=== PATIENT | female | born 1935 | race African-American/Black ===

== ENCOUNTER 2016-10-13 17:03 | Emergency (ER) | payer MEDICARE, MEDICAID ==
[2016-10-13] MEDS ORDERED: NORMAL SALINE 500 ML IV ONE (17:27)
--- NOTE | 2016-10-13 17:27 | ER Document Report ---
ED General - General Chief Complaint: Syncope Stated Complaint: SYNCOPAL EPISODE Mode of Arrival: Stretcher Information source: Emergency Med Personnel TRAVEL OUTSIDE OF THE [place] IN LAST 30 DAYS: No - HPI Notes: 81-year-old female presents from the residential after questionable syncopal episode. Coming back from the cafeteria, apparently she became unresponsive. No seizure activity was noted. After a short period of time to resume to her normal baseline. No clear focal neurologic symptoms were noted. They have noted no recent fever. Patient can give no other history secondary to her history of dementia and schizophrenia. - Related Data Allergies/Adverse Reactions: No Known Allergies Allergy (Verified 10/13/16 17:31) Home Medications: Current Home Medications Docusate Sodium [Dok] 100 mg PO DAILY 10/13/16 [History] Ferrous Sulfate 325 mg PO DAILY 10/13/16 [History] Haloperidol [Haldol 1 mg Tablet] 1 mg PO BID 10/13/16 [History] Multivits-Min/Iron/FA/Lutein [Centrum Silver Women Tablet] 1 each PO DAILY 10/13 [History] Past Medical History - Social History Smoking Status: Unknown if Ever Smoked [facility] with: [facility] Family History: Reviewed & Not Pertinent - Past Medical History Cardiac Medical History: Reports: Hx Coronary Artery Disease, Hx Hypercholesterolemia, Hx Hypertension Endocrine Medical History: Reports: Hx Diabetes Mellitus Type 2 Musculoskeltal Medical History: Reports Hx Arthritis, Reports Hx Musculoskeletal Deformity, Reports Hx Musculoskeletal Trauma Psychiatric Medical History: Reports: Hx Anxiety, Hx Depression, Hx Schizoaffective Disorder, Hx Schizophrenia - Immunizations Immunizations up to date: Yes Hx Diphtheria, Pertussis, Tetanus Vaccination: Yes Hx Pneumococcal Vaccination: 06/14/12 Review of Systems - Review of Systems -: Yes ROS unobtainable due to patient's medical condition Physical Exam - Vital signs Vitals: Temp Pulse Resp BP Pulse Ox 98.7 F 100 20 150/91 H 99 10/13/16 17:25 10/13/16 17:25 10/13/16 17:25 10/13/16 17:25 10/13/16 17:25 Interpretation: Hypotensive - Notes Notes: GENERAL: VS as per nursing doc. thin female with some contractures and in no acute distress. HEAD: Atraumatic, normocephalic. EYES: Extraocular movements intact, sclera anicteric, no conjunctival injection or discharge. ENT: Nares patent, oropharynx clear without exudates, somewhat dry mucous membranes. NECK: Supple without lymphadenopathy. LUNGS: Coarse with bibasilar crackles HEART: Regular rate and rhythm without murmurs. Extrasystoles noted ABDOMEN: Soft, non-tender. BACK: No CVA tenderness. EXTREMITIES: Contractures noted, there is a dressing over her right bunion which shows erythema surrounding NEUROLOGICAL: Moves all extremities but will not follow commands significantly. No gross focal deficits PSYCH: Oriented 1 SKIN: Warm, dry, poor skin turgor Course - Re-evaluation Re-evalutation: 10/13/16 19:18 Discussed findings with the family. She has chronic anemia. She has a urinary tract infection based on the UA but a culture will be performed. She is acting at baseline per family. We will treat her with a round of antibiotics here and then completion at the residential. - Vital Signs Vital signs: Temp Pulse Resp BP Pulse Ox 98.7 F 100 16 150/91 H 99 10/13/16 17:25 10/13/16 17:25 10/13/16 18:16 10/13/16 17:25 10/13/16 17:25 - Laboratory Result Diagrams: 10/13/16 17:15 10/13/16 17:15 Laboratory results interpreted by me: 10/13/16 10/13/16 10/13/16 17:15 17:15 17:15 RBC 3.37 L Hgb 9.0 L Hct 27.4 L MCH 26.8 L RDW 15.8 H VBG HCO3 32.4 H Glucose 123 H Total Protein 8.5 H Albumin 3.4 L Urine Protein Urine Blood Ur Leukocyte Esterase Urine Ascorbic Acid 10/13/16 18:11 RBC Hgb Hct MCH RDW VBG HCO3 Glucose Total Protein Albumin Urine Protein 30 H Urine Blood SMALL H Ur Leukocyte Esterase LARGE H Urine Ascorbic Acid 20 H - Diagnostic Test Radiology reviewed: Image reviewed, Reports reviewed - No acute process - EKG Interpretation by Me EKG shows normal: Sinus rhythm - Normal sinus rhythm, 97. No obvious ischemia, some nonspecific ST abnormalities, significant artifact noted Discharge - Discharge Clinical Impression: Syncope UTI (urinary tract infection) Qualifiers: Urinary tract infection type: acute cystitis Hematuria presence: without hematuria Qualified Code(s): N30.00 - Acute cystitis without hematuria Condition: Good Disposition: HOME, SELF-CARE Instructions: Urinary Tract Infection ([facility]) Prescriptions: Nitrofurantoin/Nitrofuran Mac [Macrobid 100 mg Capsule] 1 tab PO BID #14 capsule Referrals: KEISHA COFFEY MD [Primary Care Provider] - Follow up in 1 week
[2016-10-13 17:37] LABS: ABSOLUTE EOSINOPHILS # (AUTO) 0.2 10^3/uL (0.0-0.6); ABSOLUTE LYMPHOCYTES (AUTO) 0.7 10^3/uL (0.5-4.7); ABSOLUTE MONOCYTES (AUTO) 0.4 10^3/uL (0.1-1.4); ABSOLUTE NEUT (AUTO) 2.9 10^3/uL (1.7-8.2); BASOPHILS % (AUTO) 0.9 % (0-2); EOSINOPHILS % (AUTO) 3.6 % (0-6); HEMATOCRIT 27.4 % (36.0-47.0); HGB HCT DIFFERENCE -0.4; LYMPHOCYTES % (AUTO) 17.4 % (13-45); MEAN CORPUSCULAR HEMOGLOBIN 26.8 pg (27.0-33.4); MEAN CORPUSCULAR HGB CONC 32.8 g/dL (32.0-36.0); MEAN CORPUSCULAR VOLUME 82 fl (80-97); RED BLOOD COUNT 3.37 10^6/uL (3.72-5.28); RED CELL DISTRIBUTION WIDTH 15.8 % (11.5-14.0); SEGMENTED NEUTROPHILS % (AUTO) 69.1 % (42-78); WHITE BLOOD COUNT 4.1 10^3/uL (4.0-10.5)
[2016-10-13 17:48] LABS: VENOUS BLOOD HCO3 32.4 mmol/L (20-32); VENOUS BLOOD PCO2 53.8 mmHg (35-63); VENOUS BLOOD PH 7.4 (7.30-7.42)
[2016-10-13 17:57] LABS: ALANINE AMINOTRANSFERASE 26 U/L (9-52); ALBUMIN 3.4 g/dL (3.5-5.0); ALKALINE PHOSPHATASE 115 U/L (38-126); ANION GAP 13 (5-19); ASPARTATE AMINO TRANSFERASE 21 U/L (14-36); BILIRUBIN,DIRECT 0.4 mg/dL (0.0-0.4); BILIRUBIN,TOTAL 0.4 mg/dL (0.2-1.3); BLOOD UREA NITROGEN 19 mg/dL (7-20); CALCIUM 8.9 mg/dL (8.4-10.2); CARBON DIOXIDE 23 mmol/L (22-30); CHLORIDE 103 mmol/L (98-107); CREATINE KINASE 43 U/L (30-135); CREATININE RESULT 0.69 mg/dL (0.52-1.25); GLUCOSE 123 mg/dL (75-110); POTASSIUM 4.6 mmol/L (3.6-5.0); TOTAL PROTEIN 8.5 g/dL (6.3-8.2)
--- NOTE | 2016-10-13 18:04 | RADIOLOGY REPORT (SQ) ---
EXAM DESCRIPTION: CHEST SINGLE VIEW COMPLETED DATE/TIME: 10/13/2016 5:44 pm REASON FOR STUDY: AMS COMPARISON: 07/13/2015 NUMBER OF VIEWS: Portable AP view. 2 films TECHNIQUE: Single frontal radiographic view of the chest acquired. LIMITATIONS: Difficulty positioning. Semi upright portable FINDINGS: LUNGS AND PLEURA: No opacities, masses or pneumothorax. No pleural effusion. MEDIASTINUM AND HILAR STRUCTURES: No masses. Contour normal. HEART AND VASCULAR STRUCTURES: Heart normal in size. Normal vasculature. BONES: No acute findings. HARDWARE: None in the chest. OTHER: No other significant finding. IMPRESSION: NO SIGNIFICANT RADIOGRAPHIC FINDING IN THE CHEST. TECHNICAL DOCUMENTATION: JOB ID: [id number] [employer]- All Rights Reserved
[2016-10-13 18:09] LABS: CREATINE KINASE MB 1.38 ng/mL (<4.55)
[2016-10-13 18:12] LABS: TROPONIN I < 0.012 ng/mL
[2016-10-13 18:27] LABS: APPEARANCE,URINE CLOUDY; BILIRUBIN,URINE NEGATIVE (NEGATIVE); GLUCOSE, URINE NEGATIVE (NEGATIVE); KETONES,URINE NEGATIVE (NEGATIVE); LEUKOCYTE ESTERASE,URINE LARGE (NEGATIVE); NITRITE,URINE NEGATIVE (NEGATIVE); PROTEIN,URINE 30 mg/dL (NEGATIVE); URINE SPECIFIC GRAVITY 1.015; UROBILINOGEN,URINE NEGATIVE mg/dL (<2.0)
[2016-10-13] MEDS ORDERED: CEFTRIAXONE 1 GM/D5W RTU 50 ML IV ONE (19:18)
[2016-10-14 03:46] VITALS: BP 124/70
--- NOTE | 2016-10-14 06:03 | EKG REPORT ---
SEVERITY:- NORMAL ECG - SINUS RHYTHM : Confirmed by: Karine Valenzuela MD 14-Oct-2016 06:02:37
== END 2016-10-14 03:30 | disposition home or self-care (01) ==
LOC: ER 17:03
DX: R55 Syncope and collapse (principal); N30.00 Acute cystitis without hematuria; F03.90 Unspecified dementia, unspecified severity, without behavioral disturbance, psychotic disturbance, mood disturbance, and anxiety; F20.9 Schizophrenia, unspecified; I25.10 Atherosclerotic heart disease of native coronary artery without angina pectoris; I10 Essential (primary) hypertension; E11.9 Type 2 diabetes mellitus without complications; I49.49 Other premature depolarization; M21.611 Bunion of right foot; L53.9 Erythematous condition, unspecified; D64.9 Anemia, unspecified
CPT/HCPCS: 93005; 99285; 96361; 51701; 96365; 36415; 87086; 82553; 82550; 85025; 80053; 81001; 84484; 82803; 83605; 71010; 93010; J7040; J0696

== ENCOUNTER → 2016-10-24 | Outpatient (CLI) | payer MEDICARE, MEDICAID ==
--- NOTE | 2016-10-24 11:07 | RADIOLOGY REPORT (SQ) ---
EXAM DESCRIPTION: FOOT RIGHT COMPLETE COMPLETED DATE/TIME: 10/24/2016 10:35 am REASON FOR STUDY: NON-PRESSURE CHRONIC ULCER OF RIGHT CALF W FAT LAYER EXPOSED (L97.212) L97.212 NO N-PRESSURE CHRONIC ULCER OF RIGHT CALF W FAT LAYER COMPARISON: None. NUMBER OF VIEWS: Three views. TECHNIQUE: AP, lateral and oblique radiographic images acquired of the right foot. LIMITATIONS: None. FINDINGS: MINERALIZATION: Osteopenia. BONES: No acute fracture or dislocation. Hallux valgus with a prominent bunion. The medial cortex o f the head of the 1st metatarsal may be missing. JOINTS: No effusions. SOFT TISSUES: No soft tissue swelling. No foreign body. OTHER: No other significant finding. IMPRESSION: Hallux valgus with a prominent bunion. Osteomyelitis cannot be ruled out. Consider MRI for further evaluation. TECHNICAL DOCUMENTATION: JOB ID: [id number] [employer]- All Rights Reserved
== END ==
LOC: RAD 09:54
PROVIDERS: ATTEND Nurse Practitioner Family
DX: L97.212 Non-pressure chronic ulcer of right calf with fat layer exposed (principal); M20.11 Hallux valgus (acquired), right foot; M21.611 Bunion of right foot

== ENCOUNTER 2016-12-06 11:53 | Day surgery (SDC) | payer MEDICARE, MEDICAID ==
[~2016-12-06 11:53] MED LIST: DEXTROSE 5%-1/2 NORMAL SALINE 1,000 ML IV PRN; KETOROLAC TROMETHAMINE 60 MG/2 ML SDV ONE; LIDOCAINE 2% INJ-PF (20 MG/ML) 10 ML AMPUL ONE
[2016-12-06] MEDS ORDERED: BUPIVACAINE HCL 0.25 % INJ/PF (2.5 MG/1 ML) 30 ML VIAL ONE (13:22)
[2016-12-06] MEDS ORDERED: LIDOCAINE 0.5% INJ-PF (5 MG/ML) 50 ML SDV ONE (13:22)
[2016-12-06] MEDS ORDERED: BACITRACIN INJ 50,000 UNIT VIAL ONE (13:23)
[2016-12-06] MEDS ORDERED: MIDAZOLAM 2 MG/2 ML INJ ONE (13:24)
[2016-12-06] MEDS ORDERED: FENTANYL CITRATE INJ/PF 100 MCG/2 ML AMPUL ONE (13:24)
[2016-12-06] MEDS ORDERED: PROPOFOL INJ 200 MG/20 ML VIAL IV ONE (13:24)
[2016-12-06 13:39] LABS: ANION GAP 8 (5-19); BLOOD UREA NITROGEN 16 mg/dL (7-20); CARBON DIOXIDE 28 mmol/L (22-30); CHLORIDE 104 mmol/L (98-107); CREATININE RESULT 0.52 mg/dL (0.52-1.25); GLUCOSE 98 mg/dL (75-110); HEMATOCRIT 28.4 % (36.0-47.0); HEMOGLOBIN 9.3 g/dL (12.0-15.5); HGB HCT DIFFERENCE -0.5; MEAN CORPUSCULAR HEMOGLOBIN 26.5 pg (27.0-33.4); MEAN CORPUSCULAR HGB CONC 32.8 g/dL (32.0-36.0); MEAN CORPUSCULAR VOLUME 81 fl (80-97); POTASSIUM 4.1 mmol/L (3.6-5.0); RED BLOOD COUNT 3.51 10^6/uL (3.72-5.28); SODIUM 139.6 mmol/L (137-145)
[2016-12-06] MEDS ORDERED: FENTANYL CITRATE INJ/PF 100 MCG/2 ML AMPUL IV PRN ×3 (14:00)
[2016-12-06] MEDS ORDERED: MORPHINE SULFATE 10 MG/ML INJ IV PRN (14:00)
[2016-12-06] MEDS ORDERED: PROMETHAZINE HCL INJ 25 MG/1 ML VIAL IV PRN ×2 (14:00)
[2016-12-06] MEDS ORDERED: OXYCODONE-ACETAMINOPHEN 5-325 MG TABLET PO PRN ×2 (14:00)
[2016-12-06] MEDS ORDERED: DIPHENHYDRAMINE HCL 50 MG/ML VIAL IV PRN (14:00)
[2016-12-06] MEDS ORDERED: MEPERIDINE HCL/PF INJ 25 MG/1 ML DISP.SYRIN IV PRN (14:00)
--- NOTE | 2016-12-06 14:19 | PDOC DISCHARGE SUMMARY ---
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 2. Dementia. 3. Diabetes mellitus type 2. 4. Hypertension. Date of Surgery: 12/06/16 Discharge Date: 12/06/16 Condition: Poor Treatment or Instructions: Discharge home [after recovery per ASU criteria]. Diet , ADA,as tolerated, when fully awake advance as tolerated. Activities within moderation encouraged. Follow up in wound clinic by appointment on Monday of this week. Call for appointment. Leave wounds [covered], [keep clean and dry, until wound care visit. Hold of on school/work [until evaluation in office]. May shower [in 48 hrs], [try to keep operated area as dry as possible]. Referrals: KEISHA COFFEY MD [Primary Care Provider] - Discharge Diet: Other (Comments) - ADA Respiratory Treatments at Home: Deep Breathing/Coughing Discharge Activity: Activity As Tolerated Report the Following to Your Physician Immediately: Shortness of Breath, Unusual Bleeding
--- NOTE | 2016-12-06 14:24 | Operative Report ---
Operative Report DATE OF SURGERY: 12/06/16 PREOPERATIVE DIAGNOSIS: #1 osteomyelitis first metatarsal joint right foot. Diabetic foot ulcers. 2. Dementia. 3. Diabetes mellitus type 2. 4. Hypertension. 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 Diabetic foot ulcers. 2. Dementia. 3. Diabetes mellitus type 2. 4. Hypertension. OPERATION: Debridement of diabetic foot ulcers right foot removal of necrotic bone. Surgical, sharp, excisional. SURGEON: ELTON VU NETWORK DIRECTOR: None ANESTHESIA: LMAC TISSUE REMOVED OR ALTERED: Necrotic tendon and bone of the first MP joint including cartilage. Necrotic tendon over the lateral malleolus. COMPLICATIONS: None ESTIMATED BLOOD LOSS: 5 mL. INTRAOPERATIVE FINDINGS: Very soft necrotic bone and cartilage at the first metatarsal joint. Removed back to healthy tissue. Necrotic tendon over the lateral malleolus. Removed. Satisfactory remaining apparent vascularity. Good control of bleeding using Surgicel and bone wax. PROCEDURE: PROCEDURE: The procedure was embarked on with the objective of removing necrotic and nonhealing tissues including bone and the first metatarsal joints. In this elderly patient who is not a candidate for aggressive therapy including HBO and long-term antibiotic, it is hoped that the breathing of the necrotic materials will allow for granulation and eventual healing of the wound. The alternatives including amputation were discussed with her family previously. The [right foot]was prepared with [Betadine] and draped out with sterile linen. After the"universal time-out",, the procedure commenced. The patient was appropriately anesthetized. The medial metatarsal wound and bone was debrided of non viable tissue using[ Rongeurs] with removal of loose debris, as well. The wound was irrigated with [ Peroxide] . The lateral malleolus wound was not debrided using rongeurs. The tissue, from both debridements, were sent for pathology..The wounds were now irrigated with saline and [Surgicel] placed within it, then bone wax, molded into the resulting cavities, dressed with [Kerlix] and the procedure concluded.
--- NOTE | 2016-12-06 14:42 | PDOC DISCHARGE SUMMARY ---
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 2. Dementia. 3. Diabetes mellitus type 2. 4. Hypertension. Date of Surgery: 12/06/16 Condition: Poor Treatment or Instructions: Discharge home [after recovery per ASU criteria]. Diet , ADA,as tolerated, when fully awake advance as tolerated. Activities within moderation encouraged. Follow up in wound clinic by appointment on Monday of this week. Call for appointment. Leave wounds [covered], [keep clean and dry, until wound care visit. Hold of on school/work [until evaluation in office]. May shower [in 48 hrs], [try to keep operated area as dry as possible]. Referrals: KEISHA COFFEY MD [Primary Care Provider] - Respiratory Treatments at Home: Deep Breathing/Coughing Discharge Activity: Activity As Tolerated Report the Following to Your Physician Immediately: Shortness of Breath, Unusual Bleeding
[2016-12-06 17:41] VITALS: BP 140/81
--- NOTE | 2016-12-06 20:12 | EKG REPORT ---
SEVERITY:- ABNORMAL ECG - SINUS TACHYCARDIA : Confirmed by: Annie Reddy 06-Dec-2016 20:11:19
--- NOTE | 2016-12-22 17:12 | OPERATIVE REPORT E ---
Operative Report NAME: SURINDER NORTON : 1935 AGE: 81Y DATE OF SURGERY: 12/06/2016 ROOM: ADDENDUM: INTRAOPERATIVE FINDINGS: ' The necrotic wound at the first metatarsal measures 2 x 2-cm x 1-cm deep. After debridement, it was 2 cm deep. DICTATING PHYSICIAN: ELTON BUENO M.D. [id number] PHY#: [id number] ID: [id number] JOB#: [id number] ACCT: [id number] cc:ELTON BUENO M.D. >
== END 2016-12-06 16:10 ==
LOC: OROUT 11:53
PROVIDERS: ATTEND Surgery
PROC: 0QBN0ZZ Excision of Right Metatarsal, Open Approach (ICD-10-PCS; principal; 2016-12-06 14:00)
DX: E11.621 Type 2 diabetes mellitus with foot ulcer (principal); F03.90 Unspecified dementia, unspecified severity, without behavioral disturbance, psychotic disturbance, mood disturbance, and anxiety; E11.9 Type 2 diabetes mellitus without complications; I10 Essential (primary) hypertension; M19.90 Unspecified osteoarthritis, unspecified site; Z86.73 Personal history of transient ischemic attack (TIA), and cerebral infarction without residual deficits; Z79.899 Other long term (current) drug therapy; K21.9 Gastro-esophageal reflux disease without esophagitis
CPT/HCPCS: 36415; 85027; 80048; 88305 ×2; 88311; 93005; 93010; 11044; J2250; J3490 ×3; J1885; J3010; J2704; 1480

== ENCOUNTER 2016-12-31 10:06 | Emergency (ER) | payer MEDICARE, MEDICAID ==
--- NOTE | 2016-12-31 11:02 | RADIOLOGY REPORT (SQ) ---
EXAM DESCRIPTION: KUB/ABDOMEN (SINGLE VIEW) COMPLETED DATE/TIME: 12/31/2016 10:44 am REASON FOR STUDY: constipation? COMPARISON: None. NUMBER OF VIEWS: One view. TECHNIQUE: Supine radiographic image of the abdomen acquired. LIMITATIONS: None. FINDINGS: BOWEL GAS PATTERN: Normal bowel gas pattern. No dilated loops. CONSTIPATION: marked with the stool distending the rectal vault. CALCIFICATIONS: No suspicious calcifications. SOFT TISSUES: No gross mass or suggestion of organomegaly. HARDWARE: None in the abdomen. BONES: No acute fracture. No worrisome bone lesions. OTHER: No other significant finding. IMPRESSION: NO RADIOGRAPHIC EVIDENCE FOR ACUTE ABDOMINAL DISEASE. Marked constipation. TECHNICAL DOCUMENTATION: JOB ID: [id number] [employer]- All Rights Reserved
[2016-12-31] MEDS ORDERED: LIDOCAINE 2% URO-JET 5 ML KIT MM ONE (11:35)
--- NOTE | 2016-12-31 12:12 | ER Document Report ---
ED General - General Chief Complaint: Weakness Stated Complaint: WEAKNESS Time Seen by Provider: 12/31/16 10:12 TRAVEL OUTSIDE OF THE [place] IN LAST 30 DAYS: No - HPI Patient complains to provider of: Constipation Notes: Patient is brought in today from local senior care facility via EMS at the request of patient's love one. EMS states the patient's blood 1 1 the patient to be brought by EMS to the hospital for evaluation. Upon entering the room patient was to be in no acute distress has a history of significant dementia. Patient's Levaquin pressure self as a power of prosecuting attorney states that the patient is constipated and will like for her to be evaluated for constipation. [facility] notes indicate that the patient has had multiple bowel movements for the last few days. I asked the caregiver why she thought the patient was constipated to which she replied "I just know" as the caregiver the patient was baseline to which she said no I further asked the patient's caregiver to the effect of how the patient is different from any other day to which the caregiver state "I do not know your doctor you figure it out.," Caregiver is not a great historian for the patient's care most of the previous medical history is obtained from previous visits and senior care notes. Patient is otherwise nonverbal at this time again no obvious distress - Related Data Allergies/Adverse Reactions: No Known Allergies Allergy (Verified 10/13/16 17:31) Past Medical History - Social History Smoking Status: Unknown if Ever Smoked Frequency of alcohol use: None Drug Abuse: None Family History: Reviewed & Not Pertinent - Past Medical History Cardiac Medical History: Reports: Hx Coronary Artery Disease, Hx Hypercholesterolemia, Hx Hypertension Denies: Hx Heart Attack Pulmonary Medical History: Denies: Hx Asthma, Hx Bronchitis, Hx COPD, Hx Pneumonia Neurological Medical History: Denies: Hx Cerebrovascular Accident, Hx Seizures Endocrine Medical History: Reports: Hx Diabetes Mellitus Type 2 Musculoskeltal Medical History: Reports Hx Arthritis, Reports Hx Musculoskeletal Deformity, Reports Hx Musculoskeletal Trauma Psychiatric Medical History: Reports: Hx Anxiety, Hx Depression, Hx Schizoaffective Disorder, Hx Schizophrenia - Immunizations Immunizations up to date: Yes Hx Diphtheria, Pertussis, Tetanus Vaccination: Yes Hx Pneumococcal Vaccination: 06/14/12 Review of Systems - Review of Systems -: Yes ROS unobtainable due to patient's medical condition - Dementia Physical Exam - Vital signs Vitals: Temp Pulse Resp BP Pulse Ox 97.9 F 103 H 20 117/64 100 12/31/16 10:09 12/31/16 10:09 12/31/16 10:09 12/31/16 10:09 12/31/16 10:09 Interpretation: Normal - General General appearance: Appears well, Alert - HEENT Head: Normocephalic, Atraumatic Eyes: Normal Pupils: PERRL - Respiratory Respiratory status: No respiratory distress Chest status: Nontender Breath sounds: Normal Chest palpation: Normal - Cardiovascular Rhythm: Regular Heart sounds: Normal auscultation Murmur: No - Abdominal Inspection: Normal Distension: No distension Bowel sounds: Normal Tenderness: Nontender Organomegaly: No organomegaly - Rectal Notes: Patient has signs of a healing decubitus ulcer on her buttocks. Upon performing a rectal exam patient did have a bowel movement rectal exam reveals soft stool in the rectal vault. - Back Back: Normal, Nontender - Extremities General upper extremity: Normal inspection, Nontender, Normal color General lower extremity: Normal inspection, Nontender, Normal color - Neurological Neuro grossly intact: Yes Sensory: Normal - Psychological Associated symptoms: Normal affect - Skin Skin Temperature: Warm Skin Moisture: Dry Skin Color: Normal Course - Re-evaluation Re-evalutation: 12/31/16 15:41 X-ray does show constipation however with the senior care history of multiple bowel movements and the patient having a bowel movement here in ER did not feel the patient warrants any further evaluation. Abdominal exam is otherwise benign there is no tenderness there is no guarding or rebound no signs of any surgical pathology or surgical abdomen. Discharge documentation was prepared and patient was to be discharged back to senior care facility patient's tailor men's ready to wear had since that time left the room upon EMS arrival to take the patient back to the senior care facility the patient's tailor men's ready to wear reappeared tailor men's ready to wear stated that she did not want the patient go back to the senior care and wanted her constipation "taken care of here in the hospital" explained to the tailor men's ready to wear that there was no further treatment required here in the hospital that the patient can be discharged back to the senior care. Credentialing Analyst requesting copies of the laboratory studies and radiology reports. A copy of the radiology report was given to the tailor men's ready to wear explained to the tailor men's ready to wear that there is no need for any laboratory studies at this time as the patient has normal vital signs do not otherwise physical examination showing no critical pathology. Again tailor men's ready to wear stating that she would not allow the pt to go back to the senior care however I explained that the tailor men's ready to wear would have to take responsibility for the patient and take the patient home with her. The tailor men's ready to wear stated that she cannot do this as her home was not acceptable for the patient I did have our charge nurse called the automatic data processing planner and also charge nurse did discuss plan of care with the patients poa. eventually the tailor men's ready to wear agreed to have the patient return back to the senior care. Again I d do not see any critical pathology - Vital Signs Vital signs: Temp Pulse Resp BP Pulse Ox 97.9 F 99 16 125/82 96 12/31/16 10:09 12/31/16 12:20 12/31/16 12:20 12/31/16 12:20 12/31/16 12:20 Discharge - Discharge Clinical Impression: Constipation Qualifiers: Constipation type: unspecified constipation type Qualified Code(s): K59.00 - Constipation, unspecified Condition: Good Disposition: HOME-ASSISTED LIVING Unit Admitted: Surgical Floor Instructions: Constipation ([facility]) Additional Instructions: According to caregiver her concerns were that the Patient was constipated. Examination of revealing critical findings. A single view x-ray does show stool retention in the rectal vault radiologist read as constipation. Rectal exam reveals stool in the patient's diaper soft stool in rectal vault no signs of impaction recommend Senokot S or some other oral stool softener laxative patient can be discharged back to the senior care facility and follow-up with your primary care physician in the next 2-3 days Prescriptions: Sennosides/Docusate Sodium [Senna-S Tablet] 1 each PO DAILY #30 tablet Referrals: KEISHA COFFEY MD [Primary Care Provider] - Follow up as needed
[2016-12-31 12:22] VITALS: BP 125/82
== END 2016-12-31 12:55 | disposition home health service (06) ==
LOC: ER 10:06
DX: K59.00 Constipation, unspecified (principal); R53.1 Weakness
CPT/HCPCS: 99285; 74000; A9270; J3490

== ENCOUNTER 2017-03-14 13:21 | Emergency (ER) | payer MEDICARE, MEDICAID ==
--- NOTE | 2017-03-14 14:26 | ER Document Report ---
ED General - General Stated Complaint: ALTERED MENTAL STATUS Time Seen by Provider: 03/14/17 14:23 Mode of Arrival: Medic Information source: Transfer Record, [facility] Records, Outside Facility Records Cannot obtain history due to: Other - Schizoaffective disorder nonverbal at baseline TRAVEL OUTSIDE OF THE [place] IN LAST 30 DAYS: No - HPI Patient complains to provider of: Patient sent over for abnormal vital signs. P 90/50 respiratory rate 15 Onset: Just prior to arrival Context: Patient sent from senior living for blood pressure of 90/50 respiratory rate 15 pulse ox 95 and blood sugar 170 Associated symptoms: None - Related Data Allergies/Adverse Reactions: No Known Allergies Allergy (Verified 10/13/16 17:31) Past Medical History - General Information source: Transfer Record, [facility] Records - Social History Smoking Status: Unknown if Ever Smoked Family History: Reviewed & Not Pertinent - Past Medical History Cardiac Medical History: Reports: Hx Coronary Artery Disease, Hx Hypercholesterolemia, Hx Hypertension Denies: Hx Heart Attack Pulmonary Medical History: Denies: Hx Asthma, Hx Bronchitis, Hx COPD, Hx Pneumonia Neurological Medical History: Denies: Hx Cerebrovascular Accident, Hx Seizures Endocrine Medical History: Reports: Hx Diabetes Mellitus Type 2 Musculoskeltal Medical History: Reports Hx Arthritis, Reports Hx Musculoskeletal Deformity, Reports Hx Musculoskeletal Trauma Psychiatric Medical History: Reports: Hx Anxiety, Hx Depression, Hx Schizoaffective Disorder - Immunizations Immunizations up to date: Yes Hx Diphtheria, Pertussis, Tetanus Vaccination: Yes Hx Pneumococcal Vaccination: 06/14/12 Review of Systems - Review of Systems -: Yes ROS unobtainable due to patient's medical condition Physical Exam - Vital signs Vitals: Resp 20 03/14/17 13:30 Rectal temp 97.6 blood pressure 130/80 - Notes Notes: PHYSICAL EXAMINATION: GENERAL: Ill-appearing laying in bed contractures of arms and legs no apparent distress. HEAD: Atraumatic, normocephalic. EYES: Pupils equal round and reactive to light, extraocular movements intact, conjunctiva are normal. ENT: Nares patent. Moist mucous membranes. NECK: Trachea midline no adenopathy LUNGS: Breath sounds clear to auscultation bilaterally and equal. No wheezes rales or rhonchi. HEART: Regular rate and rhythm without murmurs ABDOMEN: Soft, nontender, nondistended abdomen. No guarding, no rebound. No masses appreciated. Female : deferred Musculoskeletal: Fractures bilateral upper and lower extremities. No open wounds. NEUROLOGICAL: Nonverbal. Does not follow commands. His eyes spontaneously. PSYCH: Flat affect SKIN: Warm, Dry, normal turgor, no rashes or lesions noted. Course - Vital Signs Vital signs: Temp Pulse Resp BP Pulse Ox 97.6 F 16 144/82 H 98 03/14/17 15:13 03/14/17 17:01 03/14/17 17:01 03/14/17 17:01 - Laboratory Result Diagrams: 03/14/17 16:30 03/14/17 16:30 Laboratory results interpreted by me: 03/14/17 03/14/17 03/14/17 16:08 16:30 16:30 RBC 3.59 L Hgb 9.6 L Hct 28.7 L MCH 26.8 L RDW 17.2 H Seg Neutrophils % 79.4 H Lymphocytes % 11.9 L Alkaline Phosphatase 136 H Albumin 3.4 L Urine Protein 30 H Urine Urobilinogen 2.0 H Ur Leukocyte Esterase TRACE H Discharge - Discharge Clinical Impression: Failure to thrive in adult, Anemia, Schizo-affective schizophrenia Disposition: SNF-Other Additional Instructions: Please have patient follow-up with her primary medical doctor as needed. A urine culture was sent and if positive the nursing facility will be notified.
--- NOTE | 2017-03-14 15:09 | RADIOLOGY REPORT (SQ) ---
EXAM DESCRIPTION: CHEST SINGLE VIEW COMPLETED DATE/TIME: 03/14/2017 2:57 pm REASON FOR STUDY: mental status change COMPARISON: CT angio chest 06/16/2015 AP chest 06/11/2015, 07/13/2015, 10/13/2016 EXAM PARAMETERS: NUMBER OF VIEWS: One view. TECHNIQUE: Single frontal radiographic view of the chest acquired. RADIATION DOSE: NA LIMITATIONS: None. FINDINGS: LUNGS AND PLEURA: No opacities, masses or pneumothorax. No pleural effusion. MEDIASTINUM AND HILAR STRUCTURES: No masses. Contour normal. HEART AND VASCULAR STRUCTURES: Heart normal in size. Normal vasculature. BONES: Osteopenic HARDWARE: None in the chest. OTHER: No other significant finding. IMPRESSION: NO ACUTE RADIOGRAPHIC FINDING IN THE CHEST. TECHNICAL DOCUMENTATION: JOB ID: [id number] [employer]- All Rights Reserved
[2017-03-14 16:27] LABS: APPEARANCE,URINE SLIGHTLY-CLOUDY; BILIRUBIN,URINE NEGATIVE (NEGATIVE); GLUCOSE, URINE NEGATIVE (NEGATIVE); KETONES,URINE NEGATIVE (NEGATIVE); LEUKOCYTE ESTERASE,URINE TRACE (NEGATIVE); NITRITE,URINE NEGATIVE (NEGATIVE); PROTEIN,URINE 30 mg/dL (NEGATIVE); URINE SPECIFIC GRAVITY 1.014
[2017-03-14 16:37] LABS: ABSOLUTE EOSINOPHILS # (AUTO) 0.1 10^3/uL (0.0-0.6); ABSOLUTE LYMPHOCYTES (AUTO) 0.6 10^3/uL (0.5-4.7); ABSOLUTE MONOCYTES (AUTO) 0.3 10^3/uL (0.1-1.4); BASOPHILS % (AUTO) 0.8 % (0-2); EOSINOPHILS % (AUTO) 2.2 % (0-6); HEMATOCRIT 28.7 % (36.0-47.0); HEMOGLOBIN 9.6 g/dL (12.0-15.5); HGB HCT DIFFERENCE 0.1; LYMPHOCYTES % (AUTO) 11.9 % (13-45); MEAN CORPUSCULAR HEMOGLOBIN 26.8 pg (27.0-33.4); MEAN CORPUSCULAR HGB CONC 33.4 g/dL (32.0-36.0); MEAN CORPUSCULAR VOLUME 80 fl (80-97); MONOCYTES % (AUTO) 5.7 % (3-13); RED BLOOD COUNT 3.59 10^6/uL (3.72-5.28); RED CELL DISTRIBUTION WIDTH 17.2 % (11.5-14.0); SEGMENTED NEUTROPHILS % (AUTO) 79.4 % (42-78)
[2017-03-14 17:01] LABS: ALANINE AMINOTRANSFERASE 25 U/L (9-52); ALBUMIN 3.4 g/dL (3.5-5.0); ALKALINE PHOSPHATASE 136 U/L (38-126); ANION GAP 12 (5-19); ASPARTATE AMINO TRANSFERASE 19 U/L (14-36); BILIRUBIN,DIRECT 0.1 mg/dL (0.0-0.4); BILIRUBIN,TOTAL 0.2 mg/dL (0.2-1.3); BLOOD UREA NITROGEN 16 mg/dL (7-20); CALCIUM 8.9 mg/dL (8.4-10.2); CARBON DIOXIDE 27 mmol/L (22-30); CHLORIDE 101 mmol/L (98-107); CREATINE KINASE 32 U/L (30-135); CREATININE RESULT 0.55 mg/dL (0.52-1.25); GLUCOSE 97 mg/dL (75-110); MAGNESIUM 1.8 mg/dL (1.6-2.3); POTASSIUM 4.5 mmol/L (3.6-5.0); SODIUM 140.3 mmol/L (137-145); TOTAL PROTEIN 8.1 g/dL (6.3-8.2)
[2017-03-14 17:13] LABS: CREATINE KINASE MB 0.98 ng/mL (<4.55)
[2017-03-14 17:14] LABS: TROPONIN I < 0.012 ng/mL
[2017-03-14 17:58] VITALS: BP 144/88
== END 2017-03-14 18:38 ==
LOC: ER 13:21
DX: R62.7 Adult failure to thrive (principal); D64.9 Anemia, unspecified; F20.9 Schizophrenia, unspecified; R41.82 Altered mental status, unspecified
CPT/HCPCS: 36415; 51701; 71010; 80053; 81001; 82550; 82553; 83735; 84484; 85025; 87086; 99285

== ENCOUNTER 2017-08-15 12:33 | Inpatient (IN) | payer MEDICARE, MEDICAID ==
[2017-08-15] MEDS ORDERED: NORMAL SALINE 1000 ML 1,000 ML IV ONE ×2 (12:39→14:09)
[2017-08-15 13:35] LABS: HEMATOCRIT 34.7 % (36.0-47.0); HEMOGLOBIN 11.6 g/dL (12.0-15.5); MEAN CORPUSCULAR HEMOGLOBIN 28.1 pg (27.0-33.4); MEAN CORPUSCULAR HGB CONC 33.4 g/dL (32.0-36.0); MEAN CORPUSCULAR VOLUME 84 fl (80-97); PLATELET COUNT 272 10^3/uL (150-450); RED BLOOD COUNT 4.12 10^6/uL (3.72-5.28); WHITE BLOOD COUNT 12.9 10^3/uL (4.0-10.5)
--- NOTE | 2017-08-15 13:41 | EKG REPORT ---
SEVERITY:- OTHERWISE NORMAL ECG - SINUS TACHYCARDIA LEFT AXIS DEVIATION : Confirmed by: Luis Mak MD 15-Aug-2017 13:40:40
[2017-08-15 13:56] LABS: AMORPHOUS SEDIMENT,URINE TRACE /HPF; APPEARANCE,URINE CLOUDY; BILIRUBIN,URINE NEGATIVE (NEGATIVE); GLUCOSE, URINE NEGATIVE (NEGATIVE); KETONES,URINE NEGATIVE (NEGATIVE); LEUKOCYTE ESTERASE,URINE LARGE (NEGATIVE); NITRITE,URINE NEGATIVE (NEGATIVE); PROTEIN,URINE NEGATIVE (NEGATIVE); URINE SPECIFIC GRAVITY 1.015
[2017-08-15 13:58] LABS: ALANINE AMINOTRANSFERASE 23 U/L (9-52); ALBUMIN 3.5 g/dL (3.5-5.0); ALKALINE PHOSPHATASE 122 U/L (38-126); ANION GAP 12 (5-19); ASPARTATE AMINO TRANSFERASE 25 U/L (14-36); BILIRUBIN,DIRECT 0.3 mg/dL (0.0-0.4); BILIRUBIN,TOTAL 0.4 mg/dL (0.2-1.3); BLOOD UREA NITROGEN 23 mg/dL (7-20); CALCIUM 9.2 mg/dL (8.4-10.2); CARBON DIOXIDE 26 mmol/L (22-30); CHLORIDE 104 mmol/L (98-107); COLOR,URINE DARK YELLOW; GLUCOSE 119 mg/dL (75-110); NEONATAL BILIRUBIN RESULT 0.1 mg/dL (0.1-1.1); POTASSIUM 4.4 mmol/L (3.6-5.0); SODIUM 141.7 mmol/L (137-145); TOTAL PROTEIN 8.2 g/dL (6.3-8.2)
[2017-08-15] MEDS ORDERED: CEFTRIAXONE RTU 1 GM/D5W 50 ML IV ONE (14:09)
[2017-08-15 14:10] LABS: ABSOLUTE LYMPHOCYTES# (MANUAL) 0.8 10^3/uL (0.5-4.7); ABSOLUTE MONOCYTES # (MANUAL) 0.6 10^3/uL (0.1-1.4); ABSOLUTE NEUTROPHILS# (MANUAL) 11.5 10^3/uL (1.7-8.2); BAND NEUTROPHILS % (MANUAL) 1 % (3-5); BASOPHILS % (MANUAL) 0 % (0-2); EOSINOPHILS % (MANUAL) 0 % (0-6); LYMPHOCYTES % (MANUAL) 6 % (13-45); MONOCYTES % (MANUAL) 5 % (3-13); SEGMENTED NEUTROPHILS % (MAN) 88 % (42-78); TOTAL CELLS COUNTED 100
[2017-08-15 14:14] LABS: ANISOCYTOSIS 1+; PLATELET COMMENT ADEQUATE; TOXIC GRANULATION SLIGHT; TOXIC VACUOLATION PRESENT
--- NOTE | 2017-08-15 14:24 | ER Document Report ---
ED GI/ - General Chief Complaint: Diarrhea Stated Complaint: FEVER Time Seen by Provider: 08/15/17 12:38 Notes: Patient is an 81-year-old female coming from [facility] secondary to a fever and diarrhea. They provided 975 mg a rectal Tylenol. They state that the patient was more lethargic with a temperature 101.6. EMS states no runny nose, congestion, or cough. They state the patient is normally nonverbal. No information was provided by [facility] in transport. TRAVEL OUTSIDE OF THE [place] IN LAST 30 DAYS: No - HPI Patient complains to provider of: Other - See above Onset: Yesterday Timing/Duration: Gradual Quality of pain: Achy Severity at maximum: Mild Severity in ED: Mild Location: Other - Unable to obtain secondary to pt's condition - Related Data Allergies/Adverse Reactions: No Known Allergies Allergy (Verified 10/13/16 17:31) Past Medical History - General Information source: Emergency Med Personnel, Outside Facility Records - Social History Smoking Status: Unknown if Ever Smoked Cigarette use (# per day): No Chew tobacco use (# tins/day): No Smoking Education Provided: No Family History: Reviewed & Not Pertinent - Past Medical History Cardiac Medical History: Reports: Hx Coronary Artery Disease, Hx Hypercholesterolemia, Hx Hypertension Denies: Hx Heart Attack Pulmonary Medical History: Denies: Hx Asthma, Hx Bronchitis, Hx COPD, Hx Pneumonia Neurological Medical History: Denies: Hx Cerebrovascular Accident, Hx Seizures Endocrine Medical History: Reports: Hx Diabetes Mellitus Type 2 Renal/ Medical History: Denies: Hx Peritoneal Dialysis Musculoskeltal Medical History: Reports Hx Arthritis, Reports Hx Musculoskeletal Deformity, Reports Hx Musculoskeletal Trauma Psychiatric Medical History: Reports: Hx Anxiety, Hx Depression, Hx Schizoaffective Disorder, Hx Schizophrenia - Immunizations Immunizations up to date: Yes Hx Diphtheria, Pertussis, Tetanus Vaccination: Yes Hx Pneumococcal Vaccination: 06/14/12 Review of Systems - Review of Systems -: Yes ROS unobtainable due to patient's medical condition Physical Exam - Vital signs Vitals: Temp 101.0 F H 08/15/17 12:35 Notes: Reviewed vital signs and nursing note as charted by RN. CONSTITUTIONAL: Alert and tracks but is currently not speaking HEAD: Normocephalic; atraumatic EYES: PERRL ENT: Normal nose; no rhinorrhea; moist mucous membranes NECK: Supple without meningismus; non-tender; no cervical lymphadenopathy, no masses CARD: Tachycardic; no murmurs, no clicks, no rubs, no gallops; symmetric distal pulses RESP: Normal chest excursion without splinting or tachypnea; breath sounds clear and equal bilaterally; no wheezes, no rhonchi, no rales ABD/GI: Normal bowel sounds; non-distended; soft, non-tender, no rebound, no guarding; no palpable organomegaly or masses GI/: Patient does have some brownish persistent diarrhea without any obvious perirectal lesions present BACK: The back appears normal and is non-tender to palpation EXT: Normal ROM in all joints; non-tender to palpation; no cyanosis, no effusions, no edema SKIN: Normal color for age and race; warm; dry; good turgor; capillary refill < 2 seconds NEURO: Moves all extremities equally; Motor and sensory function intact Course - Re-evaluation Re-evalutation: [facility]ola at the residential per phone call states that the pt was more lethargic and less responsive. HR 101 and temperature of 101. PCP Dr. Honeycutt. States speaks at baseline. Says "a few words". History as recorded including schizophrenia. No cough, no vomiting, no complaints of pain. Only diarrhea. EKG shows a heart rate of 116, sinus tachycardia, left axis deviation, no obvious ST elevation or depression 08/15/17 14:27 Given the above history, physical, catheterized urine analysis, and lactic acid level we have provided 30 cc/kg of IV fluid. Recheck of the capillary refill appears adequate. Vital signs have improved. Patient did receive rectal Tylenol at the facility but the patient has had persistent diarrhea. C. difficile is pending. Rocephin has been provided. Patient will be admitted to the hospitalist service for further evaluation. - Vital Signs Vital signs: Temp Pulse Resp BP Pulse Ox 101.0 F H 20 98 08/15/17 12:35 08/15/17 13:03 08/15/17 13:03 - Laboratory Result Diagrams: 08/15/17 13:10 08/15/17 13:10 Laboratory results interpreted by me: 08/15/17 08/15/17 08/15/17 13:10 13:10 13:10 WBC 12.9 H Hgb 11.6 L Hct 34.7 L RDW 18.0 H Seg Neuts % (Manual) 88 H Band Neutrophils % 1 L Lymphocytes % (Manual) 6 L Abs Neuts (Manual) 11.5 H BUN 23 H Glucose 119 H Lactic Acid 2.2 H Urine Blood Urine Urobilinogen Ur Leukocyte Esterase 08/15/17 13:10 WBC Hgb Hct RDW Seg Neuts % (Manual) Band Neutrophils % Lymphocytes % (Manual) Abs Neuts (Manual) BUN Glucose Lactic Acid Urine Blood MODERATE H Urine Urobilinogen 4.0 H Ur Leukocyte Esterase LARGE H Critical Care Note - Critical Care Note Total time excluding time spent on procedures (mins): 40 Discharge - Discharge Clinical Impression: Sepsis Qualifiers: Sepsis type: sepsis due to unspecified organism Qualified Code(s): A41.9 - Sepsis, unspecified organism UTI (urinary tract infection) Qualifiers: Urinary tract infection type: site unspecified Hematuria presence: without hematuria Qualified Code(s): N39.0 - Urinary tract infection, site not specified Diarrhea Qualifiers: Diarrhea type: unspecified type Qualified Code(s): R19.7 - Diarrhea, unspecified Condition: Fair Disposition: ADMITTED INPATIENT Admitting Provider: Hospitalist Unit Admitted: Telemetry
[2017-08-15] MEDS ORDERED: ONDANSETRON HCL INJ/PF 4 MG/2 ML SDV IV PRN (15:45)
[2017-08-15] MEDS ORDERED: IPRATROPIUM/ALBUTEROL 0.5-2.5 MG/3 ML AMPUL NEB PRN (15:45)
[2017-08-15] MEDS ORDERED: ACETAMINOPHEN 325 MG TABLET PO PRN (15:45)
--- NOTE | 2017-08-15 16:16 | PDOC H&P ---
History of Present Illness Admission Date/PCP: 08/15/17 14:55 Patient complains of: Fever, change in mental status, diarrhea History of Present Illness: SURINDER NORTON is a 81 year old female brought to the emergency room from the [place] [facility] with complaints of mental status, diarrhea, fever and lethargy. Patient has baseline dementia but apparently mental status was different from her baseline. Family claims that she is sometimes verbally responsive and talks occasionally. At the time of my exam patient did seem to be able to follow a few commands but really unable to respond verbally to any information. She was found to be febrile as well as tachycardic. She does not use a Fuentes catheter as per report. Specimen is also sent off for analysis and this is negative for C. difficile but does have multiple WBCs. Past Medical History Cardiac Medical History: Reports: Coronary Artery Disease, Hyperlipidema, Hypertension Denies: Myocardial Infarction Pulmonary Medical History: Denies: Asthma, Bronchitis, Chronic Obstructive Pulmonary Disease (COPD), Pneumonia Neurological Medical History: Denies: Seizures Endocrine Medical History: Reports: Diabetes Mellitus Type 2 Musculoskeltal Medical History: Reports: Arthritis Psychiatric Medical History: Reports: Depression, Schizoaffective Disorder Hematology: Reports: Anemia Social History Information Source: [facility] Records, Outside Facility Records Lives with: [facility] Smoking Status: Unknown if Ever Smoked Frequency of Alcohol Use: None Hx Recreational Drug Use: No Hx Prescription Drug Abuse: No - Advance Directive Resuscitation Status: Full Code Family History Family History: Reviewed & Not Pertinent Parental Family History Reviewed: No Children Family History Reviewed: Unknown Sibling(s) Family History Reviewed.: Unknown Medication/Allergy Home Medications: Aspirin [Aspirin EC] 81 mg PO DAILY 07/31/13 Calcium Carbonate/Vitamin D3 [Calcium 600-Vit D3 200 Tablet] 1 tab PO DAILY 10/07 Diltiazem HCl [Diltiazem 24Hr Cd] 60 mg PO QID 07/31/13 Omeprazole 20 mg PO DAILY 07/31/13 Acetaminophen [Tylenol 325 mg Tablet] 650 mg PO Q6 PRN 06/11/15 Diclofenac Sodium [Voltaren] 100 gm TP ASDIR PRN 06/11/15 Fluticasone Propionate [Flonase Allergy Relief] 2 spray NS DAILY 06/11/15 Rivastigmine [Exelon 9.5 mg/24 Hr Transdermal Patch] 1 each TD DAILY 06/11/15 Cyanocobalamin (Vitamin B-12) [Vitamin B-12 1000 mcg Tablet] 1,000 mcg PO DAILY #60 tablet 06/14/15 Gabapentin [Neurontin 100 mg Capsule] 100 mg PO Q8 #90 capsule 06/17/15 Aripiprazole [Abilify 5 mg Tablet] 5 mg PO BID #60 tablet 07/16/15 Trihexyphenidyl HCl [Artane 2 mg Tablet] 1 mg PO BID #60 tablet 07/16/15 Docusate Sodium [Dok] 100 mg PO DAILY 10/13/16 Ferrous Sulfate 325 mg PO DAILY 10/13/16 Haloperidol [Haldol 1 mg Tablet] 1 mg PO BID 10/13/16 Multivit-Min/Iron/Folic/Lutein [Centrum Silver Women Tablet] 1 each PO DAILY Nitrofurantoin/Nitrofuran Mac [Macrobid 100 mg Capsule] 1 tab PO BID #14 capsule 10/13/16 Sennosides/Docusate Sodium [Senna-S Tablet] 1 each PO DAILY #30 tablet 12/31/16 Allergies/Adverse Reactions: No Known Allergies Allergy (Verified 10/13/16 17:31) Review of Systems ROS unobtainable: Due to mental status Constitutional: PRESENT: fever(s) Gastrointestinal: PRESENT: diarrhea Physical Exam Vital Signs: Temp Pulse Resp BP Pulse Ox 101.0 F H 20 125/75 98 08/15/17 12:35 08/15/17 14:01 08/15/17 14:01 08/15/17 14:01 General appearance: PRESENT: no acute distress, thin, other - Elderly and frail Head exam: PRESENT: atraumatic Teeth exam: PRESENT: edentulous Respiratory exam: PRESENT: clear to auscultation almaz. ABSENT: rales, rhonchi, wheezes Cardiovascular exam: PRESENT: +S1, +S2, tachycardia GI/Abdominal exam: PRESENT: normal bowel sounds, soft. ABSENT: distended, guarding, mass, organolmegaly, rebound, tenderness Rectal exam: PRESENT: deferred Extremities exam: PRESENT: full ROM. ABSENT: calf tenderness, clubbing, pedal edema Musculoskeletal exam: PRESENT: other - lower extremity contractures Neurological exam: PRESENT: alert, awake. ABSENT: motor sensory deficit Psychiatric exam: PRESENT: other - unable to evaluate Results Laboratory Results: Microbiology 08/15/17 13:10 - Preliminary Stool - Stool Laboratory 08/15/17 08/15/17 08/15/17 13:10 13:10 13:10 WBC 12.9 H RBC 4.12 Hgb 11.6 L Hct 34.7 L MCV 84 MCH 28.1 MCHC 33.4 RDW 18.0 H Plt Count 272 Total Counted 100 Seg Neutrophils % Not Reportable Seg Neuts % (Manual) 88 H Band Neutrophils % 1 L Lymphocytes % Not Reportable Lymphocytes % (Manual) 6 L Monocytes % Not Reportable Monocytes % (Manual) 5 Eosinophils % Not Reportable Eosinophils % (Manual) 0 Basophils % Not Reportable Basophils % (Manual) 0 Absolute Neutrophils Not Reportable Abs Neuts (Manual) 11.5 H Absolute Lymphocytes Not Reportable Abs Lymphs (Manual) 0.8 Absolute Monocytes Not Reportable Abs Monocytes (Manual) 0.6 Absolute Eosinophils Not Reportable Absolute Eos (Manual) 0.0 Absolute Basophils Not Reportable Abs Basophils (Manual) 0.0 Toxic Granulation SLIGHT Toxic Vacuolation PRESENT Platelet Comment ADEQUATE Anisocytosis 1+ Sodium 141.7 Potassium 4.4 Chloride 104 Carbon Dioxide 26 Anion Gap 12 BUN 23 H Creatinine 0.58 Est GFR ( Amer) > 60 Est GFR (Non-Af Amer) > 60 Glucose 119 H Lactic Acid 2.2 H Calcium 9.2 Total Bilirubin 0.4 Direct Bilirubin 0.3 Neonat Total Bilirubin 0.1 Neonat Direct Bilirubin 0.0 Neonat Indirect Bili 0.1 AST 25 ALT 23 Alkaline Phosphatase 122 Total Protein 8.2 Albumin 3.5 Urine Color Urine Appearance Urine pH Ur Specific [place] Urine Protein Urine Glucose (UA) Urine Ketones Urine Blood Urine Nitrite Urine Bilirubin Urine Urobilinogen Ur Leukocyte Esterase Urine WBC (Auto) Urine RBC (Auto) U Hyaline Cast (Auto) Urine Bacteria (Auto) Urine WBC Clumps Squamous Epi Cells Auto Amorphous Sediment Auto Urine Mucus (Auto) Urine Ascorbic Acid Stool Occult Blood Stool for White Cells C. difficile Tox (PCR) 08/15/17 08/15/17 08/15/17 13:10 13:10 13:10 WBC RBC Hgb Hct MCV MCH MCHC RDW Plt Count Total Counted Seg Neutrophils % Seg Neuts % (Manual) Band Neutrophils % Lymphocytes % Lymphocytes % (Manual) Monocytes % Monocytes % (Manual) Eosinophils % Eosinophils % (Manual) Basophils % Basophils % (Manual) Absolute Neutrophils Abs Neuts (Manual) Absolute Lymphocytes Abs Lymphs (Manual) Absolute Monocytes Abs Monocytes (Manual) Absolute Eosinophils Absolute Eos (Manual) Absolute Basophils Abs Basophils (Manual) Toxic Granulation Toxic Vacuolation Platelet Comment Anisocytosis Sodium Potassium Chloride Carbon Dioxide Anion Gap BUN Creatinine Est GFR ( Amer) Est GFR (Non-Af Amer) Glucose Lactic Acid Calcium Total Bilirubin Direct Bilirubin Neonat Total Bilirubin Neonat Direct Bilirubin Neonat Indirect Bili AST ALT Alkaline Phosphatase Total Protein Albumin Urine Color DARK YELLOW Urine Appearance CLOUDY Urine pH 5.0 Ur Specific [place] 1.015 Urine Protein NEGATIVE Urine Glucose (UA) NEGATIVE Urine Ketones NEGATIVE Urine Blood MODERATE H Urine Nitrite NEGATIVE Urine Bilirubin NEGATIVE Urine Urobilinogen 4.0 H Ur Leukocyte Esterase LARGE H Urine WBC (Auto) 64 Urine RBC (Auto) 10 U Hyaline Cast (Auto) 2 Urine Bacteria (Auto) 3+ Urine WBC Clumps MANY Squamous Epi Cells Auto 1 Amorphous Sediment Auto TRACE Urine Mucus (Auto) RARE Urine Ascorbic Acid NEGATIVE Stool Occult Blood POSITIVE Stool for White Cells C. difficile Tox (PCR) NEGATIVE 08/15/17 13:10 WBC RBC Hgb Hct MCV MCH MCHC RDW Plt Count Total Counted Seg Neutrophils % Seg Neuts % (Manual) Band Neutrophils % Lymphocytes % Lymphocytes % (Manual) Monocytes % Monocytes % (Manual) Eosinophils % Eosinophils % (Manual) Basophils % Basophils % (Manual) Absolute Neutrophils Abs Neuts (Manual) Absolute Lymphocytes Abs Lymphs (Manual) Absolute Monocytes Abs Monocytes (Manual) Absolute Eosinophils Absolute Eos (Manual) Absolute Basophils Abs Basophils (Manual) Toxic Granulation Toxic Vacuolation Platelet Comment Anisocytosis Sodium Potassium Chloride Carbon Dioxide Anion Gap BUN Creatinine Est GFR ( Amer) Est GFR (Non-Af Amer) Glucose Lactic Acid Calcium Total Bilirubin Direct Bilirubin Neonat Total Bilirubin Neonat Direct Bilirubin Neonat Indirect Bili AST ALT Alkaline Phosphatase Total Protein Albumin Urine Color Urine Appearance Urine pH Ur Specific [place] Urine Protein Urine Glucose (UA) Urine Ketones Urine Blood Urine Nitrite Urine Bilirubin Urine Urobilinogen Ur Leukocyte Esterase Urine WBC (Auto) Urine RBC (Auto) U Hyaline Cast (Auto) Urine Bacteria (Auto) Urine WBC Clumps Squamous Epi Cells Auto Amorphous Sediment Auto Urine Mucus (Auto) Urine Ascorbic Acid Stool Occult Blood Stool for White Cells MODERATE H C. difficile Tox (PCR) Assessment & Plan - Diagnosis (1) UTI (urinary tract infection) Qualifiers: Urinary tract infection type: site unspecified Hematuria presence: without hematuria Qualified Code(s): N39.0 - Urinary tract infection, site not specified Is this a current diagnosis for this admission?: Yes Plan: She received ceftriaxone in the emergency room. I will switch to Levaquin to cover both the and potential GI organisms (2) Diarrhea Qualifiers: Diarrhea type: unspecified type Qualified Code(s): R19.7 - Diarrhea, unspecified Plan: C. difficile negative. Start on Imodium as needed and follow up on cultures (3) SIRS (systemic inflammatory response syndrome) Is this a current diagnosis for this admission?: Yes Plan: She had fever, tachycardia with a UTI and diarrhea. Will follow up on cultures (4) Dementia Qualifiers: Dementia type: Alzheimer's disease Is this a current diagnosis for this admission?: Yes Plan: Supportive care - Time Time Spent: 30 to 50 Minutes Medications reviewed and adjusted accordingly: Yes Anticipated discharge: SNF Within: within 72 hours - Inpatient Certification Based on my medical assessment, after consideration of the patient's comorbidities, presenting symptoms, or acuity I expect that the services needed warrant INPATIENT care.: Yes Medical Necessity: Need For IV Fluids, Need for IV Antibiotics - Plan Summary Plan Summary: I discussed CODE STATUS with the family member who states that she is a full code advised her to discuss with the rest of the family and reconsider changing her code status
[2017-08-15] MEDS ORDERED: ENOXAPARIN SODIUM INJ 40 MG/0.4 ML DISP.SYRIN SUBCUT ONE (18:00)
[2017-08-16 05:56] LABS: HEMATOCRIT 26.9 % (36.0-47.0); MEAN CORPUSCULAR HEMOGLOBIN 28.7 pg (27.0-33.4); MEAN CORPUSCULAR HGB CONC 33.6 g/dL (32.0-36.0); MEAN CORPUSCULAR VOLUME 85 fl (80-97); PLATELET COUNT 212 10^3/uL (150-450); RED BLOOD COUNT 3.15 10^6/uL (3.72-5.28); RED CELL DISTRIBUTION WIDTH 18.1 % (11.5-14.0); WHITE BLOOD COUNT 10.3 10^3/uL (4.0-10.5)
[2017-08-16 06:03] LABS: HEMOGLOBIN 9.1 g/dL (12.0-15.5)
[2017-08-16 06:05] LABS: ANION GAP 9 (5-19); BLOOD UREA NITROGEN 20 mg/dL (7-20); CALCIUM 8.4 mg/dL (8.4-10.2); CARBON DIOXIDE 24 mmol/L (22-30); CHLORIDE 110 mmol/L (98-107); GLUCOSE 71 mg/dL (75-110); POTASSIUM 3.8 mmol/L (3.6-5.0)
[2017-08-16] MEDS: NORMAL SALINE 1000 ML 1,000 ML IV PRN (07:08)
[2017-08-16] MEDS: LEVOFLOXACIN 500 MG/D5W RTU 500 MG/100 ML RTUPB IV SCH (11:02)
[2017-08-16] MEDS: ENOXAPARIN SODIUM INJ 40 MG/0.4 ML DISP.SYRIN SUBCUT SCH (11:03)
[2017-08-16] MEDS: LOPERAMIDE HCL 2 MG CAPSULE PO PRN (15:57)
--- NOTE | 2017-08-16 16:08 | PDOC PROGRESS REPORT ---
Subjective Progress Note for:: 08/16/17 Subjective:: Patient admitted with change in mental status with a baseline of dementia. She appears grossly unchanged today. She is awake and alert but not interactive. Reason For Visit: SEPSIS,UTI,DEMENTIA Physical Exam Vital Signs: Temp Pulse Resp BP Pulse Ox 97.6 F 82 12 107/50 L 100 08/16/17 08:38 08/16/17 08:38 08/16/17 08:38 08/16/17 08:38 08/16/17 08:38 Intake & Output 08/15/17 08/16/17 08/17/17 06:59 06:59 06:59 Intake Total 225 Balance 225 Weight 52.6 kg General appearance: PRESENT: no acute distress, other - Elderly and frail Head exam: PRESENT: atraumatic Eye exam: PRESENT: conjunctiva pink, EOMI, PERRLA. ABSENT: scleral icterus Neck exam: ABSENT: JVD Respiratory exam: PRESENT: accessory muscle use, decreased breath sounds, rhonchi Cardiovascular exam: PRESENT: RRR. ABSENT: diastolic murmur, rubs, systolic murmur GI/Abdominal exam: PRESENT: normal bowel sounds, soft. ABSENT: distended, guarding, mass, organolmegaly, rebound, tenderness Extremities exam: PRESENT: other - Contractures lower and upper extremities Musculoskeletal exam: PRESENT: deformity. ABSENT: ambulatory, full ROM Neurological exam: PRESENT: alert, awake, other - Non Communicative Results Laboratory Results: 08/16/17 03:49 08/16/17 03:49 08/15/17 08/16/17 08/16/17 17:06 03:49 03:49 WBC 10.3 RBC 3.15 L Hgb 9.1 L D Hct 26.9 L MCV 85 MCH 28.7 MCHC 33.6 RDW 18.1 H Plt Count 212 Sodium 143.0 Potassium 3.8 Chloride 110 H Carbon Dioxide 24 Anion Gap 9 BUN 20 Creatinine 0.53 Est GFR ( Amer) > 60 Est GFR (Non-Af Amer) > 60 Glucose 71 L Lactic Acid 2.3 H Calcium 8.4 Assessment & Plan - Diagnosis (1) UTI (urinary tract infection) Qualifiers: Urinary tract infection type: site unspecified Hematuria presence: without hematuria Qualified Code(s): N39.0 - Urinary tract infection, site not specified Is this a current diagnosis for this admission?: Yes Plan: Cultures are currently pending meanwhile patient is on Levaquin. Will continue with same (2) Diarrhea Qualifiers: Diarrhea type: unspecified type Qualified Code(s): R19.7 - Diarrhea, unspecified Is this a current diagnosis for this admission?: Yes Plan: C. difficile negative. Cont on Imodium as needed and follow up on cultures (3) SIRS (systemic inflammatory response syndrome) Is this a current diagnosis for this admission?: Yes (4) Dementia Qualifiers: Dementia type: Alzheimer's disease Is this a current diagnosis for this admission?: Yes (5) Anemia Qualifiers: Anemia type: unspecified type Qualified Code(s): D64.9 - Anemia, unspecified Is this a current diagnosis for this admission?: Yes Plan: This is likely due to chronic disease. However hemoglobin is closer to 9 and the hemoglobin yesterday was just likely artificially inflated due to dehydration. Hemoglobin from review of chart is usually around 9 or even lower We will recheck CBC in a.m.. At this point will defer any further workup in this elderly debilitated patient - Time Time Spent with patient: 15-24 minutes Medications reviewed and adjusted accordingly: Yes Anticipated discharge: SNF Within: within 72 hours - Inpatient Certification Based on my medical assessment, after consideration of the patient's comorbidities, presenting symptoms, or acuity I expect that the services needed warrant INPATIENT care.: Yes Medical Necessity: Need for IV Antibiotics
[2017-08-17] MEDS: NORMAL SALINE 1000 ML 1,000 ML IV PRN ×2 (06:10→22:02)
[2017-08-17] MEDS: ENOXAPARIN SODIUM INJ 40 MG/0.4 ML DISP.SYRIN SUBCUT SCH (10:35)
[2017-08-17] MEDS: LEVOFLOXACIN 500 MG/D5W RTU 500 MG/100 ML RTUPB IV SCH (10:35)
[2017-08-17] MEDS: LOPERAMIDE HCL 2 MG CAPSULE PO PRN (11:35)
--- NOTE | 2017-08-17 16:01 | Physician Advisory Note ---
Physician Advisor ProgressNote .: Pursuant to the plan for [facility], I have reviewed the medical record for this patient. Physician Advisor Statement: Please consider documenting, if you agree: 1. Principal Dx: notes so far list UTI as Dx #1. UTIs are often cared for without hospital admission. First dx listed in each note should indicate the principal reason for bringing pt into the hospital. 2. Specify type of altered mental status (AMS) present: A. Metabolic Encephalopathy due to = AMS due to acute or chronic medical disease state, such as systemic metabolic or intracranial process that is usually reversible when the underlying cause is corrected. Causes include fever, infection, dehydration, acidosis, sepsis, hypoxia, electrolyte imbalance, B. Toxic Encephalopathy due to =AMS due to drug, poison, or toxin. Usually reversible. C. Acute Delirium due to =nonspecific disorientation/behavioral problem with a cause that can be psychiatric, encephalopathic, or intracranial. May show confusion, disorientation, agitation, inattention, . *If documentation does not specify the underlying cause of delirium, the ICD-10 coding classification attributes it to a psychiatric origin (such as schizophrenia, janet, or rapid progression of dementia), with a correspondingly lower severity of illness, than if there is encephalopathy. - Cause examples: Delirium due to Acute Metabolic Encephalopathy, due to Delirium due to dementia with sundowning Delirium due to , superimposed on dementia, evidenced by ___ (which is different than baseline, which is ) "Delirium due to worsening dementia ...." 3. Most likely types of (need specificity/causality whenever possible for "nonspecific symptom dx.s"): A. diarrhea B. dementia C. underlying dz causing the anemia (?CKD, or could it be nutritional ___ defic related to dementia, or ...?) 4. When pt meets SIRS criteria and there is a NONinfectious cause, please state the likely noninfectious cause. When pt meets SIRS criteria and there is a possible infectious cause, please state specifically whether or not you suspect there was SEPSIS present due to this infection, or not, & document supporting findings (if pt was "NAD, no distress, seems baseline" but "Sepsis due to ____" is dx'd, & there is no explanation for the apparent discrepancy of documentation, there is a disconnect that payer will use to assert that dx was not clinically supported). Thanks! CK
--- NOTE | 2017-08-17 16:05 | PDOC PROGRESS REPORT ---
Subjective Progress Note for:: 08/17/17 Subjective:: This is a 81 years old black female patient [facility] for altered mental status, fever and diarrhea. Her stool for C. difficile is negative. Patient also found to have UTI for which she has been on Levaquin 500 milligrams IV daily and for her diarrhea she is on Imodium. I seen patient resting in bed she is awake alert but nonverbal. Reason For Visit: SEPSIS,UTI,DEMENTIA Physical Exam Vital Signs: Temp Pulse Resp BP Pulse Ox 98.4 F 79 16 151/88 H 96 08/17/17 12:18 08/17/17 15:46 08/17/17 15:46 08/17/17 12:18 08/17/17 15:46 Intake & Output 08/16/17 08/17/17 08/18/17 06:59 06:59 06:59 Intake Total 225 2198 Balance 225 2198 Weight 52.6 kg 52.6 kg General appearance: PRESENT: no acute distress Head exam: PRESENT: atraumatic, normocephalic Eye exam: PRESENT: conjunctiva pink, EOMI, PERRLA. ABSENT: scleral icterus Neck exam: ABSENT: carotid bruit, JVD, lymphadenopathy, thyromegaly Respiratory exam: PRESENT: clear to auscultation almaz. ABSENT: rales, rhonchi, wheezes Cardiovascular exam: PRESENT: RRR. ABSENT: diastolic murmur, rubs, systolic murmur GI/Abdominal exam: PRESENT: normal bowel sounds, soft. ABSENT: distended, guarding, mass, organolmegaly, rebound, tenderness Results Laboratory Results: 08/16/17 03:49 08/16/17 03:49 Assessment & Plan - Diagnosis (1) Anemia Qualifiers: Anemia type: unspecified type Qualified Code(s): D64.9 - Anemia, unspecified Is this a current diagnosis for this admission?: Yes Plan: Monitor her H&H (2) Dementia Qualifiers: Dementia type: Alzheimer's disease Is this a current diagnosis for this admission?: Yes Plan: No intervention (3) Diarrhea Qualifiers: Diarrhea type: unspecified type Qualified Code(s): R19.7 - Diarrhea, unspecified Is this a current diagnosis for this admission?: Yes Plan: Fortunately her stool for occult blood is negative for C. difficile. She is being cautiously hydrated and she has been on as needed Imodium (4) UTI (urinary tract infection) Qualifiers: Urinary tract infection type: site unspecified Hematuria presence: without hematuria Qualified Code(s): N39.0 - Urinary tract infection, site not specified Is this a current diagnosis for this admission?: Yes Plan: Has been on Levaquin. (5) SIRS (systemic inflammatory response syndrome) Is this a current diagnosis for this admission?: Yes Plan: Continue Levaquin - Time Time Spent with patient: 25-34 minutes
[2017-08-18] MEDS: ENOXAPARIN SODIUM INJ 40 MG/0.4 ML DISP.SYRIN SUBCUT SCH (12:01)
[2017-08-18] MEDS: LEVOFLOXACIN 500 MG/D5W RTU 500 MG/100 ML RTUPB IV SCH (12:02)
[2017-08-18] MEDS: NORMAL SALINE 1000 ML 1,000 ML IV PRN (12:02)
--- NOTE | 2017-08-18 12:52 | PDOC PROGRESS REPORT ---
Subjective Progress Note for:: 08/18/17 Subjective:: I seen patient resting in bed. She is awake alert but less conversant. Reportedly her diarrhea is subsiding. She is being treated also for complicated UTI with Levaquin. If she remains stable she is potential discharge for tomorrow. Reason For Visit: SEPSIS,UTI,DEMENTIA Physical Exam Vital Signs: Temp Pulse Resp BP Pulse Ox 98.7 F 100 15 123/55 L 93 08/18/17 12:00 08/18/17 12:00 08/18/17 12:00 08/18/17 12:00 08/18/17 12:00 Intake & Output 08/17/17 08/18/17 08/19/17 06:59 06:59 06:59 Intake Total 2198 2264 Balance 2198 2264 Weight 52.6 kg 55.4 kg Results Laboratory Results: 08/16/17 03:49 08/16/17 03:49 Assessment & Plan - Diagnosis (1) Anemia Qualifiers: Anemia type: unspecified type Qualified Code(s): D64.9 - Anemia, unspecified Is this a current diagnosis for this admission?: Yes Plan: Monitor her H&H (2) Dementia Qualifiers: Dementia type: Alzheimer's disease Is this a current diagnosis for this admission?: Yes Plan: No intervention (3) Diarrhea Qualifiers: Diarrhea type: unspecified type Qualified Code(s): R19.7 - Diarrhea, unspecified Is this a current diagnosis for this admission?: Yes Plan: Fortunately her stool for occult blood is negative for C. difficile. It has been subsiding (4) UTI (urinary tract infection) Qualifiers: Urinary tract infection type: site unspecified Hematuria presence: without hematuria Qualified Code(s): N39.0 - Urinary tract infection, site not specified Is this a current diagnosis for this admission?: Yes Plan: Continue Levaquin (5) SIRS (systemic inflammatory response syndrome) Is this a current diagnosis for this admission?: Yes Plan: Continue Levaquin - Time Time Spent with patient: 25-34 minutes
[2017-08-19] MEDS: LEVOFLOXACIN 500 MG/D5W RTU 500 MG/100 ML RTUPB IV SCH (09:54)
[2017-08-19] MEDS: ENOXAPARIN SODIUM INJ 40 MG/0.4 ML DISP.SYRIN SUBCUT SCH (09:54)
--- NOTE | 2017-08-19 12:41 | PDOC PROGRESS REPORT ---
Subjective Progress Note for:: 08/19/17 Subjective:: Patient has been sleeping quietly. No significant change overnight. Her diarrhea is subsiding according to her nurse. Reason For Visit: SEPSIS,UTI,DEMENTIA Physical Exam Vital Signs: Temp Pulse Resp BP Pulse Ox 97.6 F 77 16 152/90 H 100 08/19/17 08:00 08/19/17 08:00 08/19/17 08:00 08/19/17 08:00 08/19/17 08:00 Intake & Output 08/18/17 08/19/17 08/20/17 06:59 06:59 06:59 Intake Total 2264 2842 Balance 2264 2842 Weight 55.4 kg 56.4 kg General appearance: PRESENT: no acute distress, well-developed, well-nourished Respiratory exam: PRESENT: clear to auscultation almaz. ABSENT: rales, rhonchi, wheezes Cardiovascular exam: PRESENT: RRR. ABSENT: diastolic murmur, rubs, systolic murmur GI/Abdominal exam: PRESENT: normal bowel sounds, soft. ABSENT: distended, guarding, mass, organolmegaly, rebound, tenderness Extremities exam: PRESENT: full ROM. ABSENT: calf tenderness, clubbing, pedal edema Results Laboratory Results: 08/16/17 03:49 08/16/17 03:49 Assessment & Plan - Diagnosis (1) Anemia Qualifiers: Anemia type: unspecified type Qualified Code(s): D64.9 - Anemia, unspecified Is this a current diagnosis for this admission?: Yes Plan: Monitor her H&H (2) Dementia Qualifiers: Dementia type: Alzheimer's disease Is this a current diagnosis for this admission?: Yes Plan: No intervention (3) Diarrhea Qualifiers: Diarrhea type: unspecified type Qualified Code(s): R19.7 - Diarrhea, unspecified Is this a current diagnosis for this admission?: Yes Plan: Improving (4) UTI (urinary tract infection) Qualifiers: Urinary tract infection type: site unspecified Hematuria presence: without hematuria Qualified Code(s): N39.0 - Urinary tract infection, site not specified Is this a current diagnosis for this admission?: Yes (5) SIRS (systemic inflammatory response syndrome) Is this a current diagnosis for this admission?: Yes - Time Time Spent with patient: 25-34 minutes
[2017-08-20] MEDS: NORMAL SALINE 1000 ML 1,000 ML IV PRN (05:27)
--- NOTE | 2017-08-20 09:47 | PDOC TRANSFER SUMMARY ---
General - Admit/Disc Date/PCP Admission Date/Primary Care Provider: 08/15/17 14:55 Discharge Date: 08/20/17 - Discharge Diagnosis (1) Anemia Is this a current diagnosis for this admission?: Yes (2) Dementia Is this a current diagnosis for this admission?: Yes (3) Diarrhea Is this a current diagnosis for this admission?: Yes (4) UTI (urinary tract infection) Is this a current diagnosis for this admission?: Yes (5) SIRS (systemic inflammatory response syndrome) Is this a current diagnosis for this admission?: Yes - Additional Information Resuscitation Status: Full Code Discharge Diet: As Tolerated Prescriptions: Levofloxacin [Levaquin 500 mg Tablet] 500 mg PO DAILY #3 tablet Home Medications: Calcium Carbonate/Vitamin D3 [Calcium 600-Vit D3 200 Tablet] 1 tab PO DAILY 10/07 Omeprazole 20 mg PO DAILY 07/31/13 Rivastigmine [Exelon 9.5 mg/24 Hr Transdermal Patch] 1 each TD DAILY 06/11/15 Cyanocobalamin (Vitamin B-12) [Vitamin B-12 1000 mcg Tablet] 1,000 mcg PO DAILY #60 tablet 06/14/15 Docusate Sodium [Dok] 100 mg PO DAILY 10/13/16 Ferrous Sulfate 325 mg PO DAILY 10/13/16 Multivit-Min/Iron/Folic/Lutein [Centrum Silver Women Tablet] 1 each PO DAILY Aripiprazole [Abilify 5 mg Tablet] 5 mg PO Q12 08/15/17 Aspirin [Aspirin 81 mg Chewable Tablet] 81 mg PO DAILY 08/15/17 Diltiazem HCl [Cardizem 60 mg Tablet] 60 mg PO Q6 08/15/17 Trihexyphenidyl HCl [Artane 2 mg Tablet] 1 mg PO Q12 08/15/17 Levofloxacin [Levaquin 500 mg Tablet] 500 mg PO DAILY #3 tablet 08/20/17 History of Present Illness Admission Date/PCP: 08/15/17 14:55 History of Present Illness: SURINDER NORTON is a 81 year old female brought to the emergency room from the [place] [facility] with complaints of mental status, diarrhea, fever and lethargy. Patient has baseline dementia but apparently mental status was different from her baseline. Family claims that she is sometimes verbally responsive and talks occasionally. At the time of my exam patient did seem to be able to follow a few commands but really unable to respond verbally to any information. She was found to be febrile as well as tachycardic. She does not use a Fuentes catheter as per report. Specimen is also sent off for analysis and this is negative for C. difficile but does have multiple WBCs. Hospital Course Hospital Course: This 81 YO black F patient admitted for AMS.Patient found to have complicated UTI whick may explain her worsening of mentation since patient has underlying dementia.She presented also with diarrhea which has subsided.Patient has been hydrated cautiously and treated with levaquin for her UTI.Currrently patient is back to her base line.Her vital sign remain stable and she is good to be discharged with 3 days of po levaquin. Physical Exam Vital Signs: Temp Pulse Resp BP Pulse Ox 97.8 F 76 16 160/85 H 100 08/20/17 07:54 08/20/17 07:54 08/20/17 07:54 08/20/17 07:54 08/20/17 07:54 Intake & Output 08/19/17 08/20/17 08/21/17 06:59 06:59 06:59 Intake Total 2842 2969 Balance 2842 2969 Weight 56.4 kg 52.3 kg General appearance: PRESENT: no acute distress, well-developed, well-nourished Head exam: PRESENT: atraumatic, normocephalic Neck exam: ABSENT: carotid bruit, JVD, lymphadenopathy, thyromegaly Respiratory exam: PRESENT: clear to auscultation almaz. ABSENT: rales, rhonchi, wheezes Cardiovascular exam: PRESENT: RRR. ABSENT: diastolic murmur, rubs, systolic murmur GI/Abdominal exam: PRESENT: normal bowel sounds, soft. ABSENT: distended, guarding, mass, organolmegaly, rebound, tenderness Neurological exam: PRESENT: alert, awake Results Laboratory Results: 08/16/17 03:49 08/16/17 03:49 Transfer Plan - Time Spent with Patient Time spent with patient: Greater than 30 Minutes Qualifiers - * PATIENT BEING DISCHARGED WITH ANY OF THE FOLLOWING DIAGNOSIS: No
[2017-08-20] MEDS: LEVOFLOXACIN 500 MG/D5W RTU 500 MG/100 ML RTUPB IV SCH (10:12)
[2017-08-20] MEDS: ENOXAPARIN SODIUM INJ 40 MG/0.4 ML DISP.SYRIN SUBCUT SCH (11:56)
[2017-08-20 13:54] VITALS: BP 147/89
--- NOTE | 2017-09-14 18:23 | Progress Note ---
Provider Note Provider Note: Patient does not fulfill the criteria for sepsis. She presented with diarrhea and fever and her urinalysis positive for UTI. Her altered mental status is due to her dementia with superimposed UTI.
== END 2017-08-20 16:44 | DRG 690 ==
LOC: ER 12:33 → EH 14:55 → 5 16:38
PROVIDERS: ADMIT Internal Medicine; ATTEND Internal Medicine
DX: N39.0 Urinary tract infection, site not specified (principal); I25.10 Atherosclerotic heart disease of native coronary artery without angina pectoris; E78.5 Hyperlipidemia, unspecified; I10 Essential (primary) hypertension; E11.9 Type 2 diabetes mellitus without complications; M19.90 Unspecified osteoarthritis, unspecified site; F25.9 Schizoaffective disorder, unspecified; G30.9 Alzheimer's disease, unspecified; F02.80 Dementia in other diseases classified elsewhere, unspecified severity, without behavioral disturbance, psychotic disturbance, mood disturbance, and anxiety; D64.9 Anemia, unspecified; R19.7 Diarrhea, unspecified
CPT/HCPCS: 36415; 80048; 80053; 81001; 82272; 83605; 85025; 85027; 87045; 87205; 87493; 89055; 93005; 93010; 96360; 99291; J0696; J1650; J1956; J7030

== ENCOUNTER 2017-11-01 11:39 | Emergency (ER) | payer MEDICARE, MEDICAID ==
[2017-11-01] MEDS ORDERED: NORMAL SALINE 1000 ML 1,000 ML IV ONE ×2 (12:05→15:31)
--- NOTE | 2017-11-01 13:20 | RADIOLOGY REPORT (SQ) ---
EXAM DESCRIPTION: CT HEAD WITHOUT COMPLETED DATE/TIME: 11/01/2017 12:09 pm REASON FOR STUDY: bed 11 ams stroke alert COMPARISON: [address] brain exams since 05/25/2008, most recently 02/24/2015 TECHNIQUE: Axial images acquired through the brain without intravenous contrast. Images reviewed wi th bone, brain and subdural windows. Additional sagittal and coronal reconstructions were generated. Images stored on PACS. All CT scanners at this facility use dose modulation, iterative reconstruction, and/or weight based d osing when appropriate to reduce radiation dose to as low as reasonably achievable (ALARA). [facility]: Dose Right [facility]: CareDose [facility]: Dose Right [facility]: Teradose 4D [facility]: [employer] RADIATION DOSE: CT Rad equipment meets quality standard of care and radiation dose reduction techniq ues were employed. CTDIvol: 23.1 mGy. DLP: 545 mGy-cm. mGy. LIMITATIONS: None. FINDINGS: VENTRICLES: Normal size and contour for age. CEREBRUM: No masses. No hemorrhage. No midline shift. No evidence for acute infarction. Few scatte red areas of low density in the white matter most likely chronic small vessel ischemic changes. Old stable lacunar infarcts in the bilateral basal ganglia. CEREBELLUM: No masses. No hemorrhage. No alteration of density. No evidence for acute infarction. EXTRAAXIAL SPACES: No fluid collections. No masses. ORBITS AND GLOBE: No intra- or extraconal masses. Normal contour of globe without masses. CALVARIUM: No fracture. PARANASAL SINUSES: Air-fluid level left frontal sinus indicating sinusitis SOFT TISSUES: No mass or hematoma. OTHER: No other significant finding. IMPRESSION: Age-appropriate small vessel ischemic change in the hemispheric white matter. Old stabl e lacunar infarcts bilateral basal ganglia. Air-fluid level left frontal sinus EVIDENCE OF ACUTE STROKE: NO. COMMENT: Pertinent findings on the imaging study reported as a CRITICAL RESULT to HECTOR BOOGIE MD at12:10 on 11/01/2017. Category of Critical Result: CT code stroke Quality ID # [id number]: Final reports with documentation of one or more dose reduction techniques (e.g., Au tomated exposure control, adjustment of the mA and/or kV according to patient size, use of iterative reconstruction technique) TECHNICAL DOCUMENTATION: JOB ID: [id number] [employer]- All Rights Reserved Reading location - IP/workstation name: [facility]
--- NOTE | 2017-11-01 13:20 | RADIOLOGY REPORT (SQ) ---
EXAM DESCRIPTION: CHEST SINGLE VIEW COMPLETED DATE/TIME: 11/01/2017 12:12 pm REASON FOR STUDY: bed 11 ams stroke alert COMPARISON: 03/14/2017. EXAM PARAMETERS: NUMBER OF VIEWS: One view. TECHNIQUE: Single frontal radiographic view of the chest acquired. RADIATION DOSE: NA LIMITATIONS: None. FINDINGS: LUNGS AND PLEURA: Chronic interstitial changes. No focal infiltrates, masses or pneumotho rax. Incidental skin folds overlying the right chest. No pleural effusion. MEDIASTINUM AND HILAR STRUCTURES: No masses. Contour normal. HEART AND VASCULAR STRUCTURES: Heart normal in size. Normal vasculature. BONES: No acute findings. HARDWARE: None in the chest. OTHER: No other significant finding. IMPRESSION: NO ACUTE RADIOGRAPHIC FINDING IN THE CHEST. TECHNICAL DOCUMENTATION: JOB ID: [id number] [employer]- All Rights Reserved Reading location - IP/workstation name: [email or web address]
[2017-11-01 13:32] LABS: ABSOLUTE LYMPHOCYTES (AUTO) 0.5 10^3/uL (0.5-4.7); ABSOLUTE MONOCYTES (AUTO) 0.3 10^3/uL (0.1-1.4); ABSOLUTE NEUT (AUTO) 3.1 10^3/uL (1.7-8.2); BASOPHILS % (AUTO) 0.6 % (0-2); HEMATOCRIT 30.9 % (36.0-47.0); HEMOGLOBIN 10.2 g/dL (12.0-15.5); LYMPHOCYTES % (AUTO) 13.1 % (13-45); MEAN CORPUSCULAR VOLUME 85 fl (80-97); MONOCYTES % (AUTO) 6.4 % (3-13); PLATELET COUNT 240 10^3/uL (150-450); RED BLOOD COUNT 3.64 10^6/uL (3.72-5.28); RED CELL DISTRIBUTION WIDTH 16.2 % (11.5-14.0); SEGMENTED NEUTROPHILS % (AUTO) 78.9 % (42-78); TOTAL CELLS COUNTED % (AUTO) 100 %; WHITE BLOOD COUNT 3.9 10^3/uL (4.0-10.5)
[2017-11-01 13:35] LABS: VENOUS BLOOD BASE EXCESS 5.8 mmol/L; VENOUS BLOOD HCO3 32.6 mmol/L (20-32); VENOUS BLOOD PCO2 59.1 mmHg (35-63); VENOUS BLOOD PH 7.36 (7.30-7.42)
[2017-11-01 13:37] LABS: INTERNATIONAL RATION (INR) 1.05; PROTHROMBIN TIME 14.2 SEC (11.4-15.4)
[2017-11-01 13:50] LABS: ALANINE AMINOTRANSFERASE 17 U/L (9-52); ALBUMIN 3.5 g/dL (3.5-5.0); ALKALINE PHOSPHATASE 102 U/L (38-126); ANION GAP 13 (5-19); ASPARTATE AMINO TRANSFERASE 26 U/L (14-36); BILIRUBIN,DIRECT 0.2 mg/dL (0.0-0.4); BILIRUBIN,TOTAL 0.3 mg/dL (0.2-1.3); BLOOD UREA NITROGEN 17 mg/dL (7-20); CALCIUM 9.2 mg/dL (8.4-10.2); CARBON DIOXIDE 29 mmol/L (22-30); CHLORIDE 103 mmol/L (98-107); CREATINE KINASE 76 U/L (30-135); GLUCOSE 116 mg/dL (75-110); POTASSIUM 4.5 mmol/L (3.6-5.0); SODIUM 144.8 mmol/L (137-145); TOTAL PROTEIN 8.5 g/dL (6.3-8.2)
[2017-11-01 14:03] LABS: CREATINE KINASE MB 2.21 ng/mL (<4.55)
[2017-11-01 14:04] LABS: TROPONIN I < 0.012 ng/mL
[2017-11-01 15:00] LABS: APPEARANCE,URINE CLEAR; BILIRUBIN,URINE NEGATIVE (NEGATIVE); COLOR,URINE YELLOW; GLUCOSE, URINE NEGATIVE (NEGATIVE); KETONES,URINE NEGATIVE (NEGATIVE); LEUKOCYTE ESTERASE,URINE NEGATIVE (NEGATIVE); NITRITE,URINE NEGATIVE (NEGATIVE); PROTEIN,URINE NEGATIVE (NEGATIVE); URINE SPECIFIC GRAVITY 1.011; UROBILINOGEN,URINE NEGATIVE mg/dL (<2.0)
--- NOTE | 2017-11-01 16:50 | ER Document Report ---
ED General - General Chief Complaint: Altered Mental Status Stated Complaint: ALTERED MENTAL STATUS Time Seen by Provider: 11/01/17 12:02 Notes: Patient was sent here for evaluation from a local snf, [facility] , because she is acting differently than normal. They said that the patient is less responsive than her usual. Her normal stature is for her to be in a semisitting position with drooling. She was recently diagnosed with a UTI. Patient is unable to provide any history because she has profound dementia. She has a history of atrial fibrillation. TRAVEL OUTSIDE OF THE [place] IN LAST 30 DAYS: No - Related Data Allergies/Adverse Reactions: No Known Allergies Allergy (Verified 10/13/16 17:31) Past Medical History - Social History Smoking Status: Unknown if Ever Smoked Family History: Reviewed & Not Pertinent Patient has suicidal ideation: No Patient has homicidal ideation: No - Past Medical History Cardiac Medical History: Reports: Hx Coronary Artery Disease, Hx Hypercholesterolemia, Hx Hypertension Endocrine Medical History: Reports: Hx Diabetes Mellitus Type 2 Musculoskeletal Medical History: Reports Hx Arthritis, Reports Hx Musculoskeletal Deformity, Reports Hx Musculoskeletal Trauma Psychiatric Medical History: Reports: Hx Anxiety, Hx Depression, Hx Schizoaffective Disorder, Hx Schizophrenia - Immunizations Immunizations up to date: Yes Hx Diphtheria, Pertussis, Tetanus Vaccination: Yes Hx Pneumococcal Vaccination: 06/14/12 Review of Systems - Review of Systems -: Yes ROS unobtainable due to patient's medical condition - No family available to provide any further historic information Physical Exam - Vital signs Vitals: Pulse Ox 100 11/01/17 11:43 Interpretation: Normal, Other - Cardiac rhythm is irregular, consistent with history of atrial fibrillation - Notes Notes: PHYSICAL EXAMINATION: GENERAL: Well-appearing, in no acute distress. Patient is slumped in the bed with a towel around her neck where she is persistently drooling, reported to be her normal position. Raises her head slightly to questions, but does not answer anything appropriately. Does not follow any commands. HEAD: Atraumatic, normocephalic. EYES: Pupils equal round and reactive to light, extraocular movements intact. ENT: oropharynx clear without exudates. Moist mucous membranes. NECK: Normal range of motion, supple. LUNGS: Breath sounds clear and equal bilaterally. HEART: Regular rate and rhythm without murmurs. Irregularly irregular heart rate. ABDOMEN: Soft, nontender. No guarding or rebound. No masses. BACK: No tenderness throughout entire back. EXTREMITIES: Normal range of motion without pain. NEUROLOGICAL: Does not speak. Does not walk. No acute findings suggestive of stroke. Awake, alert, but not oriented to anything. PSYCH: Normal mood, normal affect. SKIN: Warm, dry, no rashes. Course - Re-evaluation Re-evalutation: 11/01/17 17:15 Patient's daughter is at bedside now. I asked her how the patient seems to be and she says she seemed to be her usual normal self at this time. I went through all of the studies that we had done that have come back normal or negative. I told the daughter I could not find anything wrong with the patient. Patient's daughter said "she looks fine to me". We agreed that we would send the patient back to [facility] and she can return at any time if she develops new symptoms such as fever, etc. - Vital Signs Vital signs: Temp Pulse Resp BP Pulse Ox 16 100 11/01/17 16:43 11/01/17 11:43 - Laboratory Result Diagrams: 11/01/17 13:10 11/01/17 13:10 Laboratory results interpreted by me: 11/01/17 11/01/17 11/01/17 13:10 13:10 13:12 WBC 3.9 L RBC 3.64 L Hgb 10.2 L Hct 30.9 L RDW 16.2 H Seg Neutrophils % 78.9 H VBG HCO3 32.6 H Glucose 116 H Total Protein 8.5 H Discharge - Discharge Clinical Impression: Altered mental status, Dementia Condition: Stable Disposition: HOME, SELF-CARE Additional Instructions: Altered Mental Status An altered mental status is a change in the normal functioning of the brain. This alteration of function can range from minor decreased brain function with some forgetfulness and confusion to complete loss of consciousness and coma. There are many possible causes of an altered mental status and include brain injuries such as trauma or strokes, problems with oxygen supply to the brain, fever and infections of the brain and/or elsewhere in the body, metabolic abnormalities such as low or high blood sugar, overdoses or excessive medication ingestion, and mental and psychiatric illnesses. Sometimes the altered mental status resolves and a definite cause is not determined. If a cause for your altered mental status was found, it has likely been corrected. Your evaluation has not shown any condition that requires that you be admitted to the hospital. It is believed that you are safe to leave and return to your home. If you have a return of your symptoms, you should return for re-evaluation. NORMAL EXAM AND WORKUP: At this time, your examination and workup show no significant abnormality. No significant abnormal physical findings were noted. All laboratory, EKG, and imaging (x-ray, CT scans, ultrasound) studies that were ordered show no significant abnormality. Although your examination and all studies that were ordered showed no significant abnormal finding, there are no examinations and no studies that are 100% accurate. There is always the possibility that some abnormality could exist and not be detected with physical examination or within the limits and capabilities of laboratory and other studies. You should return or follow up as you were instructed on your visit today for further evaluation if your symptoms do not resolve. FOLLOW-UP CARE: If you have been referred to a physician for follow-up care, call the physician s office for an appointment as you were instructed or within the next two days. If you experience worsening or a significant change in your symptoms, notify the physician immediately or return to the Emergency Department at any time for re-evaluation.
[2017-11-01 19:12] VITALS: BP 169/95
--- NOTE | 2017-11-01 21:32 | EKG REPORT ---
SEVERITY:- ABNORMAL ECG - ABNRM R PROG, CONSIDER ASMI OR LEAD PLACEMENT BORDERLINE PROLONGED QT INTERVAL MOST PROBABLY SINUS RHYTHM.BASELINE ARTIFACT..REPEAT EKG : Confirmed by: Karine Valenzuela MD 01-Nov-2017 21:32:02
== END 2017-11-01 19:11 | disposition home or self-care (01) ==
LOC: ER 11:39
DX: F03.90 Unspecified dementia, unspecified severity, without behavioral disturbance, psychotic disturbance, mood disturbance, and anxiety (principal); I48.91 Unspecified atrial fibrillation; I25.10 Atherosclerotic heart disease of native coronary artery without angina pectoris; I10 Essential (primary) hypertension; E11.9 Type 2 diabetes mellitus without complications
CPT/HCPCS: 93005; 99285; 96360; 96361; 36415; 87040; 87086; 82553; 82550; 85025; 85610; 85730; 80053; 81001; 84484; 82803; 83605; 71045; 70450; 93010; J7030

== ENCOUNTER 2019-07-16 23:04 | Inpatient (IN) | payer MEDICARE, MEDICAID ==
[2019-07-16 23:21] LABS: ABSOLUTE EOSINOPHILS # (AUTO) 0.2 10^3/uL (0.0-0.6); ABSOLUTE LYMPHOCYTES (AUTO) 1.5 10^3/uL (0.5-4.7); ABSOLUTE MONOCYTES (AUTO) 0.3 10^3/uL (0.1-1.4); ABSOLUTE NEUT (AUTO) 2.1 10^3/uL (1.7-8.2); BASOPHILS % (AUTO) 0.9 % (0-2); EOSINOPHILS % (AUTO) 4.6 % (0-6); HEMATOCRIT 29.5 % (36.0-47.0); MEAN CORPUSCULAR HEMOGLOBIN 30.4 pg (27.0-33.4); MEAN CORPUSCULAR HGB CONC 33.8 g/dL (32.0-36.0); MEAN CORPUSCULAR VOLUME 90 fl (80-97); MONOCYTES % (AUTO) 7.3 % (3-13); PLATELET COUNT 223 10^3/uL (150-450); RED BLOOD COUNT 3.27 10^6/uL (3.72-5.28); RED CELL DISTRIBUTION WIDTH 15.1 % (11.5-14.0); SEGMENTED NEUTROPHILS % (AUTO) 50.2 % (42-78); TOTAL CELLS COUNTED % (AUTO) 100 %; WHITE BLOOD COUNT 4.2 10^3/uL (4.0-10.5)
--- NOTE | 2019-07-16 23:21 | ER Document Report ---
ED General - General Stated Complaint: ALTERED MENTAL STATUS Time Seen by Provider: 07/16/19 23:08 Primary Care Provider: LESLEY MCKEON MANAGER INVENTORY CONTROL, MANAGER INVENTORY CONTROL [Primary Care Provider] - Follow up as needed TRAVEL OUTSIDE OF THE [place] IN LAST 30 DAYS: No - HPI Notes: Patient is an 83-year-old female who presents to the emergency department for evaluation of a report of altered mental status. The patient is nonverbal at [facility], with a history of severe dementia, so history is obtained entirely from EMS and reports from the long term. Evidently she had a bowel movement there and they found her heart rate to be anywhere between 25-75. They also state that normally she makes eye contact, does interact in a nonverbal manner, she has not been interactive this evening, so they sent her here for further evaluation. No other reports of symptoms. - Related Data Allergies/Adverse Reactions: No Known Allergies Allergy (Verified 10/13/16 17:31) Home Medications: Cardizem, Aspirin, Colace, Iron, Milk of Mag, Prilosec, Pro- Stat, Tylenol, Vitamin B-12 Past Medical History - General Information source: Emergency Med Personnel, [facility] Records - Social History Smoking Status: Unknown if Ever Smoked Family History: Reviewed & Not Pertinent Patient has suicidal ideation: No Patient has homicidal ideation: No - Past Medical History Cardiac Medical History: Reports: Hx Atrial Fibrillation, Hx Coronary Artery Disease, Hx Hypercholesterolemia, Hx Hypertension Denies: Hx Heart Attack Pulmonary Medical History: Denies: Hx Asthma, Hx Bronchitis, Hx COPD, Hx Pneumonia Neurological Medical History: Denies: Hx Cerebrovascular Accident, Hx Seizures Endocrine Medical History: Reports: Hx Diabetes Mellitus Type 2 Renal/ Medical History: Denies: Hx Peritoneal Dialysis Musculoskeletal Medical History: Reports Hx Arthritis, Reports Hx Musculoskeletal Deformity, Reports Hx Musculoskeletal Trauma Psychiatric Medical History: Reports: Hx Anxiety, Hx Dementia, Hx Depression, Hx Schizoaffective Disorder, Hx Schizophrenia - Immunizations Immunizations up to date: Yes Hx Diphtheria, Pertussis, Tetanus Vaccination: Yes Hx Pneumococcal Vaccination: 06/14/12 Review of Systems - Review of Systems -: Yes ROS unobtainable due to patient's medical condition - Patient nonverbal, demented Physical Exam - Vital signs Vitals: Resp BP Pulse Ox 17 141/60 H 98 07/16/19 23:05 07/16/19 23:07/16/19 23:05 - Notes Notes: Short this is a frail-appearing 83-year-old female who appears her stated age. She is lying in the bed, contracted, on her left side. She actively avoids me opening her eyes to evaluate her pupils. She will not cooperate with the remainder of the exam and as far as following commands. Oral mucosa is moist. Heart is regular rate and rhythm, heart rate is in the 50s at the time of my evaluation. Lungs show clear breath sounds bilaterally. Abdomen is scaphoid, nontender, normoactive bowel sounds. Extremities without cyanosis or clubbing. Peripheral pulses are equal. Skin is warm and dry. Course - Re-evaluation Re-evalutation: 07/16/19 23:20 Patient presents to the emergency department for evaluation with reports of altered mental status and bradycardia. [facility] states her heart rate was in the 20s. She did have a bowel movement at that time, I wonder if this was a vagal response. At any rate her heart rate is been in the 50s and 60s per EMS, 50s and 60s here. Differential diagnosis is broad in this patient who cannot offer any significant information at this time. We will do CT scan of her head, septic work-up. She is placed on a radiation monitor, currently her vitals are stable. We will continue to monitor. 07/17/19 00:06 Patient has remained on the radiation monitor while here. Her heart rate has been in the 50s and 60s. I wanted to reevaluate the patient. She has her eyes open. She still not following commands. I am unsure as to how far off of her baseline this actually is. Patient does have a urinary tract infection. She has no leukocytosis, normal renal function. Her vital signs remained unremarkable here. She is given a gram of Rocephin, awaiting imaging. 07/17/19 01:18 At 105, I noticed the patient's telemetry revealing a dropping heart rate. Her heart rate went to 32. I went in to evaluate the patient. Again she is not following commands, but is making focal movements, avoiding opening her eyes, did move in response to pain. Her heart rate remained in the 30s, and I am having difficulty assessing mental status, so decision was made to proceed with atropine 0.5 mg IV. Patient's heart rate improved somewhat, but then began to drop again. Her blood pressure was cycled and found to be in the 60s. Based on this decision was made to initiate dopamine therapy. Patient was started on 2 mics per kilo per minute. Her current heart rate is 89, her blood pressure is 78/46. IV fluids have been administered. Will titrate up slowly on dopamine to improve blood pressure. 07/17/19 01:42 Patient currently on 10 mics of dopamine, heart rate 105, blood pressure 140 systolic. I spoke with Dr. Astudillo. He asked that magnesium and phosphorus be added to her labs, and he will admit the patient for further care. - Vital Signs Vital signs: Temp Pulse Resp BP Pulse Ox 17 142/70 H 98 07/17/19 01:35 07/17/19 01:35 07/17/19 01:20 - Laboratory Result Diagrams: 07/16/19 23:05 07/16/19 23:05 Laboratory results interpreted by me: 07/16/19 07/16/19 07/16/19 23:05 23:05 23:25 RBC 3.27 L Hgb 10.0 L Hct 29.5 L RDW 15.1 H Carbon Dioxide 31 H Anion Gap 3 L Glucose 159 H Albumin 3.4 L Urine Protein 30 H Urine Glucose (UA) 50 H Urine Blood MODERATE H Leukocyte Esterase Rfl LARGE H - Diagnostic Test Radiology reviewed: Reports reviewed Radiology results interpreted by me: 07/17/19 01:43 Chest X-Ray 07/16/19 23:09 IMPRESSION: No acute disease. Head CT 07/16/19 23:10 IMPRESSION: No acute findings. Limitation. - EKG Interpretation by Me Additional EKG results interpreted by me: 07/16/19 23:21 Sinus bradycardia with a rate of 57 bpm. Left axis deviation. Nonspecific IVCD. No acute ST changes concerning for ischemia or infarction. Critical Care Note - Critical Care Note Total time excluding time spent on procedures (mins): 45 Discharge - Discharge Clinical Impression: Bradycardia Hypotension Qualifiers: Hypotension type: unspecified hypotension type Qualified Code(s): I95.9 - Hypotension, unspecified Urinary tract infection Qualifiers: Urinary tract infection type: site unspecified Hematuria presence: without hematuria Qualified Code(s): N39.0 - Urinary tract infection, site not specified Condition: Stable Disposition: ADMITTED INPATIENT Admitting Provider: Baudilio (Hospitalist) Unit Admitted: IMCU Referrals: LESLEY MCKEON MANAGER INVENTORY CONTROL, MANAGER INVENTORY CONTROL [Primary Care Provider] - Follow up as needed
[2019-07-16 23:24] LABS: VENOUS BLOOD BASE EXCESS 3.2 mmol/L; VENOUS BLOOD HCO3 29.4 mmol/L (20-32); VENOUS BLOOD PCO2 53.3 mmHg (35-63); VENOUS BLOOD PH 7.36 (7.30-7.42)
[2019-07-16 23:29] LABS: INTERNATIONAL RATION (INR) 1.14; PROTHROMBIN TIME 14.7 SEC (11.4-15.4)
[2019-07-16 23:37] LABS: ALBUMIN 3.4 g/dL (3.5-5.0); ALKALINE PHOSPHATASE 93 U/L (38-126); ASPARTATE AMINO TRANSFERASE 21 U/L (14-36); BILIRUBIN,TOTAL 0.4 mg/dL (0.2-1.3); BLOOD UREA NITROGEN 19 mg/dL (7-20); CALCIUM 8.5 mg/dL (8.4-10.2); CHLORIDE 104 mmol/L (98-107); GLUCOSE 159 mg/dL (75-110); POTASSIUM 4.3 mmol/L (3.6-5.0); TOTAL PROTEIN 7.3 g/dL (6.3-8.2)
[2019-07-16 23:42] LABS: CARBON DIOXIDE 31 mmol/L (22-30)
[2019-07-16 23:48] LABS: APPEARANCE,URINE CLOUDY; BILIRUBIN,URINE NEGATIVE (NEGATIVE); COLOR,URINE YELLOW; GLUCOSE, URINE 50 mg/dL (NEGATIVE); KETONES,URINE NEGATIVE (NEGATIVE); PROTEIN,URINE 30 mg/dL (NEGATIVE); URINE SPECIFIC GRAVITY 1.006; UROBILINOGEN,URINE NEGATIVE mg/dL (<2.0)
[2019-07-16 23:48] LABS: ANION GAP 3 (5-19)
[2019-07-17] MEDS ORDERED: CEFTRIAXONE 1 GM/D5W RTU 1 GM/50 ML RTUPB IV ONE (00:30)
--- NOTE | 2019-07-17 00:45 | RADIOLOGY REPORT (SQ) ---
CHEST 1 VIEW on 07/17/2019 at 12:04 AM CLINICAL INDICATION: Altered mental status, bradycardia COMPARISON: 11/01/2017 FINDINGS: There is mild linear atelectasis or scarring in the lung bases. The lungs are otherwise clear. A few wires are noted projecting over the chest. Vascular calcification is noted in the aorta. Cardiac, hilar and mediastinal contours are within normal limits. Degenerative changes are noted in the spine. IMPRESSION: No acute disease.
[2019-07-17] MEDS ORDERED: ATROPINE SULFATE INJ 1 MG/1 ML VIAL ONE (01:02)
[2019-07-17] MEDS ORDERED: DOPAMINE HCL/DEXTROSE 5%-WATER 800 MG/250 ML RTUINJ IV ONE (01:06)
--- NOTE | 2019-07-17 01:13 | RADIOLOGY REPORT (SQ) ---
EXAM DESCRIPTION: CT HEAD WITHOUT IV CONTRAST COMPLETED DATE/TME: 07/16/2019 23:10 CLINICAL HISTORY: 83 years Female, altered mental status COMPARISON:Nov 01 2017 TECHNIQUE: No contrast. Coronal and sagittal reformat. This exam was performed according to our departmental dose-optimization program, which includes automated exposure control, adjustment of the mA and/or kV according to patient size and/or use of iterative reconstruction technique. Limitation: Position. FINDINGS: No hemorrhage. 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 No mass, mass effect, or midline shift. White matter microangiopathy, parenchymal volume loss, and atherosclerosis. Mucosal occlusion of left frontal air cells. Brain and extra-axial structures appear otherwise intact. IMPRESSION: No acute findings. Limitation.
[2019-07-17] MEDS ORDERED: DOPAMINE HCL/DEXTROSE 5%-WATER 800 MG/250 ML RTUINJ IV PRN ×2 (01:38→15:45)
[2019-07-17] MEDS ORDERED: ATROPINE SULFATE INJ 0.4 MG/1 ML VIAL IV ONE (01:38)
[2019-07-17] MEDS ORDERED: NORMAL SALINE 1000 ML 1,000 ML IV ONE (01:41)
[2019-07-17] MEDS ORDERED: ACETAMINOPHEN 325 MG TABLET PO PRN (01:42)
[2019-07-17] MEDS ORDERED: IPRATROPIUM/ALBUTEROL 0.5-2.5 MG/3 ML AMPUL NEB PRN (01:42)
[2019-07-17] MEDS ORDERED: MAG HYDROX/AL HYDROX/SIMETH SUSP 30 ML UDCUP PO PRN (01:42)
[2019-07-17 02:01] LABS: PHOSPHORUS 3.8 mg/dL (2.5-4.5)
[2019-07-17 05:21] LABS: ANION GAP 7 (5-19); BLOOD UREA NITROGEN 19 mg/dL (7-20); CALCIUM 9.4 mg/dL (8.4-10.2); CARBON DIOXIDE 32 mmol/L (22-30); CHLORIDE 102 mmol/L (98-107); GLUCOSE 150 mg/dL (75-110); POTASSIUM 4.1 mmol/L (3.6-5.0)
[2019-07-17] MEDS: HEPARIN SOD (PORCINE) 5,000 UNIT/ML 1 ML VIAL SUBCUT SCH ×3 (05:31→22:38)
[2019-07-17 05:38] LABS: FREE T3 4.8 pg/mL (2.77-5.27); FREE T4 (FREE THYROXINE) 1.42 ng/dL (0.78-2.19)
--- NOTE | 2019-07-17 05:55 | PDOC H&P ---
History of Present Illness Admission Date/PCP: 07/17/19 02:06 LESLEY MCKEON NP Patient complains of: Altered mental status History of Present Illness: SURINDER NORTON is a 83 year old female who is a long-term nonverbal [facility] resident with advanced dementia, contractures x4 and atrial fibrillation on Cardizem every 6 hours. She presents with reported bradycardia and unable to initiate eye contact from baseline. In the emergency department she is found obtunded and an intermittent heart rate in the 30s and without hypotension. She receives a trial of atropine and started on dopamine at 5 mics per minute. She is otherwise without fever or leukocytosis but a urinalysis shows pyuria and she is started on Rocephin and referred to the hospitalist for admission. Her CODE STATUS is verified to be full code. Patient is unable to provide any history. Past Medical History Cardiac Medical History: Reports: Atrial Fibrillation, Coronary Artery Disease, Hyperlipidema, Hypertension Denies: Myocardial Infarction Pulmonary Medical History: Denies: Asthma, Bronchitis, Chronic Obstructive Pulmonary Disease (COPD), Pneumonia Neurological Medical History: Denies: Seizures Endocrine Medical History: Reports: Diabetes Mellitus Type 2 Musculoskeltal Medical History: Reports: Arthritis Psychiatric Medical History: Reports: Dementia, Depression, Schizoaffective Disorder Hematology: Reports: Anemia Social History Information Source: [facility] Records Lives with: Longterm Smoking Status: Unknown if Ever Smoked Frequency of Alcohol Use: None Hx Recreational Drug Use: No Hx Prescription Drug Abuse: No - Advance Directive Resuscitation Status: Full Code Family History Family History: Reviewed & Not Pertinent, Other - Unobtainable Parental Family History Reviewed: No - Unobtainable Children Family History Reviewed: No - Unobtainable Sibling(s) Family History Reviewed.: No - Unobtainable Medication/Allergy Home Medications: Calcium Carbonate/Vitamin D3 [Calcium 600-Vit D3 200 Tablet] 1 tab PO DAILY 07/31/13 Omeprazole 20 mg PO DAILY 07/31/13 Rivastigmine [Exelon 9.5 mg/24 Hr Transdermal Patch] 1 each TD DAILY 06/11/15 Cyanocobalamin (Vitamin B-12) [Vitamin B-12 1000 mcg Tablet] 1,000 mcg PO DAILY #60 tablet 06/14/15 Docusate Sodium [Dok] 100 mg PO DAILY 10/13/16 Ferrous Sulfate 325 mg PO DAILY 10/13/16 Multivit-Min/Iron/Folic/Lutein [Centrum Silver Women Tablet] 1 each PO DAILY 0 10/13/16 Aripiprazole [Abilify 5 mg Tablet] 5 mg PO Q12 08/15/17 Aspirin [Aspirin 81 mg Chewable Tablet] 81 mg PO DAILY 08/15/17 Diltiazem HCl [Cardizem 60 mg Tablet] 60 mg PO Q6 08/15/17 Trihexyphenidyl HCl [Artane 2 mg Tablet] 1 mg PO Q12 08/15/17 Levofloxacin [Levaquin 500 mg Tablet] 500 mg PO DAILY #3 tablet 08/20/17 Allergies/Adverse Reactions: No Known Allergies Allergy (Verified 10/13/16 17:31) Review of Systems ROS unobtainable: Due to mental status Physical Exam Vital Signs: Temp Pulse Resp BP Pulse Ox 98.5 F 83 20 135/84 H 97 07/17/19 03:49 07/17/19 03:57 07/17/19 03:49 07/17/19 05:00 07/17/19 03:49 Intake & Output 07/15/19 07/16/19 07/17/19 11:59 11:59 11:59 Intake Total 1073 Balance 1073 Weight 45.8 kg General appearance: PRESENT: no acute distress, well-nourished, other - Chronically ill-appearing with temporal wasting and cachexia, contractures x4, verbally unresponsive Head exam: PRESENT: atraumatic, normocephalic Eye exam: PRESENT: conjunctiva pink, EOMI, PERRLA. ABSENT: scleral icterus Ear exam: PRESENT: normal external ear exam Mouth exam: PRESENT: dry mucosa Neck exam: ABSENT: carotid bruit, JVD, lymphadenopathy, thyromegaly Respiratory exam: PRESENT: clear to auscultation almaz. ABSENT: rales, rhonchi, wheezes Cardiovascular exam: PRESENT: bradycardia, RRR. ABSENT: diastolic murmur, rubs, systolic murmur Pulses: PRESENT: normal dorsalis pedis pul Vascular exam: PRESENT: normal capillary refill GI/Abdominal exam: PRESENT: normal bowel sounds, soft. ABSENT: distended, guarding, mass, organolmegaly, rebound, tenderness Rectal exam: PRESENT: deferred Extremities exam: PRESENT: full ROM. ABSENT: calf tenderness, clubbing, pedal edema Neurological exam: PRESENT: altered, CN II-XII grossly intact. ABSENT: alert, awake, oriented to person, oriented to place, oriented to time, oriented to situation Psychiatric exam: PRESENT: appropriate affect, normal mood. ABSENT: homicidal ideation, suicidal ideation Skin exam: PRESENT: other - Stage II sacral decubiti Results Laboratory Results: 07/16/19 23:05 07/17/19 04:06 07/16/19 07/16/19 07/16/19 23:05 23:05 23:05 WBC 4.2 RBC 3.27 L Hgb 10.0 L Hct 29.5 L MCV 90 MCH 30.4 MCHC 33.8 RDW 15.1 H Plt Count 223 Seg Neutrophils % 50.2 VBG pH 7.36 VBG pCO2 53.3 VBG HCO3 29.4 VBG Base Excess 3.2 Sodium 137.6 Potassium 4.3 Chloride 104 Carbon Dioxide 31 H Anion Gap 3 L BUN 19 Creatinine 0.57 Est GFR ( Amer) > 60 Glucose 159 H Lactic Acid Calcium 8.5 Phosphorus Magnesium Total Bilirubin 0.4 AST 21 Alkaline Phosphatase 93 Total Protein 7.3 Albumin 3.4 L TSH Free T4 Free T3 pg/mL Urine Color Urine Appearance Urine pH Ur Specific [place] Urine Protein Urine Glucose (UA) Urine Ketones Urine Blood Urine RBC (Auto) Stool for White Cells 07/16/19 07/16/19 07/16/19 23:05 23:05 23:05 WBC RBC Hgb Hct MCV MCH MCHC RDW Plt Count Seg Neutrophils % VBG pH VBG pCO2 VBG HCO3 VBG Base Excess Sodium Potassium Chloride Carbon Dioxide Anion Gap BUN Creatinine Est GFR ( Amer) Glucose Lactic Acid 1.5 Calcium Phosphorus 3.8 Magnesium 1.7 Total Bilirubin AST Alkaline Phosphatase Total Protein Albumin TSH 12.00 H Free T4 Free T3 pg/mL Urine Color Urine Appearance Urine pH Ur Specific [place] Urine Protein Urine Glucose (UA) Urine Ketones Urine Blood Urine RBC (Auto) Stool for White Cells 07/16/19 07/16/19 07/17/19 23:05 23:25 02:47 WBC RBC Hgb Hct MCV MCH MCHC RDW Plt Count Seg Neutrophils % VBG pH VBG pCO2 VBG HCO3 VBG Base Excess Sodium Potassium Chloride Carbon Dioxide Anion Gap BUN Creatinine Est GFR ( Amer) Glucose Lactic Acid 2.4 H Calcium Phosphorus Magnesium Total Bilirubin AST Alkaline Phosphatase Total Protein Albumin TSH Free T4 1.42 Free T3 pg/mL 4.80 Urine Color YELLOW Urine Appearance CLOUDY Urine pH 8.0 Ur Specific [place] 1.006 Urine Protein 30 H Urine Glucose (UA) 50 H Urine Ketones NEGATIVE Urine Blood MODERATE H Urine RBC (Auto) 30 Stool for White Cells 07/17/19 07/17/19 03:15 04:06 WBC RBC Hgb Hct MCV MCH MCHC RDW Plt Count Seg Neutrophils % VBG pH VBG pCO2 VBG HCO3 VBG Base Excess Sodium 140.6 Potassium 4.1 Chloride 102 Carbon Dioxide 32 H Anion Gap 7 BUN 19 Creatinine 0.59 Est GFR ( Amer) > 60 Glucose 150 H Lactic Acid Calcium 9.4 Phosphorus Magnesium Total Bilirubin AST Alkaline Phosphatase Total Protein Albumin TSH Free T4 Free T3 pg/mL Urine Color Urine Appearance Urine pH Ur Specific [place] Urine Protein Urine Glucose (UA) Urine Ketones Urine Blood Urine RBC (Auto) Stool for White Cells NO WBCs SEEN 07/16/19 23:05 Troponin I < 0.012 Impressions: Chest X-Ray 07/16/19 23:09 IMPRESSION: No acute disease. Head CT 07/16/19 23:10 IMPRESSION: No acute findings. Limitation. Assessment and Plan - Diagnosis (1) Bradycardia Is this a current diagnosis for this admission?: Yes Plan: Likely secondary to Cardizem on hold, dopamine titration, follow-up TSH. (2) UTI (urinary tract infection) Qualifiers: Urinary tract infection type: site unspecified Hematuria presence: without hematuria Qualified Code(s): N39.0 - Urinary tract infection, site not specified Is this a current diagnosis for this admission?: Yes Plan: UTI versus colonization, Rocephin initiated, follow-up blood and urine culture. (3) Hypotension Qualifiers: Hypotension type: unspecified hypotension type Qualified Code(s): I95.9 - Hypotension, unspecified Is this a current diagnosis for this admission?: Yes Plan: Associated with bradycardia, hold Cardizem, UTI treatment, IV fluid challenge, dopamine titration, follow-up telemetry - Time Time Spent with patient: 25-34 minutes - Inpatient Certification Medical Necessity: Need Close Monitoring Due to Risk of Patient Decompensation
--- NOTE | 2019-07-17 07:29 | EKG REPORT ---
SEVERITY:- ABNORMAL ECG - SINUS RHYTHM PROBABLE LEFT VENTRICULAR HYPERTROPHY : Confirmed by: Annie Reddy 17-Jul-2019 07:29:07
--- NOTE | 2019-07-17 08:42 | PDOC PROGRESS REPORT ---
Subjective Progress Note for:: 07/17/19 Subjective:: 83 year old female who is a long-term nonverbal group home resident with advanced dementia, contractures x4 and atrial fibrillation on Cardizem every 6 hours. She presents with reported bradycardia and unable to initiate eye contact from baseline. In the emergency department she is found obtunded and an intermittent heart rate in the 30s and without hypotension. She receives a trial of atropine and started on dopamine at 5 mics per minute. She is otherwise without fever or leukocytosis but a urinalysis shows pyuria and she is started on Rocephin and referred to the hospitalist for admission. Her CODE STATUS is verified to be full code. Patient is unable to provide any history. 07/17/19-no acute events after admission heart rate came back up to more than 100 blood pressures are still low. Plan is to discontinue dopamine drip started on IV fluids normal saline at 75 cc/h. Reason For Visit: BRADYCARDIA UTI Physical Exam Vital Signs: Temp Pulse Resp BP Pulse Ox 98.5 F 78 20 86/52 L 97 07/17/19 03:49 07/17/19 07:00 07/17/19 03:49 07/17/19 06:00 07/17/19 03:49 Intake & Output 07/16/19 07/17/19 07/18/19 06:59 06:59 06:59 Intake Total 1073 4 Output Total 1025 Balance 48 4 Weight 45.8 kg General appearance: PRESENT: other - thin, cachectic female comfortably in the bed not communicative. Head exam: PRESENT: atraumatic Eye exam: PRESENT: PERRLA Mouth exam: PRESENT: neck supple Teeth exam: PRESENT: poor dentation Neck exam: ABSENT: carotid bruit, JVD, lymphadenopathy, thyromegaly Respiratory exam: PRESENT: decreased breath sounds Pulses: PRESENT: normal dorsalis pedis pul GI/Abdominal exam: PRESENT: normal bowel sounds, soft. ABSENT: distended, guarding, mass, organolmegaly, rebound, tenderness Rectal exam: PRESENT: deferred Extremities exam: PRESENT: other - Remedies are contracted at the hips and at the knees. Neurological exam: PRESENT: CN II-XII grossly intact. ABSENT: alert, awake, oriented to person, oriented to place, oriented to time, normal gait Results Laboratory Results: 07/16/19 23:05 07/17/19 04:06 07/16/19 07/16/19 07/16/19 23:05 23:05 23:05 WBC 4.2 RBC 3.27 L Hgb 10.0 L Hct 29.5 L MCV 90 MCH 30.4 MCHC 33.8 RDW 15.1 H Plt Count 223 Seg Neutrophils % 50.2 VBG pH 7.36 VBG pCO2 53.3 VBG HCO3 29.4 VBG Base Excess 3.2 Sodium 137.6 Potassium 4.3 Chloride 104 Carbon Dioxide 31 H Anion Gap 3 L BUN 19 Creatinine 0.57 Est GFR ( Amer) > 60 Glucose 159 H Lactic Acid Calcium 8.5 Phosphorus Magnesium Total Bilirubin 0.4 AST 21 Alkaline Phosphatase 93 Total Protein 7.3 Albumin 3.4 L TSH Free T4 Free T3 pg/mL Urine Color Urine Appearance Urine pH Ur Specific [place] Urine Protein Urine Glucose (UA) Urine Ketones Urine Blood Urine RBC (Auto) Stool for White Cells 07/16/19 07/16/19 07/16/19 23:05 23:05 23:05 WBC RBC Hgb Hct MCV MCH MCHC RDW Plt Count Seg Neutrophils % VBG pH VBG pCO2 VBG HCO3 VBG Base Excess Sodium Potassium Chloride Carbon Dioxide Anion Gap BUN Creatinine Est GFR ( Amer) Glucose Lactic Acid 1.5 Calcium Phosphorus 3.8 Magnesium 1.7 Total Bilirubin AST Alkaline Phosphatase Total Protein Albumin TSH 12.00 H Free T4 Free T3 pg/mL Urine Color Urine Appearance Urine pH Ur Specific [place] Urine Protein Urine Glucose (UA) Urine Ketones Urine Blood Urine RBC (Auto) Stool for White Cells 07/16/19 07/16/19 07/17/19 23:05 23:25 02:47 WBC RBC Hgb Hct MCV MCH MCHC RDW Plt Count Seg Neutrophils % VBG pH VBG pCO2 VBG HCO3 VBG Base Excess Sodium Potassium Chloride Carbon Dioxide Anion Gap BUN Creatinine Est GFR ( Amer) Glucose Lactic Acid 2.4 H Calcium Phosphorus Magnesium Total Bilirubin AST Alkaline Phosphatase Total Protein Albumin TSH Free T4 1.42 Free T3 pg/mL 4.80 Urine Color YELLOW Urine Appearance CLOUDY Urine pH 8.0 Ur Specific [place] 1.006 Urine Protein 30 H Urine Glucose (UA) 50 H Urine Ketones NEGATIVE Urine Blood MODERATE H Urine RBC (Auto) 30 Stool for White Cells 07/17/19 07/17/19 03:15 04:06 WBC RBC Hgb Hct MCV MCH MCHC RDW Plt Count Seg Neutrophils % VBG pH VBG pCO2 VBG HCO3 VBG Base Excess Sodium 140.6 Potassium 4.1 Chloride 102 Carbon Dioxide 32 H Anion Gap 7 BUN 19 Creatinine 0.59 Est GFR ( Amer) > 60 Glucose 150 H Lactic Acid Calcium 9.4 Phosphorus Magnesium Total Bilirubin AST Alkaline Phosphatase Total Protein Albumin TSH Free T4 Free T3 pg/mL Urine Color Urine Appearance Urine pH Ur Specific [place] Urine Protein Urine Glucose (UA) Urine Ketones Urine Blood Urine RBC (Auto) Stool for White Cells NO WBCs SEEN 07/16/19 23:05 Troponin I < 0.012 Impressions: Chest X-Ray 07/16/19 23:09 IMPRESSION: No acute disease. Head CT 07/16/19 23:10 IMPRESSION: No acute findings. Limitation. Assessment and Plan - Diagnosis (1) Bradycardia Is this a current diagnosis for this admission?: Yes Plan: Likely secondary to Cardizem on hold, dopamine titration, follow-up TSH. 07/17/2019 patient admitted with severe bradycardia at the time of arrival heart rate is in the 30s she was started on dopamine drip and Cardizem on hold heart rate is now around 92. Bradycardia is resolved. (2) Hypotension Qualifiers: Hypotension type: unspecified hypotension type Qualified Code(s): I95.9 - Hypotension, unspecified Is this a current diagnosis for this admission?: Yes Plan: Associated with bradycardia, hold Cardizem, UTI treatment, IV fluid challenge, dopamine titration, follow-up telemetry 07/17/2019-patient is still hypotensive systolic blood pressure in the 90s started on IV fluids 75 cc/h and to discontinue dopamine drip. Hypotension may be secondary to UTI. (3) UTI (urinary tract infection) Qualifiers: Urinary tract infection type: site unspecified Hematuria presence: without hematuria Qualified Code(s): N39.0 - Urinary tract infection, site not specified Is this a current diagnosis for this admission?: Yes Plan: UTI versus colonization, Rocephin initiated, follow-up blood and urine culture. 07/17/19-urine analysis abnormal started on IV Rocephin may be colonization of the bacteria in the urine cultures are pending. Afebrile. (4) Anemia Qualifiers: Anemia type: unspecified type Qualified Code(s): D64.9 - Anemia, unspecified Is this a current diagnosis for this admission?: No Plan: 07/17/2019-patient has history of anemia of chronic disease latest hemoglobin is 10. Stable. (5) Dementia Is this a current diagnosis for this admission?: No Plan: 07/17/2019-patient has advanced dementia. Nonverbal. (6) Protein-energy malnutrition Is this a current diagnosis for this admission?: Yes Plan: 07/17/2019-patient's BMI is less than 16 on examination wasting of the temporalis muscle, quadriceps muscle, deltoid muscles are seen. Patient has severe protein energy malnutrition. Dietary consult will be requested and nutritional supplementations will be provided.
[2019-07-17] MEDS ORDERED: (PENDING PHARMACY ID) (Multivit-Min/Fa/Lycopen/Lutein [Certavite Sr-Antioxidant Tab] 1 EAC PO SCH (10:00)
[2019-07-17] MEDS ORDERED: AMINO ACIDS PO SCH (10:00)
[2019-07-17] MEDS ORDERED: PROTEIN HYDROLYS PO SCH (10:00)
[2019-07-17] MEDS: CALCIUM CARBONATE 600 MG/VITAMIN D3 400 UNIT TABLET PO SCH (10:21)
[2019-07-17] MEDS: ASPIRIN 81 MG TABLET, CHEWABLE PO SCH (10:21)
[2019-07-17 10:22] LABS: C DIFFICILE GDH NEGATIVE (NEGATIVE)
[2019-07-17] MEDS: FERROUS SULFATE 325 MG TABLET PO SCH (10:22)
[2019-07-17] MEDS: PRENATAL VITAMIN W DHA CAPSULE PO SCH (10:22)
[2019-07-17] MEDS: DOCUSATE SODIUM 100 MG/10 ML UDC PO SCH ×2 (10:22→18:01)
[2019-07-17] MEDS: PANTOPRAZOLE SODIUM 20 MG TABLET.DR PO SCH (10:22)
[2019-07-17] MEDS: MULTIVITAMIN TABLET PO SCH (10:23)
[2019-07-17] MEDS: CYANOCOBALAMIN (VITAMIN B-12) 1,000 MCG TABLET PO SCH (10:23)
[2019-07-17] MEDS: ASCORBIC ACID 500 MG TABLET PO SCH ×2 (10:23→22:20)
[2019-07-17] MEDS: NORMAL SALINE 1000 ML 1,000 ML IV PRN (11:45)
--- NOTE | 2019-07-17 12:42 | XCELERA REPORT ---
[address] [address] Transthoracic Echocardiogram Report Name: SURINDER NORTON Age: 83 yrs Gender: Female : 1935 Patient Status: Inpatient Patient Location: [facility]^A Study Date: 07/17/2019 09:23 AM Height: 67 in Weight: 100 lb BSA: 1.5 m2 Reason For Study: Bradycardia, elevated lactic acid Ordering Physician: ANNIE GONZALES Performed By: Polina Wall Interpretation Summary Interpretation Summary TRANS THORACIC ECHOCARDIOGRAM FINDINGS: Technically difficult study. LEFT VENTRICLE: LV Systolic function: LVEF is felt to be within normal limits. Best estimate is approximately LVEF is 60 %. LV Diastolic Function: Grade II diastolic dysfunction noted. Wall motion : Regional wall motion cannot be accurately commented upon but no definite wall motion abnormalities are noted. Left ventricular chamber size : is within normal limit. Left ventricular wall thickness : is increased indicative of Mild LVH. INTERVENTRICULAR SEPTUM: no evidence of VSD noted. No asymmetric hypertrophy noted. RIGHT VENTRICLE: RV systolic function : is felt to be within normal limit. Right Ventricle Size : Within normal limits. LEFT ATRIUM size : mildly dilated. RIGHT ATRIUM size : is within normal limit. INTER ATRIAL SEPTUM : No definite atrial septal defect noted however a small PFO could be missed. AORTIC ROOT : seems to be within normal limits. Ascending aorta is not well visualized. INFERIOR VENA CAVA: Small, with normal respiratory variation. VALVES: MITRAL VALVE : Leaflets are mildly thickened. Mobility seems to be within normal limits. Mitral Regurgitation : Trace mitral regurgitation is noted. Mitral Stenosis: No mitral stenosis noted. Mitral valve prolapse : none noted. AORTIC VALVE: seems to be trileaflet with thickening but adequate excursion. Aortic stenosis : No aortic stenosis noted. Aortic regurgitation : No aortic incompetence noted. TRICUSPID VALVE : mobility and structures within normal limit. Tricuspid stenosis : no tricuspid stenosis noted. Tricuspid regurgitation : Trace tricuspid regurgitation noted. Estimated RVSP : tricuspid jet envelope not well defined to measure RV systolic pressure accurately. PULMONARY VALVE : was not well visualized but no significant abnormalities suspected. Pulmonary stenosis : no significant pulmonary stenosis noted. Pulmonary regurgitation : no significant pulmonary regurgitation noted. MASSES AND THROMBUS : No definite intracardiac thrombus or masses are noted. PERICARDIUM: No pericardial effusion was noted. IMPRESSION : 1. Normal LVEF. 2. Mild LVH noted. 3. Grade II Diastolic Dysfunction noted. 4. No significant valvular stenosis or regurgitation noted. MMode/2D Measurements & Calculations RVDd: 2.5 cm LVIDd: 2.7 cm FS: 29.6 % Ao root diam: 2.9 cm IVSd: 1.1 cm LVIDs: 1.9 cm EDV(Teich): 28.2 ml LVPWd: 1.1 cm ESV(Teich): 11.7 ml Ao root area: 6.4 cm2 LA dimension: 2.8 cm EF(Teich): 58.5 % Doppler Measurements & Calculations MV E max giovani: MV P1/2t max giovani: Ao V2 max: LV V1 max P.6 cm/sec 75.3 cm/sec 84.5 cm/sec 2.2 mmHg MV A max giovani: MV P1/2t: 65.6 msec Ao max P.9 mmHg LV V1 max: 81.9 cm/sec MVA(P1/2t): 3.4 cm2 73.7 cm/sec MV E/A: 0.81 MV dec slope: 336.5 cm/sec2 MV dec time: 0.22 sec PA V2 max: TR max giovani: MV P1/2t-pr_phl: 101.1 cm/sec 257.9 cm/sec 65.6 msec PA max P.1 mmHgTR max P.6 mmHg : ANNIE GONZALES Shyamal
--- NOTE | 2019-07-17 13:01 | PDOC CONSULTATION ---
Consultation Consult Date: 07/17/19 Attending physician:: RAMIRO WILSON Provider Consulted: THUAN GONZALES Consult reason:: Bradycardia and hypotension History of Present Illness Admission Date/PCP: 07/17/19 02:06 LESLEY MCKEON NP Patient complains of: [facility]. Patient cannot give any history. History of Present Illness: SURINDER NOTRON is a 83 year old female who is a long-term nonverbal [facility]entiary resident with advanced dementia, contractures x4 and atrial fibrillation on Cardizem every 6 hours. She presents with reported bradycardia and unable to initiate eye contact from baseline. In the emergency department she is found obtunded and an intermittent heart rate in the 30s and without hypotension. She receives a trial of atropine and started on dopamine at 5 mics per minute. She is otherwise without fever or leukocytosis but a urinalysis shows pyuria and she is started on Rocephin and referred to the hospitalist for admission. Her CODE STATUS is verified to be full code. Patient is unable to provide any history. This information is from the admitting physician. ER records were reviewed. No EKG strips available from the ER for review. Since admission patient has been on dopamine drip. Nurse told me that they tried to taper it off but resulted in hypotension. Past Medical History Cardiac Medical History: Reports: Atrial Fibrillation, Coronary Artery Disease, Hyperlipidema, Hypertension Denies: Myocardial Infarction Pulmonary Medical History: Denies: Asthma, Bronchitis, Chronic Obstructive Pulmonary Disease (COPD), Pneumonia Neurological Medical History: Denies: Seizures Endocrine Medical History: Reports: Diabetes Mellitus Type 2 Musculoskeltal Medical History: Reports: Arthritis Psychiatric Medical History: Reports: Dementia, Depression, Schizoaffective D isorder Hematology: Reports: Anemia Social History Information Source: [facility] Records, Outside Facility Records Lives with: Correction Smoking Status: Unknown if Ever Smoked Frequency of Alcohol Use: None Hx Recreational Drug Use: No Hx Prescription Drug Abuse: No - Advance Directive Resuscitation Status: Full Code Family History Family History: Reviewed & Not Pertinent, Other - Unobtainable Parental Family History Reviewed: No Children Family History Reviewed: No Sibling(s) Family History Reviewed.: No Medication/Allergy Home Medications: Omeprazole 20 mg PO DAILY 07/31/13 Cyanocobalamin (Vitamin B-12) [Vitamin B-12 1000 mcg Tablet] 1,000 mcg PO DAILY #60 tablet 06/14/15 Docusate Sodium [Dok] 100 mg PO DAILY 10/13/16 Ferrous Sulfate 325 mg PO DAILY 10/13/16 Aspirin [Aspirin 81 mg Chewable Tablet] 81 mg PO DAILY 08/15/17 Acetaminophen [Tylenol 325 mg Tablet] 650 mg PO Q6HP PRN 07/17/19 Amino Acids/Protein Hydrolys [Pro-Stat Awc Liquid Packet] 1 pkt PO Q12 07/17/19 Ascorbic Acid [Vitamin C 500 mg Tablet] 500 mg PO Q12 07/17/19 Calcium Carbonate/Vitamin D3 [Calcium 600-Vit D3 400 Tablet] 1 each PO DAILY 07/17/19 Diltiazem HCl [Cardizem 60 mg Tablet] 60 mg PO Q6 07/17/19 Multivit-Min/FA/Lycopen/Lutein [Certavite Sr-Antioxidant Tab] 1 each PO DAILY 07/17/19 Allergies/Adverse Reactions: No Known Allergies Allergy (Verified 10/13/16 17:31) Review of Systems ROS unobtainable: Due to mental status Physical Exam Vital Signs: Temp Pulse Resp BP Pulse Ox 98.5 F 78 14 109/53 L 95 07/17/19 03:49 07/17/19 08:36 07/17/19 08:36 07/17/19 11:00 07/17/19 08:36 Intake & Output 07/16/19 07/17/19 07/18/19 06:59 06:59 06:59 Intake Total 1073 9 Output Total 1025 Balance 48 9 Weight 45.8 kg Exam: GENERAL: Patient noted to be underweight, somewhat cachectic. Patient has advanced dementia. Orientation cannot be checked HEAD: Atraumatic, normocephalic. EYES: Pupils equal round and reactive to light, extraocular movements could not be checked, sclera anicteric, conjunctiva are normal. ENT: TMs normal, nares patent, oropharynx clear without exudates. Moist mucous membranes. No oral ulcerations or bleeding gums noted NECK: supple without lymphadenopathy or JVD. Trachea is central. No cervical or axillary lymphadenopathy noted. Carotids are 2+ LUNGS: Breath sounds mostly clear to auscultation patient is noted to have bibasal crackles at the extreme bases CHEST: Palpation of the chest wall shows no significant chest wall tenderness or abnormalities. HEART: [employer], No PSH, 2/6 [place] aortic area, 1/6 val[place] systolic murmur mitral area, no rubs or gallops. ABDOMEN: Soft, no significant tenderness appreciated, normoactive bowel sounds. No guarding, no rebound. No rigidity noted . No masses appreciated. EXTREMITIES: Pedal pulses are 1-2+, no calf tenderness noted, 1+ pedal edema noted. No clubbing or cyanosis. NEUROLOGICAL: The patient cannot participate in the neurological exam but no facial asymmetry noted. Extremities slightly hypotonic PSYCH: This cannot be evaluated. Patient cannot participate. SKIN: No significant ecchymosis, rash, or signs of pruritus noted. MUSCULOSKELETAL EXAM: No significant joint swelling noted. Patient cannot participate in musculoskeletal exam Results Laboratory Results: 07/16/19 23:05 07/17/19 04:06 07/16/19 07/16/19 07/16/19 23:05 23:05 23:05 WBC 4.2 RBC 3.27 L Hgb 10.0 L Hct 29.5 L MCV 90 MCH 30.4 MCHC 33.8 RDW 15.1 H Plt Count 223 Seg Neutrophils % 50.2 VBG pH 7.36 VBG pCO2 53.3 VBG HCO3 29.4 VBG Base Excess 3.2 Sodium 137.6 Potassium 4.3 Chloride 104 Carbon Dioxide 31 H Anion Gap 3 L BUN 19 Creatinine 0.57 Est GFR ( Amer) > 60 Glucose 159 H Lactic Acid Calcium 8.5 Phosphorus Magnesium Total Bilirubin 0.4 AST 21 Alkaline Phosphatase 93 Total Protein 7.3 Albumin 3.4 L TSH Free T4 Free T3 pg/mL Urine Color Urine Appearance Urine pH Ur Specific [place] Urine Protein Urine Glucose (UA) Urine Ketones Urine Blood Urine RBC (Auto) Stool for White Cells 07/16/19 07/16/19 07/16/19 23:05 23:05 23:05 WBC RBC Hgb Hct MCV MCH MCHC RDW Plt Count Seg Neutrophils % VBG pH VBG pCO2 VBG HCO3 VBG Base Excess Sodium Potassium Chloride Carbon Dioxide Anion Gap BUN Creatinine Est GFR ( Amer) Glucose Lactic Acid 1.5 Calcium Phosphorus 3.8 Magnesium 1.7 Total Bilirubin AST Alkaline Phosphatase Total Protein Albumin TSH 12.00 H Free T4 Free T3 pg/mL Urine Color Urine Appearance Urine pH Ur Specific [place] Urine Protein Urine Glucose (UA) Urine Ketones Urine Blood Urine RBC (Auto) Stool for White Cells 07/16/19 07/16/19 07/17/19 23:05 23:25 02:47 WBC RBC Hgb Hct MCV MCH MCHC RDW Plt Count Seg Neutrophils % VBG pH VBG pCO2 VBG HCO3 VBG Base Excess Sodium Potassium Chloride Carbon Dioxide Anion Gap BUN Creatinine Est GFR ( Amer) Glucose Lactic Acid 2.4 H Calcium Phosphorus Magnesium Total Bilirubin AST Alkaline Phosphatase Total Protein Albumin TSH Free T4 1.42 Free T3 pg/mL 4.80 Urine Color YELLOW Urine Appearance CLOUDY Urine pH 8.0 Ur Specific [place] 1.006 Urine Protein 30 H Urine Glucose (UA) 50 H Urine Ketones NEGATIVE Urine Blood MODERATE H Urine RBC (Auto) 30 Stool for White Cells 07/17/19 07/17/19 03:15 04:06 WBC RBC Hgb Hct MCV MCH MCHC RDW Plt Count Seg Neutrophils % VBG pH VBG pCO2 VBG HCO3 VBG Base Excess Sodium 140.6 Potassium 4.1 Chloride 102 Carbon Dioxide 32 H Anion Gap 7 BUN 19 Creatinine 0.59 Est GFR ( Amer) > 60 Glucose 150 H Lactic Acid Calcium 9.4 Phosphorus Magnesium Total Bilirubin AST Alkaline Phosphatase Total Protein Albumin TSH Free T4 Free T3 pg/mL Urine Color Urine Appearance Urine pH Ur Specific [place] Urine Protein Urine Glucose (UA) Urine Ketones Urine Blood Urine RBC (Auto) Stool for White Cells NO WBCs SEEN 07/16/19 23:05 Troponin I < 0.012 EKG Comments: EKG reviewed shows sinus rhythm without any acute ST-T wave changes Impressions: Chest X-Ray 07/16/19 23:09 IMPRESSION: No acute disease. Head CT 07/16/19 23:10 IMPRESSION: No acute findings. Limitation. Assessment & Plan - Diagnosis (1) Bradycardia Is this a current diagnosis for this admission?: Yes (2) Hypotension Qualifiers: Hypotension type: unspecified hypotension type Qualified Code(s): I95.9 - Hypotension, unspecified Is this a current diagnosis for this admission?: Yes (3) Protein-energy malnutrition Is this a current diagnosis for this admission?: Yes (4) Anemia Qualifiers: Anemia type: unspecified type Qualified Code(s): D64.9 - Anemia, unspecified Is this a current diagnosis for this admission?: No (5) SIRS (systemic inflammatory response syndrome) Is this a current diagnosis for this admission?: Yes - Notes Notes: Bradycardia: Patient most likely has underlying sick sinus syndrome. Possibly related to medications, possible vagal activation. At this point agree with hol ding Cardizem and Aricept. Should patient become bradycardic again may consider a scopolamine patch. Patient is a very suboptimal candidate for pacemaker therapy as patient has advanced dementia and basically seems to be bedbound. Hypotension: Exact etiology not clear. Feel that patient may be volume depleted. Agree with IV fluid therapy and dopamine for the time being. Possible systemic inflammatory response syndrome in the differential diagnosis. Undernutrition: Patient seems to have low BMI and is quite debilitated and cachectic. Recommend improving nutrition. Anemia: Currently stable. Systemic inflammatory response syndrome: This is being suspected. Lactic acid level is high could be related to just hypotension from dehydration. However patient at her age may not mount much inflammatory response. Did order a 2D echo to evaluate hypotension. Cardiac strips reviewed. No rachel cardia episodes noted while on the telemetry floor. Plan to continue to monitor. Continue current management plans with holding of Cardizem and Aricept therapy. Medications reviewed. Chart reviewed. Discussed with Dr. Betty Newman. - Time Time Spent: 30 to 50 Minutes - More than 50% of the time spent coordinating care, discussing management plans with involved caregivers. Management plans discussed with involved personnels. Medical decision making was of moderate to high complexity, patient's has multiple comorbidities. Medications reviewed and adjusted accordingly: Yes
--- NOTE | 2019-07-17 18:47 | EKG REPORT ---
SEVERITY:- BORDERLINE ECG - SINUS RHYTHM LEFT AXIS DEVIATION BORDERLINE T WAVE ABNORMALITIES : Confirmed by: Annie Reddy 17-Jul-2019 18:46:41
[2019-07-18] MEDS: NORMAL SALINE 1000 ML 1,000 ML IV PRN (01:40)
[2019-07-18] MEDS: CEFTRIAXONE 1 GM/D5W RTU 1 GM/50 ML RTUPB IV SCH (01:42)
[2019-07-18] MEDS: HEPARIN SOD (PORCINE) 5,000 UNIT/ML 1 ML VIAL SUBCUT SCH ×3 (05:27→21:50)
[2019-07-18] MEDS: LEVOTHYROXINE SODIUM 0.025 MG TABLET PO SCH (05:27)
[2019-07-18 05:57] LABS: ABSOLUTE EOSINOPHILS # (AUTO) 0.1 10^3/uL (0.0-0.6); ABSOLUTE LYMPHOCYTES (AUTO) 1.3 10^3/uL (0.5-4.7); ABSOLUTE MONOCYTES (AUTO) 0.5 10^3/uL (0.1-1.4); ABSOLUTE NEUT (AUTO) 4.4 10^3/uL (1.7-8.2); BASOPHILS % (AUTO) 0.6 % (0-2); EOSINOPHILS % (AUTO) 2.1 % (0-6); HEMATOCRIT 30.3 % (36.0-47.0); HEMOGLOBIN 10.4 g/dL (12.0-15.5); LYMPHOCYTES % (AUTO) 20.1 % (13-45); MEAN CORPUSCULAR HEMOGLOBIN 30.7 pg (27.0-33.4); MEAN CORPUSCULAR HGB CONC 34.4 g/dL (32.0-36.0); MEAN CORPUSCULAR VOLUME 89 fl (80-97); MONOCYTES % (AUTO) 7.6 % (3-13); PLATELET COUNT 183 10^3/uL (150-450); RED CELL DISTRIBUTION WIDTH 15.3 % (11.5-14.0); SEGMENTED NEUTROPHILS % (AUTO) 69.6 % (42-78); TOTAL CELLS COUNTED % (AUTO) 100 %; WHITE BLOOD COUNT 6.3 10^3/uL (4.0-10.5)
[2019-07-18 06:19] LABS: ANION GAP 6 (5-19); BLOOD UREA NITROGEN 22 mg/dL (7-20); CALCIUM 8.7 mg/dL (8.4-10.2); CARBON DIOXIDE 27 mmol/L (22-30); CHLORIDE 105 mmol/L (98-107); GLUCOSE 102 mg/dL (75-110); POTASSIUM 3.3 mmol/L (3.6-5.0)
[2019-07-18] MEDS ORDERED: POTASSI CL 20 MEQ/50 ML RIDER 20 MEQ/50 ML RTUPB IV ONE (08:00)
--- NOTE | 2019-07-18 08:07 | PDOC PROGRESS REPORT ---
Subjective Progress Note for:: 07/18/19 Subjective:: 83 year old female who is a long-term nonverbal group home resident with advanced dementia, contractures x4 and atrial fibrillation on Cardizem every 6 hours. She presents with reported bradycardia and unable to initiate eye contact from baseline. In the emergency department she is found obtunded and an intermittent heart rate in the 30s and without hypotension. She receives a trial of atropine and started on dopamine at 5 mics per minute. She is otherwise without fever or leukocytosis but a urinalysis shows pyuria and she is started on Rocephin and referred to the hospitalist for admission. Her CODE STATUS is verified to be full code. Patient is unable to provide any history. 07/17/19-no acute events after admission heart rate came back up to more than 100 blood pressures are still low. Plan is to discontinue dopamine drip started on IV fluids normal saline at 75 cc/h. 07/18/2019-patient is more alert awake back to baseline. Heart rate is in the 80s in sinus rhythm and blood pressure is improved. Plan is to discontinue IV fluids from today. To continue to hold Cardizem and Aricept at this time. Reason For Visit: BRADYCARDIA UTI Physical Exam Vital Signs: Temp Pulse Resp BP Pulse Ox 97.9 F 86 20 126/68 H 96 07/18/19 03:04 07/18/19 03:04 07/18/19 03:04 07/18/19 03:04 07/18/19 03:04 Intake & Output 07/17/19 07/18/19 07/19/19 06:59 06:59 06:59 Intake Total 1073 1674 Output Total 1025 485 Balance 48 1189 Weight 45.8 kg 48.5 kg General appearance: PRESENT: no acute distress, disheveled, thin Head exam: PRESENT: atraumatic Eye exam: PRESENT: conjunctiva pale, PERRLA Mouth exam: PRESENT: neck supple Teeth exam: PRESENT: edentulous Neck exam: ABSENT: carotid bruit, JVD, lymphadenopathy, thyromegaly Respiratory exam: PRESENT: decreased breath sounds Cardiovascular exam: PRESENT: RRR. ABSENT: diastolic murmur, rubs, systolic murmur GI/Abdominal exam: PRESENT: normal bowel sounds, soft. ABSENT: distended, guarding, mass, organolmegaly, rebound, tenderness Rectal exam: PRESENT: deferred Extremities exam: PRESENT: other - Extremities are contracted. Neurological exam: PRESENT: awake. ABSENT: oriented to person, oriented to time, oriented to situation Results Laboratory Results: 07/18/19 05:38 07/18/19 05:38 07/18/19 07/18/19 05:38 05:38 WBC 6.3 RBC 3.40 L Hgb 10.4 L Hct 30.3 L MCV 89 MCH 30.7 MCHC 34.4 RDW 15.3 H Plt Count 183 Seg Neutrophils % 69.6 Sodium 138.3 Potassium 3.3 L Chloride 105 Carbon Dioxide 27 Anion Gap 6 BUN 22 H Creatinine 0.51 L Est GFR ( Amer) > 60 Glucose 102 Calcium 8.7 Magnesium 1.7 07/16/19 23:05 Troponin I < 0.012 Impressions: Chest X-Ray 07/16/19 23:09 IMPRESSION: No acute disease. Head CT 07/16/19 23:10 IMPRESSION: No acute findings. Limitation. Assessment and Plan - Diagnosis (1) Bradycardia Is this a current diagnosis for this admission?: Yes Plan: Likely secondary to Cardizem on hold, dopamine titration, follow-up TSH. 07/17/2019 patient admitted with severe bradycardia at the time of arrival heart rate is in the 30s she was started on dopamine drip and Cardizem on hold heart rate is now around 92. Bradycardia is resolved. 07/18/2019-heart rate is 86 this morning to continue to hold Cardizem and Aricept at this time. If needed we may put her on a scopolamine patch. (2) Hypotension Qualifiers: Hypotension type: unspecified hypotension type Qualified Code(s): I95.9 - Hypotension, unspecified Is this a current diagnosis for this admission?: Yes Plan: Associated with bradycardia, hold Cardizem, UTI treatment, IV fluid challenge, dopamine titration, follow-up telemetry 07/17/2019-patient is still hypotensive systolic blood pressure in the 90s started on IV fluids 75 cc/h and to discontinue dopamine drip. Hypotension may be secondary to UTI. 07/18/2019-patient is off dopamine drip, blood pressure is 126/68 stable. Plan is to discontinue IV fluids from today. (3) UTI (urinary tract infection) Qualifiers: Urinary tract infection type: site unspecified Hematuria presence: without hematuria Qualified Code(s): N39.0 - Urinary tract infection, site not specified Is this a current diagnosis for this admission?: Yes Plan: UTI versus colonization, Rocephin initiated, follow-up blood and urine culture. 07/17/19-urine analysis abnormal started on IV Rocephin may be colonization of the bacteria in the urine cultures are pending. Afebrile. 07/18/2019-patient is presently on IV Rocephin, cultures are positive for Staphylococcus species. Afebrile. (4) Anemia Qualifiers: Anemia type: unspecified type Qualified Code(s): D64.9 - Anemia, unspecified Is this a current diagnosis for this admission?: No Plan: 07/17/2019-patient has history of anemia of chronic disease latest hemoglobin is 10. Stable. 07/18/2019-hemoglobin is 10.4 today stable. (5) Dementia Is this a current diagnosis for this admission?: No Plan: 07/17/2019-patient has advanced dementia. Nonverbal. 07/18/2019-I think patient mental status is back to baseline she has advanced dementia, nonverbal , to hold Aricept at this time. (6) Protein-energy malnutrition Is this a current diagnosis for this admission?: Yes Plan: 07/17/2019-patient's BMI is less than 16 on examination wasting of the temporalis muscle, quadriceps muscle, deltoid muscles are seen. Patient has severe protein energy malnutrition. Dietary consult will be requested and nutritional supplem entations will be provided.
--- NOTE | 2019-07-18 10:03 | EKG REPORT ---
SEVERITY:- OTHERWISE NORMAL ECG - SINUS RHYTHM LEFT AXIS DEVIATION : Confirmed by: Annie Reddy 18-Jul-2019 10:02:56
[2019-07-18] MEDS: MULTIVITAMIN TABLET PO SCH (10:30)
[2019-07-18] MEDS: CYANOCOBALAMIN (VITAMIN B-12) 1,000 MCG TABLET PO SCH (10:30)
[2019-07-18] MEDS: PRENATAL VITAMIN W DHA CAPSULE PO SCH (10:30)
[2019-07-18] MEDS: ASPIRIN 81 MG TABLET, CHEWABLE PO SCH (10:31)
[2019-07-18] MEDS: CALCIUM CARBONATE 600 MG/VITAMIN D3 400 UNIT TABLET PO SCH (10:31)
[2019-07-18] MEDS: PANTOPRAZOLE SODIUM 20 MG TABLET.DR PO SCH (10:31)
[2019-07-18] MEDS: FERROUS SULFATE 325 MG TABLET PO SCH (10:31)
[2019-07-18] MEDS: DOCUSATE SODIUM 100 MG/10 ML UDC PO SCH ×2 (10:31→17:49)
[2019-07-18] MEDS: ASCORBIC ACID 500 MG TABLET PO SCH ×2 (10:31→21:49)
--- NOTE | 2019-07-18 15:11 | CDI QUERY ---
CDI Query CDI Review: Dear Provider: To better reflect your patients severity of illness, morbidity, and resource utilization Please specify and document in the Progress Notes and Discharge Summary if you are monitoring / treating / evaluating any of the following conditions: Query Clinical indicators Please indicate the significance of these findings if any: Bacteremia Sepsis 2/2 to Staphylococcus Unable to determine No significance Other Per H&P: 83 year old female who is a long-term nonverbal intermediate resident with advanced dementia, contractures x4 and atrial fibrillation on Cardizem every 6 hours presents with reported bradycardia and unable to initiate eye contact from baseline. .. is found obtunded and an intermittent heart rate in the 30s and without hypotension. without fever or leukocytosis but a urinalysis shows pyuria and she is started on Rocephin Lactic Acid 2.4 Blood cultures + Staphylococcus. The terms probable, suspected, likely, possible or still to be ruled out may be used if you are unable to determine the exact nature of a condition. Thank you for your consideration, Clinical Documentation Physician Advisors ATUL Starr RN, BSN RN Office [phone] Office [phone]
[2019-07-18] MEDS ORDERED: FUROSEMIDE INJ/PF 20 MG/2 ML SDV IV ONE (16:53)
--- NOTE | 2019-07-19 00:06 | PDOC PROGRESS REPORT ---
Subjective Progress Note for:: 07/18/19 Subjective:: Patient seems somewhat improved generally but still with advanced dementia, malnutrition. Patient does not speak or communicate. Reason For Visit: BRADYCARDIA UTI Physical Exam Vital Signs: Temp Pulse Resp BP Pulse Ox 97.6 F 69 15 116/60 98 07/18/19 08:06 07/18/19 08:06 07/18/19 08:06 07/18/19 08:06 07/18/19 08:06 Intake & Output 07/17/19 07/18/19 07/19/19 06:59 06:59 06:59 Intake Total 1073 1674 Output Total 1025 485 Balance 48 1189 Weight 45.8 kg 48.5 kg Exam: Relatively unchanged from yesterday. Agree with hospitalist findings. Results Laboratory Results: 07/18/19 05:38 07/18/19 05:38 07/18/19 07/18/19 05:38 05:38 WBC 6.3 RBC 3.40 L Hgb 10.4 L Hct 30.3 L MCV 89 MCH 30.7 MCHC 34.4 RDW 15.3 H Plt Count 183 Seg Neutrophils % 69.6 Sodium 138.3 Potassium 3.3 L Chloride 105 Carbon Dioxide 27 Anion Gap 6 BUN 22 H Creatinine 0.51 L Est GFR ( Amer) > 60 Glucose 102 Calcium 8.7 Magnesium 1.7 07/16/19 23:05 Troponin I < 0.012 EKG Comments: EKG reviewed shows sinus rhythm. EKG unchanged and without any acute ST-T wave changes. Rhythm strip shows negative for any bradycardia or tachycardia. Impressions: Chest X-Ray 07/16/19 23:09 IMPRESSION: No acute disease. Head CT 07/16/19 23:10 IMPRESSION: No acute findings. Limitation. Assessment & Plan - Diagnosis (1) Bradycardia Is this a current diagnosis for this admission?: Yes (2) Hypotension Qualifiers: Hypotension type: unspecified hypotension type Qualified Code(s): I95.9 - Hypotension, unspecified Is this a current diagnosis for this admission?: Yes (3) Protein-energy malnutrition Is this a current diagnosis for this admission?: Yes (4) Anemia Qualifiers: Anemia type: unspecified type Qualified Code(s): D64.9 - Anemia, unspecified Is this a current diagnosis for this admission?: No (5) SIRS (systemic inflammatory response syndrome) Is this a current diagnosis for this admission?: Yes - Notes Notes: Patient is now stable from cardiac rhythm standpoint. We will repeat an EKG tomorrow. Agree with other supportive care being carried out by the [facility]. 2D echo results were reviewed and was relatively unremarkable. Will follow 1 more day for rhythm status and then sign off. - Time Time with patient: 15-25 minutes - More than 50% of the time spent coordinating care, discussing management plans with involved caregivers. Management plans discussed with involved personnels. Medical decision making was of moderate to high complexity, patient's has multiple comorbidities. Medications reviewed and adjusted accordingly: Yes
[2019-07-19] MEDS: CEFTRIAXONE 1 GM/D5W RTU 1 GM/50 ML RTUPB IV SCH (01:50)
[2019-07-19] MEDS: HEPARIN SOD (PORCINE) 5,000 UNIT/ML 1 ML VIAL SUBCUT SCH ×3 (05:07→21:31)
[2019-07-19] MEDS: LEVOTHYROXINE SODIUM 0.025 MG TABLET PO SCH (05:10)
[2019-07-19 05:21] LABS: ABSOLUTE EOSINOPHILS # (AUTO) 0.2 10^3/uL (0.0-0.6); ABSOLUTE LYMPHOCYTES (AUTO) 1.2 10^3/uL (0.5-4.7); ABSOLUTE MONOCYTES (AUTO) 0.4 10^3/uL (0.1-1.4); ABSOLUTE NEUT (AUTO) 2.9 10^3/uL (1.7-8.2); MONOCYTES % (AUTO) 7.7 % (3-13); TOTAL CELLS COUNTED % (AUTO) 100 %
[2019-07-19 05:33] LABS: ALBUMIN 3.5 g/dL (3.5-5.0); ALKALINE PHOSPHATASE 86 U/L (38-126); ANION GAP 9 (5-19); ASPARTATE AMINO TRANSFERASE 22 U/L (14-36); BASOPHILS % (AUTO) 0.9 % (0-2); BILIRUBIN,TOTAL 0.4 mg/dL (0.2-1.3); BLOOD UREA NITROGEN 17 mg/dL (7-20); CALCIUM 8.9 mg/dL (8.4-10.2); CARBON DIOXIDE 26 mmol/L (22-30); CHLORIDE 102 mmol/L (98-107); EOSINOPHILS % (AUTO) 4.8 % (0-6); GLUCOSE 90 mg/dL (75-110); HEMOGLOBIN 10.1 g/dL (12.0-15.5); LYMPHOCYTES % (AUTO) 25.9 % (13-45); MEAN CORPUSCULAR HEMOGLOBIN 31.8 pg (27.0-33.4); MEAN CORPUSCULAR HGB CONC 34.9 g/dL (32.0-36.0); MEAN CORPUSCULAR VOLUME 91 fl (80-97); PLATELET COUNT 189 10^3/uL (150-450); POTASSIUM 3.2 mmol/L (3.6-5.0); RED BLOOD COUNT 3.17 10^6/uL (3.72-5.28); RED CELL DISTRIBUTION WIDTH 15.3 % (11.5-14.0); SEGMENTED NEUTROPHILS % (AUTO) 60.7 % (42-78); TOTAL PROTEIN 7.3 g/dL (6.3-8.2); WHITE BLOOD COUNT 4.7 10^3/uL (4.0-10.5)
[2019-07-19] MEDS: ASPIRIN 81 MG TABLET, CHEWABLE PO SCH (11:07)
[2019-07-19] MEDS: CALCIUM CARBONATE 600 MG/VITAMIN D3 400 UNIT TABLET PO SCH (11:07)
[2019-07-19] MEDS: FERROUS SULFATE 325 MG TABLET PO SCH (11:07)
[2019-07-19] MEDS: DOCUSATE SODIUM 100 MG/10 ML UDC PO SCH ×2 (11:07→19:23)
[2019-07-19] MEDS: PANTOPRAZOLE SODIUM 20 MG TABLET.DR PO SCH (11:08)
[2019-07-19] MEDS: CYANOCOBALAMIN (VITAMIN B-12) 1,000 MCG TABLET PO SCH (11:08)
[2019-07-19] MEDS: MULTIVITAMIN TABLET PO SCH (11:08)
[2019-07-19] MEDS: PRENATAL VITAMIN W DHA CAPSULE PO SCH (11:08)
[2019-07-19] MEDS: ASCORBIC ACID 500 MG TABLET PO SCH ×2 (11:09→21:34)
--- NOTE | 2019-07-19 13:28 | PDOC PROGRESS REPORT ---
Subjective Progress Note for:: 07/19/19 Reason For Visit: BRADYCARDIA UTI F/u for bradycardia Physical Exam Vital Signs: Temp Pulse Resp BP Pulse Ox 98.1 F 83 16 172/98 H 100 07/19/19 11:25 07/19/19 11:25 07/19/19 11:25 07/19/19 11:25 07/19/19 11:25 Intake & Output 07/18/19 07/19/19 07/20/19 06:59 06:59 06:59 Intake Total 1674 730 Output Total 485 1050 Balance 1189 -320 Weight 48.5 kg 53.5 kg 53.5 kg General appearance: PRESENT: no acute distress, other - elderly, non verbal lady Respiratory exam: PRESENT: clear to auscultation almaz GI/Abdominal exam: PRESENT: normal bowel sounds, soft Rectal exam: PRESENT: deferred Neurological exam: PRESENT: alert, awake Psychiatric exam: PRESENT: appropriate affect Results Laboratory Results: 07/19/19 04:29 07/19/19 04:29 07/19/19 07/19/19 04:29 04:29 WBC 4.7 RBC 3.17 L Hgb 10.1 L Hct 29.0 L MCV 91 MCH 31.8 MCHC 34.9 RDW 15.3 H Plt Count 189 Seg Neutrophils % 60.7 Sodium 137.3 Potassium 3.2 L Chloride 102 Carbon Dioxide 26 Anion Gap 9 BUN 17 Creatinine 0.47 L Est GFR ( Amer) > 60 Glucose 90 Calcium 8.9 Magnesium 1.6 Total Bilirubin 0.4 AST 22 Alkaline Phosphatase 86 Total Protein 7.3 Albumin 3.5 07/16/19 23:05 Blood Blood Culture (PCR) - Final Staphylococcus Species 07/16/19 23:05 Troponin I < 0.012 Impressions: Chest X-Ray 07/16/19 23:09 IMPRESSION: No acute disease. Head CT 07/16/19 23:10 IMPRESSION: No acute findings. Limitation. Assessment and Plan - Diagnosis (1) Bradycardia Is this a current diagnosis for this admission?: Yes Plan: Likely secondary to Cardizem on hold, dopamine titration, follow-up TSH. 07/17/2019 patient admitted with severe bradycardia at the time of arrival heart rate is in the 30s she was started on dopamine drip and Cardizem on hold heart rate is now around 92. Bradycardia is resolved. 07/18/2019-heart rate is 86 this morning to continue to hold Cardizem and Aricept at this time. If needed we may put her on a scopolamine patch. 07/18 Resolved (2) Dementia Is this a current diagnosis for this admission?: No Plan: 07/17/2019-patient has advanced dementia. Nonverbal. 07/18/2019-I think patient mental status is back to baseline she has advanced dementia, nonverbal , to hold Aricept at this time. 07/18 Unchanged (3) Hypotension Qualifiers: Hypotension type: unspecified hypotension type Qualified Code(s): I95.9 - H ypotension, unspecified Is this a current diagnosis for this admission?: Yes Plan: Associated with bradycardia, hold Cardizem, UTI treatment, IV fluid challenge, dopamine titration, follow-up telemetry 07/17/2019-patient is still hypotensive systolic blood pressure in the 90s started on IV fluids 75 cc/h and to discontinue dopamine drip. Hypotension may be secondary to UTI. 07/18/2019-patient is off dopamine drip, blood pressure is 126/68 stable. Plan is to discontinue IV fluids from today. 07/18 Resolved (4) Protein-energy malnutrition Is this a current diagnosis for this admission?: Yes Plan: 07/17/2019-patient's BMI is less than 16 on examination wasting of the temporalis muscle, quadriceps muscle, deltoid muscles are seen. Patient has severe protein energy malnutrition. Dietary consult will be requested and nutritional supplementations will be provided. 07/18 Follow up as above (5) SIRS (systemic inflammatory response syndrome) Is this a current diagnosis for this admission?: Yes
[2019-07-19] MEDS ORDERED: POTASSIUM CHLORIDE 10 MEQ TABLET.ER PO ONE (14:00)
--- NOTE | 2019-07-19 23:54 | PDOC PROGRESS REPORT ---
Subjective Progress Note for:: 07/19/19 Subjective:: Patient seems improved generally but still with advanced dementia, malnutrition. Patient does not speak or communicate. Blood pressure has normalized. Heart rate has been stable. Reason For Visit: BRADYCARDIA UTI Physical Exam Vital Signs: Temp Pulse Resp BP Pulse Ox 98.3 F 98 16 144/80 H 97 07/19/19 19:33 07/19/19 19:33 07/19/19 19:33 07/19/19 19:33 07/19/19 19:33 Intake & Output 07/18/19 07/19/19 07/20/19 06:59 06:59 06:59 Intake Total 1674 730 354 Output Total 485 1050 50 Balance 1189 -320 304 Weight 48.5 kg 53.5 kg 53.5 kg Exam: No significant change in patient general condition. She remains nonverbal, malnourished, bedbound noncommunicative. Rest of the exam is unchanged. Results Laboratory Results: 07/19/19 04:29 07/19/19 04:29 07/19/19 07/19/19 04:29 04:29 WBC 4.7 RBC 3.17 L Hgb 10.1 L Hct 29.0 L MCV 91 MCH 31.8 MCHC 34.9 RDW 15.3 H Plt Count 189 Seg Neutrophils % 60.7 Sodium 137.3 Potassium 3.2 L Chloride 102 Carbon Dioxide 26 Anion Gap 9 BUN 17 Creatinine 0.47 L Est GFR ( Amer) > 60 Glucose 90 Calcium 8.9 Magnesium 1.6 Total Bilirubin 0.4 AST 22 Alkaline Phosphatase 86 Total Protein 7.3 Albumin 3.5 07/16/19 23:05 Blood Blood Culture (PCR) - Final Staphylococcus Species 07/16/19 23:05 Troponin I < 0.012 EKG Comments: Twelve-lead EKG shows sinus rhythm. No acute ST-T wave changes are noted. Impressions: Chest X-Ray 07/16/19 23:09 IMPRESSION: No acute disease. Head CT 07/16/19 23:10 IMPRESSION: No acute findings. Limitation. Assessment & Plan - Diagnosis (1) Bradycardia Is this a current diagnosis for this admission?: Yes (2) Hypotension Qualifiers: Hypotension type: unspecified hypotension type Qualified Code(s): I95.9 - Hypotension, unspecified Is this a current diagnosis for this admission?: Yes (3) Protein-energy malnutrition Is this a current diagnosis for this admission?: Yes (4) Anemia Qualifiers: Anemia type: unspecified type Qualified Code(s): D64.9 - Anemia, unspecified Is this a current diagnosis for this admission?: No (5) SIRS (systemic inflammatory response syndrome) Is this a current diagnosis for this admission?: Yes - Notes Notes: Patient has shown significant improvement. Currently blood pressure within normal limits. Heart rate is also within normal limit. For blood pressure control, may consider low-dose dihydropyridine's. If tachycardia, may consider starting Cardizem at a lower dose. Other option would be carvedilol for both blood pressure and heart rate control. Patient can follow-up with me on discharge. - Time Time with patient: 15-25 minutes
[2019-07-20] MEDS: CEFTRIAXONE 1 GM/D5W RTU 1 GM/50 ML RTUPB IV SCH (00:18)
[2019-07-20] MEDS: HEPARIN SOD (PORCINE) 5,000 UNIT/ML 1 ML VIAL SUBCUT SCH ×3 (05:09→21:48)
[2019-07-20] MEDS: LEVOTHYROXINE SODIUM 0.025 MG TABLET PO SCH (05:09)
--- NOTE | 2019-07-20 11:00 | PDOC PROGRESS REPORT ---
Subjective Progress Note for:: 07/20/19 Subjective:: No new findings Reason For Visit: BRADYCARDIA UTI Physical Exam Vital Signs: Temp Pulse Resp BP Pulse Ox 97.4 F 79 16 155/88 H 95 07/20/19 07:45 07/20/19 09:16 07/20/19 09:16 07/20/19 07:45 07/20/19 09:16 Intake & Output 07/19/19 07/20/19 07/21/19 06:59 06:59 06:59 Intake Total 730 404 Output Total 1050 70 Balance -320 334 Weight 53.5 kg 53.4 kg General appearance: PRESENT: no acute distress, other - Non verbal Head exam: PRESENT: atraumatic, normocephalic Eye exam: PRESENT: EOMI, PERRLA. ABSENT: scleral icterus Mouth exam: PRESENT: moist, tongue midline Neck exam: ABSENT: carotid bruit, JVD, lymphadenopathy, thyromegaly Respiratory exam: PRESENT: clear to auscultation almaz. ABSENT: rales, rhonchi, wheezes Cardiovascular exam: PRESENT: RRR, +S1, +S2. ABSENT: diastolic murmur, rubs, systolic murmur Pulses: PRESENT: normal dorsalis pedis pul Vascular exam: PRESENT: normal capillary refill GI/Abdominal exam: PRESENT: normal bowel sounds, soft. ABSENT: distended, guarding, mass, organolmegaly, rebound, tenderness Rectal exam: PRESENT: deferred Extremities exam: PRESENT: other - contractions both extremities. ABSENT: pedal edema Neurological exam: PRESENT: alert, awake, other - non communicative Psychiatric exam: ABSENT: homicidal ideation, suicidal ideation Skin exam: PRESENT: dry, intact, warm. ABSENT: cyanosis, rash Results Laboratory Results: 07/19/19 04:29 07/19/19 04:29 07/17/19 03:15 Stool - Stool - Final 07/17/19 03:15 Stool - Stool Stool Culture - Final NO SALMONELLA, SHIGELLA, CAMPYLOBACTER, OR E.COLI 0157 RECOVERED. NEGATIVE FOR SHIGA TOXINS 1&2. 07/16/19 23:05 Blood Blood Culture (PCR) - Final Staphylococcus Species 07/16/19 23:05 Troponin I < 0.012 Impressions: Chest X-Ray 07/16/19 23:09 IMPRESSION: No acute disease. Head CT 07/16/19 23:10 IMPRESSION: No acute findings. Limitation. Assessment and Plan - Diagnosis (1) Bradycardia Is this a current diagnosis for this admission?: Yes Plan: Likely secondary to Cardizem on hold, dopamine titration, follow-up TSH. 07/17/2019 patient admitted with severe bradycardia at the time of arrival heart rate is in the 30s she was started on dopamine drip and Cardizem on hold heart rate is now around 92. Bradycardia is resolved. 07/18/2019-heart rate is 86 this morning to continue to hold Cardizem and Aricept at this time. If needed we may put her on a scopolamine patch. 07/18 Resolved (2) Dementia Is this a current diagnosis for this admission?: No Plan: 07/17/2019-patient has advanced dementia. Nonverbal. 07/18/2019-I think patient mental status is back to baseline she has advanced dementia, nonverbal , to hold Aricept at this time. 07/18 Unchanged (3) Hypotension Qualifiers: Hypotension type: unspecified hypotension type Qualified Code(s): I95.9 - Hypotension, unspecified Is this a current diagnosis for this admission?: Yes Plan: Associated with bradycardia, hold Cardizem, UTI treatment, IV fluid challenge, dopamine titration, follow-up telemetry 07/17/2019-patient is still hypotensive systolic blood pressure in the 90s started on IV fluids 75 cc/h and to discontinue dopamine drip. Hypotension may be secondary to UTI. 07/18/2019-patient is off dopamine drip, blood pressure is 126/68 stable. Plan is to discontinue IV fluids from today. 07/18 Resolved (4) Protein-energy malnutrition Is this a current diagnosis for this admission?: Yes Plan: 07/17/2019-patient's BMI is less than 16 on examination wasting of the temporalis muscle, quadriceps muscle, deltoid muscles are seen. Patient has severe protein energy malnutrition. Dietary consult will be requested and nutritional supplementations will be provided. 07/18 Follow up as above (5) SIRS (systemic inflammatory response syndrome) Is this a current diagnosis for this admission?: Yes (6) Bacteremia Is this a current diagnosis for this admission?: Yes Plan: Possibly a contaminant, patient has been hemodynamically stable. Her white count was normal on admission. And there appears to be no evidence of systemic infection however I will repeat the blood culture. She has been on no IV antibiotics - Time Time Spent with patient: 25-34 minutes Medications reviewed and adjusted accordingly: Yes Anticipated discharge: SNF Within: within 48 hours
[2019-07-20] MEDS: ASPIRIN 81 MG TABLET, CHEWABLE PO SCH (11:25)
[2019-07-20] MEDS: PRENATAL VITAMIN W DHA CAPSULE PO SCH (11:25)
[2019-07-20] MEDS: MULTIVITAMIN TABLET PO SCH (11:25)
[2019-07-20] MEDS: FERROUS SULFATE 325 MG TABLET PO SCH (11:25)
[2019-07-20] MEDS: PANTOPRAZOLE SODIUM 20 MG TABLET.DR PO SCH (11:26)
[2019-07-20] MEDS: CYANOCOBALAMIN (VITAMIN B-12) 1,000 MCG TABLET PO SCH (11:26)
[2019-07-20] MEDS: DOCUSATE SODIUM 100 MG/10 ML UDC PO SCH ×2 (11:26→17:11)
[2019-07-20] MEDS: CALCIUM CARBONATE 600 MG/VITAMIN D3 400 UNIT TABLET PO SCH (11:26)
[2019-07-20] MEDS: ASCORBIC ACID 500 MG TABLET PO SCH ×2 (11:26→21:49)
[2019-07-20 12:26] LABS: ABSOLUTE EOSINOPHILS # (AUTO) 0.1 10^3/uL (0.0-0.6); ABSOLUTE LYMPHOCYTES (AUTO) 0.8 10^3/uL (0.5-4.7); ABSOLUTE MONOCYTES (AUTO) 0.3 10^3/uL (0.1-1.4); ABSOLUTE NEUT (AUTO) 2.1 10^3/uL (1.7-8.2); BASOPHILS % (AUTO) 0.6 % (0-2); EOSINOPHILS % (AUTO) 4.4 % (0-6); HEMATOCRIT 35.6 % (36.0-47.0); LYMPHOCYTES % (AUTO) 25.2 % (13-45); MEAN CORPUSCULAR HEMOGLOBIN 30.6 pg (27.0-33.4); MEAN CORPUSCULAR HGB CONC 34.3 g/dL (32.0-36.0); MEAN CORPUSCULAR VOLUME 89 fl (80-97); MONOCYTES % (AUTO) 7.5 % (3-13); PLATELET COUNT 184 10^3/uL (150-450); RED BLOOD COUNT 3.99 10^6/uL (3.72-5.28); SEGMENTED NEUTROPHILS % (AUTO) 62.3 % (42-78); TOTAL CELLS COUNTED % (AUTO) 100 %; WHITE BLOOD COUNT 3.3 10^3/uL (4.0-10.5)
[2019-07-20 12:28] LABS: HEMOGLOBIN 12.2 g/dL (12.0-15.5)
[2019-07-20 12:46] LABS: ANION GAP 10 (5-19); BLOOD UREA NITROGEN 15 mg/dL (7-20); CALCIUM 8.5 mg/dL (8.4-10.2); CARBON DIOXIDE 25 mmol/L (22-30); CHLORIDE 103 mmol/L (98-107); GLUCOSE 119 mg/dL (75-110); POTASSIUM 3.6 mmol/L (3.6-5.0)
[2019-07-20] MEDS: AMLODIPINE BESYLATE 5 MG TABLET PO SCH (16:39)
[2019-07-20] MEDS: 1/2 NORMAL SALINE 1,000 ML IV PRN (16:40)
[2019-07-21] MEDS: CEFTRIAXONE 1 GM/D5W RTU 1 GM/50 ML RTUPB IV SCH (00:43)
[2019-07-21] MEDS: HEPARIN SOD (PORCINE) 5,000 UNIT/ML 1 ML VIAL SUBCUT SCH ×3 (05:17→21:34)
[2019-07-21] MEDS: LEVOTHYROXINE SODIUM 0.025 MG TABLET PO SCH (05:17)
[2019-07-21] MEDS: DOCUSATE SODIUM 100 MG/10 ML UDC PO SCH ×2 (10:39→17:45)
[2019-07-21] MEDS: PANTOPRAZOLE SODIUM 20 MG TABLET.DR PO SCH (10:39)
[2019-07-21] MEDS: AMLODIPINE BESYLATE 5 MG TABLET PO SCH (10:39)
[2019-07-21] MEDS: ASPIRIN 81 MG TABLET, CHEWABLE PO SCH (10:39)
[2019-07-21] MEDS: CYANOCOBALAMIN (VITAMIN B-12) 1,000 MCG TABLET PO SCH (10:39)
[2019-07-21] MEDS: MULTIVITAMIN TABLET PO SCH (10:39)
[2019-07-21] MEDS: ASCORBIC ACID 500 MG TABLET PO SCH ×2 (10:39→21:33)
[2019-07-21] MEDS: FERROUS SULFATE 325 MG TABLET PO SCH (10:39)
[2019-07-21] MEDS: PRENATAL VITAMIN W DHA CAPSULE PO SCH (10:39)
[2019-07-21] MEDS: CALCIUM CARBONATE 600 MG/VITAMIN D3 400 UNIT TABLET PO SCH (10:39)
--- NOTE | 2019-07-21 10:43 | EKG REPORT ---
SEVERITY:- OTHERWISE NORMAL ECG - SINUS RHYTHM LEFT AXIS DEVIATION : Confirmed by: Annie Reddy 21-Jul-2019 10:43:05
[2019-07-21] MEDS: 1/2 NORMAL SALINE 1,000 ML IV PRN (10:48)
--- NOTE | 2019-07-21 15:51 | PDOC PROGRESS REPORT ---
Subjective Progress Note for:: 07/21/19 Subjective:: No new findings Reason For Visit: BRADYCARDIA UTI Physical Exam Vital Signs: Temp Pulse Resp BP Pulse Ox 98.0 F 102 H 15 148/87 H 96 07/21/19 11:25 07/21/19 11:25 07/21/19 11:25 07/21/19 11:25 07/21/19 11:25 Intake & Output 07/20/19 07/21/19 07/22/19 06:59 06:59 06:59 Intake Total 070 116 4189 Output Total 70 235 Balance 334 -35 1470 Weight 53.4 kg 53.4 kg General appearance: PRESENT: no acute distress, other - elderly contracted lady Respiratory exam: PRESENT: clear to auscultation almaz, unlabored Cardiovascular exam: PRESENT: RRR, +S1, +S2 GI/Abdominal exam: PRESENT: normal bowel sounds, soft. ABSENT: tenderness Rectal exam: PRESENT: deferred Extremities exam: PRESENT: other - contracted Neurological exam: PRESENT: alert, awake. ABSENT: oriented to person, oriented to place, oriented to time, oriented to situation Results Laboratory Results: 07/20/19 11:50 07/20/19 11:50 07/16/19 23:05 Blood Blood Culture (PCR) - Final Staphylococcus Species 07/16/19 23:05 Blood Blood Culture - Final Staphylococcus Hominis 07/16/19 23:05 Troponin I < 0.012 Impressions: Chest X-Ray 07/16/19 23:09 IMPRESSION: No acute disease. Head CT 07/16/19 23:10 IMPRESSION: No acute findings. Limitation. Assessment and Plan - Diagnosis (1) Bradycardia Is this a current diagnosis for this admission?: Yes (2) Dementia Is this a current diagnosis for this admission?: No (3) Hypotension Qualifiers: Hypotension type: unspecified hypotension type Qualified Code(s): I95.9 - Hypotension, unspecified Is this a current diagnosis for this admission?: Yes (4) Protein-energy malnutrition Is this a current diagnosis for this admission?: Yes (5) SIRS (systemic inflammatory response syndrome) Is this a current diagnosis for this admission?: Yes (6) Bacteremia Is this a current diagnosis for this admission?: Yes (7) Hypertension Qualifiers: Hypertension type: essential hypertension Qualified Code(s): I10 - Essential (primary) hypertension Is this a current diagnosis for this admission?: Yes Plan: Add low dose Coreg to regimen. She was started on Norvasc - Time Time Spent with patient: 15-24 minutes Medications reviewed and adjusted accordingly: Yes Anticipated discharge: SNF Within: within 24 hours
[2019-07-21] MEDS: CARVEDILOL 3.125 MG TABLET PO SCH (21:33)
[2019-07-22] MEDS: CEFTRIAXONE 1 GM/D5W RTU 1 GM/50 ML RTUPB IV SCH (00:31)
[2019-07-22] MEDS: 1/2 NORMAL SALINE 1,000 ML IV PRN ×2 (03:30→21:28)
[2019-07-22] MEDS: HEPARIN SOD (PORCINE) 5,000 UNIT/ML 1 ML VIAL SUBCUT SCH ×3 (06:02→21:31)
[2019-07-22] MEDS: LEVOTHYROXINE SODIUM 0.025 MG TABLET PO SCH (06:02)
[2019-07-22] MEDS: DOCUSATE SODIUM 100 MG/10 ML UDC PO SCH ×2 (09:25→17:05)
[2019-07-22] MEDS: AMLODIPINE BESYLATE 5 MG TABLET PO SCH (09:25)
[2019-07-22] MEDS: PANTOPRAZOLE SODIUM 20 MG TABLET.DR PO SCH (09:26)
[2019-07-22] MEDS: MULTIVITAMIN TABLET PO SCH (09:26)
[2019-07-22] MEDS: CYANOCOBALAMIN (VITAMIN B-12) 1,000 MCG TABLET PO SCH (09:26)
[2019-07-22] MEDS: CALCIUM CARBONATE 600 MG/VITAMIN D3 400 UNIT TABLET PO SCH (09:26)
[2019-07-22] MEDS: PRENATAL VITAMIN W DHA CAPSULE PO SCH (09:26)
[2019-07-22] MEDS: CARVEDILOL 3.125 MG TABLET PO SCH ×2 (09:26→21:30)
[2019-07-22] MEDS: ASCORBIC ACID 500 MG TABLET PO SCH ×2 (09:26→21:30)
[2019-07-22] MEDS: FERROUS SULFATE 325 MG TABLET PO SCH (09:26)
[2019-07-22] MEDS: ASPIRIN 81 MG TABLET, CHEWABLE PO SCH (09:26)
--- NOTE | 2019-07-22 16:02 | PDOC PROGRESS REPORT ---
Subjective Progress Note for:: 07/22/19 Subjective:: No new findings. awaiting clearance for NH Reason For Visit: BRADYCARDIA UTI Physical Exam Vital Signs: Temp Pulse Resp BP Pulse Ox 98.0 F 82 14 121/77 97 07/22/19 11:23 07/22/19 14:00 07/22/19 11:23 07/22/19 11:23 07/22/19 11:23 Intake & Output 07/21/19 07/22/19 07/23/19 06:59 06:59 06:59 Intake Total 200 4146 Output Total 235 1400 Balance -35 2746 Weight 53.4 kg 53.8 kg General appearance: PRESENT: no acute distress, other Head exam: PRESENT: atraumatic Eye exam: PRESENT: conjunctiva pink. ABSENT: scleral icterus Ear exam: PRESENT: normal external ear exam Mouth exam: PRESENT: tongue midline Neck exam: ABSENT: carotid bruit, JVD, lymphadenopathy, thyromegaly Respiratory exam: PRESENT: clear to auscultation almaz. ABSENT: rales, rhonchi, wheezes Cardiovascular exam: PRESENT: RRR, +S1, +S2. ABSENT: diastolic murmur, rubs, systolic murmur Pulses: PRESENT: normal dorsalis pedis pul Vascular exam: PRESENT: normal capillary refill GI/Abdominal exam: PRESENT: normal bowel sounds, soft. ABSENT: distended, guarding, mass, organolmegaly, rebound, tenderness Rectal exam: PRESENT: deferred Extremities exam: PRESENT: other - contracted. ABSENT: calf tenderness, clubbing, pedal edema Neurological exam: PRESENT: awake. ABSENT: altered, oriented to person, oriented to place, oriented to time, oriented to situation, reflexes normal, abnormal gait, ataxia, CN II-XII grossly intact, motor sensory deficit, normal gait, aphasic, other Psychiatric exam: PRESENT: normal mood. ABSENT: homicidal ideation, suicidal ideation Skin exam: PRESENT: intact, warm. ABSENT: cyanosis, rash Results Laboratory Results: 07/20/19 11:50 07/20/19 11:50 07/16/19 23:46 Blood Blood Culture - Final NO GROWTH IN 5 DAYS 07/16/19 23:05 Troponin I < 0.012 Impressions: Chest X-Ray 07/16/19 23:09 IMPRESSION: No acute disease. Head CT 07/16/19 23:10 IMPRESSION: No acute findings. Limitation. Assessment and Plan - Diagnosis (1) Bradycardia Is this a current diagnosis for this admission?: Yes (2) Dementia Is this a current diagnosis for this admission?: No (3) Hypotension Qualifiers: Hypotension type: unspecified hypotension type Qualified Code(s): I95.9 - Hypotension, unspecified Is this a current diagnosis for this admission?: Yes (4) Protein-energy malnutrition Is this a current diagnosis for this admission?: Yes (5) SIRS (systemic inflammatory response syndrome) Is this a current diagnosis for this admission?: Yes (6) Bacteremia Is this a current diagnosis for this admission?: Yes (7) Hypertension Qualifiers: Hypertension type: essential hypertension Qualified Code(s): I10 - Essential (primary) hypertension Is this a current diagnosis for this admission?: Yes - Plan Summary Summary: Blood culture negative Awaiting SNF placement Patient stable for dc
[2019-07-23] MEDS: CEFTRIAXONE 1 GM/D5W RTU 1 GM/50 ML RTUPB IV SCH (01:41)
[2019-07-23] MEDS: HEPARIN SOD (PORCINE) 5,000 UNIT/ML 1 ML VIAL SUBCUT SCH ×3 (05:26→22:33)
[2019-07-23] MEDS: LEVOTHYROXINE SODIUM 0.025 MG TABLET PO SCH (05:27)
[2019-07-23 05:53] LABS: ABSOLUTE EOSINOPHILS # (AUTO) 0.3 10^3/uL (0.0-0.6); ABSOLUTE LYMPHOCYTES (AUTO) 1.7 10^3/uL (0.5-4.7); ABSOLUTE MONOCYTES (AUTO) 0.6 10^3/uL (0.1-1.4); ABSOLUTE NEUT (AUTO) 1.3 10^3/uL (1.7-8.2); BASOPHILS % (AUTO) 1.2 % (0-2); EOSINOPHILS % (AUTO) 7.4 % (0-6); HEMATOCRIT 28.7 % (36.0-47.0); LYMPHOCYTES % (AUTO) 42.3 % (13-45); MEAN CORPUSCULAR HEMOGLOBIN 31.9 pg (27.0-33.4); MEAN CORPUSCULAR HGB CONC 34.9 g/dL (32.0-36.0); MEAN CORPUSCULAR VOLUME 91 fl (80-97); MONOCYTES % (AUTO) 15.2 % (3-13); PLATELET COUNT 201 10^3/uL (150-450); RED BLOOD COUNT 3.14 10^6/uL (3.72-5.28); RED CELL DISTRIBUTION WIDTH 14.9 % (11.5-14.0); SEGMENTED NEUTROPHILS % (AUTO) 33.9 % (42-78); TOTAL CELLS COUNTED % (AUTO) 100 %; WHITE BLOOD COUNT 3.9 10^3/uL (4.0-10.5)
[2019-07-23 06:21] LABS: ANION GAP 5 (5-19); BLOOD UREA NITROGEN 7 mg/dL (7-20); CALCIUM 8.8 mg/dL (8.4-10.2); CARBON DIOXIDE 29 mmol/L (22-30); CHLORIDE 103 mmol/L (98-107); GLUCOSE 90 mg/dL (75-110); POTASSIUM 3.6 mmol/L (3.6-5.0)
[2019-07-23] MEDS: PANTOPRAZOLE SODIUM 20 MG TABLET.DR PO SCH (09:50)
[2019-07-23] MEDS: FERROUS SULFATE 325 MG TABLET PO SCH (09:50)
[2019-07-23] MEDS: ASCORBIC ACID 500 MG TABLET PO SCH ×2 (09:50→22:32)
[2019-07-23] MEDS: CARVEDILOL 3.125 MG TABLET PO SCH ×2 (09:50→22:32)
[2019-07-23] MEDS: AMLODIPINE BESYLATE 5 MG TABLET PO SCH (09:50)
[2019-07-23] MEDS: CYANOCOBALAMIN (VITAMIN B-12) 1,000 MCG TABLET PO SCH (09:50)
[2019-07-23] MEDS: MULTIVITAMIN TABLET PO SCH (09:50)
[2019-07-23] MEDS: PRENATAL VITAMIN W DHA CAPSULE PO SCH (09:50)
[2019-07-23] MEDS: CALCIUM CARBONATE 600 MG/VITAMIN D3 400 UNIT TABLET PO SCH (09:50)
[2019-07-23] MEDS: ASPIRIN 81 MG TABLET, CHEWABLE PO SCH (09:50)
[2019-07-23] MEDS: DOCUSATE SODIUM 100 MG/10 ML UDC PO SCH ×2 (09:51→17:43)
--- NOTE | 2019-07-23 12:40 | PDOC PROGRESS REPORT ---
Subjective Progress Note for:: 07/23/19 Subjective:: No new findings. awaiting clearance for NH Reason For Visit: BRADYCARDIA UTI Physical Exam Vital Signs: Temp Pulse Resp BP Pulse Ox 97.6 F 77 16 148/86 H 100 07/23/19 08:40 07/23/19 08:40 07/23/19 08:40 07/23/19 08:40 07/23/19 08:40 Intake & Output 07/22/19 07/23/19 07/24/19 06:59 06:59 06:59 Intake Total 4146 2491 Output Total 1400 1375 Balance 2746 1116 Weight 53.8 kg 55.7 kg General appearance: PRESENT: no acute distress Respiratory exam: PRESENT: clear to auscultation almaz, unlabored Cardiovascular exam: PRESENT: RRR, +S1, +S2 GI/Abdominal exam: PRESENT: soft Extremities exam: PRESENT: other - contracted Neurological exam: PRESENT: awake, aphasic Results Laboratory Results: 07/23/19 05:04 07/23/19 05:04 07/23/19 07/23/19 05:04 05:04 WBC 3.9 L RBC 3.14 L Hgb 10.0 L D Hct 28.7 L MCV 91 MCH 31.9 MCHC 34.9 RDW 14.9 H Plt Count 201 Seg Neutrophils % 33.9 L Sodium 137.4 Potassium 3.6 Chloride 103 Carbon Dioxide 29 Anion Gap 5 BUN 7 Creatinine 0.39 L Est GFR ( Amer) > 60 Glucose 90 Calcium 8.8 07/16/19 23:05 Troponin I < 0.012 Impressions: Chest X-Ray 07/16/19 23:09 IMPRESSION: No acute disease. Head CT 07/16/19 23:10 IMPRESSION: No acute findings. Limitation. Assessment and Plan - Diagnosis (1) Bradycardia Is this a current diagnosis for this admission?: Yes (2) Dementia Is this a current diagnosis for this admission?: No (3) Hypotension Qualifiers: Hypotension type: unspecified hypotension type Qualified Code(s): I95.9 - Hypotension, unspecified Is this a current diagnosis for this admission?: Yes (4) Protein-energy malnutrition Is this a current diagnosis for this admission?: Yes (5) SIRS (systemic inflammatory response syndrome) Is this a current diagnosis for this admission?: Yes (6) Bacteremia Is this a current diagnosis for this admission?: Yes (7) Hypertension Qualifiers: Hypertension type: essential hypertension Qualified Code(s): I10 - Essential (primary) hypertension Is this a current diagnosis for this admission?: Yes - Plan Summary Summary: Blood culture negative Awaiting SNF placement Patient stable for dc 07/22Hemoglobin noted to be at 10 however this is more in line with her baseline. There is no azotemia and her vital signs are stable. At this time we basically awaiting her COVID-19 test so that she can be placed in a group home facility Blood pressures improved on the current regiment - Time Anticipated discharge: SNF
[2019-07-23] MEDS: 1/2 NORMAL SALINE 1,000 ML IV PRN (14:17)
[2019-07-24] MEDS: CEFTRIAXONE 1 GM/D5W RTU 1 GM/50 ML RTUPB IV SCH (01:37)
[2019-07-24] MEDS: HEPARIN SOD (PORCINE) 5,000 UNIT/ML 1 ML VIAL SUBCUT SCH ×2 (05:45→13:15)
[2019-07-24] MEDS: LEVOTHYROXINE SODIUM 0.025 MG TABLET PO SCH (05:45)
[2019-07-24] MEDS: MULTIVITAMIN TABLET PO SCH (09:29)
[2019-07-24] MEDS: PANTOPRAZOLE SODIUM 20 MG TABLET.DR PO SCH (09:29)
[2019-07-24] MEDS: CARVEDILOL 3.125 MG TABLET PO SCH (09:29)
[2019-07-24] MEDS: CYANOCOBALAMIN (VITAMIN B-12) 1,000 MCG TABLET PO SCH (09:29)
[2019-07-24] MEDS: FERROUS SULFATE 325 MG TABLET PO SCH (09:29)
[2019-07-24] MEDS: CALCIUM CARBONATE 600 MG/VITAMIN D3 400 UNIT TABLET PO SCH (09:29)
[2019-07-24] MEDS: PRENATAL VITAMIN W DHA CAPSULE PO SCH (09:29)
[2019-07-24] MEDS: ASPIRIN 81 MG TABLET, CHEWABLE PO SCH (09:30)
[2019-07-24] MEDS: ASCORBIC ACID 500 MG TABLET PO SCH (09:30)
[2019-07-24] MEDS: AMLODIPINE BESYLATE 5 MG TABLET PO SCH (09:30)
[2019-07-24] MEDS ORDERED: DOCUSATE SODIUM 100 MG CAPSULE PO SCH (10:00)
--- NOTE | 2019-07-24 13:12 | PDOC TRANSFER SUMMARY ---
Impression - Admit/DC Date/PCP Admission Date/Primary Care Provider: 07/17/19 02:06 LESLEY MCKEON NP Discharge Date: 07/24/19 - Discharge Diagnosis (1) Bradycardia Is this a current diagnosis for this admission?: Yes (2) Dementia Is this a current diagnosis for this admission?: Yes (3) Hypotension Is this a current diagnosis for this admission?: Yes (4) Protein-energy malnutrition Is this a current diagnosis for this admission?: Yes (5) SIRS (systemic inflammatory response syndrome) Is this a current diagnosis for this admission?: Yes (6) Hypertension Is this a current diagnosis for this admission?: Yes - Assessment Summary: Blood culture negative Awaiting SNF placement Patient stable for dc 07/22Hemoglobin noted to be at 10 however this is more in line with her baseline. There is no azotemia and her vital signs are stable. At this time we basically awaiting her COVID-19 test so that she can be placed in a senior living facility Blood pressures improved on the current regiment - Additional Information Resuscitation Status: Full Code Discharge Diet: As Tolerated Discharge Activity: Activity As Tolerated Referrals: LESLEY MCKEON NP, [employer] [Primary Care Provider] - Follow up as needed Prescriptions: Carvedilol [Coreg 3.125 mg Tablet] 6.25 mg PO Q12 #60 tablet Amlodipine Besylate [Norvasc 5 mg Tablet] 5 mg PO DAILY #30 tablet Levothyroxine Sodium [Synthroid 0.025 mg Tablet] 0.025 mg PO Q6AM #30 tablet Home Medications: Omeprazole 20 mg PO DAILY 07/31/13 Cyanocobalamin (Vitamin B-12) [Vitamin B-12 1000 mcg Tablet] 1,000 mcg PO DAILY #60 tablet 06/14/15 Ferrous Sulfate 325 mg PO DAILY 10/13/16 Aspirin [Aspirin 81 mg Chewable Tablet] 81 mg PO DAILY 08/15/17 Acetaminophen [Tylenol 325 mg Tablet] 650 mg PO Q6HP PRN 07/17/19 Amino Acids/Protein Hydrolys [Pro-Stat Awc Liquid Packet] 1 pkt PO Q12 07/17/19 Ascorbic Acid [Vitamin C 500 mg Tablet] 500 mg PO Q12 07/17/19 Calcium Carbonate/Vitamin D3 [Calcium 600-Vit D3 400 Tablet] 1 each PO DAILY 07/17/19 Multivit-Min/FA/Lycopen/Lutein [Certavite Sr-Antioxidant Tab] 1 each PO DAILY 07/17/19 Amlodipine Besylate [Norvasc 5 mg Tablet] 5 mg PO DAILY #30 tablet 07/24/19 Carvedilol [Coreg 3.125 mg Tablet] 6.25 mg PO Q12 #60 tablet 07/24/19 Levothyroxine Sodium [Synthroid 0.025 mg Tablet] 0.025 mg PO Q6AM #30 tablet 07/24/19 History of Present Illiness History of Present Illness: SURINDER NORTON is a 83 year old female patient presents emergency room with a change in mental status. She was found to be bradycardic. Initial heart rate was in the 30s with no hypotension. She was initially treated with atropine and dopamine was evaluated by cardiology. Please see admitting history and physical as well as consultation report for full details Hospital Course Hospital Course: She was admitted to telemetry unit and treated with the above measures. She was also started for Rocephin for possible UTI. The same was held as this was felt to be contributing to her bradycardia. Echocardiogram done revealed a left ventricular ejection fraction of 60% with a grade 2 diastolic dysfunction. Her heart rate and blood pressure did improve and in fact her blood pressure has been poorly controlled and so she was started on Norvasc with addition of carvedilol to control her heart rate. Further blood pressure adjustment is strongly suggested as outpatient She had 1 out of 4 blood cultures yielding Staphylococcus hominis. This was thought to be contaminant. Repeat blood cultures have been negative. There was no evidence clinically of bacteremia. And had COVID testing done which was negative. At this time it is felt that she is stable and [facility] Patient's long-term prognosis is pretty poor and she is at very high risk for readmission Physical Exam Vital Signs: Temp Pulse Resp BP Pulse Ox 97.8 F 79 16 156/92 H 100 07/24/19 07:59 07/24/19 07:59 07/24/19 07:59 07/24/19 07:59 07/24/19 07:59 Intake & Output 07/23/19 07/24/19 07/25/19 06:59 06:59 06:59 Intake Total 2491 2146 Output Total 1375 800 Balance 1116 1346 Weight 55.7 kg 55.7 kg General appearance: PRESENT: no acute distress, other - Elderly nonverbal female Head exam: PRESENT: atraumatic, normocephalic Eye exam: PRESENT: EOMI, PERRLA. ABSENT: scleral icterus Mouth exam: PRESENT: tongue midline Neck exam: ABSENT: carotid bruit, JVD, lymphadenopathy, thyromegaly Respiratory exam: PRESENT: clear to auscultation almaz. ABSENT: rales, rhonchi, wheezes Cardiovascular exam: PRESENT: RRR, +S1, +S2. ABSENT: diastolic murmur, rubs, systolic murmur Pulses: PRESENT: normal dorsalis pedis pul Vascular exam: PRESENT: normal capillary refill GI/Abdominal exam: PRESENT: normal bowel sounds, soft. ABSENT: distended, guarding, mass, organolmegaly, rebound, tenderness Rectal exam: PRESENT: deferred Extremities exam: PRESENT: full ROM. ABSENT: calf tenderness, clubbing, pedal edema Neurological exam: PRESENT: alert, awake, oriented to person, oriented to place, oriented to time, oriented to situation, CN II-XII grossly intact. ABSENT: motor sensory deficit Psychiatric exam: PRESENT: appropriate affect, normal mood. ABSENT: homicidal ideation, suicidal ideation Skin exam: PRESENT: dry, intact, warm. ABSENT: cyanosis, rash Results Laboratory Results: WBC 3.9 10^3/uL (4.0-10.5) L 07/23/19 05:04 RBC 3.14 10^6/uL (3.72-5.28) L 07/23/19 05:04 Hgb 10.0 g/dL (12.0-15.5) L D 07/23/19 05:04 Hct 28.7 % (36.0-47.0) L 07/23/19 05:04 MCV 91 fl (80-97) 07/23/19 05:04 MCH 31.9 pg (27.0-33.4) 07/23/19 05:04 MCHC 34.9 g/dL (32.0-36.0) 07/23/19 05:04 RDW 14.9 % (11.5-14.0) H 07/23/19 05:04 Plt Count 201 10^3/uL (150-450) 07/23/19 05:04 Lymph % (Auto) 42.3 % (13-45) 07/23/19 05:04 [place] % (Auto) 15.2 % (3-13) H 07/23/19 05:04 Eos % (Auto) 7.4 % (0-6) H 07/23/19 05:04 Baso % (Auto) 1.2 % (0-2) 07/23/19 05:04 Absolute Neuts (auto) 1.3 10^3/uL (1.7-8.2) L 07/23/19 05:04 Absolute Lymphs (auto) 1.7 10^3/uL (0.5-4.7) 07/23/19 05:04 Absolute Monos (auto) 0.6 10^3/uL (0.1-1.4) 07/23/19 05:04 Absolute Eos (auto) 0.3 10^3/uL (0.0-0.6) 07/23/19 05:04 Absolute Basos (auto) 0.0 10^3/uL (0.0-0.2) 07/23/19 05:04 Seg Neutrophils % 33.9 % (42-78) L 07/23/19 05:04 PT 14.7 SEC (11.4-15.4) 07/16/19 23:05 INR 1.14 07/16/19 23:05 VBG pH 7.36 (7.30-7.42) 07/16/19 23:05 VBG pCO2 53.3 mmHg (35-63) 07/16/19 23:05 VBG HCO3 29.4 mmol/L (20-32) 07/16/19 23:05 VBG Base Excess 3.2 mmol/L 07/16/19 23:05 Sodium 137.4 mmol/L (137-145) 07/23/19 05:04 Potassium 3.6 mmol/L (3.6-5.0) 07/23/19 05:04 Chloride 103 mmol/L (98-107) 07/23/19 05:04 Carbon Dioxide 29 mmol/L (22-30) 07/23/19 05:04 Anion Gap 5 (5-19) 07/23/19 05:04 BUN 7 mg/dL (7-20) 07/23/19 05:04 Creatinine 0.39 mg/dL (0.52-1.25) L 07/23/19 05:04 Est GFR ( Amer) > 60 (>60) 07/23/19 05:04 Est GFR (MDRD) Non-Af > 60 (>60) 07/23/19 05:04 Glucose 90 mg/dL (75-110) 07/23/19 05:04 POC Glucose 215 mg/dL (70-110) H 07/24/19 12:37 Lactic Acid 2.4 mmol/L (0.7-2.1) H 07/17/19 02:47 Calcium 8.8 mg/dL (8.4-10.2) 07/23/19 05:04 Phosphorus 3.8 mg/dL (2.5-4.5) 07/16/19 23:05 Magnesium 1.6 mg/dL (1.6-2.3) 07/19/19 04:29 Total Bilirubin 0.4 mg/dL (0.2-1.3) 07/19/19 04:29 Direct Bilirubin 0.0 mg/dL (0.0-0.4) 07/19/19 04:29 Neonat Total Bilirubin Not Reportable 07/19/19 04:29 Neonat Direct Bilirubin Not Reportable 07/19/19 04:29 Neonat Indirect Bili Not Reportable 07/19/19 04:29 AST 22 U/L (14-36) 07/19/19 04:29 ALT 12 U/L (<35) 07/19/19 04:29 Alkaline Phosphatase 86 U/L (38-126) 07/19/19 04:29 Troponin I < 0.012 ng/mL 07/16/19 23:05 Total Protein 7.3 g/dL (6.3-8.2) 07/19/19 04:29 Albumin 3.5 g/dL (3.5-5.0) 07/19/19 04:29 TSH 12.00 uIU/mL (0.47-4.68) H 07/16/19 23:05 Free T4 1.42 ng/dL (0.78-2.19) 07/16/19 23:05 Free T3 pg/mL 4.80 pg/mL (2.77-5.27) 07/16/19 23:05 Urine Color YELLOW 07/16/19 23:25 Urine Appearance CLOUDY 07/16/19 23:25 Urine pH 8.0 (5.0-9.0) 07/16/19 23:25 Ur Specific [place] 1.006 07/16/19 23:25 Urine Protein 30 mg/dL (NEGATIVE) H 07/16/19 23:25 Urine Glucose (UA) 50 mg/dL (NEGATIVE) H 07/16/19 23:25 Urine Ketones NEGATIVE mg/dL (NEGATIVE) 07/16/19 23:25 Urine Blood MODERATE (NEGATIVE) H 07/16/19 23:25 Urine Nitrite (Reflex) NEGATIVE (NEGATIVE) 07/16/19 23:25 Urine Bilirubin NEGATIVE (NEGATIVE) 07/16/19 23:25 Urine Urobilinogen NEGATIVE mg/dL (<2.0) 07/16/19 23:25 Leukocyte Esterase Rfl LARGE (NEGATIVE) H 07/16/19 23:25 Urine RBC (Auto) 30 /HPF 07/16/19 23:25 U Hyaline Cast (Auto) 10 /LPF 07/16/19 23:25 Urine Bacteria (Auto) 3+ /HPF 07/16/19 23:25 Urine WBC (Reflex) 100 /HPF 07/16/19 23:25 Urine WBC Clumps OCC /HPF 07/16/19 23:25 Squamous Epi Cells Auto 2 /HPF 07/16/19 23:25 Urine Mucus (Auto) OCC /LPF 07/16/19 23:25 Urine Ascorbic Acid NEGATIVE (NEGATIVE) 07/16/19 23:25 Stool for White Cells NO WBCs SEEN 07/17/19 03:15 Stl C. Difficile GDH Ag NEGATIVE (NEGATIVE) 07/17/19 03:15 Stl C.difficile Tox A&B NEGATIVE (NEGATIVE) 07/17/19 03:15 COVID-19 Source NASOPHARYNGEAL 07/21/19 17:35 COVID-19 (AMARJIT) NOT DETECTED 07/21/19 17:35 07/16/19 23:05 Troponin I < 0.012 EKG Comments: Sinus rhythm Impressions: Chest X-Ray 07/16/19 23:09 IMPRESSION: No acute disease. Head CT 07/16/19 23:10 IMPRESSION: No acute findings. Limitation. Plan Health Concerns: [facility] Follow-up of blood pressure and medication adjustments suggested Time Spent: Greater than 30 Minutes Stroke Is this a Stroke Patient?: No Acute Heart Failure - Is this a Heart Failure Patient?: No
[2019-07-24 13:42] VITALS: BP 127/77
== END 2019-07-24 17:02 | DRG 308 ==
LOC: ER 23:04 → EH 07-17 02:06 → 3W 07-17 03:37
PROVIDERS: ADMIT Internal Medicine; ATTEND Internal Medicine
DX: R00.1 Bradycardia, unspecified (principal); E43 Unspecified severe protein-calorie malnutrition; N39.0 Urinary tract infection, site not specified; R65.10 Systemic inflammatory response syndrome (SIRS) of non-infectious origin without acute organ dysfunction; Z68.1 Body mass index [BMI] 19.9 or less, adult; F03.90 Unspecified dementia, unspecified severity, without behavioral disturbance, psychotic disturbance, mood disturbance, and anxiety; I95.9 Hypotension, unspecified; T46.1X5A Adverse effect of calcium-channel blockers, initial encounter; M24.50 Contracture, unspecified joint; I10 Essential (primary) hypertension; I25.10 Atherosclerotic heart disease of native coronary artery without angina pectoris; E78.5 Hyperlipidemia, unspecified; E11.9 Type 2 diabetes mellitus without complications; F25.1 Schizoaffective disorder, depressive type; L89.152 Pressure ulcer of sacral region, stage 2; D63.8 Anemia in other chronic diseases classified elsewhere; E78.00 Pure hypercholesterolemia, unspecified; Z74.01 Bed confinement status; Z75.1 Person awaiting admission to adequate facility elsewhere; Z79.899 Other long term (current) drug therapy; Z79.82 Long term (current) use of aspirin; Z79.890 Hormone replacement therapy; Z03.818 Encounter for observation for suspected exposure to other biological agents ruled out
CPT/HCPCS: 36415; 70450; 71045; 80048; 80053; 81001; 82803; 82962; 83605; 83735; 84100; 84439; 84443; 84481; 84484; 85025; 85610; 87040; 87045; 87077; 87150; 87186; 87205; 87324; 87449; 87635; 89055; 93005; 93010; 93306; 99291; J0461; J0696; J1265; J1644; J1940; J3480; J3490; J7030

== ENCOUNTER 2019-10-26 20:16 | Inpatient (IN) | payer MEDICARE, MEDICAID ==
[2019-10-26] MEDS ORDERED: NORMAL SALINE 1000 ML 1,000 ML IV ONE (21:02)
--- NOTE | 2019-10-26 21:04 | ER Document Report ---
Entered by JAD CRYSTAL SCRIBE 10/26/192100 Acting as scribe for:ANGÉLICA ARTHUR IV, MD ED General - General Chief Complaint: Altered Mental Status Stated Complaint: DECREASE MENTAL STATUS Time Seen by Provider: 10/26/19 20:31 Mode of Arrival: Medic Information source: Emergency Med Personnel Notes: This 84 year old female patient with a history of dementia brought in by EMS from [facility] presents to the ED today with complaints of altered mental status. Per EMS, staff at the facility noticed a decreased in the patient's baseline mental status around 1645 this afternoon. TRAVEL OUTSIDE OF THE [place] IN LAST 30 DAYS: No - Related Data Allergies/Adverse Reactions: No Known Allergies Allergy (Verified 10/13/16 17:31) Past Medical History - General Information source: [facility] Records - Social History Smoking Status: Never Smoker Smoking Education Provided: No Lives with: [facility] Family History: Reviewed & Not Pertinent - Past Medical History Cardiac Medical History: Reports: Hx Atrial Fibrillation, Hx Coronary Artery Di sease, Hx Hypercholesterolemia, Hx Hypertension Endocrine Medical History: Reports: Hx Diabetes Mellitus Type 2 Musculoskeletal Medical History: Reports Hx Arthritis, Reports Hx Musculoskeletal Deformity, Reports Hx Musculoskeletal Trauma Psychiatric Medical History: Reports: Hx Anxiety, Hx Dementia, Hx Depression, Hx Schizoaffective Disorder, Hx Schizophrenia - Immunizations Immunizations up to date: Yes Hx Diphtheria, Pertussis, Tetanus Vaccination: Yes Hx Pneumococcal Vaccination: 06/14/12 Review of Systems - Review of Systems -: Yes ROS unobtainable due to patient's medical condition Physical Exam - Vital signs Vitals: Resp Pulse Ox 37 H 100 10/26/19 20:19 10/26/19 20:19 - General General appearance: Other - Appears frail - HEENT Head: Normocephalic, Atraumatic Eyes: Normal Pupils: PERRL - Respiratory Respiratory status: No respiratory distress Chest status: Nontender Breath sounds: Normal Chest palpation: Normal - Cardiovascular Rhythm: Regular, Tachycardia Heart sounds: Normal auscultation Murmur: No Friction rub: No Gallop: None auscultated - Abdominal Inspection: Normal Distension: No distension Bowel sounds: Normal Tenderness: Nontender - Abdomen soft Organomegaly: No organomegaly - Back Back: Normal, Nontender - Extremities General upper extremity: Other - Upper extremities appear atrophic and are flexed at the elbows General lower extremity: Other - Lower extremities appear atrophic and are flexed at the knees - Neurological Timothy Coma Scale Verbal: None Cranial nerves: Tongue deviation - To the right - Psychological Associated symptoms: Other - Unable to assess due to patient's medical condition - Skin Skin Temperature: Warm Skin Moisture: Dry Skin Color: Normal Course - Re-evaluation Re-evalutation: 10/27/19 03:43 Patient remains tachycardic, his temperature increased to 100.2, and is unable to tolerate p.o. medications. - Vital Signs Vital signs: Temp Pulse Resp BP Pulse Ox 98.4 F 29 H 134/95 H 98 10/27/19 01:31 10/27/19 01:31 10/27/19 01:31 10/27/19 01:31 - Laboratory Result Diagrams: 10/26/19 22:00 10/26/19 22:00 Laboratory results interpreted by me: 10/26/19 10/26/19 10/26/19 21:58 22:00 22:00 RDW 15.9 H Lymph % (Auto) 8.6 L Seg Neutrophils % 80.9 H Sodium 136.8 L Potassium 5.5 H BUN 36 H Glucose 113 H Urine Protein 30 H Urine Blood SMALL H Urine Bilirubin MODERATE H Urine Urobilinogen 4.0 H Ur Leukocyte Esterase MODERATE H - Diagnostic Test Radiology reviewed: Reports reviewed - EKG Interpretation by Me Additional EKG results interpreted by me: 10/27/19 03:43 EKG obtained on 10/27/2019 at 0252 hrs. was interpreted by this MD. Findings sinus tachycardia, rate 113, P waves preceding QRS complexes, QRS complexes appear narrow, there are no obvious patterns of ST segment elevation or depression present to suggest acute myocardial ischemia or infarction. Impression sinus tachycardia with nonspecific ST segments. - Consults dr. ruth Time consulted: 03:42 Reason for consultation: 10/27/19 03:44 tachycardia, inability to tolerate po meds, uti Consulted provider: will come to ER Discharge - Discharge Clinical Impression: UTI (urinary tract infection) Qualifiers: Urinary tract infection type: site unspecified Hematuria presence: without hematuria Qualified Code(s): N39.0 - Urinary tract infection, site not specified Diarrhea Qualifiers: Diarrhea type: unspecified type Qualified Code(s): R19.7 - Diarrhea, unspec ified Condition: Stable Disposition: ADMITTED INPATIENT Admitting Provider: Miek (Hospitalist) Unit Admitted: Telemetry I personally performed the services described in the documentation, reviewed and edited the documentation which was dictated to the scribe in my presence, and it accurately records my words and actions.
[2019-10-26 22:26] LABS: ABSOLUTE LYMPHOCYTES (AUTO) 0.8 10^3/uL (0.5-4.7); ABSOLUTE MONOCYTES (AUTO) 0.9 10^3/uL (0.1-1.4); ABSOLUTE NEUT (AUTO) 7.2 10^3/uL (1.7-8.2); BASOPHILS % (AUTO) 0.1 % (0-2); HEMATOCRIT 41.8 % (36.0-47.0); LYMPHOCYTES % (AUTO) 8.6 % (13-45); MEAN CORPUSCULAR HGB CONC 33.5 g/dL (32.0-36.0); MEAN CORPUSCULAR VOLUME 90 fl (80-97); MONOCYTES % (AUTO) 10.4 % (3-13); PLATELET COUNT 250 10^3/uL (150-450); RED BLOOD COUNT 4.66 10^6/uL (3.72-5.28); RED CELL DISTRIBUTION WIDTH 15.9 % (11.5-14.0); SEGMENTED NEUTROPHILS % (AUTO) 80.9 % (42-78); TOTAL CELLS COUNTED % (AUTO) 100 %; WHITE BLOOD COUNT 8.9 10^3/uL (4.0-10.5)
[2019-10-26 22:32] LABS: APPEARANCE,URINE CLOUDY; BILIRUBIN,URINE MODERATE (NEGATIVE); COLOR,URINE AMBER; GLUCOSE, URINE NEGATIVE (NEGATIVE); KETONES,URINE NEGATIVE (NEGATIVE); LEUKOCYTE ESTERASE,URINE MODERATE (NEGATIVE); NITRITE,URINE NEGATIVE (NEGATIVE); PROTEIN,URINE 30 mg/dL (NEGATIVE); URINE SPECIFIC GRAVITY 1.018
[2019-10-26 22:39] LABS: ALBUMIN 3.7 g/dL (3.5-5.0); ALKALINE PHOSPHATASE 94 U/L (38-126); ANION GAP 7 (5-19); ASPARTATE AMINO TRANSFERASE 32 U/L (14-36); BILIRUBIN,DIRECT 0.2 mg/dL (0.0-0.4); BILIRUBIN,TOTAL 0.8 mg/dL (0.2-1.3); BLOOD UREA NITROGEN 36 mg/dL (7-20); CALCIUM 9.5 mg/dL (8.4-10.2); CARBON DIOXIDE 26 mmol/L (22-30); CHLORIDE 104 mmol/L (98-107); GLUCOSE 113 mg/dL (75-110); POTASSIUM 5.5 mmol/L (3.6-5.0); TOTAL PROTEIN 8.1 g/dL (6.3-8.2)
[2019-10-26 23:03] LABS: C DIFFICILE GDH NEGATIVE (NEGATIVE)
[2019-10-26] MEDS ORDERED: CEFTRIAXONE INJ 1000 MG VIAL IV ONE (23:20)
[2019-10-26] MEDS ORDERED: NORMAL SALINE 500 ML IV ONE (23:21)
--- NOTE | 2019-10-26 23:23 | RADIOLOGY REPORT (SQ) ---
CLINICAL INDICATION: weakness. TECHNIQUE: A single portable AP view was obtained of the chest at 2206 hours. COMPARISON: July 17, 2019. FINDINGS: The cardiomediastinal silhouette is enlarged but stable. Tortuous thoracic aorta. The lungs are grossly clear. No evidence of effusion or pneumothorax. Chronic changes. Osteoarthritis. IMPRESSION: No evidence of active intrathoracic disease.
[2019-10-27] MEDS ORDERED: NORMAL SALINE 500 ML IV ONE (00:57)
--- NOTE | 2019-10-27 01:11 | RADIOLOGY REPORT (SQ) ---
EXAM: CT Head Without Intravenous Contrast EXAM DATE/TIME: 10/27/2019 at 12:39 AM CLINICAL HISTORY: The patient is 84 years old and is Female; ams TECHNIQUE: Axial computed tomography images of the head/brain without intravenous contrast. Sagittal and coronal reformatted images were created and reviewed. This CT exam was performed using one or more of the following dose reduction techniques: automated exposure control, adjustment of the mA and/or kV according to patient size, and/or use of iterative reconstruction technique. COMPARISON: CT brain from 07/16/2019 FINDINGS: BRAIN: Diffuse cerebral atrophy is noted. There are periventricular white matter changes, which are likely related to chronic small vessel disease. No obvious signs of acute infarct. No intracranial hemorrhage. VENTRICLES: No hydrocephalus. BONES/JOINTS: Unremarkable. No acute fracture. SOFT TISSUES: Unremarkable. SINUSES: Unremarkable as visualized. No acute sinusitis. MASTOID AIR CELLS: Unremarkable as visualized. No mastoid effusion. IMPRESSION: No acute intracranial findings visualized.
[2019-10-27 01:35] LABS: VENOUS BLOOD BASE EXCESS -2.4 mmol/L; VENOUS BLOOD HCO3 23.8 mmol/L (20-32); VENOUS BLOOD PCO2 46.5 mmHg (35-63); VENOUS BLOOD PH 7.33 (7.30-7.42)
[2019-10-27] MEDS ORDERED: NITROFURANTOIN MONOHYD/M-CRYST 100 MG CAPSULE PO ONE (02:47)
[2019-10-27] MEDS ORDERED: ACETAMINOPHEN 325 MG TABLET PO ONE (03:29)
[2019-10-27] MEDS ORDERED: ACETAMINOPHEN 650 MG SUPP.RECT PR ONE (03:40)
--- NOTE | 2019-10-27 04:20 | PDOC H&P ---
History of Present Illness Admission Date/PCP: LESLEY MCKEON NP History of Present Illness: SURINDER NORTON is a 84 year old female who is a long-term care resident at [facility] and was sent over here yesterday afternoon because they said she had a change in her mental status. I am not sure how they knew this, because this patient is aphasic and lays in bed and does not really move. She has a history of advanced dementia and can only eat pured foods and nectar thickened liquids and any medication she gets have to be crushed up in something like pudding or applesauce and given to her. She is not had a fever. There was no reports of any cough or shortness of breath. She has had some diarrhea in the ER, which tested negative for C. difficile. Chest x-ray was negative. Head CT was unremarkable for any new process. Urinalysis looks potentially dirty. She got a dose of Rocephin in the ER. She was putting out so much diarrhea they had to put a rectal tube in her. Past Medical History Cardiac Medical History: Reports: Atrial Fibrillation, Coronary Artery Disease, Hyperlipidema, Hypertension Denies: Myocardial Infarction Pulmonary Medical History: Denies: Asthma, Bronchitis, Chronic Obstructive Pulmonary Disease (COPD), Pneumonia Neurological Medical History: Denies: Seizures Endocrine Medical History: Reports: Diabetes Mellitus Type 2 Musculoskeltal Medical History: Reports: Arthritis Psychiatric Medical History: Reports: Dementia, Depression, Schizoaffective Disorder Hematology: Reports: Anemia Social History Lives with: [facility] Smoking Status: Never Smoker Frequency of Alcohol Use: None Hx Recreational Drug Use: No Hx Prescription Drug Abuse: No Family History Family History: Reviewed & Not Pertinent Parental Family History Reviewed: No - Unable to obtain Children Family History Reviewed: Unknown Sibling(s) Family History Reviewed.: Unknown Medication/Allergy Home Medications: Omeprazole 20 mg PO DAILY 07/31/13 Cyanocobalamin (Vitamin B-12) [Vitamin B-12 1000 mcg Tablet] 1,000 mcg PO DAILY #60 tablet 06/14/15 Ferrous Sulfate 325 mg PO DAILY 10/13/16 Aspirin [Aspirin 81 mg Chewable Tablet] 81 mg PO DAILY 08/15/17 Acetaminophen [Tylenol 325 mg Tablet] 650 mg PO Q6HP PRN 07/17/19 Amino Acids/Protein Hydrolys [Pro-Stat [facility] Liquid Packet] 1 pkt PO Q12 07/17/19 Ascorbic Acid [Vitamin C 500 mg Tablet] 500 mg PO Q12 07/17/19 Calcium Carbonate/Vitamin D3 [Calcium 600-Vit D3 400 Tablet] 1 each PO DAILY 07/17/19 Multivit-Min/FA/Lycopen/Lutein [Certavite Sr-Antioxidant Tab] 1 each PO DAILY 07/17/19 Amlodipine Besylate [Norvasc 5 mg Tablet] 5 mg PO DAILY #30 tablet 07/24/19 Carvedilol [Coreg 3.125 mg Tablet] 6.25 mg PO Q12 #60 tablet 07/24/19 Levothyroxine Sodium [Synthroid 0.025 mg Tablet] 0.025 mg PO Q6AM #30 tablet 07/24/19 Allergies/Adverse Reactions: No Known Allergies Allergy (Verified 10/13/16 17:31) Review of Systems ROS unobtainable: Due to mental status Physical Exam Vital Signs: Temp Pulse Resp BP Pulse Ox 98.4 F 29 H 134/95 H 98 10/27/19 01:31 10/27/19 01:31 10/27/19 01:31 10/27/19 01:31 Intake & Output 10/25/19 10/26/19 10/27/19 06:59 06:59 06:59 Intake Total 1999 Balance 1999 Weight 80.739 kg General appearance: PRESENT: no acute distress, disheveled, other - This is an elderly black female who is nearly hairless, toothless, lays curled up in a position all the time, and has to be rolled from one side to the other frequently to avoid bedsores. She is aphasic and just looks around the room. Head exam: PRESENT: atraumatic, normocephalic Eye exam: PRESENT: EOMI. ABSENT: conjunctival injection, nystagmus, scleral icterus Ear exam: PRESENT: normal external ear exam Mouth exam: PRESENT: dry mucosa, neck supple Teeth exam: PRESENT: edentulous Throat exam: ABSENT: tonsillogmegaly Neck exam: ABSENT: carotid bruit, JVD, lymphadenopathy, meningismus, tenderness, thyromegaly Respiratory exam: PRESENT: clear to auscultation almaz, symmetrical, unlabored. ABSENT: accessory muscle use, chest wall tenderness, crackles, prolonged expiratory phas, rhonchi, tachypnea, wheezes Cardiovascular exam: PRESENT: RRR, +S1, +S2 Pulses: PRESENT: normal carotid pulses Vascular exam: PRESENT: normal capillary refill GI/Abdominal exam: PRESENT: hyperactive bowel sounds, soft. ABSENT: distended, guarding, rebound, tenderness Extremities exam: ABSENT: clubbing, pedal edema Neurological exam: PRESENT: awake, aphasic Psychiatric exam: PRESENT: flat affect Skin exam: PRESENT: dry, warm Results Laboratory Results: 10/26/19 22:00 10/26/19 22:00 10/26/19 10/26/19 10/26/19 21:58 22:00 22:00 WBC 8.9 RBC 4.66 Hgb 14.0 Hct 41.8 MCV 90 MCH 30.0 MCHC 33.5 RDW 15.9 H Plt Count 250 Seg Neutrophils % 80.9 H VBG pH VBG pCO2 VBG HCO3 VBG Base Excess Sodium 136.8 L Potassium 5.5 H Chloride 104 Carbon Dioxide 26 Anion Gap 7 BUN 36 H Creatinine 0.87 Est GFR ( Amer) > 60 Glucose 113 H Lactic Acid Calcium 9.5 Total Bilirubin 0.8 AST 32 Alkaline Phosphatase 94 Total Protein 8.1 Albumin 3.7 Urine Color EZ Urine Appearance CLOUDY Urine pH 5.0 Ur Specific [place] 1.018 Urine Protein 30 H Urine Glucose (UA) NEGATIVE Urine Ketones NEGATIVE Urine Blood SMALL H Urine Nitrite NEGATIVE Ur Leukocyte Esterase MODERATE H Urine WBC (Auto) 123 Urine RBC (Auto) 9 10/27/19 10/27/19 01:22 01:22 WBC RBC Hgb Hct MCV MCH MCHC RDW Plt Count Seg Neutrophils % VBG pH 7.33 VBG pCO2 46.5 VBG HCO3 23.8 VBG Base Excess -2.4 Sodium Potassium Chloride Carbon Dioxide Anion Gap BUN Creatinine Est GFR ( Amer) Glucose Lactic Acid 1.4 Calcium Total Bilirubin AST Alkaline Phosphatase Total Protein Albumin Urine Color Urine Appearance Urine pH Ur Specific [place] Urine Protein Urine Glucose (UA) Urine Ketones Urine Blood Urine Nitrite Ur Leukocyte Esterase Urine WBC (Auto) Urine RBC (Auto) 10/26/19 23:40 Stool - Stool Ova and Parasites - Final Not Reportable 10/26/19 23:40 Stool - Stool Ova and Parasites - Final Not Reportable 10/26/19 23:40 Stool - Stool Ova and Parasites - Final Not Reportable 10/26/19 23:40 Stool - Stool Ova and Parasites - Final Not Reportable 10/26/19 23:40 Stool - Stool Ova and Parasites - Final Not Reportable Impressions: Head CT 10/26/19 20:57 IMPRESSION: No acute intracranial findings visualized. Chest X-Ray 10/26/19 21:03 IMPRESSION: No evidence of active intrathoracic disease. Assessment and Plan - Diagnosis (1) Metabolic encephalopathy Is this a current diagnosis for this admission?: Yes Plan: I am not sure how they could tell, because she just lays there and stares and does not really interact. However, the people at the facility have spent more time around her than I have so I will assume that they can cigar packer and picker on subtle changes in this patient's mental status. It is likely due to her urinary tract infection. Also, this patient is a full code, and I would strongly urge anyone involved in her care to have a serious discussion with her medical power of real estate attorney regarding her CODE STATUS. (2) Diarrhea Qualifiers: Diarrhea type: unspecified type Qualified Code(s): R19.7 - Diarrhea, unspecified Is this a current diagnosis for this admission?: Yes Plan: She tested negative for C. difficile. We will give her some Imodium (3) UTI (urinary tract infection) Qualifiers: Urinary tract infection type: site unspecified Hematuria presence: without hematuria Qualified Code(s): N39.0 - Urinary tract infection, site not specified Is this a current diagnosis for this admission?: Yes Plan: Urinalysis had a lot of white cells and some bacteria. We started her e mpirically on Rocephin. - Time Time Spent with patient: 35 or more minutes Anticipated Discharge Disposition: [facility] Facility Anticipated Discharge Timeframe: within 72 hours - Inpatient Certification Based on my medical assessment, after consideration of the patient's comor bidities, presenting symptoms, or acuity I expect that the services needed warrant INPATIENT care.: Yes I certify that my determination is in accordance with my understanding of Medicare's requirements for reasonable and necessary INPATIENT services [42 CFR 412.3e].: Yes Medical Necessity: Significant Comorbidiites Make Outpatient Treatment Too Risky, Need Close Monitoring Due to Risk of Patient Decompensation, Need For IV Fluids, Need For Continuous Telemetry Monitoring, Need for IV Antibiotics, Risk of Complication if Not Cared For in Hospital
[2019-10-27] MEDS: RINGERS SOLUTION,LACTATED 1,000 ML IV PRN ×2 (04:26→18:08)
[2019-10-27 07:49] LABS: CRYPTOSPORIDIUM PARVUM AG NEGATIVE (NEGATIVE); GIARDIA LAMBLIA AG NEGATIVE (NEGATIVE)
[2019-10-27] MEDS: HEPARIN SOD (PORCINE) 5,000 UNIT/ML 1 ML VIAL SUBCUT SCH ×2 (08:39→13:27)
[2019-10-27] MEDS ORDERED: CALCIUM CARBONATE 600 MG/VITAMIN D3 400 UNIT TABLET PO SCH (10:00)
[2019-10-27 10:06] LABS: ANION GAP 8 (5-19); BLOOD UREA NITROGEN 35 mg/dL (7-20); CALCIUM 8.5 mg/dL (8.4-10.2); CARBON DIOXIDE 21 mmol/L (22-30); CHLORIDE 110 mmol/L (98-107); GLUCOSE 83 mg/dL (75-110)
--- NOTE | 2019-10-27 12:27 | EKG REPORT ---
SEVERITY:- ABNORMAL ECG - SINUS TACHYCARDIA NONSPECIFIC IVCD WITH LAD LOW VOLTAGE IN FRONTAL LEADS : Confirmed by: Karine Valenzuela MD 27-Oct-2019 12:27:12
[2019-10-27] MEDS: LACTOBACILLUS ACIDOPHILUS 250 MG TAB PO SCH ×3 (13:27→17:21)
[2019-10-27] MEDS: ASPIRIN 81 MG TABLET, CHEWABLE PO SCH ×2 (13:27→13:51)
[2019-10-27] MEDS: FERROUS SULFATE 325 MG TABLET PO SCH ×2 (13:28→13:53)
[2019-10-27] MEDS: CALCIUM CARBONATE 600 MG/VITAMIN D3 400 UNIT TABLET PO SCH ×2 (13:28→13:52)
--- NOTE | 2019-10-27 13:51 | PDOC PROGRESS REPORT ---
Subjective Progress Note for:: 10/27/19 Subjective:: Is a 84-year-old female with a past medical history significant for A. fib, CAD, hypertension, hyperlipidemia, DM 2, dementia, depression, schizoaffective disorder, and anemia who was admitted early this morning by the nozzle operator for Metabolic encephalopathy, diarrhea, UTI. Patient was seen on morning rounds. She is found resting in bed, comfortably, on room air. She was found to be lying left lateral, in position; contractures with flexion of extremities. She does appear to be comfortable and is not noted to be in any acute distress. She does not make eye contact, answer questions, follow directions. ROS limited. No concerns per nursing. Reason For Visit: UTI,ENCEPHALOPATHY Physical Exam Vital Signs: Temp Pulse Resp BP Pulse Ox 98.3 F 100 15 115/50 L 97 10/27/19 12:00 10/27/19 12:00 10/27/19 12:00 10/27/19 12:00 10/27/19 12:00 Intake & Output 10/26/19 10/27/19 10/28/19 06:59 06:59 06:59 Intake Total 1999 Balance 1999 Weight 51.2 kg General appearance: PRESENT: no acute distress, disheveled, thin, well- developed, other - Frail, chronically ill-appearing Head exam: PRESENT: atraumatic, normocephalic Mouth exam: PRESENT: dry mucosa, tongue midline Teeth exam: PRESENT: edentulous Respiratory exam: PRESENT: clear to auscultation almaz, symmetrical, unlabored. ABSENT: rales, rhonchi, wheezes Cardiovascular exam: PRESENT: RRR, +S1, +S2. ABSENT: diastolic murmur, rubs, systolic murmur Vascular exam: PRESENT: normal capillary refill GI/Abdominal exam: PRESENT: hyperactive bowel sounds, soft, other - FMS w/ copious foul smelling, watery, stool. ABSENT: distended, guarding, mass, organolmegaly, rebound, tenderness Rectal exam: PRESENT: deferred Neurological exam: PRESENT: aphasic, other - Arousable Skin exam: PRESENT: dry, warm. ABSENT: cyanosis, rash Results Laboratory Results: 10/26/19 22:00 10/27/19 09:36 10/26/19 10/26/19 10/26/19 21:58 22:00 22:00 WBC 8.9 RBC 4.66 Hgb 14.0 Hct 41.8 MCV 90 MCH 30.0 MCHC 33.5 RDW 15.9 H Plt Count 250 Seg Neutrophils % 80.9 H VBG pH VBG pCO2 VBG HCO3 VBG Base Excess Sodium 136.8 L Potassium 5.5 H Chloride 104 Carbon Dioxide 26 Anion Gap 7 BUN 36 H Creatinine 0.87 Est GFR ( Amer) > 60 Glucose 113 H Lactic Acid Calcium 9.5 Total Bilirubin 0.8 AST 32 Alkaline Phosphatase 94 Total Protein 8.1 Albumin 3.7 Urine Color EZ Urine Appearance CLOUDY Urine pH 5.0 Ur Specific [place] 1.018 Urine Protein 30 H Urine Glucose (UA) NEGATIVE Urine Ketones NEGATIVE Urine Blood SMALL H Urine Nitrite NEGATIVE Ur Leukocyte Esterase MODERATE H Urine WBC (Auto) 123 Urine RBC (Auto) 9 10/27/19 10/27/19 10/27/19 01:22 01:22 09:36 WBC RBC Hgb Hct MCV MCH MCHC RDW Plt Count Seg Neutrophils % VBG pH 7.33 VBG pCO2 46.5 VBG HCO3 23.8 VBG Base Excess -2.4 Sodium 138.9 Potassium 4.0 D Chloride 110 H Carbon Dioxide 21 L Anion Gap 8 BUN 35 H Creatinine 0.62 Est GFR ( Amer) > 60 Glucose 83 Lactic Acid 1.4 Calcium 8.5 Total Bilirubin AST Alkaline Phosphatase Total Protein Albumin Urine Color Urine Appearance Urine pH Ur Specific [place] Urine Protein Urine Glucose (UA) Urine Ketones Urine Blood Urine Nitrite Ur Leukocyte Esterase Urine WBC (Auto) Urine RBC (Auto) 10/26/19 23:40 Stool - Stool Ova and Parasites - Final Not Reportable 10/26/19 23:40 Stool - Stool Ova and Parasites - Final Not Reportable 10/26/19 23:40 Stool - Stool Ova and Parasites - Final Not Reportable 10/26/19 23:40 Stool - Stool Ova and Parasites - Final Not Reportable 10/26/19 23:40 Stool - Stool Ova and Parasites - Final Not Reportable Impressions: Head CT 10/26/19 20:57 IMPRESSION: No acute intracranial findings visualized. Chest X-Ray 10/26/19 21:03 IMPRESSION: No evidence of active intrathoracic disease. Assessment and Plan - Diagnosis (1) Metabolic encephalopathy Is this a current diagnosis for this admission?: Yes Plan: Unclear baseline; SNF personnel sent patient for alteration in mentation. It is likely due to her urinary tract infection. Continue gentle IV fluids. Cultures and antibiotics as below. Supportive care. (2) Diarrhea Qualifiers: Diarrhea type: unspecified type Qualified Code(s): R19.7 - Diarrhea, unspecified Is this a current diagnosis for this admission?: Yes Plan: C. difficile, cryptosporid, Giardia are negative. Ova/Parasites pending. Blood and Stool cultures pending. Continue Immodium Start Lactobacillis Continue FMS to prevent skin breakdown. (3) UTI (urinary tract infection) Qualifiers: Urinary tract infection type: site unspecified Hematuria presence: without hematuria Qualified Code(s): N39.0 - Urinary tract infection, site not specified Is this a current diagnosis for this admission?: Yes Plan: Urinalysis had a lot of white cells and some bacteria. Urine culture pending. Possibly colonized. Continue empiric Rocephin. (4) Hyperkalemia Is this a current diagnosis for this admission?: Yes Plan: Resolved. Monitor Chemistry - Time Time Spent with patient: 15-24 minutes Medications reviewed and adjusted accordingly: Yes Anticipated Discharge Disposition: [facility] Anticipated Discharge Timeframe: other
[2019-10-27] MEDS ORDERED: DEXTROSE 40% GEL 15 GM TUBE PO PRN ×2 (20:23)
[2019-10-27] MEDS ORDERED: GLUCAGON,HUMAN RECOMB 1 MG INJ SUBCUT PRN (20:23)
[2019-10-27] MEDS ORDERED: DEXTROSE 50%-WATER 25 GM/50 ML DISP.SYRIN IV PRN ×2 (20:23)
[2019-10-27] MEDS ORDERED: CEFTRIAXONE 1 GM/D5W RTU 1 GM/50 ML RTUPB IV SCH (22:00)
[2019-10-28] MEDS: HEPARIN SOD (PORCINE) 5,000 UNIT/ML 1 ML VIAL SUBCUT SCH ×3 (00:30→15:04)
[2019-10-28 05:35] LABS: HEMATOCRIT 29.3 % (36.0-47.0); MEAN CORPUSCULAR HEMOGLOBIN 29.9 pg (27.0-33.4); MEAN CORPUSCULAR VOLUME 88 fl (80-97); PLATELET COUNT 186 10^3/uL (150-450); RED BLOOD COUNT 3.34 10^6/uL (3.72-5.28); WHITE BLOOD COUNT 6.1 10^3/uL (4.0-10.5)
[2019-10-28] MEDS: PANTOPRAZOLE SODIUM 20 MG TABLET.DR PO SCH (05:45)
[2019-10-28] MEDS: LEVOTHYROXINE SODIUM 0.025 MG TABLET PO SCH (05:46)
[2019-10-28 05:53] LABS: BLOOD UREA NITROGEN 28 mg/dL (7-20); CALCIUM 8.1 mg/dL (8.4-10.2); CARBON DIOXIDE 23 mmol/L (22-30); CHLORIDE 111 mmol/L (98-107); GLUCOSE 76 mg/dL (75-110); POTASSIUM 3.6 mmol/L (3.6-5.0)
[2019-10-28 06:21] LABS: ANION GAP 4 (5-19)
[2019-10-28] MEDS: RINGERS SOLUTION,LACTATED 1,000 ML IV PRN (07:57)
[2019-10-28] MEDS: ASPIRIN 81 MG TABLET, CHEWABLE PO SCH (11:45)
[2019-10-28] MEDS: LACTOBACILLUS ACIDOPHILUS 250 MG TAB PO SCH ×2 (11:45→18:41)
[2019-10-28] MEDS: FERROUS SULFATE 325 MG TABLET PO SCH (11:46)
[2019-10-28] MEDS: CALCIUM CARBONATE 600 MG/VITAMIN D3 400 UNIT TABLET PO SCH (11:46)
--- NOTE | 2019-10-28 15:44 | PDOC PROGRESS REPORT ---
Subjective Progress Note for:: 10/28/19 Subjective:: Is a 84-year-old female with a past medical history significant for A. fib, CAD, hypertension, hyperlipidemia, DM 2, dementia, depression, schizoaffective disorder, and anemia who was admitted early this morning by the firer retort for Metabolic encephalopathy, diarrhea, UTI. Patient was seen on morning rounds. She is found resting in bed, comfortably, on room air. She was found to be sitting upright, though continues to be in position; contractures with flexion of extremities. She makes eye contact and moves her mouth in response to me, but does not actually speak. She does not answer question or follow directions. Does appear to be comfortable and is not noted to be in any acute distress. ROS limited. No concerns per nursing. Reason For Visit: UTI,ENCEPHALOPATHY Physical Exam Vital Signs: Temp Pulse Resp BP Pulse Ox 98.6 F 100 16 140/56 H 98 10/28/19 03:25 10/28/19 03:25 10/28/19 03:25 10/28/19 03:25 10/28/19 03:25 Intake & Output 10/27/19 10/28/19 10/29/19 06:59 06:59 06:59 Intake Total 1999 1070 1000 Output Total 100 Balance 1999 970 1000 Weight 51.2 kg 51.2 kg General appearance: PRESENT: no acute distress, thin, well-developed, other - Frail, chronically ill-appearing Head exam: PRESENT: atraumatic, normocephalic Eye exam: PRESENT: conjunctiva pink, EOMI, PERRLA. ABSENT: scleral icterus Mouth exam: PRESENT: moist, tongue midline Teeth exam: PRESENT: edentulous Respiratory exam: PRESENT: clear to auscultation almaz, symmetrical, unlabored. A BSENT: rales, rhonchi, wheezes Cardiovascular exam: PRESENT: RRR. ABSENT: diastolic murmur, rubs, systolic murmur Pulses: PRESENT: normal dorsalis pedis pul Vascular exam: PRESENT: normal capillary refill Rectal exam: PRESENT: other - FMS w/ foul smelling, watery, stool. Decreased volume today. Extremities exam: PRESENT: full ROM. ABSENT: calf tenderness, clubbing, pedal edema Neurological exam: PRESENT: alert, awake, CN II-XII grossly intact, aphasic. ABSENT: motor sensory deficit Skin exam: PRESENT: dry, intact, warm. ABSENT: cyanosis, rash Results Laboratory Results: 10/28/19 05:08 10/28/19 05:08 10/28/19 10/28/19 05:08 05:08 WBC 6.1 RBC 3.34 L Hgb 10.0 L D Hct 29.3 L MCV 88 MCH 29.9 MCHC 34.0 RDW 16.0 H Plt Count 186 Sodium 138.2 Potassium 3.6 Chloride 111 H Carbon Dioxide 23 Anion Gap 4 L BUN 28 H Creatinine 0.48 L Est GFR ( Amer) > 60 Glucose 76 Calcium 8.1 L 10/26/19 21:58 Catheterized Urine Urine Culture - Final Enterococcus Faecalis(Group D) Impressions: Head CT 10/26/19 20:57 IMPRESSION: No acute intracranial findings visualized. Chest X-Ray 10/26/19 21:03 IMPRESSION: No evidence of active intrathoracic disease. Assessment and Plan - Diagnosis (1) Metabolic encephalopathy Is this a current diagnosis for this admission?: Yes Plan: Improved; now awake/alert, makes eye contact and attempts to respond. Unclear baseline; SNF personnel sent patient for alteration in mentation. It is likely due to her urinary tract infection. Continue gentle IV fluids. Cultures and antibiotics as below. Supportive care. (2) Diarrhea Qualifiers: Diarrhea type: unspecified type Qualified Code(s): R19.7 - Diarrhea, unspecified Is this a current diagnosis for this admission?: Yes Plan: Improved; decreased volume. C. difficile, cryptosporid, Giardia are negative. Ova/Parasites pending. Blood and Stool cultures pending. Continue Immodium Start Lactobacillis Continue FMS to prevent skin breakdown. (3) UTI (urinary tract infection) Qualifiers: Urinary tract infection type: site unspecified Hematuria presence: without hematuria Qualified Code(s): N39.0 - Urinary tract infection, site not specified Is this a current diagnosis for this admission?: Yes Plan: Urinalysis had a lot of white cells and some bacteria. Urine culture shows enterococcus Possibly colonized. Discontinue Rocephin; received 2 days. Start IV Zosyn. (4) Hyperkalemia Is this a current diagnosis for this admission?: Yes Plan: Resolved. Monitor Chemistry (5) Dysphasia Is this a current diagnosis for this admission?: Yes Plan: Evaluated by speech therapy team today. Have recommended aspiration precautions. Pured diet with nectar thickened liquids. - Time Time Spent with patient: 15-24 minutes Medications reviewed and adjusted accordingly: Yes Anticipated Discharge Disposition: [facility] Facility Anticipated Discharge Timeframe: within 72 hours
[2019-10-28] MEDS: PIPERACILLIN SODIUM/TAZOBACTAM 3.375 GM in NORMAL SALINE 100 ML IV SCH (18:41)
[2019-10-29] MEDS: HEPARIN SOD (PORCINE) 5,000 UNIT/ML 1 ML VIAL SUBCUT SCH ×4 (00:34→21:28)
[2019-10-29] MEDS: PIPERACILLIN SODIUM/TAZOBACTAM 3.375 GM in NORMAL SALINE 100 ML IV SCH ×4 (00:34→19:21)
[2019-10-29 05:57] LABS: HEMATOCRIT 27.8 % (36.0-47.0); HEMOGLOBIN 9.6 g/dL (12.0-15.5); MEAN CORPUSCULAR HEMOGLOBIN 29.9 pg (27.0-33.4); MEAN CORPUSCULAR HGB CONC 34.4 g/dL (32.0-36.0); MEAN CORPUSCULAR VOLUME 87 fl (80-97); PLATELET COUNT 178 10^3/uL (150-450); RED CELL DISTRIBUTION WIDTH 15.9 % (11.5-14.0); WHITE BLOOD COUNT 5.7 10^3/uL (4.0-10.5)
[2019-10-29 06:14] LABS: ANION GAP 5 (5-19); BLOOD UREA NITROGEN 17 mg/dL (7-20); CALCIUM 8.3 mg/dL (8.4-10.2); CARBON DIOXIDE 24 mmol/L (22-30); CHLORIDE 111 mmol/L (98-107); GLUCOSE 91 mg/dL (75-110); POTASSIUM 3.1 mmol/L (3.6-5.0)
[2019-10-29] MEDS: PANTOPRAZOLE SODIUM 20 MG TABLET.DR PO SCH (06:30)
[2019-10-29] MEDS: LEVOTHYROXINE SODIUM 0.025 MG TABLET PO SCH (06:30)
[2019-10-29] MEDS ORDERED: POTASSIUM CHLORIDE 10 MEQ TABLET.ER PO ONE (10:15)
[2019-10-29] MEDS: FERROUS SULFATE 325 MG TABLET PO SCH (10:33)
[2019-10-29] MEDS: LACTOBACILLUS ACIDOPHILUS 250 MG TAB PO SCH ×2 (10:33→19:22)
[2019-10-29] MEDS: CALCIUM CARBONATE 600 MG/VITAMIN D3 400 UNIT TABLET PO SCH (10:33)
[2019-10-29] MEDS: ASPIRIN 81 MG TABLET, CHEWABLE PO SCH (10:33)
--- NOTE | 2019-10-29 17:53 | PDOC PROGRESS REPORT ---
Subjective Progress Note for:: 10/29/19 Subjective:: \SURINDER NORTON is a 84 year old female who is a long-term care resident at [facility] and was sent over here yesterday afternoon because they said she had a change in her mental status. I am not sure how they knew this, because this patient is aphasic and lays in bed and does not really move. She has a history of advanced dementia and can only eat pured foods and nectar thickened liquids and any medication she gets have to be crushed up in something like pudding or applesauce and given to her. She is not had a fever. There was no reports of any cough or shortness of breath. She has had some diarrhea in the ER, which tested negative for C. difficile. Chest x-ray was negative. Head CT was unremarkable for any new process. Urinalysis looks potentially dirty. She got a dose of Rocephin in the ER. She was putting out so much diarrhea they had to put a rectal tube in her. 10/29/2019. No acute events overnight. Patient comfortably resting in bed in no apparent distress, unfortunately patient does not communicate much, when asked for her name she does mumble unintelligible words, she does follow some commands, does not appear to be in any acute distress. Reason For Visit: UTI,ENCEPHALOPATHY Physical Exam Vital Signs: Temp Pulse Resp BP Pulse Ox 98.7 F 91 19 140/90 H 97 10/29/19 11:08 10/29/19 11:08 10/29/19 11:08 10/29/19 11:08 10/29/19 11:08 Intake & Output 10/28/19 10/29/19 10/30/19 06:59 06:59 06:59 Intake Total 1070 1436 200 Output Total 100 250 Balance 970 1186 200 Weight 51.2 kg 51.2 kg General appearance: PRESENT: no acute distress, thin, well-developed, well- nourished Respiratory exam: PRESENT: clear to auscultation almaz. ABSENT: rales, rhonchi, wheezes GI/Abdominal exam: PRESENT: normal bowel sounds, soft. ABSENT: distended, guarding, mass, organolmegaly, rebound, tenderness Neurological exam: PRESENT: alert, awake, CN II-XII grossly intact, motor sensory deficit - Chronic bilateral lower extremity contractures. Results Laboratory Results: 10/29/19 05:24 10/29/19 05:24 10/29/19 10/29/19 05:24 05:24 WBC 5.7 RBC 3.20 L Hgb 9.6 L Hct 27.8 L MCV 87 MCH 29.9 MCHC 34.4 RDW 15.9 H Plt Count 178 Sodium 140.4 Potassium 3.1 L Chloride 111 H Carbon Dioxide 24 Anion Gap 5 BUN 17 Creatinine 0.45 L Est GFR ( Amer) > 60 Glucose 91 Calcium 8.3 L 10/26/19 21:58 Stool - Stool - Final Impressions: Head CT 10/26/19 20:57 IMPRESSION: No acute intracranial findings visualized. Chest X-Ray 10/26/19 21:03 IMPRESSION: No evidence of active intrathoracic disease. Assessment and Plan - Diagnosis (1) Metabolic encephalopathy Is this a current diagnosis for this admission?: Yes Plan: Improved; now awake/alert, makes eye contact and attempts to respond. Unclear baseline; SNF personnel sent patient for alteration in mentation. It is likely due to her urinary tract infection. Continue gentle IV fluids. Cultures and antibiotics as below. Supportive care. (2) Diarrhea Qualifiers: Diarrhea type: unspecified type Qualified Code(s): R19.7 - Diarrhea, unspecified Is this a current diagnosis for this admission?: Yes Plan: Improved; decreased volume. C. difficile, cryptosporid, Giardia are negative. Ova/Parasites pending. Blood and Stool cultures pending. Continue Immodium Start Lactobacillis Continue FMS to prevent skin breakdown. (3) Dysphasia Is this a current diagnosis for this admission?: Yes Plan: Evaluated by speech therapy team today. Have recommended aspiration precautions. Pured diet with nectar thickened liquids. (4) Hyperkalemia Is this a current diagnosis for this admission?: Yes Plan: Resolved. Monitor Chemistry (5) UTI (urinary tract infection) Qualifiers: Urinary tract infection type: site unspecified Hematuria presence: without hematuria Qualified Code(s): N39.0 - Urinary tract infection, site not specified Is this a current diagnosis for this admission?: Yes Plan: Urinalysis had a lot of white cells and some bacteria. Urine culture shows enterococcus Possibly colonized. Discontinue Rocephin; received 2 days. Start IV Zosyn. - Time Time Spent with patient: 15-24 minutes Medications reviewed and adjusted accordingly: Yes Anticipated Discharge Disposition: [facility] Care Facility Anticipated Discharge Timeframe: when bed available
[2019-10-30] MEDS: PIPERACILLIN SODIUM/TAZOBACTAM 3.375 GM in NORMAL SALINE 100 ML IV SCH ×4 (00:18→18:22)
[2019-10-30] MEDS: RINGERS SOLUTION,LACTATED 1,000 ML IV PRN ×2 (05:09→22:13)
[2019-10-30] MEDS: LEVOTHYROXINE SODIUM 0.025 MG TABLET PO SCH (05:10)
[2019-10-30] MEDS: HEPARIN SOD (PORCINE) 5,000 UNIT/ML 1 ML VIAL SUBCUT SCH ×3 (05:11→22:14)
[2019-10-30] MEDS: PANTOPRAZOLE SODIUM 20 MG TABLET.DR PO SCH (05:19)
[2019-10-30 06:14] LABS: HEMATOCRIT 26.6 % (36.0-47.0); MEAN CORPUSCULAR HEMOGLOBIN 29.3 pg (27.0-33.4); MEAN CORPUSCULAR HGB CONC 33.8 g/dL (32.0-36.0); MEAN CORPUSCULAR VOLUME 87 fl (80-97); PLATELET COUNT 195 10^3/uL (150-450); RED BLOOD COUNT 3.07 10^6/uL (3.72-5.28); RED CELL DISTRIBUTION WIDTH 15.9 % (11.5-14.0); WHITE BLOOD COUNT 4.8 10^3/uL (4.0-10.5)
[2019-10-30 06:28] LABS: BLOOD UREA NITROGEN 8 mg/dL (7-20); CALCIUM 7.9 mg/dL (8.4-10.2); CHLORIDE 112 mmol/L (98-107); GLUCOSE 92 mg/dL (75-110); POTASSIUM 3.1 mmol/L (3.6-5.0)
[2019-10-30 06:34] LABS: ANION GAP 2 (5-19); CARBON DIOXIDE 28 mmol/L (22-30)
[2019-10-30] MEDS ORDERED: POTASSIUM CHLORIDE 10 MEQ TABLET.ER PO ONE ×4 (09:00→18:19)
[2019-10-30] MEDS: CALCIUM CARBONATE 600 MG/VITAMIN D3 400 UNIT TABLET PO SCH (11:21)
[2019-10-30] MEDS: FERROUS SULFATE 325 MG TABLET PO SCH (11:21)
[2019-10-30] MEDS: ASPIRIN 81 MG TABLET, CHEWABLE PO SCH (11:21)
[2019-10-30] MEDS: LACTOBACILLUS ACIDOPHILUS 250 MG TAB PO SCH ×2 (11:21→18:22)
--- NOTE | 2019-10-30 19:11 | PDOC PROGRESS REPORT ---
Subjective Progress Note for:: 10/30/19 Subjective:: Patient is noncommunicative. At baseline she is aphasic and bedridden Reason For Visit: UTI,ENCEPHALOPATHY Physical Exam Vital Signs: Temp Pulse Resp BP Pulse Ox 99.4 F 100 19 132/63 H 98 10/30/19 15:31 10/30/19 15:31 10/30/19 15:31 10/30/19 15:31 10/30/19 15:31 Intake & Output 10/29/19 10/30/19 10/31/19 06:59 06:59 06:59 Intake Total 2436 700 440 Output Total 250 100 Balance 2186 600 440 Weight 51.2 kg 51.2 kg General appearance: PRESENT: no acute distress, thin Head exam: PRESENT: atraumatic, normocephalic Eye exam: PRESENT: conjunctiva pink Mouth exam: PRESENT: moist, other - Patient with dyskinetic tongue movement Neck exam: ABSENT: JVD Respiratory exam: PRESENT: clear to auscultation almaz, decreased breath sounds - Air entry diminished at the bases bilaterally, symmetrical, unlabored Cardiovascular exam: PRESENT: RRR, +S1, +S2 Vascular exam: PRESENT: normal capillary refill GI/Abdominal exam: PRESENT: normal bowel sounds, soft. ABSENT: distended, tenderness Rectal exam: PRESENT: deferred Neurological exam: PRESENT: alert, other - Bedbound Psychiatric exam: ABSENT: agitated, anxious Skin exam: PRESENT: dry, pallor, warm Results Laboratory Results: 10/30/19 05:45 10/30/19 05:45 10/30/19 10/30/19 05:45 05:45 WBC 4.8 RBC 3.07 L Hgb 9.0 L Hct 26.6 L MCV 87 MCH 29.3 MCHC 33.8 RDW 15.9 H Plt Count 195 Sodium 142.4 Potassium 3.1 L Chloride 112 H Carbon Dioxide 28 Anion Gap 2 L BUN 8 Creatinine 0.46 L Est GFR ( Amer) > 60 Glucose 92 Calcium 7.9 L 10/26/19 21:58 Stool - Stool - Final 10/26/19 21:58 Stool - Stool Stool Culture - Final NO SALMONELLA, SHIGELLA, CAMPYLOBACTER, OR E.COLI 0157 RECOVERED. NEGATIVE FOR SHIGA TOXINS 1&2. Impressions: Head CT 10/26/19 20:57 IMPRESSION: No acute intracranial findings visualized. Chest X-Ray 10/26/19 21:03 IMPRESSION: No evidence of active intrathoracic disease. Assessment and Plan - Diagnosis (1) Metabolic encephalopathy Is this a current diagnosis for this admission?: Yes Plan: UTI likely contributing to patient's encephalopathy According to patient's daughter patient is at her neurologic baseline Continue supportive care (2) UTI (urinary tract infection) Qualifiers: Urinary tract infection type: site unspecified Hematuria presence: without hematuria Qualified Code(s): N39.0 - Urinary tract infection, site not specified Is this a current diagnosis for this admission?: Yes Plan: Urine culture with Enterococcus faecalis Blood culture from 10/26/2019 NG at 72 hours Continue Zosyn 3.375 grams IV every 6 hours (3) Diarrhea Qualifiers: Diarrhea type: unspecified type Qualified Code(s): R19.7 - Diarrhea, unspecified Is this a current diagnosis for this admission?: Yes Plan: Patient with intact fecal incontinence management system C. Dif, Cryptosporidium, and Giardia negative. Ova/Parasites negative. Continue lactobacillus 500 mg p.o. twice daily (4) Dysphasia Is this a current diagnosis for this admission?: Yes Plan: Speech therapy input appreciated Continue aspiration precautions Continue pured diet with nectar thickened liquids (5) Hypokalemia Is this a current diagnosis for this admission?: Yes Plan: Repleted with total of 60 mEq of KCl today Recheck BMP in a.m. (6) Anemia Qualifiers: Anemia type: unspecified type Qualified Code(s): D64.9 - Anemia, unspecified Is this a current diagnosis for this admission?: Yes Plan: H/H trending down Guaiac stool Continue ferrous sulfate 325 mg p.o. daily Given patient's overall poor condition we will not aggressively work-up anemia, if patient were to be guaiac positive would need to have a discussion with the family as to how aggressive they would wish to be - Time Time Spent with patient: 25-34 minutes Medications reviewed and adjusted accordingly: Yes Anticipated Discharge Disposition: [facility] Facility Anticipated Discharge Timeframe: within 48 hours
[2019-10-31] MEDS: PIPERACILLIN SODIUM/TAZOBACTAM 3.375 GM in NORMAL SALINE 100 ML IV SCH ×5 (01:12→23:30)
[2019-10-31 05:26] LABS: HEMATOCRIT 30.7 % (36.0-47.0); HEMOGLOBIN 10.4 g/dL (12.0-15.5); MEAN CORPUSCULAR HEMOGLOBIN 29.5 pg (27.0-33.4); MEAN CORPUSCULAR VOLUME 87 fl (80-97); PLATELET COUNT 211 10^3/uL (150-450); RED BLOOD COUNT 3.54 10^6/uL (3.72-5.28); RED CELL DISTRIBUTION WIDTH 15.8 % (11.5-14.0); WHITE BLOOD COUNT 4.5 10^3/uL (4.0-10.5)
[2019-10-31] MEDS: HEPARIN SOD (PORCINE) 5,000 UNIT/ML 1 ML VIAL SUBCUT SCH ×3 (05:41→23:29)
[2019-10-31] MEDS: LEVOTHYROXINE SODIUM 0.025 MG TABLET PO SCH (05:42)
[2019-10-31] MEDS: PANTOPRAZOLE SODIUM 20 MG TABLET.DR PO SCH (05:42)
[2019-10-31 05:43] LABS: ANION GAP 7 (5-19); BLOOD UREA NITROGEN 4 mg/dL (7-20); CALCIUM 8.3 mg/dL (8.4-10.2); CARBON DIOXIDE 27 mmol/L (22-30); CHLORIDE 104 mmol/L (98-107); GLUCOSE 81 mg/dL (75-110); POTASSIUM 3.4 mmol/L (3.6-5.0)
[2019-10-31 05:57] LABS: ABSOLUTE LYMPHOCYTES# (MANUAL) 1.8 10^3/uL (0.5-4.7); ABSOLUTE MONOCYTES # (MANUAL) 0.5 10^3/uL (0.1-1.4); BAND NEUTROPHILS % (MANUAL) 2 % (3-5); BASOPHILS % (MANUAL) 1 % (0-2); EOSINOPHILS % (MANUAL) 3 % (0-6); LYMPHOCYTES % (MANUAL) 40 % (13-45); MONOCYTES % (MANUAL) 10 % (3-13); SEGMENTED NEUTROPHILS % (MAN) 43 % (42-78); TOTAL CELLS COUNTED 100
[2019-10-31 05:58] LABS: ANISOCYTOSIS 1+; PLATELET COMMENT ADEQUATE; TOXIC VACUOLATION PRESENT
[2019-10-31] MEDS ORDERED: POTASSIUM CHLORIDE 10 MEQ TABLET.ER PO ONE (08:00)
[2019-10-31] MEDS: LACTOBACILLUS ACIDOPHILUS 250 MG TAB PO SCH ×2 (10:14→17:49)
[2019-10-31] MEDS: ASPIRIN 81 MG TABLET, CHEWABLE PO SCH (10:15)
[2019-10-31] MEDS: CALCIUM CARBONATE 600 MG/VITAMIN D3 400 UNIT TABLET PO SCH (10:15)
[2019-10-31] MEDS: FERROUS SULFATE 325 MG TABLET PO SCH (10:15)
[2019-10-31] MEDS: AMLODIPINE BESYLATE 5 MG TABLET PO SCH (13:53)
[2019-10-31] MEDS: CARVEDILOL 6.25 MG TABLET PO SCH ×2 (13:54→23:29)
[2019-10-31] MEDS: RINGERS SOLUTION,LACTATED 1,000 ML IV PRN (13:56)
--- NOTE | 2019-10-31 17:21 | PDOC PROGRESS REPORT ---
Subjective Progress Note for:: 10/31/19 Subjective:: Patient aphasic Reason For Visit: UTI,ENCEPHALOPATHY Physical Exam Vital Signs: Temp Pulse Resp BP Pulse Ox 97.6 F 80 16 153/86 H 100 10/31/19 16:00 10/31/19 16:00 10/31/19 16:00 10/31/19 16:00 10/31/19 16:00 Intake & Output 10/30/19 10/31/19 11/01/19 06:59 06:59 06:59 Intake Total 700 1740 1100 Output Total 100 Balance 600 1740 1100 Weight 51.2 kg 54.3 kg General appearance: PRESENT: no acute distress, thin Head exam: PRESENT: atraumatic, normocephalic Eye exam: PRESENT: conjunctival injection Mouth exam: PRESENT: moist, other - Dysconetic tongue movements noted Neck exam: ABSENT: JVD Respiratory exam: PRESENT: clear to auscultation almaz, decreased breath sounds - Air entry diminished at bases bilaterally, symmetrical, unlabored Cardiovascular exam: PRESENT: RRR, +S1, +S2 Vascular exam: PRESENT: normal capillary refill GI/Abdominal exam: PRESENT: normal bowel sounds, soft. ABSENT: distended, tenderness Rectal exam: PRESENT: deferred Extremities exam: PRESENT: other - Patient has contractures of extremities. ABSENT: pedal edema Neurological exam: PRESENT: alert Psychiatric exam: ABSENT: agitated Skin exam: PRESENT: dry, normal color, warm Results Laboratory Results: 10/31/19 04:10 10/31/19 04:10 10/31/19 10/31/19 04:10 04:10 WBC 4.5 RBC 3.54 L Hgb 10.4 L Hct 30.7 L MCV 87 MCH 29.5 MCHC 34.0 RDW 15.8 H Plt Count 211 Seg Neutrophils % Not Reportable Sodium 137.8 Potassium 3.4 L Chloride 104 Carbon Dioxide 27 Anion Gap 7 BUN 4 L Creatinine 0.46 L Est GFR ( Amer) > 60 Glucose 81 Calcium 8.3 L 10/26/19 23:40 Stool - Stool Ova and Parasite Concentrate Exam - Final 10/26/19 23:40 Stool - Stool Ova and Parasites - Final 10/26/19 21:58 Stool - Stool - Final 10/26/19 21:58 Stool - Stool Stool Culture - Final NO SALMONELLA, SHIGELLA, CAMPYLOBACTER, OR E.COLI 0157 RECOVERED. NEGATIVE FOR SHIGA TOXINS 1&2. Impressions: Head CT 10/26/19 20:57 IMPRESSION: No acute intracranial findings visualized. Chest X-Ray 10/26/19 21:03 IMPRESSION: No evidence of active intrathoracic disease. Assessment and Plan - Diagnosis (1) Metabolic encephalopathy Is this a current diagnosis for this admission?: Yes Plan: UTI likely contributing to patient's encephalopathy According to patient's daughter patient is at her neurologic baseline Continue supportive care (2) UTI (urinary tract infection) Qualifiers: Urinary tract infection type: site unspecified Hematuria presence: without hematuria Qualified Code(s): N39.0 - Urinary tract infection, site not specified Is this a current diagnosis for this admission?: Yes Plan: Urine culture with Enterococcus faecalis Blood culture from 10/26/2019 NG at 4 days Continue Zosyn 3.375 grams IV every 6 hours (3) Diarrhea Qualifiers: Diarrhea type: unspecified type Qualified Code(s): R19.7 - Diarrhea, unspecified Is this a current diagnosis for this admission?: Yes Plan: Patient with intact fecal incontinence management system Stool culture negative for Salmonella, Shigella, Campylobacter, and E. coli. Also negative for Shiga toxin 1 and 2 C. Dif, Cryptosporidium, and Giardia negative. Ova/Parasites negative. Continue lactobacillus 500 mg p.o. twice daily (4) Dysphasia Is this a current diagnosis for this admission?: Yes Plan: Speech therapy input appreciated Continue aspiration precautions Continue pured diet with nectar thickened liquids (5) Hypokalemia Is this a current diagnosis for this admission?: Yes Plan: Repleted Recheck BMP in a.m. (6) Anemia Qualifiers: Anemia type: unspecified type Qualified Code(s): D64.9 - Anemia, unspecified Is this a current diagnosis for this admission?: Yes - Time Time Spent with patient: 25-34 minutes Medications reviewed and adjusted accordingly: Yes Anticipated Discharge Disposition: [facility] Facility Anticipated Discharge Timeframe: within 48 hours
[2019-10-31] MEDS: ASCORBIC ACID 500 MG TABLET PO SCH (17:49)
[2019-11-01 05:52] LABS: ANION GAP 6 (5-19); BLOOD UREA NITROGEN 4 mg/dL (7-20); CALCIUM 8.6 mg/dL (8.4-10.2); CARBON DIOXIDE 29 mmol/L (22-30); CHLORIDE 103 mmol/L (98-107); GLUCOSE 72 mg/dL (75-110); POTASSIUM 3.7 mmol/L (3.6-5.0)
[2019-11-01] MEDS: PANTOPRAZOLE SODIUM 20 MG TABLET.DR PO SCH (05:59)
[2019-11-01] MEDS: LEVOTHYROXINE SODIUM 0.025 MG TABLET PO SCH (05:59)
[2019-11-01] MEDS: HEPARIN SOD (PORCINE) 5,000 UNIT/ML 1 ML VIAL SUBCUT SCH ×3 (05:59→21:24)
[2019-11-01] MEDS: RINGERS SOLUTION,LACTATED 1,000 ML IV PRN ×2 (06:06→18:31)
[2019-11-01] MEDS: PIPERACILLIN SODIUM/TAZOBACTAM 3.375 GM in NORMAL SALINE 100 ML IV SCH ×3 (06:29→17:42)
[2019-11-01] MEDS ORDERED: POTASSIUM CHLORIDE 10 MEQ TABLET.ER PO ONE (06:38)
[2019-11-01] MEDS ORDERED: (PENDING PHARMACY ID) (Multivit-Min/Fa/Lycopen/Lutein [Certavite Sr-Antioxidant Tab] 1 EAC PO SCH (10:00)
[2019-11-01] MEDS: ASCORBIC ACID 500 MG TABLET PO SCH ×2 (10:56→17:42)
[2019-11-01] MEDS: CALCIUM CARBONATE 600 MG/VITAMIN D3 400 UNIT TABLET PO SCH (10:56)
[2019-11-01] MEDS: MULTIVITAMIN TABLET PO SCH (10:56)
[2019-11-01] MEDS: CYANOCOBALAMIN (VITAMIN B-12) 1,000 MCG TABLET PO SCH (10:56)
[2019-11-01] MEDS: ASPIRIN 81 MG TABLET, CHEWABLE PO SCH (10:56)
[2019-11-01] MEDS: LACTOBACILLUS ACIDOPHILUS 250 MG TAB PO SCH ×2 (10:56→17:42)
[2019-11-01] MEDS: CARVEDILOL 6.25 MG TABLET PO SCH ×2 (10:57→21:23)
[2019-11-01] MEDS: AMLODIPINE BESYLATE 5 MG TABLET PO SCH (10:57)
[2019-11-01] MEDS: FERROUS SULFATE 325 MG TABLET PO SCH (11:23)
[2019-11-01] MEDS ORDERED: POTASSIUM CHLORIDE 20 MEQ PACKET PO ONE (12:30)
[2019-11-01] MEDS ORDERED: LOPERAMIDE HCL 2 MG CAPSULE PO PRN (14:34)
--- NOTE | 2019-11-01 14:40 | PDOC PROGRESS REPORT ---
Subjective Progress Note for:: 11/01/19 Subjective:: Patient offers no verbal response Reason For Visit: UTI,ENCEPHALOPATHY Physical Exam Vital Signs: Temp Pulse Resp BP Pulse Ox 97.4 F 58 L 16 149/61 H 100 11/01/19 11:15 11/01/19 11:15 11/01/19 11:15 11/01/19 11:15 11/01/19 11:15 Intake & Output 10/31/19 11/01/19 11/02/19 06:59 06:59 06:59 Intake Total 1740 2300 220 Balance 1740 2300 220 Weight 54.3 kg 55.2 kg General appearance: PRESENT: no acute distress, thin Head exam: PRESENT: atraumatic, normocephalic Eye exam: PRESENT: conjunctiva pink Mouth exam: PRESENT: moist, other - Patient continues to have dyskinetic tongue movements Neck exam: ABSENT: JVD Respiratory exam: PRESENT: clear to auscultation almaz, decreased breath sounds, symmetrical. ABSENT: accessory muscle use, unlabored Cardiovascular exam: PRESENT: RRR, +S1, +S2 Vascular exam: PRESENT: normal capillary refill GI/Abdominal exam: PRESENT: normal bowel sounds, soft, other - She continues to have liquid stools Rectal exam: PRESENT: deferred Extremities exam: PRESENT: other - Extremities contracted. ABSENT: pedal edema Musculoskeletal exam: PRESENT: other - Bedridden Neurological exam: PRESENT: awake Psychiatric exam: ABSENT: agitated Skin exam: PRESENT: dry, normal color, warm Results Laboratory Results: 10/31/19 04:10 11/01/19 05:04 11/01/19 05:04 Sodium 138.3 Potassium 3.7 Chloride 103 Carbon Dioxide 29 Anion Gap 6 BUN 4 L Creatinine 0.45 L Est GFR ( Amer) > 60 Glucose 72 L Calcium 8.6 10/26/19 23:40 Blood Blood Culture - Final NO GROWTH IN 5 DAYS 10/26/19 21:58 Blood Blood Culture - Final NO GROWTH IN 5 DAYS 10/26/19 23:40 Stool - Stool Ova and Parasite Concentrate Exam - Final 10/26/19 23:40 Stool - Stool Ova and Parasites - Final Impressions: Head CT 10/26/19 20:57 IMPRESSION: No acute intracranial findings visualized. Chest X-Ray 10/26/19 21:03 IMPRESSION: No evidence of active intrathoracic disease. Assessment and Plan - Diagnosis (1) Metabolic encephalopathy Is this a current diagnosis for this admission?: Yes Plan: UTI likely contributing to patient's encephalopathy According to patient's daughter patient is at her neurologic baseline Continue supportive care (2) UTI (urinary tract infection) Qualifiers: Urinary tract infection type: site unspecified Hematuria presence: without hematuria Qualified Code(s): N39.0 - Urinary tract infection, site not specified Is this a current diagnosis for this admission?: Yes Plan: Urine culture with Enterococcus faecalis Blood culture from 10/26/2019 NG at 5 days Continue Zosyn 3.375 grams IV every 6 hours (this evening's dose will make DAY #4) (3) Diarrhea Qualifiers: Diarrhea type: unspecified type Qualified Code(s): R19.7 - Diarrhea, unspecified Is this a current diagnosis for this admission?: Yes Plan: Stool culture negative for Salmonella, Shigella, Campylobacter, and E. coli. Also negative for Shiga toxin 1 and 2 C. Dif, Cryptosporidium, and Giardia negative. Ova/Parasites negative. Continue lactobacillus 500 mg p.o. twice daily Add loperamide 2 mg p.o. every 6 hours as needed (4) Dysphasia Is this a current diagnosis for this admission?: Yes Plan: Speech therapy input appreciated Continue aspiration precautions Continue pured diet with nectar thickened liquids, patient tolerating well (5) Hypokalemia Is this a current diagnosis for this admission?: Yes Plan: Resolved, patient was given additional dose of KCl today Monitor periodically (6) Anemia Qualifiers: Anemia type: unspecified type Qualified Code(s): D64.9 - Anemia, unspecified Is this a current diagnosis for this admission?: Yes Plan: H/H trending down Guaiac stool, none recorded so far -reorder Continue ferrous sulfate 325 mg p.o. daily Given patient's overall poor condition we will not aggressively work-up anemia, if patient were to be guaiac positive would need to have a discussion with the family as to how aggressive they would wish to be H/H periodically (7) Hypothyroidism Is this a current diagnosis for this admission?: Yes Plan: Continue levothyroxine 0.025 mg p.o. daily - Time Time Spent with patient: Less than 15 minutes Medications reviewed and adjusted accordingly: Yes Anticipated [facility] Anticipated Discharge Timeframe: within 48 hours
[2019-11-02] MEDS: PIPERACILLIN SODIUM/TAZOBACTAM 3.375 GM in NORMAL SALINE 100 ML IV SCH ×4 (03:17→18:42)
[2019-11-02] MEDS: HEPARIN SOD (PORCINE) 5,000 UNIT/ML 1 ML VIAL SUBCUT SCH ×3 (05:37→22:00)
[2019-11-02] MEDS: PANTOPRAZOLE SODIUM 20 MG TABLET.DR PO SCH (05:38)
[2019-11-02] MEDS: LEVOTHYROXINE SODIUM 0.025 MG TABLET PO SCH (05:38)
[2019-11-02] MEDS: LACTOBACILLUS ACIDOPHILUS 250 MG TAB PO SCH ×2 (11:05→18:41)
[2019-11-02] MEDS: CYANOCOBALAMIN (VITAMIN B-12) 1,000 MCG TABLET PO SCH (11:05)
[2019-11-02] MEDS: CARVEDILOL 6.25 MG TABLET PO SCH ×2 (11:05→22:00)
[2019-11-02] MEDS: MULTIVITAMIN TABLET PO SCH (11:06)
[2019-11-02] MEDS: ASCORBIC ACID 500 MG TABLET PO SCH ×2 (11:06→18:41)
[2019-11-02] MEDS: ASPIRIN 81 MG TABLET, CHEWABLE PO SCH (11:06)
[2019-11-02] MEDS: AMLODIPINE BESYLATE 5 MG TABLET PO SCH (11:06)
[2019-11-02] MEDS: FERROUS SULFATE 325 MG TABLET PO SCH (11:06)
[2019-11-02] MEDS: CALCIUM CARBONATE 600 MG/VITAMIN D3 400 UNIT TABLET PO SCH (11:07)
--- NOTE | 2019-11-02 16:53 | PDOC PROGRESS REPORT ---
Subjective Progress Note for:: 11/02/19 Subjective:: Patient aphasic Reason For Visit: UTI,ENCEPHALOPATHY Physical Exam Vital Signs: Temp Pulse Resp BP Pulse Ox 98.8 F 83 16 145/83 H 100 11/02/19 11:02 11/02/19 11:02 11/02/19 11:02 11/02/19 11:02 11/02/19 11:02 Intake & Output 11/01/19 11/02/19 11/03/19 06:59 06:59 06:59 Intake Total 2300 1631 100 Balance 2300 1631 100 Weight 55.2 kg 55.7 kg General appearance: PRESENT: no acute distress, thin Head exam: PRESENT: atraumatic Eye exam: PRESENT: conjunctiva pink Mouth exam: PRESENT: moist, other - Patient continues to have dyskinetic movement of her tongue Neck exam: ABSENT: JVD Respiratory exam: PRESENT: clear to auscultation almaz, symmetrical, unlabored. ABSENT: accessory muscle use Cardiovascular exam: PRESENT: RRR, +S1, +S2 Vascular exam: PRESENT: normal capillary refill GI/Abdominal exam: PRESENT: normal bowel sounds, soft. ABSENT: distended Rectal exam: PRESENT: deferred Extremities exam: ABSENT: pedal edema Neurological exam: PRESENT: awake Psychiatric exam: ABSENT: agitated, anxious Skin exam: PRESENT: dry, normal color, warm Results Laboratory Results: 10/31/19 04:10 11/01/19 05:04 11/02/19 14:00 Stool Occult Blood POSITIVE Impressions: Head CT 10/26/19 20:57 IMPRESSION: No acute intracranial findings visualized. Chest X-Ray 10/26/19 21:03 IMPRESSION: No evidence of active intrathoracic disease. Assessment and Plan - Diagnosis (1) Metabolic encephalopathy Is this a current diagnosis for this admission?: Yes Plan: Improved UTI likely contributing to patient's encephalopathy According to patient's daughter patient is at her neurologic baseline Continue supportive care (2) UTI (urinary tract infection) Qualifiers: Urinary tract infection type: site unspecified Hematuria presence: without hematuria Qualified Code(s): N39.0 - Urinary tract infection, site not specified Is this a current diagnosis for this admission?: Yes Plan: Urine culture with Enterococcus faecalis Blood culture from 10/26/2019 NG at 5 days Continue Zosyn 3.375 grams IV every 6 hours (this evening's dose will make DAY #5) (3) Diarrhea Qualifiers: Diarrhea type: unspecified type Qualified Code(s): R19.7 - Diarrhea, unspecified Is this a current diagnosis for this admission?: Yes Plan: Stool culture negative for Salmonella, Shigella, Campylobacter, and E. coli. Also negative for Shiga toxin 1 and 2 C. Dif, Cryptosporidium, and Giardia negative. Ova/Parasites negative. Continue lactobacillus 500 mg p.o. twice daily Continue loperamide 2 mg p.o. every 6 hours as needed (4) Dysphasia Is this a current diagnosis for this admission?: Yes Plan: Speech therapy input appreciated Continue aspiration precautions Patient tolerating pured diet with nectar thickened liquids (5) Hypokalemia Is this a current diagnosis for this admission?: Yes Plan: Resolved Monitor periodically (6) Anemia Qualifiers: Anemia type: unspecified type Qualified Code(s): D64.9 - Anemia, unspecified Is this a current diagnosis for this admission?: Yes Plan: Stool positive for occult blood Continue ferrous sulfate 325 mg p.o. daily Given patient's overall poor condition I do not feel that she is a candidate for colonoscopy. I had a lengthy discussion with her daughter Hiwot Haney who is reportedly the patient's power of insurance defense attorney and she is in agreement that she would not want her mother to go through a colonoscopy. We also discussed the patient's CODE STATUS and the fact that it is unlikely that her mother would survive a major cardiopulmonary event however she wishes for her mother to remain full code Stop aspirin Given the fact the patient is immobile and her family wishes to keep her full code I will continue heparin for VTE prophylaxis at this time. If the patient's H/H drops further we will need to consider stopping this as well Monitor H/H periodically (7) Hypothyroidism Is this a current diagnosis for this admission?: Yes Plan: Continue levothyroxine 0.025 mg p.o. daily (8) Hypertension Qualifiers: Hypertension type: essential hypertension Qualified Code(s): I10 - Essential (primary) hypertension Is this a current diagnosis for this admission?: Yes Plan: Adequate BP control explained Continue amlodipine 5 mg p.o. daily Continue carvedilol 6.25 mg p.o. every 12 hours - Time Time Spent with patient: 15-24 minutes Medications reviewed and adjusted accordingly: Yes Anticipated Discharge Disposition: [facility] Facility Anticipated Discharge Timeframe: within 72 hours
--- NOTE | 2019-11-02 16:59 | ADVANCED CARE ---
Attendance: Sedation was via telephone persons involved in the conversation were Hiwot Haney ([facility]) and Jair Castellanos Resuscitation Status: Full Code Discussion: I had a lengthy discussion (20 minutes) with patient's daughter Hiwot Haney who is the patient's power of assistant attorney general regarding patient's overall condition and CODE STATUS. We discussed the patient's overall quality of life and the fact that she remains a full code. We also discussed the fact that her mother would likely not survive a major cardiopulmonary event even if we go through the ACLS process. When asked if he wished for her mother to remain a full code she stated "bring her back" Care Planning Goals: Goals of care for this ACP were to clarify CODE STATUS Document(s) Completed: None Time Spent: 20 minutes
[2019-11-03] MEDS: PIPERACILLIN SODIUM/TAZOBACTAM 3.375 GM in NORMAL SALINE 100 ML IV SCH ×5 (01:40→23:58)
[2019-11-03] MEDS: HEPARIN SOD (PORCINE) 5,000 UNIT/ML 1 ML VIAL SUBCUT SCH ×3 (05:54→21:42)
[2019-11-03] MEDS: PANTOPRAZOLE SODIUM 20 MG TABLET.DR PO SCH (05:55)
[2019-11-03] MEDS: LEVOTHYROXINE SODIUM 0.025 MG TABLET PO SCH (05:55)
[2019-11-03 06:34] LABS: HEMATOCRIT 28.3 % (36.0-47.0); HEMOGLOBIN 9.6 g/dL (12.0-15.5); MEAN CORPUSCULAR HEMOGLOBIN 29.6 pg (27.0-33.4); MEAN CORPUSCULAR HGB CONC 33.9 g/dL (32.0-36.0); MEAN CORPUSCULAR VOLUME 87 fl (80-97); PLATELET COUNT 251 10^3/uL (150-450); RED BLOOD COUNT 3.24 10^6/uL (3.72-5.28); RED CELL DISTRIBUTION WIDTH 15.7 % (11.5-14.0); WHITE BLOOD COUNT 4.3 10^3/uL (4.0-10.5)
[2019-11-03 08:11] LABS: ANION GAP 6 (5-19); BLOOD UREA NITROGEN 3 mg/dL (7-20); CALCIUM 8.1 mg/dL (8.4-10.2); CARBON DIOXIDE 28 mmol/L (22-30); CHLORIDE 102 mmol/L (98-107); GLUCOSE 80 mg/dL (75-110); POTASSIUM 3.3 mmol/L (3.6-5.0)
--- NOTE | 2019-11-03 09:40 | PDOC PROGRESS REPORT ---
Subjective Progress Note for:: 11/03/19 Subjective:: Patient aphasic Reason For Visit: UTI,ENCEPHALOPATHY Physical Exam Vital Signs: Temp Pulse Resp BP Pulse Ox 98.7 F 78 16 154/82 H 99 11/03/19 07:23 11/03/19 07:23 11/03/19 07:23 11/03/19 07:23 11/03/19 07:23 Intake & Output 11/02/19 11/03/19 11/04/19 06:59 06:59 06:59 Intake Total 1631 400 Balance 1631 400 Weight 55.7 kg 52.6 kg General appearance: PRESENT: no acute distress Head exam: PRESENT: atraumatic Eye exam: PRESENT: conjunctiva pink Ear exam: PRESENT: other - Dyskinetic movements of the mouth and tongue Mouth exam: PRESENT: moist, tongue midline Neck exam: ABSENT: JVD Respiratory exam: PRESENT: clear to auscultation almaz, symmetrical, unlabored. ABSENT: accessory muscle use Cardiovascular exam: PRESENT: RRR, +S1, +S2 Vascular exam: PRESENT: normal capillary refill GI/Abdominal exam: PRESENT: normal bowel sounds, soft. ABSENT: distended Rectal exam: PRESENT: deferred Extremities exam: ABSENT: pedal edema Musculoskeletal exam: PRESENT: other - Bed ridden and contracted Neurological exam: PRESENT: awake Psychiatric exam: ABSENT: agitated, anxious Skin exam: PRESENT: dry, normal color, warm Results Laboratory Results: 11/03/19 05:38 11/03/19 05:38 11/02/19 11/03/19 11/03/19 14:00 05:38 05:38 WBC 4.3 RBC 3.24 L Hgb 9.6 L Hct 28.3 L MCV 87 MCH 29.6 MCHC 33.9 RDW 15.7 H Plt Count 251 Sodium 136.4 L Potassium 3.3 L Chloride 102 Carbon Dioxide 28 Anion Gap 6 BUN 3 L Creatinine 0.44 L Est GFR ( Amer) > 60 Glucose 80 Calcium 8.1 L Stool Occult Blood POSITIVE Impressions: Head CT 10/26/19 20:57 IMPRESSION: No acute intracranial findings visualized. Chest X-Ray 10/26/19 21:03 IMPRESSION: No evidence of active intrathoracic disease. Assessment and Plan - Diagnosis (1) Metabolic encephalopathy Is this a current diagnosis for this admission?: Yes Plan: It seems the patient is at her neurologic baseline UTI likely contributed to patient's encephalopathy Continue supportive care (2) UTI (urinary tract infection) Qualifiers: Urinary tract infection type: site unspecified Hematuria presence: without hematuria Qualified Code(s): N39.0 - Urinary tract infection, site not specified Is this a current diagnosis for this admission?: Yes Plan: Urine culture with Enterococcus faecalis Blood culture from 10/26/2019 NG at 5 days Continue Zosyn 3.375 grams IV every 6 hours (this evening's dose will make DAY #6), D/C after 7 doses (3) Diarrhea Qualifiers: Diarrhea type: unspecified type Qualified Code(s): R19.7 - Diarrhea, unspe cified Is this a current diagnosis for this admission?: Yes Plan: Diarrhea improved Stool culture negative for Salmonella, Shigella, Campylobacter, and E. coli. Also negative for Shiga toxin 1 and 2 C. Dif, Cryptosporidium, and Giardia negative. Ova/Parasites negative. Continue lactobacillus 500 mg p.o. twice daily Continue loperamide 2 mg p.o. every 6 hours as needed (4) Dysphasia Is this a current diagnosis for this admission?: Yes Plan: Speech therapy input appreciated Continue aspiration precautions Patient tolerating pured diet with nectar thickened liquids (5) Hypokalemia Is this a current diagnosis for this admission?: Yes Plan: Potassium down again today Replete Monitor periodically (6) Hyponatremia Is this a current diagnosis for this admission?: Yes Plan: Mild hyponatremia DC IVF (7) Anemia Qualifiers: Anemia type: unspecified type Qualified Code(s): D64.9 - Anemia, unspecified Is this a current diagnosis for this admission?: Yes Plan: H/H relatively stable (Hgb 9-10) since initial drop with hydration Stool positive for occult blood Continue ferrous sulfate 325 mg p.o. daily Given patient's overall poor condition I do not feel that she is a candidate for colonoscopy. I had a lengthy discussion with her daughter Hiwot Haney on 11/02/2019 who is reportedly the patient's power of real estate attorney and she is in agreement that she would not want her mother to go through a colonoscopy. We also discussed the patient's CODE STATUS and the fact that it is unlikely that her mother would survive a major cardiopulmonary event however she wishes for her mother to remain full code Aspirin stopped Given the fact the patient is immobile and her family wishes to keep her full code I will continue heparin for VTE prophylaxis at this time. If the patient's H/H drops further we will need to consider stopping this as well Monitor H/H periodically (8) Hypothyroidism Is this a current diagnosis for this admission?: Yes Plan: Continue levothyroxine 0.025 mg p.o. daily (9) Hypertension Qualifiers: Hypertension type: essential hypertension Qualified Code(s): I10 - Essential (primary) hypertension Is this a current diagnosis for this admission?: Yes Plan: BP slightly elevated this morning but overall adequately controlled Continue amlodipine 5 mg p.o. daily Continue carvedilol 6.25 mg p.o. every 12 hours - Time Time Spent with patient: 15-24 minutes Medications reviewed and adjusted accordingly: Yes Anticipated Discharge Disposition: Detention Facility Anticipated Discharge Timeframe: within 48 hours
[2019-11-03] MEDS ORDERED: POTASSIUM CHLORIDE 20 MEQ PACKET PO ONE (10:30)
[2019-11-03] MEDS: LACTOBACILLUS ACIDOPHILUS 250 MG TAB PO SCH ×2 (12:07→18:55)
[2019-11-03] MEDS: CARVEDILOL 6.25 MG TABLET PO SCH ×2 (12:08→21:40)
[2019-11-03] MEDS: AMLODIPINE BESYLATE 5 MG TABLET PO SCH (12:08)
[2019-11-03] MEDS: ASCORBIC ACID 500 MG TABLET PO SCH ×2 (12:08→18:55)
[2019-11-03] MEDS: CYANOCOBALAMIN (VITAMIN B-12) 1,000 MCG TABLET PO SCH (12:08)
[2019-11-03] MEDS: MULTIVITAMIN TABLET PO SCH (12:08)
[2019-11-03] MEDS: FERROUS SULFATE 325 MG TABLET PO SCH (12:08)
[2019-11-03] MEDS: CALCIUM CARBONATE 600 MG/VITAMIN D3 400 UNIT TABLET PO SCH (12:10)
[2019-11-04] MEDS: PIPERACILLIN SODIUM/TAZOBACTAM 3.375 GM in NORMAL SALINE 100 ML IV SCH ×2 (05:39→14:18)
[2019-11-04] MEDS: PANTOPRAZOLE SODIUM 20 MG TABLET.DR PO SCH (05:39)
[2019-11-04] MEDS: HEPARIN SOD (PORCINE) 5,000 UNIT/ML 1 ML VIAL SUBCUT SCH ×2 (05:39→14:19)
[2019-11-04] MEDS: LEVOTHYROXINE SODIUM 0.025 MG TABLET PO SCH (05:39)
[2019-11-04] MEDS: CALCIUM CARBONATE 600 MG/VITAMIN D3 400 UNIT TABLET PO SCH (10:16)
[2019-11-04] MEDS: LACTOBACILLUS ACIDOPHILUS 250 MG TAB PO SCH (10:16)
[2019-11-04] MEDS: CYANOCOBALAMIN (VITAMIN B-12) 1,000 MCG TABLET PO SCH (10:17)
[2019-11-04] MEDS: AMLODIPINE BESYLATE 5 MG TABLET PO SCH (10:17)
[2019-11-04] MEDS: ASCORBIC ACID 500 MG TABLET PO SCH (10:17)
[2019-11-04] MEDS: CARVEDILOL 6.25 MG TABLET PO SCH (10:17)
[2019-11-04] MEDS: FERROUS SULFATE 325 MG TABLET PO SCH (10:17)
[2019-11-04] MEDS: MULTIVITAMIN TABLET PO SCH (10:17)
[2019-11-04 10:39] LABS: ANION GAP 8 (5-19); BLOOD UREA NITROGEN 3 mg/dL (7-20); CALCIUM 8.5 mg/dL (8.4-10.2); CARBON DIOXIDE 29 mmol/L (22-30); CHLORIDE 99 mmol/L (98-107); GLUCOSE 71 mg/dL (75-110); POTASSIUM 3.7 mmol/L (3.6-5.0)
[2019-11-04 12:27] VITALS: BP 124/70
--- NOTE | 2019-11-04 13:52 | PDOC DISCHARGE SUMMARY ---
Impression - Admit/DC Date/PCP Admission Date/Primary Care Provider: 10/27/19 04:20 LESLEY MCKEON NP Discharge Date: 11/04/19 - Discharge Diagnosis (1) Metabolic encephalopathy Is this a current diagnosis for this admission?: Yes (2) UTI (urinary tract infection) Is this a current diagnosis for this admission?: Yes (3) Diarrhea Is this a current diagnosis for this admission?: Yes (4) Dysphasia Is this a current diagnosis for this admission?: Yes (5) Hypokalemia Is this a current diagnosis for this admission?: Yes (6) Hyponatremia Is this a current diagnosis for this admission?: Yes (7) Anemia Is this a current diagnosis for this admission?: Yes (8) Hypothyroidism Is this a current diagnosis for this admission?: Yes (9) Hypertension Is this a current diagnosis for this admission?: Yes - Additional Information Resuscitation Status: Full Code Discharge Diet: Other (Comments) - Pured diet with nectar thickened liquids Discharge Activity: Other - Per protocol Referrals: [facility] [Outside] Home Medications: Amlodipine Besylate [Norvasc 5 mg Tablet] 5 mg PO DAILY 10/27/19 Ascorbic Acid 500 mg PO BID 10/27/19 Calcium Carbonate/Vitamin D3 [Calcium 600-Vit D3 400 Tablet] 1 each PO DAILY 10/27/19 Carvedilol [Coreg 6.25 mg Tablet] 6.25 mg PO Q12 10/27/19 Cyanocobalamin (Vitamin B-12) [B-12] 1,000 mcg PO DAILY 10/27/19 Ferrous Sulfate [Feosol 325 mg Tablet] 325 mg PO DAILY 10/27/19 Levothyroxine Sodium [Synthroid 0.025 mg Tablet] 25 mcg PO DAILY 10/27/19 Multivit-Min/FA/Lycopen/Lutein [Certavite Sr-Antioxidant Tab] 1 each PO DAILY 10/27/19 Omeprazole 20 mg PO DAILY 10/27/19 Loperamide HCl [Imodium 2 mg Capsule] 2 mg PO Q6HP PRN capsule 11/04/19 History of Present Illiness History of Present Illness: SURINDER NORTON is a very debilitated bedridden 84 year old female resides in a snf who was sent to the ED because the facility felt that she had a change in mental status. Additionally, there was a report of diarrhea. In the ED a chest x-ray was completed which was negative and a CT was also completed which was unremarkable for acute process. A UA was completed which appeared abnormal and the patient was started on IV ceftriaxone. Hospital service was consulted to admit the patient for further evaluation and treatment. Hospital Course Hospital Course: Urine, blood, and stool cultures were obtained. Stool cultures were negative for ova and parasites, C. difficile, Cryptosporidium, Giardia, Salmonella, Shigella, Campylobacter, and E. coli. Additionally they were negative for Shiga toxin 1 and 2. Urine culture was positive for Enterococcus Faecalis the patient's antibiotics were adjusted based on sensitivities and she was started on Zosyn 3.375 g IV every 6 hours. She completed a 7-day course of this antibiotic. Patient remained afebrile and had no leukocytosis throughout the duration of her hospitalization. She did have a drop in H/H. On presentation her hemoglobin is 14.0 and 2 days later when reassessed it had dropped by 4 g. Of note, the patient had received aggressive hydration between initial hemoglobin and subsequent follow-up hemoglobin. Stool was checked for occult blood which was positive. The patient was on aspirin which was stopped. Given the fact that she bedridden/immobile she remained on VTE prophylaxis with heparin. Her hemoglobin remained stable between 9.6 and 10.4 throughout the duration of her hospitalization. The patient's daughter who is her medical POA was consulted regarding how aggressive she would want to be in anemia/GI work- up. Given the patient's overall state of health it was decided that she would not be a candidate for endoscopy which the daughter was in agreement with. There was a discussion about CODE STATUS with the patient's daughter and she did state that she wished for her mother to remain a full code. Additionally while the patient was inpatient a speech/swallow evaluation was completed and recommendations were made for pured diet with nectar thickened liquids. On 11/04/2019 it was felt that the patient was at her baseline and in stable condition for discharge back to her nursing facility. Physical Exam Vital Signs: Temp Pulse Resp BP Pulse Ox 98.5 F 73 18 124/70 97 11/04/19 11:44 11/04/19 11:44 11/04/19 11:44 11/04/19 11:44 11/04/19 11:44 Intake & Output 11/03/19 11/04/19 11/05/19 06:59 06:59 06:59 Intake Total 400 400 130 Balance 400 400 130 Weight 52.6 kg 52.6 kg General appearance: PRESENT: no acute distress Head exam: PRESENT: atraumatic Eye exam: PRESENT: conjunctiva pink Mouth exam: PRESENT: moist, tongue midline, other - Kinetic movements of the mouth and tongue are noted Neck exam: ABSENT: JVD Respiratory exam: PRESENT: clear to auscultation almaz, decreased breath sounds - Diminished at bases bilaterally, symmetrical, unlabored Cardiovascular exam: PRESENT: +S1, +S2 Vascular exam: PRESENT: normal capillary refill GI/Abdominal exam: PRESENT: normal bowel sounds, soft Rectal exam: PRESENT: deferred Musculoskeletal exam: PRESENT: other - Bedridden and contracted Neurological exam: PRESENT: awake Psychiatric exam: ABSENT: agitated Skin exam: PRESENT: dry, normal color, warm Results Laboratory Results: WBC 4.3 10^3/uL (4.0-10.5) 11/03/19 05:38 RBC 3.24 10^6/uL (3.72-5.28) L 11/03/19 05:38 Hgb 9.6 g/dL (12.0-15.5) L 11/03/19 05:38 Hct 28.3 % (36.0-47.0) L 11/03/19 05:38 MCV 87 fl (80-97) 11/03/19 05:38 MCH 29.6 pg (27.0-33.4) 11/03/19 05:38 MCHC 33.9 g/dL (32.0-36.0) 11/03/19 05:38 RDW 15.7 % (11.5-14.0) H 11/03/19 05:38 Plt Count 251 10^3/uL (150-450) 11/03/19 05:38 Lymph % (Auto) Not Reportable 10/31/19 04:10 [place] % (Auto) Not Reportable 10/31/19 04:10 Eos % (Auto) Not Reportable 10/31/19 04:10 Baso % (Auto) Not Reportable 10/31/19 04:10 Absolute Neuts (auto) Not Reportable 10/31/19 04:10 Absolute Lymphs (auto) Not Reportable 10/31/19 04:10 Absolute Monos (auto) Not Reportable 10/31/19 04:10 Absolute Eos (auto) Not Reportable 10/31/19 04:10 Absolute Basos (auto) Not Reportable 10/31/19 04:10 Total Counted 100 10/31/19 04:10 Seg Neutrophils % Not Reportable 10/31/19 04:10 Seg Neuts % (Manual) 43 % (42-78) 10/31/19 04:10 Band Neutrophils % 2 % (3-5) L 10/31/19 04:10 Lymphocytes % (Manual) 40 % (13-45) 10/31/19 04:10 Atypical Lymphs % 1 % (0) 10/31/19 04:10 Monocytes % (Manual) 10 % (3-13) 10/31/19 04:10 Eosinophils % (Manual) 3 % (0-6) 10/31/19 04:10 Basophils % (Manual) 1 % (0-2) 10/31/19 04:10 Abs Neuts (Manual) 2.0 10^3/uL (1.7-8.2) 10/31/19 04:10 Abs Lymphs (Manual) 1.8 10^3/uL (0.5-4.7) 10/31/19 04:10 Abs Monocytes (Manual) 0.5 10^3/uL (0.1-1.4) 10/31/19 04:10 Absolute Eos (Manual) 0.1 10^3/uL (0.0-0.6) 10/31/19 04:10 Abs Basophils (Manual) 0.0 10^3/uL (0.0-0.2) 10/31/19 04:10 Toxic Vacuolation PRESENT 10/31/19 04:10 Platelet Comment ADEQUATE 10/31/19 04:10 Anisocytosis 1+ 10/31/19 04:10 VBG pH 7.33 (7.30-7.42) 10/27/19 01:22 VBG pCO2 46.5 mmHg (35-63) 10/27/19 01:22 VBG HCO3 23.8 mmol/L (20-32) 10/27/19 01:22 VBG Base Excess -2.4 mmol/L 10/27/19 01:22 Sodium 136.0 mmol/L (137-145) L 11/04/19 09:16 Potassium 3.7 mmol/L (3.6-5.0) 11/04/19 09:16 Chloride 99 mmol/L (98-107) 11/04/19 09:16 Carbon Dioxide 29 mmol/L (22-30) 11/04/19 09:16 Anion Gap 8 (5-19) 11/04/19 09:16 BUN 3 mg/dL (7-20) L 11/04/19 09:16 Creatinine 0.48 mg/dL (0.52-1.25) L 11/04/19 09:16 Est GFR ( Amer) > 60 (>60) 11/04/19 09:16 Est GFR (MDRD) Non-Af > 60 (>60) 11/04/19 09:16 Glucose 71 mg/dL (75-110) L 11/04/19 09:16 POC Glucose 88 mg/dL (70-110) 10/28/19 16:58 Lactic Acid 1.4 mmol/L (0.7-2.1) 10/27/19 01:22 Calcium 8.5 mg/dL (8.4-10.2) 11/04/19 09:16 Total Bilirubin 0.8 mg/dL (0.2-1.3) 10/26/19 22:00 Direct Bilirubin 0.2 mg/dL (0.0-0.4) 10/26/19 22:00 Neonat Total Bilirubin Not Reportable 10/26/19 22:00 Neonat Direct Bilirubin Not Reportable 10/26/19 22:00 Neonat Indirect Bili Not Reportable 10/26/19 22:00 AST 32 U/L (14-36) 10/26/19 22:00 ALT 18 U/L (<35) 10/26/19 22:00 Alkaline Phosphatase 94 U/L (38-126) 10/26/19 22:00 Total Protein 8.1 g/dL (6.3-8.2) 10/26/19 22:00 Albumin 3.7 g/dL (3.5-5.0) 10/26/19 22:00 Urine Color EZ 10/26/19 21:58 Urine Appearance CLOUDY 10/26/19 21:58 Urine pH 5.0 (5.0-9.0) 10/26/19 21:58 Ur Specific Walker 1.018 10/26/19 21:58 Urine Protein 30 mg/dL (NEGATIVE) H 10/26/19 21:58 Urine Glucose (UA) NEGATIVE mg/dL (NEGATIVE) 10/26/19 21:58 Urine Ketones NEGATIVE mg/dL (NEGATIVE) 10/26/19 21:58 Urine Blood SMALL (NEGATIVE) H 10/26/19 21:58 Urine Nitrite NEGATIVE (NEGATIVE) 10/26/19 21:58 Urine Bilirubin MODERATE (NEGATIVE) H 10/26/19 21:58 Urine Urobilinogen 4.0 mg/dL (<2.0) H 10/26/19 21:58 Ur Leukocyte Esterase MODERATE (NEGATIVE) H 10/26/19 21:58 Urine WBC (Auto) 123 /HPF 10/26/19 21:58 Urine RBC (Auto) 9 /HPF 10/26/19 21:58 Urine Bacteria (Auto) 2+ /HPF 10/26/19 21:58 Urine WBC Clumps FEW /HPF 10/26/19 21:58 Squamous Epi Cells Auto 2 /HPF 10/26/19 21:58 Urine Mucus (Auto) RARE /LPF 10/26/19 21:58 Urine Ascorbic Acid NEGATIVE (NEGATIVE) 10/26/19 21:58 Stool Occult Blood POSITIVE (NEGATIVE) 11/02/19 14:00 Stl C. Difficile GDH Ag NEGATIVE (NEGATIVE) 10/26/19 21:58 Stl C.difficile Tox A&B NEGATIVE (NEGATIVE) 10/26/19 21:58 COVID-19 Source NASOPHARYNGEAL 10/28/19 18:20 COVID-19 (AMARJIT) NOT DETECTED 10/28/19 18:20 Cryptosporid parvum Ag NEGATIVE (NEGATIVE) 10/26/19 21:58 Giardia lamblia Ag NEGATIVE (NEGATIVE) 10/26/19 21:58 Impressions: Head CT 10/26/19 20:57 IMPRESSION: No acute intracranial findings visualized. Chest X-Ray 10/26/19 21:03 IMPRESSION: No evidence of active intrathoracic disease. Plan Plan of Treatment: Return to nursing facility. This plan was discussed with the patient's daughter who was in agreement Stroke Is this a Stroke Patient?: No Acute Heart Failure - Is this a Heart Failure Patient?: No
== END 2019-11-04 15:48 | DRG 689 ==
LOC: ER 20:16 → EH 10-27 04:20 → 4S 10-27 05:15
PROVIDERS: ADMIT Family Medicine; ATTEND Nurse Practitioner
DX: N39.0 Urinary tract infection, site not specified (principal); G93.41 Metabolic encephalopathy; E87.1 Hypo-osmolality and hyponatremia; R47.01 Aphasia; F25.9 Schizoaffective disorder, unspecified; F03.90 Unspecified dementia, unspecified severity, without behavioral disturbance, psychotic disturbance, mood disturbance, and anxiety; D64.9 Anemia, unspecified; B95.2 Enterococcus as the cause of diseases classified elsewhere; E11.9 Type 2 diabetes mellitus without complications; I48.91 Unspecified atrial fibrillation; R19.7 Diarrhea, unspecified; R47.02 Dysphasia; E87.6 Hypokalemia; E03.9 Hypothyroidism, unspecified; I10 Essential (primary) hypertension; I25.10 Atherosclerotic heart disease of native coronary artery without angina pectoris; E78.5 Hyperlipidemia, unspecified; M19.90 Unspecified osteoarthritis, unspecified site; F32.9 Major depressive disorder, single episode, unspecified; E87.5 Hyperkalemia; Z11.59 Encounter for screening for other viral diseases; Z79.899 Other long term (current) drug therapy; Z74.01 Bed confinement status; Z79.82 Long term (current) use of aspirin
CPT/HCPCS: 36415; 51701; 70450; 71045; 80048; 80053; 81001; 82272; 82803; 82962; 83605; 85025; 85027; 86403; 87040; 87045; 87086; 87088; 87177; 87186; 87205; 87324; 87329; 87449; 87635; 93005; 93010; 96361; 96365; 99285; C9803; J0696; J1644; J2543; J3490; J7030; J7040; J7050; J7120

== ENCOUNTER 2020-03-17 18:01 | Inpatient (IN) | payer MEDICARE, MEDICAID ==
[2020-03-17 18:51] LABS: AMORPHOUS SEDIMENT,URINE TRACE /HPF; APPEARANCE,URINE CLOUDY; BILIRUBIN,URINE NEGATIVE (NEGATIVE); COLOR,URINE AMBER; GLUCOSE, URINE NEGATIVE (NEGATIVE); KETONES,URINE NEGATIVE (NEGATIVE); LEUKOCYTE ESTERASE,URINE MODERATE (NEGATIVE); NITRITE,URINE NEGATIVE (NEGATIVE); PROTEIN,URINE 30 mg/dL (NEGATIVE); URINE SPECIFIC GRAVITY 1.024
--- NOTE | 2020-03-17 19:58 | ER Document Report ---
ED Medical Screen (RME) - General Chief Complaint: Altered Mental Status Stated Complaint: AMS Time Seen by Provider: 03/17/20 19:54 Primary Care Provider: BETTY SIMENTAL MD [Primary Care Provider] - Follow up as needed Mode of Arrival: Medic Information source: Emergency Med Personnel Notes: Patient is here today for altered mental status. She is normally altered but according to the report received from the fpc she has more altered than normal. She is nonverbal at all times. She has been failure to thrive patient. She does have foul-smelling dirty urine and a UA does show she has a UTI. We will treat her UTI draw blood give her some IV fluids and she will be seen by another provider. Was reported that they are considering end-of-life care but she is a full code at this time. I have greeted and performed a rapid initial assessment of this patient. A comprehensive ED assessment and evaluation of the patient, analysis of test results and completion of medical decision making process will be conducted by an additional ED providers. TRAVEL OUTSIDE OF THE [place] IN LAST 30 DAYS: No - Related Data Allergies/Adverse Reactions: No Known Allergies Allergy (Verified 10/27/19 04:52) Home Medications: B12, Iron, Levothyroxine, Omeprazole, Vitamin C, Ipratropium [place]/Albuterol, Mylanta, Mucinex, Mylanta, Phenergan, Coreg, Nitro PRN, Acetaminophen, Bisacodyl, Calcium Carbonate, Carvedilol Past Medical History - Past Medical History Cardiac Medical History: Reports: Hx Atrial Fibrillation, Hx Coronary Artery Disease, Hx Hypercholesterolemia, Hx Hypertension Denies: Hx Heart Attack Pulmonary Medical History: Denies: Hx Asthma, Hx Bronchitis, Hx COPD, Hx Pneumonia Neurological Medical History: Denies: Hx Cerebrovascular Accident, Hx Seizures Endocrine Medical History: Reports: Hx Diabetes Mellitus Type 2 Renal/ Medical History: Denies: Hx Peritoneal Dialysis GI Medical History: Reports: Hx Gastroesophageal Reflux Disease Musculoskeltal Medical History: Reports Hx Arthritis, Reports Hx Musculoskeletal Deformity, Reports Hx Musculoskeletal Trauma Psychiatric Medical History: Reports: Hx Anxiety, Hx Dementia, Hx Depression, Hx Schizoaffective Disorder, Hx Schizophrenia - Immunizations Immunizations up to date: Yes Hx Diphtheria, Pertussis, Tetanus Vaccination: Yes Physical Exam - Vital signs Vitals: Resp 23 H 03/17/20 18:05 Course - Vital Signs Vital signs: Temp Pulse Resp BP Pulse Ox 98.6 F 82 23 H 111/74 98 03/17/20 18:25 03/17/20 18:55 03/17/20 18:55 03/17/20 18:55 03/17/20 18:55 - Laboratory Results Laboratory Results Interpreted: 03/17/20 18:20 Urine Protein 30 H Urine Urobilinogen 2.0 H Ur Leukocyte Esterase MODERATE H Urine Ascorbic Acid 40 H Doctor's Discharge - Discharge Referrals: BETTY SIMENTAL MD [Primary Care Provider] - Follow up as needed
--- NOTE | 2020-03-17 22:17 | RADIOLOGY REPORT (SQ) ---
CT HEAD WITHOUT IV CONTRAST CLINICAL STATEMENT: AMS stroke dementia TECHNIQUE: Axial CT images from skull base to vertex without IV contrast. This exam was performed according to our departmental dose optimization program, and includes the following measures where applicable: automated exposure control, adjustment of the mAs and/or kVp according to patient size and/or exam, and an iterative reconstruction algorithm. COMPARISON: Unenhanced CT scan of the brain 10/27/2019 FINDINGS: There is no acute intracranial hemorrhage, mass, mass effect or abnormal extra-axial fluid collection. No evidence of an acute territorial infarct is identified. Diffuse global volume oss is identified with prominence of ventricles, sulci and CSF spaces. The ventricles are dilated out of proportion to the degree of volume loss in this may represent normal pressure hydrocephalus. Scattered low density is identified in the periventricular white matter bilaterally suggestive of small vessel ischemic disease. Overall the appearance is stable. Vascular calcifications are noted at the skull base. Calvaria: The skull base and calvaria demonstrate no abnormality. Paranasal sinuses: Visualized portions of the orbits and paranasal sinuses are unremarkable. skull base: Unremarkable IMPRESSION: 1. No intracranial hemorrhage or mass lesion. 2. Diffuse global volume loss with ventricles dilated out of proportion to the degree of volume loss. This raises the possibility of normal pressure hydrocephalus. 3. Low density in the periventricular white matter is consistent with small vessel ischemic change. The appearance is stable.
--- NOTE | 2020-03-17 22:20 | RADIOLOGY REPORT (SQ) ---
EXAM DESCRIPTION: XR CHEST 1 VIEW COMPLETED DATE/TME: 03/17/2020 21:52 CLINICAL HISTORY: 84 years, Female, AMS stroke dysphagia COMPARISON: October 26, 2019 NUMBER OF VIEWS: 1 TECHNIQUE: Portable AP upright view of the chest was obtained at 9:50 PM. LIMITATIONS: None. FINDINGS: Heart size is within normal limits. Thoracic aorta is tortuous and calcified as before. There is mild infiltration, inflammation, or asymmetric edema within the right infrahilar region. Left lung appears clear. There is no evidence of pleural effusion or pneumothorax. IMPRESSION: Mild right infrahilar infiltration, inflammation, or edema. copyright 2010 [employer]- All Rights Reserved
[2020-03-17 22:41] LABS: ABSOLUTE EOSINOPHILS # (AUTO) 0.1 10^3/uL (0.0-0.6); ABSOLUTE LYMPHOCYTES (AUTO) 1.8 10^3/uL (0.5-4.7); ABSOLUTE MONOCYTES (AUTO) 0.5 10^3/uL (0.1-1.4); ABSOLUTE NEUT (AUTO) 6.6 10^3/uL (1.7-8.2); BASOPHILS % (AUTO) 0.3 % (0-2); EOSINOPHILS % (AUTO) 1.6 % (0-6); HEMATOCRIT 34.7 % (36.0-47.0); LYMPHOCYTES % (AUTO) 19.9 % (13-45); MEAN CORPUSCULAR HEMOGLOBIN 27.5 pg (27.0-33.4); MEAN CORPUSCULAR HGB CONC 31.8 g/dL (32.0-36.0); MEAN CORPUSCULAR VOLUME 87 fl (80-97); PLATELET COUNT 153 10^3/uL (150-450); RED BLOOD COUNT 4.01 10^6/uL (3.72-5.28); RED CELL DISTRIBUTION WIDTH 16.4 % (11.5-14.0); SEGMENTED NEUTROPHILS % (AUTO) 73.2 % (42-78); TOTAL CELLS COUNTED % (AUTO) 100 %; WHITE BLOOD COUNT 9.1 10^3/uL (4.0-10.5)
[2020-03-17 23:03] LABS: ALBUMIN 3.1 g/dL (3.5-5.0); ALKALINE PHOSPHATASE 197 U/L (38-126); ASPARTATE AMINO TRANSFERASE 27 U/L (14-36); BILIRUBIN,DIRECT 0.1 mg/dL (0.0-0.4); BILIRUBIN,TOTAL 0.4 mg/dL (0.2-1.3); BLOOD UREA NITROGEN 76 mg/dL (7-20); CALCIUM 9.1 mg/dL (8.4-10.2); CARBON DIOXIDE 29 mmol/L (22-30); CHLORIDE 135 mmol/L (98-107); CREATINE KINASE 74 U/L (30-135); GLUCOSE 158 mg/dL (75-110); POTASSIUM 3.2 mmol/L (3.6-5.0); TOTAL PROTEIN 8.1 g/dL (6.3-8.2)
[2020-03-17 23:05] LABS: ANION GAP 8 (5-19)
[2020-03-17] MEDS ORDERED: NORMAL SALINE 1000 ML 1,000 ML IV ONE (23:15)
--- NOTE | 2020-03-17 23:29 | ER Document Report ---
ED General - General Chief Complaint: Altered Mental Status Stated Complaint: AMS Time Seen by Provider: 03/17/20 19:54 Mode of Arrival: Medic Notes: 84-year-old female with severe dementia, stroke with multiple deficits including weakness/right-sided contractures/dysphagia, CAD, hypertension, hyperlipidemia, atrial fibrillation, recent prior admission for failure to thrive and low volume GI bleed that resolved without endoscopy presents with altered mental status. Nighat Renner and patient to ED because patient seemed less alert than she usually is. Patient is nonverbal times baseline of many years. Was discharged recently on nectar thick foods which patient has been refusing also say that patient is "pocketing" food. Spoke to patient's daughter who says that patient has been doing worse since 2006. Daughter unaware of any recent symptoms. Daughter wants patient to remain full code and is not interested in palliative care/hospice at this time. History limited by patient nonverbal baseline funct ional status. TRAVEL OUTSIDE OF THE [place] IN LAST 30 DAYS: No - Related Data Allergies/Adverse Reactions: No Known Allergies Allergy (Verified 10/27/19 04:52) Home Medications: B12, Iron, Levothyroxine, Omeprazole, Vitamin C, Ipratropium [place]/Albuterol, Mylanta, Mucinex, Mylanta, Phenergan, Coreg, Nitro PRN, Acetaminophen, Bisacodyl, Calcium Carbonate, Carvedilol Past Medical History - General Information source: Relative, Transfer Record, Emergency Med Personnel, [facility] Records, Outside Facility Records - Social History Smoking Status: Unknown if Ever Smoked Family History: Reviewed & Not Pertinent - Past Medical History Cardiac Medical History: Reports: Hx Atrial Fibrillation, Hx Coronary Artery Disease, Hx Hypercholesterolemia, Hx Hypertension Denies: Hx Heart Attack Pulmonary Medical History: Denies: Hx Asthma, Hx Bronchitis, Hx COPD, Hx Pneumonia Neurological Medical History: Denies: Hx Cerebrovascular Accident, Hx Seizures Endocrine Medical History: Reports: Hx Diabetes Mellitus Type 2 Renal/ Medical History: Denies: Hx Peritoneal Dialysis GI Medical History: Reports: Hx Gastroesophageal Reflux Disease Musculoskeletal Medical History: Reports Hx Arthritis, Reports Hx Musculoskeletal Deformity, Reports Hx Musculoskeletal Trauma Psychiatric Medical History: Reports: Hx Anxiety, Hx Dementia, Hx Depression, Hx Schizoaffective Disorder, Hx Schizophrenia - Immunizations Immunizations up to date: Yes Hx Diphtheria, Pertussis, Tetanus Vaccination: Yes Hx Pneumococcal Vaccination: 06/14/12 Review of Systems - Review of Systems -: Yes ROS unobtainable due to patient's medical condition Physical Exam - Vital signs Vitals: Resp 23 H 03/17/20 18:05 - Notes Notes: PHYSICAL EXAMINATION: GENERAL: Chronically ill appearing skin elderly woman in no acute distress HEAD: Atraumatic, normocephalic. EYES: Pupils equal round and appropriate constriction, sclera anicteric, conjunctiva are normal. ENT: nares patent, dry mucosa NECK: Normal range of motion, supple without lymphadenopathy LUNGS: Breath sounds clear to auscultation bilaterally and equal. No wheezes rales or rhonchi. HEART: Regular rate and rhythm without murmurs ABDOMEN: Soft, nontender, no guarding, no masses, no CVAT, diaper in place, no stool in diaper EXTREMITIES: Significant contractures of bilateral legs and right arm, ulcer on left distal lateral foot approximately 1 cm round with clean base to muscle, no discharge, no foul odor, no surrounding skin erythema/abnormal warmth/induration NEUROLOGICAL: Opens eyes spontaneously, moans occasionally, nonverbal SKIN: Warm, Dry, poor turgor Course - Re-evaluation Re-evalutation: 03/17/20 23:47 Patient with failure to thrive with low functional status at baseline unable to give additional history, rule out intracranial hemorrhage, electrolyte ab normalities, occult sepsis secondary to pneumonia versus urosepsis versus Covid, atypical ACS. Given that patient is unable to take p.o. at shelter and next of kin is not interested in palliative care at this time will admit patient for likely PEG tube versus additional goals of care discussion and hospice. Patient found to have significantly elevated sodium to 171 with hypokalemia, severely elevated BUN with normal creatinine, possibly secondary to upper GI bleed given high BUN to creatinine ratio but no active bleeding at this time, hemoglobin stable from prior discharge. Discussed case with Dr. Quiñonez who has accepted patient to IMCU. Have started hydration. Will hold antibiotics at this time given equivocal chest x-ray equivocal UTI, no leukocytosis, no fever, and severe dehydration and hypernatremia adequately explain patient's change in mental status. Will defer to inpatient team to readdress need for antibiotics should patient's clinical picture change during admission. - Vital Signs Vital signs: Temp Pulse Resp BP Pulse Ox 98.7 F 82 15 112/81 97 12/23/20 06:01 03/17/20 18:55 03/18/20 06:01 03/18/20 06:00 03/18/20 06:01 - Laboratory Results Result Diagrams: 03/17/20 22:14 03/18/20 05:52 Laboratory Results Interpreted: 03/17/20 03/17/20 03/17/20 18:20 22:14 22:14 Hgb 11.0 L Hct 34.7 L MCHC 31.8 L RDW 16.4 H PT APTT Sodium 171.6 H* Potassium 3.2 L Chloride 135 H BUN 76 H Est GFR ( Amer) 59 L Est GFR (MDRD) Non-Af 49 L Glucose 158 H Alkaline Phosphatase 197 H Albumin 3.1 L Urine Protein 30 H Urine Urobilinogen 2.0 H Ur Leukocyte Esterase MODERATE H Urine Ascorbic Acid 40 H 03/17/20 22:14 Hgb Hct MCHC RDW PT 17.9 H APTT 39.1 H Sodium Potassium Chloride BUN Est GFR ( Amer) Est GFR (MDRD) Non-Af Glucose Alkaline Phosphatase Albumin Urine Protein Urine Urobilinogen Ur Leukocyte Esterase Urine Ascorbic Acid Critical Laboratory Results Reviewed: Yes Attending or Supervising Physician who Reviewed Labs: MARGO EDMOND - Radiology Results Critical Radiology Results Reviewed: No Critical Results - EKG Interpretation by Me Additional EKG results interpreted by me: 03/18/20 07:08 Sinus rhythm, no significant ST elevations or depressions, no significant T wave abnormalities Discharge - Discharge Clinical Impression: Dehydration, Hypernatremia Failure to thrive Qualifiers: Failure to thrive age range: in adult Qualified Code(s): R62.7 - Adult failure to thrive Disposition: ADMITTED INPATIENT Admitting Provider: Olamide (Hospitalist) Unit Admitted: [facility]
[2020-03-17 23:34] LABS: INTERNATIONAL RATION (INR) 1.46; PROTHROMBIN TIME 17.9 SEC (11.4-15.4)
[2020-03-17 23:35] LABS: PARTIAL THROMBOPLASTIN TIME 39.1 SEC (23.5-35.8)
[2020-03-17] MEDS: POTASSI CL 20 MEQ/50 ML RIDER 20 MEQ/50 ML RTUPB IV SCH (23:39)
[2020-03-18] MEDS ORDERED: OXYCODONE-ACETAMINOPHEN 5-325 MG TABLET PO PRN (00:44)
[2020-03-18] MEDS ORDERED: ACETAMINOPHEN 325 MG TABLET PO PRN (00:44)
[2020-03-18] MEDS ORDERED: DEXTROSE 5%-WATER 1000 ML 1,000 ML IV PRN ×3 (00:44→18:04)
[2020-03-18] MEDS ORDERED: PROMETHAZINE HCL INJ 25 MG/1 ML VIAL IV PRN (00:44)
[2020-03-18] MEDS ORDERED: TEMAZEPAM 7.5 MG CAPSULE PO PRN (00:44)
[2020-03-18] MEDS ORDERED: DEXTROSE 40% GEL 15 GM TUBE PO PRN ×2 (00:44)
[2020-03-18] MEDS ORDERED: MAG HYDROX/AL HYDROX/SIMETH SUSP 30 ML UDCUP PO PRN (00:44)
[2020-03-18] MEDS ORDERED: ONDANSETRON HCL INJ/PF 4 MG/2 ML SDV IV PRN (00:44)
[2020-03-18] MEDS ORDERED: GLUCAGON,HUMAN RECOMB 1 MG INJ SUBCUT PRN (00:44)
[2020-03-18] MEDS ORDERED: DEXTROSE 50%-WATER 25 GM/50 ML DISP.SYRIN IV PRN ×2 (00:44)
[2020-03-18] MEDS ORDERED: IPRATROPIUM/ALBUTEROL 0.5-2.5 MG/3 ML AMPUL NEB PRN (00:44)
[2020-03-18] MEDS: POTASSI CL 20 MEQ/50 ML RIDER 20 MEQ/50 ML RTUPB IV SCH (01:19)
--- NOTE | 2020-03-18 03:40 | PDOC H&P ---
History of Present Illness Admission Date/PCP: 03/17/20 23:31 BETTY SIMENTAL MD History of Present Illness: SURINDER NORTON is a 84 year old female past medical history of severe dementia, atrial fibrillation, depression, schizoaffective disorder, dysphagia, CAD, hypertension, hyperlipidemia, who is a resident of [facility] and is bedbound and nonverbal at baseline brought to ED for changes in mental status. As per my conversation with ED physician who had received report from [facility] patient was noted to be less alert than her baseline. On my encounter patient looks severely dehydrated and malnourished with contractures, patient is awake but unfortunately does not follow commands or communicate. In ED she was noted to have severe hypernatremia, hypokalemia, UTI, CT head did not show any acute abnormality except for diffuse global volume loss with dilated ventricles. Chest x-ray showed right infrahilar infiltration. Hospitalist was consulted for admission. Past Medical History Cardiac Medical History: Reports: Atrial Fibrillation, Coronary Artery Disease, Hyperlipidema, Hypertension Denies: Myocardial Infarction Pulmonary Medical History: Denies: Asthma, Bronchitis, Chronic Obstructive Pulmonary Disease (COPD), Pneumonia Neurological Medical History: Denies: Seizures Endocrine Medical History: Reports: Diabetes Mellitus Type 2 GI Medical History: Reports: Gastroesophageal Reflux Disease Musculoskeltal Medical History: Reports: Arthritis Psychiatric Medical History: Reports: Dementia, Depression, Schizoaffective Disorder Hematology: Reports: Anemia Social History Smoking Status: Unknown if Ever Smoked Frequency of Alcohol Use: None Hx Recreational Drug Use: No Hx Prescription Drug Abuse: No Family History Family History: Reviewed & Not Pertinent Parental Family History Reviewed: Yes Children Family History Reviewed: Yes Sibling(s) Family History Reviewed.: Yes Medication/Allergy Home Medications: Amlodipine Besylate [Norvasc 5 mg Tablet] 5 mg PO DAILY 10/27/19 Ascorbic Acid 500 mg PO BID 10/27/19 Calcium Carbonate/Vitamin D3 [Calcium 600-Vit D3 400 Tablet] 1 each PO DAILY 10/27/19 Carvedilol [Coreg 6.25 mg Tablet] 6.25 mg PO Q12 10/27/19 Cyanocobalamin (Vitamin B-12) [B-12] 1,000 mcg PO DAILY 10/27/19 Ferrous Sulfate [Feosol 325 mg Tablet] 325 mg PO DAILY 10/27/19 Levothyroxine Sodium [Synthroid 0.025 mg Tablet] 25 mcg PO DAILY 10/27/19 Multivit-Min/FA/Lycopen/Lutein [Certavite Sr-Antioxidant Tab] 1 each PO DAILY 10/27/19 Omeprazole 20 mg PO DAILY 10/27/19 Loperamide HCl [Imodium 2 mg Capsule] 2 mg PO Q6HP PRN capsule 11/04/19 Allergies/Adverse Reactions: No Known Allergies Allergy (Verified 10/27/19 04:52) Review of Systems ROS unobtainable: Due to mental status Physical Exam Vital Signs: Temp Pulse Resp BP Pulse Ox 98.6 F 82 23 H 116/68 96 03/17/20 18:25 03/17/20 18:55 03/17/20 23:01 03/17/20 23:01 03/17/20 23:01 Intake & Output 03/16/20 03/17/20 03/18/20 06:59 06:59 06:59 Intake Total 1100 Balance 1100 Weight 41.5 kg General appearance: PRESENT: thin, other - Severely malnourished with contractures. Head exam: PRESENT: atraumatic, normocephalic Neck exam: ABSENT: carotid bruit, JVD, lymphadenopathy, thyromegaly Respiratory exam: PRESENT: clear to auscultation almaz. ABSENT: rales, rhonchi, wheezes Cardiovascular exam: PRESENT: RRR. ABSENT: diastolic murmur, rubs, systolic murmur GI/Abdominal exam: PRESENT: firm, hypoactive bowel sounds, soft. ABSENT: distended, guarding, mass, organolmegaly, rebound, tenderness Extremities exam: PRESENT: full ROM. ABSENT: calf tenderness, clubbing, pedal edema Neurological exam: PRESENT: awake, other - Nonverbal, does not respond to verbal or tactile stimulation. 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 Skin exam: PRESENT: dry - Severely dry skin., intact Results Laboratory Results: 03/17/20 22:14 03/17/20 22:14 03/17/20 03/17/20 03/17/20 18:20 22:14 22:14 WBC 9.1 RBC 4.01 Hgb 11.0 L Hct 34.7 L MCV 87 MCH 27.5 MCHC 31.8 L RDW 16.4 H Plt Count 153 Seg Neutrophils % 73.2 Sodium 171.6 H* Potassium 3.2 L Chloride 135 H Carbon Dioxide 29 Anion Gap 8 BUN 76 H Creatinine 1.07 Est GFR ( Amer) 59 L Glucose 158 H Calcium 9.1 Total Bilirubin 0.4 AST 27 Alkaline Phosphatase 197 H Total Protein 8.1 Albumin 3.1 L TSH Urine Color EZ Urine Appearance CLOUDY Urine pH 5.0 Ur Specific [place] 1.024 Urine Protein 30 H Urine Glucose (UA) NEGATIVE Urine Ketones NEGATIVE Urine Blood NEGATIVE Urine Nitrite NEGATIVE Ur Leukocyte Esterase MODERATE H Urine WBC (Auto) 38 Urine RBC (Auto) 51 03/17/20 22:14 WBC RBC Hgb Hct MCV MCH MCHC RDW Plt Count Seg Neutrophils % Sodium Potassium Chloride Carbon Dioxide Anion Gap BUN Creatinine Est GFR ( Amer) Glucose Calcium Total Bilirubin AST Alkaline Phosphatase Total Protein Albumin TSH 4.20 Urine Color Urine Appearance Urine pH Ur Specific [place] Urine Protein Urine Glucose (UA) Urine Ketones Urine Blood Urine Nitrite Ur Leukocyte Esterase Urine WBC (Auto) Urine RBC (Auto) 03/17/20 03/17/20 22:14 22:14 Creatine Kinase 74 Troponin I 0.024 Impressions: Chest X-Ray 03/17/20 20:44 IMPRESSION: Mild right infrahilar infiltration, inflammation, or edema. copyright 2010 [employer]- All Rights Reserved Head CT 03/17/20 20:45 IMPRESSION: 1. No intracranial hemorrhage or mass lesion. 2. Diffuse global volume loss with ventricles dilated out of proportion to the degree of volume loss. This raises the possibility of normal pressure hydrocephalus. 3. Low density in the periventricular white matter is consistent with small vessel ischemic change. The appearance is stable. Assessment and Plan - Diagnosis (1) Hypernatremia Is this a current diagnosis for this admission?: Yes Plan: Presented with sodium of 171.6, with water deficit of more than 10 L. This is most likely chronic is most likely due to severe dehydration due to low p.o. intake. Patient is severely demented and aphasic not sure if she is taking any p.o. intake. Patient likely a candidate for PEG tube placement but given her multiple comorbidities not sure if this will be in her best interest. This needs to be discussed with her daughter in detail with the POA. Admit to IMCU, D5W at the rate of 80 mL/h with sodium correction goal of 8 to 10 mEq in the next 24 hours. Every 6 BMP, seizure precautions. (2) Acute metabolic encephalopathy Is this a current diagnosis for this admission?: Yes Plan: Likely due to severe dehydration and UTI. Patient at baseline is nonverbal and noncommunicative but as per care home report patient was noted to be less alert today. Continue treating underlying metabolic abnormalities and UTI. Supportive measures. (3) Dehydration Is this a current diagnosis for this admission?: Yes Plan: Severe hyponatremia with water deficit of more than 10 L. Most likely due to low p.o. intake. At baseline patient has severe aphasia and dementia and tolerates only pured diet, as per chart review patient has history of refusing p.o. intake. Plan as per #1. (4) A-fib Qualifiers: Atrial fibrillation type: longstanding persistent Qualified Code(s): I48.11 - Longstanding persistent atrial fibrillation Is this a current diagnosis for this admission?: Yes Plan: History of chronic persistent A. fib. Not anticoagulated. Rate controlled. Resume home meds. Monitor vitals. Outpatient PCP and cardiology follow-up. (5) Dementia Is this a current diagnosis for this admission?: Yes Plan: Continue supportive measures. (6) Hypokalemia Is this a current diagnosis for this admission?: Yes Plan: Likely due to his low p.o. intake. No acute EKG changes. Hypokalemia protocol. (7) Protein-energy malnutrition Qualifiers: Protein-calorie malnutrition severity: severe Qualified Code(s): E43 - Unspecified severe protein-calorie malnutrition Is this a current diagnosis for this admission?: Yes Plan: Severe malnutrition, most likely due to low p.o. intake. Patient has history of aphasia dementia and dysphagia can only tolerate pured diet but has history of refusing p.o. intake. Patient will need other route of nutrition if p.o. is not an option. This has to be extensively discussed with patient's daughter who is the POA keeping in mind patient's multiple comorbidities and poor prognosis. Follow-up prealbumin. Follow-up registered dietitian recommendations. (8) UTI (urinary tract infection) Qualifiers: Urinary tract infection type: site unspecified Hematuria presence: without hematuria Qualified Code(s): N39.0 - Urinary tract infection, site not specified Is this a current diagnosis for this admission?: Yes Plan: Likely due to gram-negative rods including E. coli. Empiric broad-spectrum IV antibiotics to be transition to p.o. antibiotics. Follow-up urine culture. - Time Time Spent with patient: 35 or more minutes Medications reviewed and adjusted accordingly: Yes Anticipated Discharge Disposition: [facility] Facility Anticipated Discharge Timeframe: within 72 hours
[2020-03-18] MEDS ORDERED: CEFTRIAXONE 1 GM/D5W RTU 1 GM/50 ML RTUPB IV ONE (04:00)
[2020-03-18] MEDS ORDERED: METOPROLOL TARTRATE PF/INJ 5 MG/5 ML SDV IV PRN (04:02)
[2020-03-18] MEDS ORDERED: HYDRALAZINE HCL INJ/PF 20 MG/1 ML SDV IV PRN (04:02)
[2020-03-18] MEDS: HEPARIN SOD (PORCINE) 5,000 UNIT/ML 1 ML VIAL SUBCUT SCH ×3 (06:34→21:49)
[2020-03-18 06:50] LABS: ANION GAP 9 (5-19); BLOOD UREA NITROGEN 67 mg/dL (7-20); CALCIUM 8.9 mg/dL (8.4-10.2); CARBON DIOXIDE 24 mmol/L (22-30); CHLORIDE 140 mmol/L (98-107); GLUCOSE 155 mg/dL (75-110); POTASSIUM 3.9 mmol/L (3.6-5.0)
--- NOTE | 2020-03-18 07:21 | EKG REPORT ---
SEVERITY:- ABNORMAL ECG - SINUS RHYTHM LOW VOLTAGE IN FRONTAL LEADS BORDERLINE PROLONGED QT INTERVAL NONSPECIFIC ST-T CHANGES INFERIOR LEADS : Confirmed by: Luis Mak MD 18-Mar-2020 07:20:59
[2020-03-18] MEDS ORDERED: FAMOTIDINE INJ/PF 20 MG/2 ML SDV IV SCH (10:00)
[2020-03-18] MEDS ORDERED: DOCUSATE SODIUM 100 MG CAPSULE PO SCH (10:00)
[2020-03-18 15:27] LABS: ANION GAP 10 (5-19); BLOOD UREA NITROGEN 63 mg/dL (7-20); CALCIUM 9.1 mg/dL (8.4-10.2); CARBON DIOXIDE 23 mmol/L (22-30); CHLORIDE 140 mmol/L (98-107); GLUCOSE 202 mg/dL (75-110)
--- NOTE | 2020-03-18 19:08 | Progress Note ---
Provider Note Provider Note: SURINDER NORTON is an 84 year old female with past medical history of severe, advanced, end-stage dementia, atrial fibrillation, depression, schizoaffective disorder, dysphagia, CAD, hypertension, hyperlipidemia, who is a resident of [facility] and is bedbound and nonverbal at baseline, who was brought to ED for "altered mental status." [facility] reported that she seemed to be less alert than her baseline, although her baseline mental status is quite poor. I agree with Dr. Quiñonez that she appears severely dehydrated and cachectic with severe protein-calorie malnutrition and contractures. She awakens to voice, but does not follow commands or communicate. She can not eat or drink. She is clearly at the end of life and hospice-appropriate. I have been unable to get a hold of family today unfortunately, but will try again to discuss goals of care tomorrow. For now, she is on D5W and rate has been increased to 200 ml/hr given progressively worsening hypernatremia. BUN/Cr are improving with IVF. Fuentes catheter was placed for output measurement.
[2020-03-18] MEDS ORDERED: CEFTRIAXONE 1 GM/D5W RTU 1 GM/50 ML RTUPB IV SCH (22:00)
[2020-03-18 22:21] LABS: ANION GAP 9 (5-19); BLOOD UREA NITROGEN 56 mg/dL (7-20); CALCIUM 8.5 mg/dL (8.4-10.2); CARBON DIOXIDE 25 mmol/L (22-30); CHLORIDE 132 mmol/L (98-107); GLUCOSE 244 mg/dL (75-110); POTASSIUM 3.3 mmol/L (3.6-5.0)
[2020-03-19 01:23] LABS: ANION GAP 9 (5-19); BLOOD UREA NITROGEN 46 mg/dL (7-20); CALCIUM 8.4 mg/dL (8.4-10.2); CARBON DIOXIDE 23 mmol/L (22-30); CHLORIDE 129 mmol/L (98-107); GLUCOSE 316 mg/dL (75-110)
[2020-03-19 01:27] LABS: POTASSIUM 2.9 mmol/L (3.6-5.0)
[2020-03-19] MEDS ORDERED: POTASSIUM CHLORIDE 20 MEQ/50 ML RTU IV ONE ×2 (01:45→03:45)
[2020-03-19] MEDS ORDERED: DEXTROSE 5%-WATER 1000 ML 1,000 ML IV PRN ×2 (02:00→15:03)
[2020-03-19] MEDS: HEPARIN SOD (PORCINE) 5,000 UNIT/ML 1 ML VIAL SUBCUT SCH ×2 (05:37→16:27)
[2020-03-19 06:32] LABS: HEMATOCRIT 27.2 % (36.0-47.0); MEAN CORPUSCULAR HEMOGLOBIN 27.8 pg (27.0-33.4); MEAN CORPUSCULAR HGB CONC 32.6 g/dL (32.0-36.0); MEAN CORPUSCULAR VOLUME 85 fl (80-97); PLATELET COUNT 106 10^3/uL (150-450); WHITE BLOOD COUNT 5.6 10^3/uL (4.0-10.5)
[2020-03-19 07:51] LABS: HEMOGLOBIN 8.9 g/dL (12.0-15.5)
[2020-03-19 07:56] LABS: ABSOLUTE LYMPHOCYTES# (MANUAL) 2.5 10^3/uL (0.5-4.7); BASOPHILS % (MANUAL) 1 % (0-2); EOSINOPHILS % (MANUAL) 6 % (0-6); LYMPHOCYTES % (MANUAL) 42 % (13-45); MONOCYTES % (MANUAL) 0 % (3-13); SEGMENTED NEUTROPHILS % (MAN) 49 % (42-78); TOTAL CELLS COUNTED 100
[2020-03-19 07:57] LABS: PLATELET COMMENT DECREASED
[2020-03-19 07:58] LABS: ANISOCYTOSIS 1+
--- NOTE | 2020-03-19 08:12 | EKG REPORT ---
SEVERITY:- ABNORMAL ECG - SINUS RHYTHM LEFT AXIS DEVIATION BORDERLINE PROLONGED QT INTERVAL NONSPECIFIC ST-T CHANGES : Confirmed by: Luis Mak MD 19-Mar-2020 08:11:39
[2020-03-19 08:34] LABS: ANION GAP 7 (5-19); BLOOD UREA NITROGEN 42 mg/dL (7-20); CALCIUM 8.3 mg/dL (8.4-10.2); CARBON DIOXIDE 24 mmol/L (22-30); CHLORIDE 124 mmol/L (98-107); GLUCOSE 248 mg/dL (75-110); POTASSIUM 3.2 mmol/L (3.6-5.0)
[2020-03-19 08:44] LABS: PHOSPHORUS 1.9 mg/dL (2.5-4.5)
[2020-03-19 08:52] LABS: PREALBUMIN 6.1 mg/dL (17.6-36.0)
[2020-03-19] MEDS: POTASSI CL 20 MEQ/50 ML RIDER 20 MEQ/50 ML RTUPB IV SCH ×4 (09:01→18:23)
[2020-03-19 12:38] LABS: ANION GAP 6 (5-19); BLOOD UREA NITROGEN 35 mg/dL (7-20); CALCIUM 8.2 mg/dL (8.4-10.2); CARBON DIOXIDE 22 mmol/L (22-30); CHLORIDE 123 mmol/L (98-107); GLUCOSE 239 mg/dL (75-110); POTASSIUM 3.7 mmol/L (3.6-5.0)
--- NOTE | 2020-03-19 19:15 | ADVANCED CARE ---
- Diagnosis (1) Dementia Diagnosis Current: Yes Attendance: Hiwot Haney (daughter) Resuscitation Status: Full Code Discussion: I had a very long conversation with patient's daughter, Hiwot, on the phone. She tells me that she wants her mother to " naturally" and "in her sleep." However, she is adamant that she wants her mother to have resuscitation if her heart or lungs were to stop. I described in detail what CPR and intubation would entail, and Hiwot wants her mother to have all of those things. However, Hiwot does not want a PEG tube and tells me that her mother never would have wanted a PEG tube. I repeatedly explained that Ms. Robin is not waking up, she is bed-bound, aphasic, and unable to eat/drink. She can not live this way. She is clearly dying of end-stage dementia and without IVF and IV nutrition, she will . Hiwot tells me that she understands this and wants her mother to " naturally" without artificial nutrition. I explained that what Hiwot is describing is "comfort care" and described what hospice services would entail. Again, she was adamant that she does not want her mother to go to hospice, and wants her to be a full code, but does not want a PEG tube. I have asked Hiwot to come to the hospital to speak in person with a provider. I am concerned that she does not grasp exactly what we are talking about. She seemed extremely overwhelmed on the phone. She told me that all of her family is out of town and unable to come for a visit until next week. I warned her that her mother is at the end of her life and might pass away in the next few hours or days, and I encouraged her and her family to come see Ms. Robin CHARLES. We will need to continue ongoing goals of care conversations. Time Spent: >30 min
--- NOTE | 2020-03-19 19:26 | PDOC PROGRESS REPORT ---
Subjective Date:: 03/19/20 Subjective:: NAEO Reason For Visit: HYPERNATREMIA,AMS,FAILURE TO THRIVE Physical Exam Vital Signs: Temp Pulse Resp BP Pulse Ox 97.3 F 76 19 106/59 L 100 03/19/20 10:00 03/19/20 14:00 03/19/20 07:55 03/19/20 07:55 03/19/20 07:55 Intake & Output 03/18/20 03/19/20 03/20/20 06:59 06:59 06:59 Intake Total 1150 2716 100 Output Total 400 Balance 1150 2316 100 Weight 41.5 kg 44.8 kg 44.8 kg General appearance: PRESENT: no acute distress, thin Eye exam: ABSENT: periorbital swelling Mouth exam: PRESENT: dry mucosa Throat exam: ABSENT: post pharyngeal erythema Neck exam: ABSENT: JVD Respiratory exam: PRESENT: clear to auscultation almaz Cardiovascular exam: PRESENT: RRR GI/Abdominal exam: PRESENT: normal bowel sounds, soft. ABSENT: tenderness Gentrourinary exam: PRESENT: indwelling catheter Musculoskeletal exam: PRESENT: deformity - contractures Neurological exam: PRESENT: altered Psychiatric exam: PRESENT: flat affect Skin exam: PRESENT: intact. ABSENT: rash Results Laboratory Results: 03/19/20 05:55 03/18/20 03/19/20 03/19/20 18:36 00:17 05:55 WBC RBC Hgb Hct MCV MCH MCHC RDW Plt Count Seg Neutrophils % Sodium 165.6 H 161.1 H Potassium 3.3 L 2.9 L* Chloride 132 H 129 H Carbon Dioxide 25 23 Anion Gap 9 9 BUN 56 H 46 H Creatinine 0.70 0.71 Est GFR ( Amer) > 60 > 60 Glucose 244 H 316 H Calcium 8.5 8.4 Phosphorus Cancelled Magnesium Cancelled Prealbumin Cancelled 03/19/20 03/19/20 03/19/20 05:55 07:27 07:27 WBC 5.6 RBC 3.20 L Hgb 8.9 L D Hct 27.2 L MCV 85 MCH 27.8 MCHC 32.6 RDW 16.0 H Plt Count 106 L Seg Neutrophils % Not Reportable Sodium 155.1 H Potassium 3.2 L Chloride 124 H Carbon Dioxide 24 Anion Gap 7 BUN 42 H Creatinine 0.61 Est GFR ( Amer) > 60 Glucose 248 H Calcium 8.3 L Phosphorus 1.9 L Magnesium 1.9 Prealbumin 6.1 L 03/19/20 11:50 WBC RBC Hgb Hct MCV MCH MCHC RDW Plt Count Seg Neutrophils % Sodium 150.6 H Potassium 3.7 Chloride 123 H Carbon Dioxide 22 Anion Gap 6 BUN 35 H Creatinine 0.60 Est GFR ( Amer) > 60 Glucose 239 H Calcium 8.2 L Phosphorus Magnesium Prealbumin 03/17/20 03/17/20 22:14 22:14 Creatine Kinase 74 Troponin I 0.024 Impressions: Chest X-Ray 03/17/20 20:44 IMPRESSION: Mild right infrahilar infiltration, inflammation, or edema. copyright 2010 [email or web address]- All Rights Reserved Head CT 03/17/20 20:45 IMPRESSION: 1. No intracranial hemorrhage or mass lesion. 2. Diffuse global volume loss with ventricles dilated out of proportion to the degree of volume loss. This raises the possibility of normal pressure hydrocephalus. 3. Low density in the periventricular white matter is consistent with small vessel ischemic change. The appearance is stable. Assessment and Plan - Diagnosis (1) Dementia Is this a current diagnosis for this admission?: Yes (2) Dehydration Is this a current diagnosis for this admission?: Yes (3) Failure to thrive Qualifiers: Failure to thrive age range: in adult Qualified Code(s): R62.7 - Adult failure to thrive Is this a current diagnosis for this admission?: Yes (4) Hypernatremia Is this a current diagnosis for this admission?: Yes (5) Hypokalemia Is this a current diagnosis for this admission?: Yes (6) Protein-energy malnutrition Qualifiers: Protein-calorie malnutrition severity: severe Qualified Code(s): E43 - Unspecified severe protein-calorie malnutrition Is this a current diagnosis for this admission?: Yes (7) MARIANA (acute kidney injury) Is this a current diagnosis for this admission?: Yes - Plan Summary Summary: SURIDNER NORTON is an 84 year old female with past medical history of severe, advanced, end-stage dementia who is a resident of [facility] and is bedbound and nonverbal at baseline, who was brought to ED for "altered mental status." [facility] reported that she seemed to be less alert than her baseline, although her baseline mental status is quite poor. On admission, she was cachectic and dehydrated (Na 170), with severe protein- calorie malnutrition and contractures. She barely opens her eyes to voice, but does not follow commands or communicate. She can not eat or drink. She is clearly at the end of life and hospice-appropriate. Hypernatremia: improving. Due to no oral intake in the setting of end-stage dementia. - continue D5W at 100 ml/hr - consider switching to D51/2NS tomorrow - check Na Q6H Hypokalemia: due to lack of oral intake, improving with IV repletion - she received 120 mEq KCl today - check K Q6H Severe protein-calorie malnutrition Dysphagia - she will need a PEG tube for nutrition if family wants her to be full code but family is currently refusing PEG placement - continue goals of care conversations Dehydration Pre-renal MARIANA - resolved with IVF End-Stage Dementia: she is hospice appropriate. I have discussed comfort care measures with her family. They will benefit from ongoing goals of care discussions, especially as they do not want her to get artificial nutrition. - discharge planning consulted DVT ppx: Lovenox - Time Time Spent with patient: 35 or more minutes [facility]ticipated [facility] Anticipated Discharge Timeframe: within 48 hours
[2020-03-19 19:41] LABS: BLOOD UREA NITROGEN 30 mg/dL (7-20); CALCIUM 7.8 mg/dL (8.4-10.2); GLUCOSE 204 mg/dL (75-110)
[2020-03-19 19:47] LABS: CARBON DIOXIDE 23 mmol/L (22-30); CHLORIDE 117 mmol/L (98-107)
[2020-03-19 19:50] LABS: ANION GAP 5 (5-19)
[2020-03-19 20:18] LABS: ABSOLUTE EOSINOPHILS # (AUTO) 0.3 10^3/uL (0.0-0.6); ABSOLUTE LYMPHOCYTES (AUTO) 1.6 10^3/uL (0.5-4.7); ABSOLUTE MONOCYTES (AUTO) 0.2 10^3/uL (0.1-1.4); BASOPHILS % (AUTO) 0.7 % (0-2); EOSINOPHILS % (AUTO) 5.7 % (0-6); HEMATOCRIT 26.7 % (36.0-47.0); HEMOGLOBIN 8.7 g/dL (12.0-15.5); LYMPHOCYTES % (AUTO) 30.5 % (13-45); MEAN CORPUSCULAR HEMOGLOBIN 27.4 pg (27.0-33.4); MEAN CORPUSCULAR HGB CONC 32.4 g/dL (32.0-36.0); MEAN CORPUSCULAR VOLUME 85 fl (80-97); MONOCYTES % (AUTO) 3.6 % (3-13); PLATELET COUNT 105 10^3/uL (150-450); RED BLOOD COUNT 3.15 10^6/uL (3.72-5.28); RED CELL DISTRIBUTION WIDTH 16.2 % (11.5-14.0); SEGMENTED NEUTROPHILS % (AUTO) 59.5 % (42-78); TOTAL CELLS COUNTED % (AUTO) 100 %; WHITE BLOOD COUNT 5.1 10^3/uL (4.0-10.5)
[2020-03-19] MEDS ORDERED: DEXTROSE 5%-1/2 NORMAL SALINE 1,000 ML IV PRN (20:40)
[2020-03-20 06:34] LABS: HEMATOCRIT 27.6 % (36.0-47.0); HEMOGLOBIN 9.1 g/dL (12.0-15.5); MEAN CORPUSCULAR HEMOGLOBIN 27.9 pg (27.0-33.4); MEAN CORPUSCULAR HGB CONC 32.9 g/dL (32.0-36.0); MEAN CORPUSCULAR VOLUME 85 fl (80-97); PLATELET COUNT 112 10^3/uL (150-450); RED BLOOD COUNT 3.25 10^6/uL (3.72-5.28); RED CELL DISTRIBUTION WIDTH 15.8 % (11.5-14.0); WHITE BLOOD COUNT 4.4 10^3/uL (4.0-10.5)
[2020-03-20 07:04] LABS: ANION GAP 8 (5-19); BLOOD UREA NITROGEN 23 mg/dL (7-20); CALCIUM 8.3 mg/dL (8.4-10.2); CARBON DIOXIDE 21 mmol/L (22-30); CHLORIDE 118 mmol/L (98-107); GLUCOSE 95 mg/dL (75-110); POTASSIUM 3.7 mmol/L (3.6-5.0)
[2020-03-20 08:49] LABS: ABSOLUTE LYMPHOCYTES# (MANUAL) 1.5 10^3/uL (0.5-4.7); ABSOLUTE MONOCYTES # (MANUAL) 0.2 10^3/uL (0.1-1.4); BAND NEUTROPHILS % (MANUAL) 1 % (3-5); BASOPHILS % (MANUAL) 0 % (0-2); EOSINOPHILS % (MANUAL) 5 % (0-6); LYMPHOCYTES % (MANUAL) 34 % (13-45); MONOCYTES % (MANUAL) 5 % (3-13); NUCLEATED RED BLOOD CELLS 1 /100 WBC (0); SEGMENTED NEUTROPHILS % (MAN) 55 % (42-78); TOTAL CELLS COUNTED 100
[2020-03-20 08:50] LABS: ANISOCYTOSIS SLIGHT; PLATELET COMMENT DECREASED
[2020-03-20] MEDS ORDERED: DEXTROSE 5%-WATER 1000 ML 1,000 ML with POTASSIUM CHLORIDE 40 MEQ IV PRN ×2 (09:56)
[2020-03-20] MEDS: ENOXAPARIN SODIUM INJ 30 MG/0.3 ML DISP.SYRIN SUBCUT SCH (10:07)
--- NOTE | 2020-03-20 10:21 | PDOC PROGRESS REPORT ---
Subjective Date:: 03/20/20 Subjective:: Patient does initiate eye contact, maintain eye contact. She did follow the com louann to stick out her tongue but did not have any verbal answers to questions. Nursing reports no acute changes overnight. Reason For Visit: HYPERNATREMIA,AMS,FAILURE TO THRIVE Physical Exam Vital Signs: Temp Pulse Resp BP Pulse Ox 98.0 F 89 22 H 119/77 96 03/20/20 07:58 03/20/20 07:58 03/20/20 07:58 03/20/20 07:58 03/20/20 07:58 Intake & Output 03/19/20 03/20/20 03/21/20 06:59 06:59 06:59 Intake Total 2716 150 Output Total 400 1925 Balance 2316 -1775 Weight 44.8 kg 45.8 kg General appearance: PRESENT: no acute distress - Difficult to assess. Could be mild distress., thin, well-developed Head exam: PRESENT: atraumatic, normocephalic Ear exam: PRESENT: normal external ear exam. ABSENT: bleeding, drainage Mouth exam: PRESENT: moist. ABSENT: tongue midline - Appears to deviate to the right Respiratory exam: PRESENT: clear to auscultation almaz, symmetrical, unlabored. ABSENT: rales, rhonchi, tachypnea, wheezes Cardiovascular exam: PRESENT: RRR, +S1, +S2. ABSENT: bradycardia, diastolic murmur, irregular rhythm, systolic murmur, tachycardia GI/Abdominal exam: PRESENT: normal bowel sounds, soft. ABSENT: distended, tenderness Rectal exam: PRESENT: deferred Extremities exam: PRESENT: pedal edema - Possible trace Musculoskeletal exam: PRESENT: other - Contracted in all 4 extremities. ABSENT: ambulatory Neurological exam: PRESENT: alert, awake, oriented to person - She did initially respond to her name. Unable to further assess., aphasic Psychiatric exam: PRESENT: flat affect. ABSENT: agitated, anxious Focused psych exam: ABSENT: delusional, paranoid, restlessness Skin exam: PRESENT: dry, normal color, warm Results Laboratory Results: 03/20/20 05:55 03/20/20 05:55 03/19/20 03/19/20 03/19/20 11:50 18:35 20:08 WBC 5.1 RBC 3.15 L Hgb 8.7 L Hct 26.7 L MCV 85 MCH 27.4 MCHC 32.4 RDW 16.2 H Plt Count 105 L Seg Neutrophils % 59.5 Sodium 150.6 H 145.3 H Potassium 3.7 4.0 Chloride 123 H 117 H Carbon Dioxide 22 23 Anion Gap 6 5 BUN 35 H 30 H Creatinine 0.60 0.55 Est GFR ( Amer) > 60 > 60 Glucose 239 H 204 H Calcium 8.2 L 7.8 L Magnesium 03/20/20 03/20/20 05:55 05:55 WBC 4.4 RBC 3.25 L Hgb 9.1 L Hct 27.6 L MCV 85 MCH 27.9 MCHC 32.9 RDW 15.8 H Plt Count 112 L Seg Neutrophils % Not Reportable Sodium 147.4 H Potassium 3.7 Chloride 118 H Carbon Dioxide 21 L Anion Gap 8 BUN 23 H Creatinine 0.51 L Est GFR ( Amer) > 60 Glucose 95 Calcium 8.3 L Magnesium 1.6 03/17/20 03/17/20 22:14 22:14 Creatine Kinase 74 Troponin I 0.024 Impressions: Chest X-Ray 03/17/20 20:44 IMPRESSION: Mild right infrahilar infiltration, inflammation, or edema. copyright 2010 [employer]- All Rights Reserved Head CT 03/17/20 20:45 IMPRESSION: 1. No intracranial hemorrhage or mass lesion. 2. Diffuse global volume loss with ventricles dilated out of proportion to the degree of volume loss. This raises the possibility of normal pressure hydrocephalus. 3. Low density in the periventricular white matter is consistent with small vessel ischemic change. The appearance is stable. Assessment and Plan - Diagnosis (1) UTI (urinary tract infection) due to Enterococcus Is this a current diagnosis for this admission?: Yes (2) Dehydration Is this a current diagnosis for this admission?: Yes (3) Hypernatremia Is this a current diagnosis for this admission?: Yes (4) Hypokalemia Is this a current diagnosis for this admission?: Yes (5) Dementia Qualifiers: Dementia type: unspecified type Is this a current diagnosis for this admission?: Yes (6) Failure to thrive Qualifiers: Failure to thrive age range: in adult Qualified Code(s): R62.7 - Adult failure to thrive Is this a current diagnosis for this admission?: Yes (7) MARIANA (acute kidney injury) Is this a current diagnosis for this admission?: Yes (8) Protein-energy malnutrition Qualifiers: Protein-calorie malnutrition severity: severe Qualified Code(s): E43 - Unspecified severe protein-calorie malnutrition Is this a current diagnosis for this admission?: Yes (9) Prerenal azotemia Is this a current diagnosis for this admission?: Yes - Plan Summary Summary: SURINDER NORTON is an 84 year old female with past medical history of severe, advanced, end-stage dementia who is a resident of [facility] and is bedbound and nonverbal at baseline, who was brought to ED for "altered mental status." [facility] reported that she seemed to be less alert than her baseline, although her baseline mental status is quite poor. On admission, she was cachectic and dehydrated (Na 170), with severe protein- calorie malnutrition and contractures. She barely opens her eyes to voice, but does not follow commands or communicate. She can not eat or drink. She is clearly at the end of life and hospice-appropriate. Hypernatremia: improving. Due to no oral intake in the setting of end-stage dementia. - continue D5W at 100 ml/hr - consider switching to D51/2NS tomorrow - check Na Q6H Hypokalemia: due to lack of oral intake, improving with IV repletion - she received 120 mEq KCl today - check K Q6H Severe protein-calorie malnutrition Dysphagia - she will need a PEG tube for nutrition if family wants her to be full code but family is currently refusing PEG placement - continue goals of care conversations Dehydration Pre-renal MARIANA - resolved with IVF End-Stage Dementia: she is hospice appropriate. I have discussed comfort care measures with her family. They will benefit from ongoing goals of care discussions, especially as they do not want her to get artificial nutrition. - discharge planning consulted DVT ppx: Lovenox 03/20/2020 Final culture and sensitivity available from her urine submitted on admission. She does have greater than 100,000 colony-forming units per milliliter of Enterococcus faecalis. It is a sensitive to ampicillin and therefore I have initiated intravenous ampicillin therapy at 500 mg every 6 hours. Hypernatremia-when switching to half-normal saline the patient serum sodium actually climbed. I am therefore switching back to D5W but have added 40 mEq of potassium chloride. I will run this at 75 mL's per hour and recheck laboratory studies. The goal would be to maintain serum potassium level as well as return serum sodium to normal. We will continue to monitor intake and output. Hypokalemia-as noted above by decreasing IV fluid I have elected to change to D5W with potassium chloride. This should help maintain potassium chloride in the normal range. Dehydration with prerenal azotemia. Serum creatinine was never elevated however the BUN was over 70 on admission. It is now down to 23. I expect it to continue to normalize with the change to D5W with potassium chloride. Severe protein calorie malnutrition-the patient has no nutrition at this time but the family has not consented to a PEG tube. I believe the PEG tube would be inappropriate in this patient with many comorbidities and a very grave prognosis. The patient is not taking anything by mouth. There is clearly a swallow safety issue. We will continue to monitor closely however the most appropriate care plan will be changing to at least DNR status with serious consideration of comfort measures only. Unfortunately the family is not understanding this treatment plan. - Time Time Spent with patient: 15-24 minutes Medications reviewed and adjusted accordingly: Yes Anticipated Discharge Disposition: Home with Hospice Anticipated Discharge Timeframe: Unknown
[2020-03-20] MEDS: AMPICILLIN SODIUM 500 MG in NORMAL SALINE 25 ML IV SCH ×2 (14:14→17:04)
[2020-03-20] MEDS: DEXTROSE 5%-WATER 1000 ML 1,000 ML with POTASSIUM CHLORIDE 40 MEQ IV PRN ×2 (15:05)
[2020-03-21] MEDS: AMPICILLIN SODIUM 500 MG in NORMAL SALINE 25 ML IV SCH ×5 (00:53→23:11)
[2020-03-21 06:02] LABS: BLOOD UREA NITROGEN 14 mg/dL (7-20); CARBON DIOXIDE 25 mmol/L (22-30); CHLORIDE 115 mmol/L (98-107); GLUCOSE 82 mg/dL (75-110); POTASSIUM 3.7 mmol/L (3.6-5.0)
[2020-03-21 06:10] LABS: ANION GAP 4 (5-19)
[2020-03-21] MEDS: ENOXAPARIN SODIUM INJ 30 MG/0.3 ML DISP.SYRIN SUBCUT SCH (09:59)
--- NOTE | 2020-03-21 12:49 | PDOC PROGRESS REPORT ---
Subjective Date:: 03/21/20 Subjective:: Patient actually opens her eyes and made eye contact. She continues to manipula te her tongue in and out of her mouth. Reason For Visit: HYPERNATREMIA,AMS,FAILURE TO THRIVE Physical Exam Vital Signs: Temp Pulse Resp BP Pulse Ox 98.3 F 103 H 15 120/91 H 95 03/21/20 11:20 03/21/20 11:20 03/21/20 11:20 03/21/20 11:20 03/21/20 11:20 Intake & Output 03/20/20 03/21/20 03/22/20 06:59 06:59 06:59 Intake Total 2150 929 Output Total 8894 8030 350 Balance 225 -531 -350 Weight 45.8 kg 45.8 kg General appearance: PRESENT: no acute distress, thin, well-developed, other - Extremities contracted Mouth exam: PRESENT: moist, other - Tongue in and out of her mouth constantly licking her lips Respiratory exam: PRESENT: clear to auscultation almaz, unlabored. ABSENT: rales, rhonchi Cardiovascular exam: PRESENT: RRR, +S1, +S2 GI/Abdominal exam: PRESENT: soft, other - Scaphoid abdomen. ABSENT: distended, tenderness Rectal exam: PRESENT: deferred Extremities exam: PRESENT: other - Decreased muscle mass. ABSENT: pedal edema Musculoskeletal exam: PRESENT: deformity - Contracted extremities. ABSENT: ambulatory Neurological exam: PRESENT: alert, awake, aphasic Psychiatric exam: PRESENT: flat affect. ABSENT: agitated, anxious Focused psych exam: ABSENT: delusional, paranoid, restlessness Results Laboratory Results: 03/20/20 05:55 03/21/20 05:10 03/21/20 05:10 Sodium 144.2 Potassium 3.7 Chloride 115 H Carbon Dioxide 25 Anion Gap 4 L BUN 14 Creatinine 0.53 Est GFR ( Amer) > 60 Glucose 82 Calcium 8.0 L Magnesium 1.5 L 03/17/20 18:20 Catheterized Urine Urine Culture - Final Enterococcus Faecalis(Group D) 03/17/20 03/17/20 22:14 22:14 Creatine Kinase 74 Troponin I 0.024 Impressions: Chest X-Ray 03/17/20 20:44 IMPRESSION: Mild right infrahilar infiltration, inflammation, or edema. copyright 2011 [employer]- All Rights Reserved Head CT 12/22/20 20:45 IMPRESSION: 1. No intracranial hemorrhage or mass lesion. 2. Diffuse global volume loss with ventricles dilated out of proportion to the degree of volume loss. This raises the possibility of normal pressure hydrocephalus. 3. Low density in the periventricular white matter is consistent with small vessel ischemic change. The appearance is stable. Assessment and Plan - Diagnosis (1) UTI (urinary tract infection) due to Enterococcus Is this a current diagnosis for this admission?: Yes (2) Dehydration Is this a current diagnosis for this admission?: Yes (3) Hypernatremia Is this a current diagnosis for this admission?: Yes (4) Hypokalemia Is this a current diagnosis for this admission?: Yes (5) Dementia Qualifiers: Dementia type: unspecified type Is this a current diagnosis for this admission?: Yes (6) Failure to thrive Qualifiers: Failure to thrive age range: in adult Qualified Code(s): R62.7 - Adult f ailure to thrive Is this a current diagnosis for this admission?: Yes (7) MARIANA (acute kidney injury) Is this a current diagnosis for this admission?: Yes (8) Protein-energy malnutrition Qualifiers: Protein-calorie malnutrition severity: severe Qualified Code(s): E43 - Unspecified severe protein-calorie malnutrition Is this a current diagnosis for this admission?: Yes (9) Prerenal azotemia Is this a current diagnosis for this admission?: Yes - Plan Summary Summary: SURINDER NORTON is an 84 year old female with past medical history of severe, advanced, end-stage dementia who is a resident of [facility] and is bedbound and nonverbal at baseline, who was brought to ED for "altered mental status." [facility] reported that she seemed to be less alert than her baseline, although her baseline mental status is quite poor. On admission, she was cachectic and dehydrated (Na 170), with severe protein-mya orie malnutrition and contractures. She barely opens her eyes to voice, but does not follow commands or communicate. She can not eat or drink. She is clearly at the end of life and hospice-appropriate. Hypernatremia: improving. Due to no oral intake in the setting of end-stage dementia. - continue D5W at 100 ml/hr - consider switching to D51/2NS tomorrow - check Na Q6H Hypokalemia: due to lack of oral intake, improving with IV repletion - she received 120 mEq KCl today - check K Q6H Severe protein-calorie malnutrition Dysphagia - she will need a PEG tube for nutrition if family wants her to be full code but family is currently refusing PEG placement - continue goals of care conversations Dehydration Pre-renal MARIANA - resolved with IVF End-Stage Dementia: she is hospice appropriate. I have discussed comfort care measures with her family. They will benefit from ongoing goals of care discussions, especially as they do not want her to get artificial nutrition. - discharge planning consulted DVT ppx: Sadiax 03/20/2020 Final culture and sensitivity available from her urine submitted on admission. She does have greater than 100,000 colony-forming units per milliliter of Enterococcus faecalis. It is a sensitive to ampicillin and therefore I have initiated intravenous ampicillin therapy at 500 mg every 6 hours. Hypernatremia-when switching to half-normal saline the patient serum sodium actually climbed. I am therefore switching back to D5W but have added 40 mEq of potassium chloride. I will run this at 75 mL's per hour and recheck laboratory studies. The goal would be to maintain serum potassium level as well as return serum sodium to normal. We will continue to monitor intake and output. Hypokalemia-as noted above by decreasing IV fluid I have elected to change to D5W with potassium chloride. This should help maintain potassium chloride in the normal range. Dehydration with prerenal azotemia. Serum creatinine was never elevated however the BUN was over 70 on admission. It is now down to 23. I expect it to continue to normalize with the change to D5W with potassium chloride. Severe protein calorie malnutrition-the patient has no nutrition at this time but the family has not consented to a PEG tube. I believe the PEG tube would be inappropriate in this patient with many comorbidities and a very grave prognosis. The patient is not taking anything by mouth. There is clearly a swallow safety issue. We will continue to monitor closely however the most appropriate care plan will be changing to at least DNR status with serious consideration of comfort measures only. Unfortunately the family is not understanding this treatment plan. 03/21/2020 Enterococcus faecalis urinary infection-currently on IV ampicillin. If patient's swallow is adequate we will change to oral administration. Hypernatremia-change in fluids have resulted in normal sodium level. Continue to monitor. Hypokalemia-serum potassium is now normal. Continue to monitor. Dehydration-resolveing with IV fluids. Severe protein calorie malnutrition-continue to offer sustenance. If swallow is unsafe then family should consider DNR status or comfort measures. The patient is severely contracted. She has not interactive verbally during any encounter with me. She does have underlying chronic dementia. Patient is long-term care resident. If tolerating oral antibiotics then return to long-term care facility most likely on Monday. - Time Time Spent with patient: Less than 15 minutes Medications reviewed and adjusted accordingly: Yes Anticipated Discharge Disposition: [facility] Facility Anticipated Discharge Timeframe: within 72 hours
[2020-03-21] MEDS: DEXTROSE 5%-WATER 1000 ML 1,000 ML with POTASSIUM CHLORIDE 40 MEQ IV PRN ×2 (13:13)
[2020-03-22] MEDS: AMPICILLIN SODIUM 500 MG in NORMAL SALINE 25 ML IV SCH ×2 (05:14→11:52)
[2020-03-22] MEDS: DEXTROSE 5%-WATER 1000 ML 1,000 ML with POTASSIUM CHLORIDE 40 MEQ IV PRN ×2 (10:26)
[2020-03-22] MEDS: ENOXAPARIN SODIUM INJ 30 MG/0.3 ML DISP.SYRIN SUBCUT SCH (11:51)
--- NOTE | 2020-03-22 12:22 | PDOC PROGRESS REPORT ---
Subjective Date:: 03/22/20 Subjective:: Does not appear to be in any discomfort. Opens her eyes with verbal stimulation . Nonverbal. Still significantly contracted. Reason For Visit: HYPERNATREMIA,AMS,FAILURE TO THRIVE Physical Exam Vital Signs: Temp Pulse Resp BP Pulse Ox 97.7 F 90 18 115/77 100 03/22/20 10:48 03/22/20 10:48 03/22/20 10:48 03/22/20 10:48 03/22/20 10:48 Intake & Output 03/21/20 03/22/20 03/23/20 06:59 06:59 06:59 Intake Total 1929 1100 Output Total 1650 650 Balance 279 450 Weight 45.8 kg 41.7 kg General appearance: PRESENT: no acute distress, thin Head exam: PRESENT: other - Temporal wasting Respiratory exam: PRESENT: clear to auscultation almaz, symmetrical, unlabored. ABSENT: prolonged expiratory phas, rales, rhonchi, tachypnea, wheezes Cardiovascular exam: PRESENT: RRR, +S1, +S2. ABSENT: bradycardia, diastolic murmur, irregular rhythm, systolic murmur, tachycardia GI/Abdominal exam: PRESENT: diminished bowel sounds, soft. ABSENT: tenderness Rectal exam: PRESENT: deferred Extremities exam: ABSENT: pedal edema Musculoskeletal exam: PRESENT: deformity - Marked contraction of extremities, other - Marked decrease in muscle mass.. ABSENT: ambulatory Neurological exam: PRESENT: alert, awake, aphasic Results Laboratory Results: 03/20/20 05:55 03/21/20 05:10 03/17/20 03/17/20 22:14 22:14 Creatine Kinase 74 Troponin I 0.024 Impressions: Chest X-Ray 03/17/20 20:44 IMPRESSION: Mild right infrahilar infiltration, inflammation, or edema. copyright 2010 [employer]- All Rights Reserved Head CT 03/17/20 20:45 IMPRESSION: 1. No intracranial hemorrhage or mass lesion. 2. Diffuse global volume loss with ventricles dilated out of proportion to the degree of volume loss. This raises the possibility of normal pressure hydrocephalus. 3. Low density in the periventricular white matter is consistent with small vessel ischemic change. The appearance is stable. Assessment and Plan - Diagnosis (1) UTI (urinary tract infection) due to Enterococcus Is this a current diagnosis for this admission?: Yes (2) Dehydration Is this a current diagnosis for this admission?: Yes (3) Hypernatremia Is this a current diagnosis for this admission?: Yes (4) Hypokalemia Is this a current diagnosis for this admission?: Yes (5) Dementia Qualifiers: Dementia type: unspecified type Is this a current diagnosis for this admission?: Yes (6) Failure to thrive Qualifiers: Failure to thrive age range: in adult Qualified Code(s): R62.7 - Adult failure to thrive Is this a current diagnosis for this admission?: Yes (7) MARIANA (acute kidney injury) Is this a current diagnosis for this admission?: Yes (8) Protein-energy malnutrition Qualifiers: Protein-calorie malnutrition severity: severe Qualified Code(s): E43 - Unspecified severe protein-calorie malnutrition Is this a current diagnosis for this admission?: Yes (9) Prerenal azotemia Is this a current diagnosis for this admission?: Yes - Plan Summary Summary: SURINDER NORTON is an 84 year old female with past medical history of severe, advanced, end-stage dementia who is a resident of [facility] and is bedbound and nonverbal at baseline, who was brought to ED for "altered mental status." [facility] reported that she seemed to be less alert than her baseline, although her baseline mental status is quite poor. On admission, she was cachectic and dehydrated (Na 170), with severe protein- calorie malnutrition and contractures. She barely opens her eyes to voice, but does not follow commands or communicate. She can not eat or drink. She is clearly at the end of life and hospice-appropriate. Hypernatremia: improving. Due to no oral intake in the setting of end-stage dem entia. - continue D5W at 100 ml/hr - consider switching to D51/2NS tomorrow - check Na Q6H Hypokalemia: due to lack of oral intake, improving with IV repletion - she received 120 mEq KCl today - check K Q6H Severe protein-calorie malnutrition Dysphagia - she will need a PEG tube for nutrition if family wants her to be full code but family is currently refusing PEG placement - continue goals of care conversations Dehydration Pre-renal MARIANA - resolved with IVF End-Stage Dementia: she is hospice appropriate. I have discussed comfort care measures with her family. They will benefit from ongoing goals of care discussions, especially as they do not want her to get artificial nutrition. - discharge planning consulted DVT ppx: Milo 03/20/2020 Final culture and sensitivity available from her urine submitted on admission. She does have greater than 100,000 colony-forming units per milliliter of Enterococcus faecalis. It is a sensitive to ampicillin and therefore I have initiated intravenous ampicillin therapy at 500 mg every 6 hours. Hypernatremia-when switching to half-normal saline the patient serum sodium actually climbed. I am therefore switching back to D5W but have added 40 mEq of potassium chloride. I will run this at 75 mL's per hour and recheck laboratory studies. The goal would be to maintain serum potassium level as well as return serum sodium to normal. We will continue to monitor intake and output. Hypokalemia-as noted above by decreasing IV fluid I have elected to change to D5W with potassium chloride. This should help maintain potassium chloride in the normal range. Dehydration with prerenal azotemia. Serum creatinine was never elevated however the BUN was over 70 on admission. It is now down to 23. I expect it to continue to normalize with the change to D5W with potassium chloride. Severe protein calorie malnutrition-the patient has no nutrition at this time but the family has not consented to a PEG tube. I believe the PEG tube would be inappropriate in this patient with many comorbidities and a very grave prognosis. The patient is not taking anything by mouth. There is clearly a swallow safety issue. We will continue to monitor closely however the most appropriate care plan will be changing to at least DNR status with serious consideration of comfort measures only. Unfortunately the family is not understanding this treatment plan. 03/21/2020 Enterococcus faecalis urinary infection-currently on IV ampicillin. If patient's swallow is adequate we will change to oral administration. Hypernatremia-change in fluids have resulted in normal sodium level. Continue to monitor. Hypokalemia-serum potassium is now normal. Continue to monitor. Dehydration-resolveing with IV fluids. Severe protein calorie malnutrition-continue to offer sustenance. If swallow is unsafe then family should consider DNR status or comfort measures. The patient is severely contracted. She has not interactive verbally during any encounter with me. She does have underlying chronic dementia. Patient is long-term care resident. If tolerating oral antibiotics then return to long-term care facility most likely on Monday. 03/22/2020 Patient is stable. No significant change. Still receiving intravenous ampicil idalmis for Enterococcus infection due to compromised swallow. Hyponatremia-sodium is now normal. Will check labs in several days. Hypokalemia-potassium is now normal. Will check labs in several days Dehydration-continue IV fluids Protein calorie malnutrition-the patient has failed swallow evaluations twice. Plan is to return to long-term care. The patient would be more appropriate for DNR status as well as palliative care consult. 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 Likely to improve but more likely to remain static or worsening. - Time Time Spent with patient: Less than 15 minutes Medications reviewed and adjusted accordingly: Yes Anticipated Discharge Disposition: [facility] Anticipated Discharge Timeframe: within 72 hours
[2020-03-22] MEDS: NORMAL SALINE IV SCH ×2 (17:34→23:23)
[2020-03-22] MEDS: AMPICILLIN SODIUM IV SCH ×2 (17:34→23:23)
[2020-03-23] MEDS: DEXTROSE 5%-WATER 1000 ML 1,000 ML with POTASSIUM CHLORIDE 40 MEQ IV PRN ×4 (05:17→23:53)
[2020-03-23] MEDS: NORMAL SALINE IV SCH ×4 (05:17→23:13)
[2020-03-23] MEDS: AMPICILLIN SODIUM IV SCH ×4 (05:17→23:13)
[2020-03-23] MEDS: ENOXAPARIN SODIUM INJ 30 MG/0.3 ML DISP.SYRIN SUBCUT SCH (09:03)
--- NOTE | 2020-03-23 14:39 | PDOC PROGRESS REPORT ---
Subjective Date:: 03/23/20 Subjective:: Patient is stable. She has been afebrile. Appears to be at baseline. Eyes ope n but noninteractive. Systemic contractures. Reason For Visit: HYPERNATREMIA,AMS,FAILURE TO THRIVE Physical Exam Vital Signs: Temp Pulse Resp BP Pulse Ox 97.4 F 83 18 131/76 H 99 03/23/20 11:11 03/23/20 11:11 03/23/20 11:11 03/23/20 11:11 03/23/20 11:11 Intake & Output 03/22/20 03/23/20 03/24/20 06:59 06:59 06:59 Intake Total 1100 1125 100 Output Total 650 550 Balance 450 575 100 Weight 41.7 kg 44.9 kg 44.9 kg General appearance: PRESENT: no acute distress, thin. ABSENT: cooperative - Unable to cooperate Respiratory exam: PRESENT: clear to auscultation almaz, symmetrical, unlabored. ABSENT: rales, rhonchi, tachypnea, wheezes Cardiovascular exam: PRESENT: RRR, +S1, +S2. ABSENT: bradycardia, diastolic murmur, irregular rhythm, systolic murmur, tachycardia GI/Abdominal exam: PRESENT: diminished bowel sounds, soft. ABSENT: tenderness Rectal exam: PRESENT: deferred Extremities exam: PRESENT: other - Decreased muscle mass. Diffuse contractures. ABSENT: pedal edema Neurological exam: PRESENT: alert, awake, aphasic Psychiatric exam: PRESENT: flat affect Focused psych exam: PRESENT: other - Unable to assess Results Laboratory Results: 03/20/20 05:55 03/21/20 05:10 03/18/20 05:52 Blood Blood Culture - Final NO GROWTH IN 5 DAYS 03/18/20 04:45 Blood Blood Culture - Final NO GROWTH IN 5 DAYS 03/17/20 03/17/20 22:14 22:14 Creatine Kinase 74 Troponin I 0.024 Impressions: Chest X-Ray 03/17/20 20:44 IMPRESSION: Mild right infrahilar infiltration, inflammation, or edema. copyright 2011 [employer]- All Rights Reserved Head CT 03/17/20 20:45 IMPRESSION: 1. No intracranial hemorrhage or mass lesion. 2. Diffuse global volume loss with ventricles dilated out of proportion to the degree of volume loss. This raises the possibility of normal pressure hydrocephalus. 3. Low density in the periventricular white matter is consistent with small vessel ischemic change. The appearance is stable. Assessment and Plan - Diagnosis (1) UTI (urinary tract infection) due to Enterococcus Is this a current diagnosis for this admission?: Yes (2) Dehydration Is this a current diagnosis for this admission?: Yes (3) Hypernatremia Is this a current diagnosis for this admission?: Yes (4) Hypokalemia Is this a current diagnosis for this admission?: Yes (5) Dementia Qualifiers: Dementia type: unspecified type Is this a current diagnosis for this admission?: Yes (6) Failure to thrive Qualifiers: Failure to thrive age range: in adult Qualified Code(s): R62.7 - Adult failure to thrive Is this a current diagnosis for this admission?: Yes (7) MARIANA (acute kidney injury) Is this a current diagnosis for this admission?: Yes (8) Protein-energy malnutrition Qualifiers: Protein-calorie malnutrition severity: severe Qualified Code(s): E43 - U nspecified severe protein-calorie malnutrition Is this a current diagnosis for this admission?: Yes (9) Prerenal azotemia Is this a current diagnosis for this admission?: Yes - Plan Summary Summary: SURINDER NORTON is an 84 year old female with past medical history of severe, advanced, end-stage dementia who is a resident of [facility] and is bedbound and nonverbal at baseline, who was brought to ED for "altered mental status." [facility] reported that she seemed to be less alert than her baseline, although her baseline mental status is quite poor. On admission, she was cachectic and dehydrated (Na 170), with severe protein- calorie malnutrition and contractures. She barely opens her eyes to voice, but does not follow commands or communicate. She can not eat or drink. She is clearly at the end of life and hospice-appropriate. Hypernatremia: improving. Due to no oral intake in the setting of end-stage dementia. - continue D5W at 100 ml/hr - consider switching to D51/2NS tomorrow - check Na Q6H Hypokalemia: due to lack of oral intake, improving with IV repletion - she received 120 mEq KCl today - check K Q6H Severe protein-calorie malnutrition Dysphagia - she will need a PEG tube for nutrition if family wants her to be full code but family is currently refusing PEG placement - continue goals of care conversations Dehydration Pre-renal MARIANA - resolved with IVF End-Stage Dementia: she is hospice appropriate. I have discussed comfort care measures with her family. They will benefit from ongoing goals of care discussions, especially as they do not want her to get artificial nutrition. - discharge planning consulted DVT ppx: Milo 03/20/2020 Final culture and sensitivity available from her urine submitted on admission. She does have greater than 100,000 colony-forming units per milliliter of Enterococcus faecalis. It is a sensitive to ampicillin and therefore I have initiated intravenous ampicillin therapy at 500 mg every 6 hours. Hypernatremia-when switching to half-normal saline the patient serum sodium actually climbed. I am therefore switching back to D5W but have added 40 mEq of potassium chloride. I will run this at 75 mL's per hour and recheck laboratory studies. The goal would be to maintain serum potassium level as well as return serum sodium to normal. We will continue to monitor intake and output. Hypokalemia-as noted above by decreasing IV fluid I have elected to change to D5W with potassium chloride. This should help maintain potassium chloride in the normal range. Dehydration with prerenal azotemia. Serum creatinine was never elevated however the BUN was over 70 on admission. It is now down to 23. I expect it to continue to normalize with the change to D5W with potassium chloride. Severe protein calorie malnutrition-the patient has no nutrition at this time but the family has not consented to a PEG tube. I believe the PEG tube would be inappropriate in this patient with many comorbidities and a very grave prognosis. The patient is not taking anything by mouth. There is clearly a swallow safety issue. We will continue to monitor closely however the most appropriate care plan will be changing to at least DNR status with serious consideration of comfort measures only. Unfortunately the family is not understanding this treatment plan. 03/21/2020 Enterococcus faecalis urinary infection-currently on IV ampicillin. If patient's swallow is adequate we will change to oral administration. Hypernatremia-change in fluids have resulted in normal sodium level. Continue to monitor. Hypokalemia-serum potassium is now normal. Continue to monitor. Dehydration-resolveing with IV fluids. Severe protein calorie malnutrition-continue to offer sustenance. If swallow is unsafe then family should consider DNR status or comfort measures. The patient is severely contracted. She has not interactive verbally during any encounter with me. She does have underlying chronic dementia. Patient is long-term care resident. If tolerating oral antibiotics then return to long-term care facility most likely on Monday. 03/22/2020 Patient is stable. No significant change. Still receiving intravenous ampicillin for Enterococcus infection due to compromised swallow. Hyponatremia-sodium is now normal. Will check labs in several days. Hypokalemia-potassium is now normal. Will check labs in several days Dehydration-continue IV fluids Protein calorie malnutrition-the patient has failed swallow evaluations twice. Plan is to return to long-term care. The patient would be more appropriate for DNR status as well as palliative care consult. 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 Likely to improve but more likely to remain static or worsening. 03/23/2020 No change clinically. Electrolyte abnormalities improved as above. Urinary tract infection with enterococci. Complete ampicillin therapy after discharge Protein calorie malnutrition-swallow is compromised. At this point ongoing care should be more at the level of palliative care or hospice. The facility has agreed to complete IV antibiotic therapy for the patient. I have already sent a prescription for the ampicillin. - Time Time Spent with patient: 15-24 minutes Medications reviewed and adjusted accordingly: Yes Anticipated Discharge [facility]position[facility] Anticipated Discharge Timeframe: within 24 hours
[2020-03-24] MEDS: NORMAL SALINE IV SCH (05:38)
[2020-03-24] MEDS: AMPICILLIN SODIUM IV SCH (05:38)
[2020-03-24] MEDS: ENOXAPARIN SODIUM INJ 30 MG/0.3 ML DISP.SYRIN SUBCUT SCH (09:17)
--- NOTE | 2020-03-24 09:24 | PDOC TRANSFER SUMMARY ---
Impression - Admit/DC Date/PCP Admission Date/Primary Care Provider: 03/17/20 23:31 BETTY SIMENTAL MD Discharge Date: 03/24/20 - Discharge Diagnosis (1) Dementia Is this a current diagnosis for this admission?: Yes (2) Dehydration Is this a current diagnosis for this admission?: Yes (3) Failure to thrive Is this a current diagnosis for this admission?: Yes (4) Hypernatremia Is this a current diagnosis for this admission?: Yes (5) Hypokalemia Is this a current diagnosis for this admission?: Yes (6) Protein-energy malnutrition Is this a current diagnosis for this admission?: Yes (7) MARIANA (acute kidney injury) Is this a current diagnosis for this admission?: Yes - Assessment Summary: SURINDER NORTON is an 84 year old female with past medical history of severe, advanced, end-stage dementia who is a resident of [facility] and is bed-bound, with contractures, and nonverbal at baseline, who was brought to ED for "altered mental status." [facility] reported that she seemed to be less alert than her baseline. On admission, she was cachectic and dehydrated (Na 170), with severe protein-calorie malnutrition and diffuse contractures. She barely opens her eyes to voice, and does not follow commands or communicate. She can not eat or drink. She is high risk for aspiration with oral intake. She is clearly at the end of life and hospice-appropriate. Hypernatremia: resolved with IVF hydration. This was due to inability to tolerate oral intake in the setting of end-stage dementia. Hypokalemia: due to inability to tolerate oral intake and resolved with IV repletion. Severe protein-calorie malnutrition and dysphagia: due to inability to tolerate oral intake. Her family adamantly refused PEG placement or artificial nutrition of any kind. She has thus been referred to hospice. Pre-renal MARIANA due to dehydration: due to inability to tolerate oral intake. Resolved with IVF hydration. Enterococcus faecalis UTI: she has completed treatment with IV antibiotics for uncomplicated cystitis. End-Stage Dementia: she is hospice appropriate. I have discussed comfort care measures with her family. They prefer for her to remain a "full code" at this time. They will benefit from ongoing goals of care discussions, especially as they do not want her to get artificial nutrition. She would benefit most from comfort care measures through a hospice agency. She may have pleasure feeds as tolerated by mouth. Otherwise, medications should be administered rectally due to concern for dysphagia. - Additional Information Resuscitation Status: Full Code Discharge Diet: Other (Comments) - pleasure feeds as tolerated by mouth Discharge Activity: Bedrest Referrals: BETTY SIMENTAL MD [Primary Care Provider] - Follow up as needed History of Present Illiness History of Present Illness: SURINDER NORTON is a 84 year old female Physical Exam Vital Signs: Temp Pulse Resp BP Pulse Ox 97.3 F 86 18 134/78 H 97 03/24/20 00:00 03/24/20 00:00 03/24/20 00:00 03/24/20 00:00 03/24/20 00:00 Intake & Output 03/23/20 03/24/20 03/25/20 06:59 06:59 06:59 Intake Total 1125 1250 Output Total 550 2090 Balance 575 -840 Weight 44.9 kg 45.7 kg Results Laboratory Results: WBC 4.4 10^3/uL (4.0-10.5) 03/20/20 05:55 RBC 3.25 10^6/uL (3.72-5.28) L 03/20/20 05:55 Hgb 9.1 g/dL (12.0-15.5) L 03/20/20 05:55 Hct 27.6 % (36.0-47.0) L 03/20/20 05:55 MCV 85 fl (80-97) 03/20/20 05:55 MCH 27.9 pg (27.0-33.4) 03/20/20 05:55 MCHC 32.9 g/dL (32.0-36.0) 03/20/20 05:55 RDW 15.8 % (11.5-14.0) H 03/20/20 05:55 Plt Count 112 10^3/uL (150-450) L 03/20/20 05:55 Lymph % (Auto) Not Reportable 03/20/20 05:55 Morris % (Auto) Not Reportable 03/20/20 05:55 Eos % (Auto) Not Reportable 03/20/20 05:55 Baso % (Auto) Not Reportable 03/20/20 05:55 Absolute Neuts (auto) Not Reportable 03/20/20 05:55 Absolute Lymphs (auto) Not Reportable 03/20/20 05:55 Absolute Monos (auto) Not Reportable 03/20/20 05:55 Absolute Eos (auto) Not Reportable 03/20/20 05:55 Absolute Basos (auto) Not Reportable 03/20/20 05:55 Total Counted 100 03/20/20 05:55 Seg Neutrophils % Not Reportable 03/20/20 05:55 Seg Neuts % (Manual) 55 % (42-78) 03/20/20 05:55 Band Neutrophils % 1 % (3-5) L 03/20/20 05:55 Lymphocytes % (Manual) 34 % (13-45) 03/20/20 05:55 Atypical Lymphs % 2 % (0) 03/19/20 05:55 Monocytes % (Manual) 5 % (3-13) 03/20/20 05:55 Eosinophils % (Manual) 5 % (0-6) 03/20/20 05:55 Basophils % (Manual) 0 % (0-2) 03/20/20 05:55 Abs Neuts (Manual) 2.5 10^3/uL (1.7-8.2) 03/20/20 05:55 Abs Lymphs (Manual) 1.5 10^3/uL (0.5-4.7) 03/20/20 05:55 Abs Monocytes (Manual) 0.2 10^3/uL (0.1-1.4) 03/20/20 05:55 Absolute Eos (Manual) 0.2 10^3/uL (0.0-0.6) 03/20/20 05:55 Abs Basophils (Manual) 0.0 10^3/uL (0.0-0.2) 03/20/20 05:55 Nucleated RBCs 1 /100 WBC (0) 03/20/20 05:55 Platelet Comment DECREASED 03/20/20 05:55 Anisocytosis SLIGHT 03/20/20 05:55 PT 17.9 SEC (11.4-15.4) H 03/17/20 22:14 INR 1.46 03/17/20 22:14 APTT 39.1 SEC (23.5-35.8) H 03/17/20 22:14 Sodium 144.2 mmol/L (137-145) 03/21/20 05:10 Potassium 3.7 mmol/L (3.6-5.0) 03/21/20 05:10 Chloride 115 mmol/L (98-107) H 03/21/20 05:10 Carbon Dioxide 25 mmol/L (22-30) 03/21/20 05:10 Anion Gap 4 (5-19) L 03/21/20 05:10 BUN 14 mg/dL (7-20) 03/21/20 05:10 Creatinine 0.53 mg/dL (0.52-1.25) 03/21/20 05:10 Est GFR ( Amer) > 60 (>60) 03/21/20 05:10 Est GFR (MDRD) Non-Af > 60 (>60) 03/21/20 05:10 Glucose 82 mg/dL (75-110) 03/21/20 05:10 POC Glucose 102 mg/dL (70-110) 03/20/20 05:24 Calcium 8.0 mg/dL (8.4-10.2) L 03/21/20 05:10 Phosphorus 1.9 mg/dL (2.5-4.5) L 03/19/20 07:27 Magnesium 1.5 mg/dL (1.6-2.3) L 03/21/20 05:10 Total Bilirubin 0.4 mg/dL (0.2-1.3) 03/17/20 22:14 Direct Bilirubin 0.1 mg/dL (0.0-0.4) 03/17/20 22:14 Neonat Total Bilirubin Not Reportable 03/17/20 22:14 Neonat Direct Bilirubin Not Reportable 03/17/20 22:14 Neonat Indirect Bili Not Reportable 03/17/20 22:14 AST 27 U/L (14-36) 03/17/20 22:14 ALT 23 U/L (<35) 03/17/20 22:14 Alkaline Phosphatase 197 U/L (38-126) H 03/17/20 22:14 Creatine Kinase 74 U/L (30-135) 03/17/20 22:14 Troponin I 0.024 ng/mL 03/17/20 22:14 Total Protein 8.1 g/dL (6.3-8.2) 03/17/20 22:14 Albumin 3.1 g/dL (3.5-5.0) L 03/17/20 22:14 Prealbumin 6.1 mg/dL (17.6-36.0) L 03/19/20 07:27 TSH 4.20 uIU/mL (0.47-4.68) 03/17/20 22:14 Urine Color EZ 03/17/20 18:20 Urine Appearance CLOUDY 03/17/20 18:20 Urine pH 5.0 (5.0-9.0) 03/17/20 18:20 Ur Specific [place] 1.024 03/17/20 18:20 Urine Protein 30 mg/dL (NEGATIVE) H 03/17/20 18:20 Urine Glucose (UA) NEGATIVE mg/dL (NEGATIVE) 03/17/20 18:20 Urine Ketones NEGATIVE mg/dL (NEGATIVE) 03/17/20 18:20 Urine Blood NEGATIVE (NEGATIVE) 03/17/20 18:20 Urine Nitrite NEGATIVE (NEGATIVE) 03/17/20 18:20 Urine Bilirubin NEGATIVE (NEGATIVE) 03/17/20 18:20 Urine Urobilinogen 2.0 mg/dL (<2.0) H 03/17/20 18:20 Ur Leukocyte Esterase MODERATE (NEGATIVE) H 03/17/20 18:20 Urine WBC (Auto) 38 /HPF 03/17/20 18:20 Urine RBC (Auto) 51 /HPF 03/17/20 18:20 U Hyaline Cast (Auto) 62 /LPF 03/17/20 18:20 Urine Bacteria (Auto) 2+ /HPF 03/17/20 18:20 Squamous Epi Cells Auto 12 /HPF 03/17/20 18:20 Amorphous Sediment Auto TRACE /HPF 03/17/20 18:20 Urine Mucus (Auto) MOD /LPF 03/17/20 18:20 Urine Ascorbic Acid 40 (NEGATIVE) H 03/17/20 18:20 Influenza A (RT-PCR) NEGATIVE (NEGATIVE) 03/17/20 23:42 Influenza B (RT-PCR) NEGATIVE (NEGATIVE) 03/17/20 23:42 RSV (RT-PCR) NEGATIVE (NEGATIVE) 03/17/20 23:42 SARS-CoV-2 Rap RNA(RT-PCR) NEGATIVE (NEGATIVE) 03/17/20 23:42 03/17/20 22:14 Troponin I 0.024 Impressions: Chest X-Ray 03/17/20 20:44 IMPRESSION: Mild right infrahilar infiltration, inflammation, or edema. copyright 2010 [employer]- All Rights Reserved Head CT 03/17/20 20:45 IMPRESSION: 1. No intracranial hemorrhage or mass lesion. 2. Diffuse global volume loss with ventricles dilated out of proportion to the degree of volume loss. This raises the possibility of normal pressure hydrocephalus. 3. Low density in the periventricular white matter is consistent with small vessel ischemic change. The appearance is stable. Stroke Is this a Stroke Patient?: No Acute Heart Failure Is this a Heart Failure Patient?: No
[2020-03-24 14:10] VITALS: BP 127/84
== END 2020-03-24 15:26 | DRG 640 ==
LOC: ER 18:01 → EH 23:31 → 3S 03-18 12:56 → 4N 03-20 13:10
PROVIDERS: ADMIT Internal Medicine; ATTEND Hospitalist
DX: E87.0 Hyperosmolality and hypernatremia (principal); E43 Unspecified severe protein-calorie malnutrition; N17.9 Acute kidney failure, unspecified; R64 Cachexia; N30.00 Acute cystitis without hematuria; I48.11 Longstanding persistent atrial fibrillation; Z68.1 Body mass index [BMI] 19.9 or less, adult; F03.90 Unspecified dementia, unspecified severity, without behavioral disturbance, psychotic disturbance, mood disturbance, and anxiety; E86.0 Dehydration; R62.7 Adult failure to thrive; E87.6 Hypokalemia; R13.10 Dysphagia, unspecified; B95.2 Enterococcus as the cause of diseases classified elsewhere; I10 Essential (primary) hypertension; E78.5 Hyperlipidemia, unspecified; E11.9 Type 2 diabetes mellitus without complications; K21.9 Gastro-esophageal reflux disease without esophagitis; Z20.828 Contact with and (suspected) exposure to other viral communicable diseases; Z74.01 Bed confinement status; Z79.899 Other long term (current) drug therapy; Z79.890 Hormone replacement therapy
CPT/HCPCS: 36415; 51702; 70450; 71045; 80048; 80053; 81001; 82550; 82962; 83735; 84100; 84134; 84443; 84484; 85025; 85610; 85730; 87040; 87086; 87088; 87186; 93005; 93010; 99285; 0241U; C9803; J0290; J0696; J1644; J3480; J7030; J7050; J7060

== ENCOUNTER 2020-03-27 07:26 | Emergency (ER) | payer MEDICARE, MEDICAID ==
[2020-03-27] MEDS ORDERED: DEXTROSE 50%-WATER 25 GM/50 ML DISP.SYRIN IV ONE (07:46)
--- NOTE | 2020-03-27 07:48 | ER Document Report ---
ED Blood Pressure Problem - General Chief Complaint: Blood Pressure Problem Stated Complaint: BLOOD PRESSURE CONCERNS Time Seen by Provider: 03/27/20 07:47 Primary Care Provider: BETTY SIMENTAL MD [Primary Care Provider] - Follow up as needed Mode of Arrival: Stretcher Notes: 84-year-old black female arrives by EMS with chief complaint from [facility] of having low blood pressure. Patient's blood pressure has not changed from 100/63 from EMS to ER. However her blood sugar was 40 on the truck and 44 here at the ER. Patient was given D50 at approximately 0 745 by staff. Patient has a prior history of COVID-19 02 March with hypernatremia AMS FTT and history also of UTI bradycardia anemia bacteremia sepsis diarrhea hypotension and atrial fibrillation. Patient also has a history of metabolic encephalopathy. She was nonverbal to staff. Patient is in multiple contractures and has booties on her bilateral feet. I did not observe any decubitus ulcers on physical exam. Patient has some jaw chewing motions and is wearing a mask. Patient appears to look at you and smile but otherwise is nonverbal. TRAVEL OUTSIDE OF THE [place] IN LAST 30 DAYS: No - HPI Patient complains to provider of: Low blood pressure Onset: Just prior to arrival Onset/Duration: Sudden, Persistent Quality of pain: No pain Severity: None Pain Level: Denies - Related Data Allergies/Adverse Reactions: No Known Allergies Allergy (Verified 03/18/20 11:20) Past Medical History - General Information source: Emergency Med Personnel - Social History Smoking Status: Unknown if Ever Smoked Cigarette use (# per day): No Chew tobacco use (# tins/day): No Smoking Education Provided: No Frequency of alcohol use: None Drug Abuse: None Lives with: Group Home Family History: Reviewed & Not Pertinent Patient has suicidal ideation: No Patient has homicidal ideation: No - Past Medical History Cardiac Medical History: Reports: Hx Atrial Fibrillation, Hx Coronary Artery Disease, Hx Hypercholesterolemia, Hx Hypertension Denies: Hx Heart Attack Pulmonary Medical History: Denies: Hx Asthma, Hx Bronchitis, Hx COPD, Hx Pneumonia Neurological Medical History: Denies: Hx Cerebrovascular Accident, Hx Seizures Endocrine Medical History: Reports: Hx Diabetes Mellitus Type 2 Renal/ Medical History: Denies: Hx Peritoneal Dialysis GI Medical History: Reports: Hx Gastroesophageal Reflux Disease Musculoskeletal Medical History: Reports Hx Arthritis, Reports Hx Musculoskeletal Deformity, Reports Hx Musculoskeletal Trauma Psychiatric Medical History: Reports: Hx Anxiety, Hx Dementia, Hx Depression, Hx Schizoaffective Disorder, Hx Schizophrenia - Immunizations Immunizations up to date: Yes Hx Diphtheria, Pertussis, Tetanus Vaccination: Yes Hx Pneumococcal Vaccination: 06/14/12 Physical Exam - Vital signs Vitals: BP 100/63 03/27/20 07:28 Interpretation: Hypotensive - General General appearance: Alert - HEENT Head: Normocephalic, Atraumatic Eyes: Normal Pupils: PERRL Pharynx: Normal Neck: Normal - Respiratory Respiratory status: No respiratory distress Chest status: Nontender Breath sounds: Normal Chest palpation: Normal - Cardiovascular Rhythm: Regular Heart sounds: Normal auscultation Murmur: No - Abdominal Inspection: Normal Distension: No distension Bowel sounds: Normal Tenderness: Nontender Organomegaly: No organomegaly - Rectal Hemorrhoids: Other - deferred - Genitourinary Bimanuel exam: Other - deferred - Back Back: Normal, Nontender - Extremities General upper extremity: Normal inspection, Nontender, Normal color, Normal ROM, Normal temperature General lower extremity: Normal inspection, Nontender, Normal color, Normal ROM, Normal temperature, Normal weight bearing. No: Natanael's sign - Neurological Neuro grossly intact: No - non verbal Cognition: Confused Orientation: No: Disoriented to person, Disoriented to place, Disoriented to time, Disoriented to events [place] Coma Scale Eye Opening: Spontaneous Timothy Coma Scale Verbal: Confused [place] Coma Scale Motor: Localizes to Pain [place] Coma Scale Total: 13 Speech: Expressive aphasia Cranial nerves: Normal Cerebellar coordination: Normal Motor strength normal: LUE - Diffuse contractures upper and lower extremities, RUE, LLE, RLE Sensory: Normal - Psychological Associated symptoms: Confused - Skin Skin Temperature: Warm Skin Moisture: Dry Skin Color: Normal Course - Vital Signs Vital signs: Temp Pulse Resp BP Pulse Ox 98.3 F 81 14 134/71 H 100 03/27/20 08:07 03/27/20 08:07 03/27/20 09:31 03/27/20 10:30 03/27/20 10:30 - Laboratory Results Result Diagrams: 03/27/20 07:55 03/27/20 07:55 Laboratory Results Interpreted: 03/27/20 03/27/20 03/27/20 07:55 07:55 09:15 WBC 2.7 L RBC 3.23 L Hgb 8.8 L Hct 26.8 L RDW 15.8 H Sodium 134.2 L Glucose 279 H Calcium 8.2 L Alkaline Phosphatase 152 H Albumin 2.6 L Urine Protein 30 H Urine Glucose (UA) 50 H Urine Ketones 20 H Urine Blood MODERATE H Urine Urobilinogen 2.0 H Ur Leukocyte Esterase MODERATE H Critical Laboratory Results Reviewed: Yes Attending or Supervising Physician who Reviewed Labs: LUIS ALFREDO PRATT JR - Radiology Results Critical Radiology Results Reviewed: No Critical Results Attending or Supervising Physician who Reviewed Radiology: LUIS ALFREDO PRATT JR Discharge - Discharge Clinical Impression: Hypoglycemia, Dehydration UTI (urinary tract infection) Qualifiers: Urinary tract infection type: acute cystitis Hematuria presence: without hematuria Qualified Code(s): N30.00 - Acute cystitis without hematuria Condition: Stable Disposition: HOME, SELF-CARE Instructions: Urinary Tract Infection ([facility]) Additional Instructions: Follow-up with personal doctor at shelter. Please have patient seen as soon as possible. Take medicines as directed. Patient has diagnosis of acute dehydration will encourage fluids. Blood pressure has corrected after IV fluids were given and antibiotics IV. Prescriptions: Levofloxacin [Levaquin 250 mg Tablet] 250 mg PO DAILY #7 tablet Referrals: BETTY SIMENTAL MD [Primary Care Provider] - Follow up as needed
[2020-03-27 08:20] LABS: ABSOLUTE LYMPHOCYTES (AUTO) 0.7 10^3/uL (0.5-4.7); ABSOLUTE MONOCYTES (AUTO) 0.2 10^3/uL (0.1-1.4); ABSOLUTE NEUT (AUTO) 1.8 10^3/uL (1.7-8.2); BASOPHILS % (AUTO) 1.1 % (0-2); EOSINOPHILS % (AUTO) 1.1 % (0-6); HEMATOCRIT 26.8 % (36.0-47.0); HEMOGLOBIN 8.8 g/dL (12.0-15.5); MEAN CORPUSCULAR HEMOGLOBIN 27.4 pg (27.0-33.4); MEAN CORPUSCULAR HGB CONC 32.9 g/dL (32.0-36.0); MEAN CORPUSCULAR VOLUME 83 fl (80-97); MONOCYTES % (AUTO) 5.7 % (3-13); PLATELET COUNT 226 10^3/uL (150-450); RED BLOOD COUNT 3.23 10^6/uL (3.72-5.28); RED CELL DISTRIBUTION WIDTH 15.8 % (11.5-14.0); SEGMENTED NEUTROPHILS % (AUTO) 65.1 % (42-78); TOTAL CELLS COUNTED % (AUTO) 100 %; WHITE BLOOD COUNT 2.7 10^3/uL (4.0-10.5)
[2020-03-27 08:29] LABS: ALBUMIN 2.6 g/dL (3.5-5.0); ALKALINE PHOSPHATASE 152 U/L (38-126); ANION GAP 10 (5-19); ASPARTATE AMINO TRANSFERASE 25 U/L (14-36); BILIRUBIN,DIRECT 0.3 mg/dL (0.0-0.4); BILIRUBIN,TOTAL 0.4 mg/dL (0.2-1.3); BLOOD UREA NITROGEN 16 mg/dL (7-20); CALCIUM 8.2 mg/dL (8.4-10.2); CARBON DIOXIDE 24 mmol/L (22-30); CHLORIDE 100 mmol/L (98-107); GLUCOSE 279 mg/dL (75-110); POTASSIUM 3.9 mmol/L (3.6-5.0); TOTAL PROTEIN 6.6 g/dL (6.3-8.2)
[2020-03-27] MEDS ORDERED: NORMAL SALINE 500 ML IV ONE (08:52)
[2020-03-27 09:51] LABS: APPEARANCE,URINE CLOUDY; BILIRUBIN,URINE NEGATIVE (NEGATIVE); COLOR,URINE YELLOW; GLUCOSE, URINE 50 mg/dL (NEGATIVE); KETONES,URINE 20 mg/dL (NEGATIVE); LEUKOCYTE ESTERASE,URINE MODERATE (NEGATIVE); NITRITE,URINE NEGATIVE (NEGATIVE); PROTEIN,URINE 30 mg/dL (NEGATIVE); URINE SPECIFIC GRAVITY 1.017
[2020-03-27] MEDS ORDERED: VANCOMYCIN HCL INJ 1000 MG VIAL IV ONE (10:16)
[2020-03-27 12:44] VITALS: BP 108/64
== END 2020-03-27 12:44 ==
LOC: ER 07:26
DX: E11.649 Type 2 diabetes mellitus with hypoglycemia without coma (principal); I25.10 Atherosclerotic heart disease of native coronary artery without angina pectoris; I10 Essential (primary) hypertension; E86.0 Dehydration; Z86.16 Personal history of COVID-19
CPT/HCPCS: 99284; 96361; 96375; 96365; 36415; 87040; 87086; 82962; 85025; 87077; 80053; 81001; 87186; J3490; J7040; J3370